=== PATIENT | male | born 1935 | race Caucasian/White ===

== ENCOUNTER 2016-08-16 11:35 | Day surgery (SDC) | payer MEDICARE, OTHER ==
[~2016-08-16 11:35] MED LIST: Cefuroxime 10 MG/ML SYRINGE EYERT SCH; Lidocaine 1% PF 2 ML SDV INJECT SCH; Pilocarpine 4% Ophth Soln 15 ML Bot EYERT SCH; Tetracaine 0.5% 2 ML Bottle EYERT SCH
[2016-08-16] MEDS: Polymyxin B/Trimethoprim 10 ML Bottle EYERT SCH ×3 (12:56→14:36)
[2016-08-16] MEDS: Apraclonidine 0.5% Ophth Soln 5 ML Bot EYERT SCH ×3 (13:01→14:36)
[2016-08-16] MEDS: Phenylephrine 2.5% Ophth Soln 2 ML Bot EYERT SCH ×5 (13:06→14:20)
--- NOTE | 2016-08-16 13:29 | PCM.PREANE ---
Preanesthetic Assessment - Anesthesia/Transfusion/Family Hx Anesthesia History: Prior Anesthesia Without Reaction Family History of Anesthesia Reaction: No Transfusion History: No Prior Transfusion(s) Intubation History: Unknown - Review of Systems General: No Symptoms Pulmonary: Shortness of Breath (pulmonary fibrosis ) Cardiovascular: No Symptoms Gastrointestinal: No symptoms Neurological: No Symptoms Other: Reports: Easy Bleeding, Easy Bruising (on an anticogulant ) - Physical Assessment NPO Status Date: 08/16/16 NPO Status Time: 06:00 O2 Sat by Pulse Oximetry: 99 Respiratory Rate: 16 Vital Signs: Last Vital Signs Temp 36.3 C 08/16/16 12:40 Pulse 68 08/16/16 12:40 Resp 16 08/16/16 12:40 BP 124/70 08/16/16 12:40 Pulse Ox 99 08/16/16 12:40 Height: 1.73 m Weight: 83.915 kg ASA Class: 3 Mental Status: Alert & Oriented x3 Airway Class: Mallampati = 1 Dentition: Reports: Normal Dentition Thyro-Mental Finger Breadths: 3 Mouth Opening Finger Breadths: 5 ROM/Head Extension: Limited/Partial (arthritis) Lungs: Clear to auscultation (and diminished ), Normal respiratory effort Cardiovascular: Regular Rate, Regular Rhythm - Allergies Allergies/Adverse Reactions: Allergies Allergy/AdvReac Type Severity Reaction Status Date / Time niacin Allergy Cannot Verified 08/15/16 13:52 Remember - Blood Blood Available: No - Anesthesia Plan Pre-Op Medication Ordered: None Beta Grecia: Metoprolol Med Last Dose Date: 08/15/16 Med Last Dose Time: 22:00 - Acknowledgements Anesthesia Type Planned: MAC Pt an Appropriate Candidate for the Planned Anesthesia: Yes Alternatives and Risks of Anesthesia Discussed w Pt/Guardian: Yes Pt/Guardian Understands and Agrees with Anesthesia Plan: Yes PreAnesthesia Questionnaire HEENT History: Reports: Impaired vision Cardiovascular History: Reports: High cholesterol, [place] (20 years ago, 2 stents placed) Respiratory History: Reports: Pulmonary fibrosis Gastrointestinal History: Reports: None Genitourinary History: Reports: None Musculoskeletal History: Reports: Arthritis Endocrine/Metabolic History: Reports: Diabetes, type II - Infectious Disease History Infectious Disease History: Reports: None - HOME MEDS Home Medications: Home Meds Albuterol Sulfate 1 dose NEB Q4H PRN 08/15/16 [History] Aspirin 81 mg PO DAILY 08/15/16 [History] Cholecalciferol (Vitamin D3) [Vitamin D3] 2,000 unit PO DAILY 08/15/16 [History] Ezetimibe [Zetia] 10 mg PO DAILY 08/15/16 [History] Fesoterodine Fumarate [Toviaz] 8 mg PO DAILY 08/15/16 [History] Insulin Glarg,Human.Rec.Analog [LantUS Solostar] 10 units SQ BEDTIME 08/15/16 [ History] Levothyroxine 25 mcg PO DAILY 08/15/16 [History] Meloxicam 15 mg PO DAILY 08/15/16 [History] Methylcellulose [Citrucel] 1 dose PO DAILY PRN 08/15/16 [History] Metoprolol Succinate 50 mg PO DAILY 08/15/16 [History] Multivitamin [Multivitamins] 1 tab PO DAILY 08/15/16 [History] Nystatin 500,000 unit PO ASDIRECTED PRN 08/15/16 [History] Simvastatin [Zocor] 20 mg PO DAILY 08/15/16 [History] Triamcinolone Acetonide [IJP: Triamcinolone Acetonide 0.1% Crm] 1 applic TOP ASDIRECTED PRN 08/15/16 [History] glipiZIDE [Glipizide] 10 mg PO DAILY 08/15/16 [History] guaiFENesin [Guaifenesin] 200 mg PO Q6H PRN 08/15/16 [History] metFORMIN HCl [Metformin HCl] 1,000 mg PO BID 08/15/16 [History] - CURRENT (IN HOUSE) MEDS Current Meds: Current Medications Apraclonidine HCl (Iopidine 0.5% Ophth Soln) 0 ml EYERT ASDIRECTED CHITRA Stop: 08/16/16 18:00 Last Admin: 08/16/16 13:01 Dose: 1 drop Cefuroxime Sodium (Zinacef) 0 mg EYERT ASDIRECTED CHITRA Stop: 08/16/16 18:00 Lidocaine HCl (Xylocaine-Mpf 1%) 2 ml INJECT ASDIRECTED CHITRA Stop: 08/16/16 18:00 Phenylephrine HCl (Thai-Synephrine 2.5% Ophth Soln) 0 ml EYERT ASDIRECTED CHITRA Stop: 08/16/16 18:00 Last Admin: 08/16/16 13:16 Dose: 1 drop Pilocarpine HCl (Pilocar 4% Ophth Soln) 0 ml EYERT ASDIRECTED CHITRA Stop: 08/16/16 18:00 Polymyxin/Trimethoprim Sulfate (Polytrim Ophth Soln) 0 ml EYERT ASDIRECTED CHITRA Stop: 08/16/16 18:00 Last Admin: 08/16/16 12:56 Dose: 1 drop Proparacaine HCl (Proparacaine 0.5% Ophth Soln) 0 ml EYEBOTH ASDIRECTED CHITRA Stop: 08/16/16 18:00 Tetracaine (Pontocaine 0.5% Ophth Drops) 0 ml EYERT ASDIRECTED CHITRA Stop: 08/16/16 18:00 Tropicamide (Mydriacyl 1% Ophth Soln) 0 ml EYERT ASDIRECTED CHITRA Stop: 08/16/16 18:00 Last Admin: 08/16/16 13:10 Dose: 1 drop Preanesthetic Assessment - PHYSICAL ASSESSMENT O2 Sat by Pulse Oximetry: 99 RR: 16 Vital Signs: Last Vital Signs Temp 36.3 C 08/16/16 12:40 Pulse 68 08/16/16 12:40 Resp 16 08/16/16 12:40 BP 124/70 08/16/16 12:40 Pulse Ox 99 08/16/16 12:40 Height: 1.73 m Weight: 83.915 kg NPO Status Date: 08/16/16 NPO Status Time: 06:00 - ALLERGIES Allergies/Adverse Reactions: Allergies Allergy/AdvReac Type Severity Reaction Status Date / Time niacin Allergy Cannot Verified 08/15/16 13:52 Remember
[2016-08-16] MEDS: Proparacaine 0.5% Ophth Soln 15 ML Bottle EYEBOTH SCH ×2 (14:10→14:36)
--- NOTE | 2016-08-16 14:38 | PCM48HPAN ---
Post Anesthesia Note - EVALUATION WITHIN 48HRS OF ANESTHETIC Vital Signs in Normal Range: Yes Patient Participated in Evaluation: Yes Respiratory Function Stable: Yes Airway Patent: Yes Cardiovascular Function Stable: Yes Hydration Status Stable: Yes Pain Control Satisfactory: Yes Nausea and Vomiting Control Satisfactory: Yes Mental Status Recovered: Yes
[2016-08-16 14:57] VITALS: BP 109/83
== END 2016-08-16 14:52 | disposition home or self-care (01) ==
LOC: JD.SDS 11:35
PROVIDERS: ATTEND Ophthalmology
DX: H26.9 Unspecified cataract (principal); E78.00 Pure hypercholesterolemia, unspecified; E11.9 Type 2 diabetes mellitus without complications; Z79.4 Long term (current) use of insulin; Z98.890 Other specified postprocedural states; Z96.649 Presence of unspecified artificial hip joint; Z79.82 Long term (current) use of aspirin; Z79.899 Other long term (current) drug therapy
CPT/HCPCS: 66984; A9270; J0697; C1780

== ENCOUNTER 2016-09-13 10:25 | Day surgery (SDC) | payer MEDICARE, OTHER ==
[2016-09-13] MEDS: Polymyxin B/Trimethoprim 10 ML Bottle EYELF SCH ×4 (11:14→12:46)
[2016-09-13] MEDS: Brimonidine 0.2% Ophth Soln 5 ML Bottle EYELF SCH ×4 (11:19→12:46)
[2016-09-13] MEDS: Phenylephrine 2.5% Ophth Soln 2 ML Bot EYELF SCH ×6 (11:24→12:33)
--- NOTE | 2016-09-13 11:37 | PCM.PREANE ---
Preanesthetic Assessment - Anesthesia/Transfusion/Family Hx Anesthesia History: Prior Anesthesia Without Reaction Family History of Anesthesia Reaction: No Transfusion History: No Prior Transfusion(s) Intubation History: Unknown - Review of Systems General: No Symptoms Pulmonary: Shortness of Breath (due to bronchial fibrosis) Cardiovascular: No Symptoms Gastrointestinal: No symptoms Neurological: No Symptoms Other: Reports: Diabetes, Thyroid Problems - Physical Assessment NPO Status Date: 09/12/16 NPO Status Time: 22:00 O2 Sat by Pulse Oximetry: 99 Respiratory Rate: 16 Vital Signs: Last Vital Signs Temp 36.3 C 09/13/16 11:05 Pulse 78 09/13/16 11:05 Resp 16 09/13/16 11:05 BP 123/65 09/13/16 11:05 Pulse Ox 99 09/13/16 11:05 Height: 1.73 m Weight: 83.915 kg ASA Class: 2 Mental Status: Alert & Oriented x3 Airway Class: Mallampati = 1 Dentition: Reports: Normal Dentition Thyro-Mental Finger Breadths: 3 Mouth Opening Finger Breadths: 3 ROM/Head Extension: Full Lungs: Normal respiratory effort, Crackles (RLL inspiratory) Cardiovascular: Regular Rate, Regular Rhythm - Allergies Allergies/Adverse Reactions: Allergies Allergy/AdvReac Type Severity Reaction Status Date / Time niacin Allergy Cannot Verified 09/12/16 14:05 Remember - Acknowledgements Anesthesia Type Planned: MAC Pt an Appropriate Candidate for the Planned Anesthesia: Yes Alternatives and Risks of Anesthesia Discussed w Pt/Guardian: Yes Pt/Guardian Understands and Agrees with Anesthesia Plan: Yes PreAnesthesia Questionnaire HEENT History: Reports: Impaired vision Cardiovascular History: Reports: High cholesterol, [place] (20 years ago, 2 stents placed) Respiratory History: Reports: Pulmonary fibrosis (pt states had stem cell procedure about a month ago-less SOB with exertion now) Gastrointestinal History: Reports: None Genitourinary History: Reports: None Musculoskeletal History: Reports: Arthritis Neurological History: Reports: None Psychiatric History: Reports: None Endocrine/Metabolic History: Reports: Diabetes, type II, Hypothyroidism Hematologic History: Reports: None Immunologic History: Reports: None Oncologic (Cancer) History: Reports: None Dermatologic History: Reports: None - Infectious Disease History Infectious Disease History: Reports: None - Past Surgical History Head Surgeries/Procedures: Reports: None HEENT Surgical History: Reports: Tonsillectomy Cardiovascular Surgical History: Reports: None, Coronary artery stent Respiratory Surgical History: Reports: None GI Surgical History: Reports: Colonoscopy, Hernia, inguinal, Heather fundoplication Female Surgical History: Reports: None Male Surgical History: Reports: None Endocrine Surgical History: Reports: None Neurological Surgical History: Reports: Lumbar spine, Other (see below) Musculoskeletal Surgical History: Reports: Hip replacement, Shoulder surgery Oncologic Surgical History: Reports: None Dermatological Surgical History: Reports: None (no anesthetic compications with any procedures) - SUBSTANCE USE Smoking Status *Q: Never Smoker - HOME MEDS Home Medications: Home Meds Albuterol Sulfate 1 dose NEB Q4H PRN 08/15/16 [History] Aspirin 81 mg PO DAILY 08/15/16 [History] Cholecalciferol (Vitamin D3) [Vitamin D3] 2,000 unit PO DAILY 08/15/16 [History] Ezetimibe [Zetia] 10 mg PO DAILY 08/15/16 [History] Fesoterodine Fumarate [Toviaz] 8 mg PO DAILY 08/15/16 [History] Insulin Glarg,Human.Rec.Analog [LantUS Solostar] 10 units SQ BEDTIME 08/15/16 [ History] Levothyroxine 25 mcg PO DAILY 08/15/16 [History] Meloxicam 15 mg PO DAILY 08/15/16 [History] Methylcellulose [Citrucel] 1 dose PO DAILY PRN 08/15/16 [History] Metoprolol Succinate 50 mg PO DAILY 08/15/16 [History] Multivitamin [Multivitamins] 1 tab PO DAILY 08/15/16 [History] Nystatin 500,000 unit PO ASDIRECTED PRN 08/15/16 [History] Simvastatin [Zocor] 20 mg PO DAILY 08/15/16 [History] Triamcinolone Acetonide [IJP: Triamcinolone Acetonide 0.1% Crm] 1 applic TOP ASDIRECTED PRN 08/15/16 [History] glipiZIDE [Glipizide] 10 mg PO DAILY 08/15/16 [History] guaiFENesin [Guaifenesin] 200 mg PO Q6H PRN 08/15/16 [History] metFORMIN HCl [Metformin HCl] 1,000 mg PO BID 08/15/16 [History] - CURRENT (IN HOUSE) MEDS Current Meds: Current Medications Brimonidine Tartrate (Alphagan 0.2% Ophth Soln) 0 ml EYELF ASDIRECTED CHITRA Stop: 09/13/16 18:00 Last Admin: 09/13/16 11:19 Dose: 1 drop Cefuroxime Sodium (Zinacef) 0 mg EYELF ASDIRECTED CHITRA Stop: 09/13/16 18:00 Lidocaine HCl (Xylocaine-Mpf 1%) 1 ml INJECT ASDIRECTED CHITRA Stop: 09/13/16 18:00 Phenylephrine HCl (Thai-Synephrine 2.5% Ophth Soln) 0 ml EYELF ASDIRECTED CHITRA Stop: 09/13/16 18:00 Last Admin: 09/13/16 11:24 Dose: 1 drop Pilocarpine HCl (Pilocar 4% Ophth Soln) 0 ml EYELF ASDIRECTED CHITRA Stop: 09/13/16 18:00 Polymyxin/Trimethoprim Sulfate (Polytrim Ophth Soln) 0 ml EYELF ASDIRECTED CHITRA Stop: 09/13/16 18:00 Last Admin: 09/13/16 11:14 Dose: 1 drop Proparacaine HCl (Proparacaine 0.5% Ophth Soln) 0 ml EYEBOTH ASDIRECTED CHITRA Stop: 09/13/16 18:00 Tetracaine (Pontocaine 0.5% Ophth Drops) 0 ml EYELF ASDIRECTED CHITRA Stop: 09/13/16 18:00 Tropicamide (Mydriacyl 1% Ophth Soln) 0 ml EYELF ASDIRECTED CHITRA Stop: 09/13/16 18:00 Last Admin: 09/13/16 11:29 Dose: 1 drop
[2016-09-13] MEDS: Lidocaine 1% PF 2 ML SDV INJECT SCH ×2 (12:19→12:38)
[2016-09-13] MEDS: Cefuroxime 10 MG/ML SYRINGE EYELF SCH ×2 (12:19→12:44)
[2016-09-13] MEDS: Tetracaine 0.5% 2 ML Bottle EYELF SCH ×2 (12:19→12:38)
[2016-09-13] MEDS: Pilocarpine 4% Ophth Soln 15 ML Bot EYELF SCH ×2 (12:20→12:46)
[2016-09-13] MEDS: Proparacaine 0.5% Ophth Soln 15 ML Bottle EYEBOTH SCH ×3 (12:20→12:30)
[2016-09-13 13:05] VITALS: BP 115/62
== END 2016-09-13 13:02 | disposition home or self-care (01) ==
LOC: JD.SDS 10:25
PROVIDERS: ATTEND Ophthalmology
DX: H26.9 Unspecified cataract (principal); E78.00 Pure hypercholesterolemia, unspecified; E11.9 Type 2 diabetes mellitus without complications; Z96.649 Presence of unspecified artificial hip joint; Z98.890 Other specified postprocedural states; Z79.82 Long term (current) use of aspirin; Z79.899 Other long term (current) drug therapy; Z79.84 Long term (current) use of oral hypoglycemic drugs
CPT/HCPCS: 66984; A9270; C1780; J0697

== ENCOUNTER 2018-01-27 23:49 | Emergency (ER) | payer OTHER, MEDICARE ==
[2018-01-27] MEDS ORDERED: Sodium Chloride 0.9% 10 ML Syringe FLUSH PRN (23:54)
--- NOTE | 2018-01-28 00:13 | EDM.PDOC ---
ED HPI GENERAL MEDICAL PROBLEM - General Chief Complaint: Abdominal Pain Stated Complaint: tal ambulance Time Seen by Provider: 01/27/18 23:52 Source of Information: Reports: Patient, EMS, EMS Notes Reviewed, Old Records History Limitations: Reports: No Limitations - History of Present Illness INITIAL COMMENTS - FREE TEXT/NARRATIVE: Patient presents with increasing abdominal distention and nausea associated with dark black stools. He had onset of symptoms apparently 4 days ago Monday where he noted some loose stool sometimes black associated with gas and bloated feeling. Denies any fevers chills or sweats. No vomiting noted. Does have cough however he has a history of interstitial lung disease. No chest pain or shortness of breath noted. Started have more intermittent pain and tonight excessive belching but also passing gas through his rectum. Family got the point where he really wasn't passing gas and having increasing abdominal bloating and distention and called 911 tonight. He seemed to make the pain better or worse he had a hernia repair he denies any other abdominal surgeries. He does have a history of coronary disease and has had 2 stents placed in the past. He is an insulin-dependent diabetic and his prehospital blood sugar was 260 he takes aspirin regularly but is not on any blood thinners/anticoagulants. Abdomen Pain Score (Numeric/FACES): 8 - Related Data Allergies Allergy/AdvReac Type Severity Reaction Status Date / Time niacin Allergy Cannot Verified 09/12/16 14:05 MDT Remember [id number] Reductase Allergy Other Verified 01/27/18 23:59 MDT Inhibitor Home Meds: Home Meds Aspirin 81 mg PO DAILY 08/15/16 [History] Cholecalciferol (Vitamin D3) [Vitamin D3] 2,000 unit PO DAILY 08/15/16 [History] Ezetimibe [Zetia] 10 mg PO DAILY 08/15/16 [History] Fesoterodine Fumarate [Toviaz] 8 mg PO DAILY 08/15/16 [History] Insulin Glarg,Human.Rec.Analog [LantUS Solostar] 12 units SQ BEDTIME 08/15/16 [ History] Levothyroxine 50 mcg PO DAILY 08/15/16 [History] Metoprolol Succinate 25 mg PO DAILY 08/15/16 [History] Multivitamin [Multivitamins] 1 tab PO DAILY 08/15/16 [History] Nystatin 2 tsp PO ASDIRECTED PRN 08/15/16 [History] Triamcinolone Acetonide [IJP: Triamcinolone Acetonide 0.1% Crm] 1 applic TOP ASDIRECTED PRN 08/15/16 [History] glipiZIDE [Glipizide] 5 mg PO BID 08/15/16 [History] guaiFENesin [Guaifenesin] 200 mg PO Q6H PRN 08/15/16 [History] Albuterol Sulfate [Proair Hfa] 2 puff IH QID PRN 01/28/18 [History] Rosuvastatin [Crestor] 10 mg PO DAILY 01/28/18 [History] Past Medical History HEENT History: Reports: Impaired Vision Cardiovascular History: Reports: High Cholesterol, Hypertension, OR Respiratory History: Reports: Pulmonary Fibrosis Gastrointestinal History: Reports: Diverticulosis, GI Bleed Genitourinary History: Reports: Urinary Incontinence Musculoskeletal History: Reports: Arthritis Neurological History: Reports: None Psychiatric History: Reports: None Endocrine/Metabolic History: Reports: Diabetes, Type II, Hypothyroidism Hematologic History: Reports: None Immunologic History: Reports: None Oncologic (Cancer) History: Reports: None Dermatologic History: Reports: None - Infectious Disease History Infectious Disease History: Reports: None - Past Surgical History Head Surgeries/Procedures: Reports: None Cardiovascular Surgical History: Reports: None, Coronary Artery Stent GI Surgical History: Reports: Colonoscopy, Hernia, Inguinal, Heather Fundoplication Male Surgical History: Reports: None Neurological Surgical History: Reports: Lumbar Spine, Other (See Below) Musculoskeletal Surgical History: Reports: Hip Replacement, Shoulder Surgery Oncologic Surgical History: Reports: None Dermatological Surgical History: Reports: None Social & Family History - Family History Family Medical History: Noncontributory - Tobacco Use Smoking Status *Q: Never Smoker - Living Situation & Occupation Occupation: Retired ED ROS GENERAL - Review of Systems Review Of Systems: See Below Constitutional: Denies: Fever, Chills, Diaphoresis Respiratory: Reports: Cough, Sputum. Denies: Shortness of Breath, Hemoptysis Cardiovascular: Denies: Chest Pain, Dyspnea on Exertion, Palpitations GI/Abdominal: Reports: Abdominal Pain, Black Stool, Diarrhea, Decreased Appetite , Flatus, Nausea. Denies: Bloody Stool, Hematemesis, Vomiting : Denies: Dysuria, Flank Pain, Urgency Skin: Denies: Rash Neurological: Denies: Dizziness, Headache Psychiatric: Denies: Anxiety ED EXAM, GI/ABD - Physical Exam Exam: See Below Exam Limited By: No Limitations General Appearance: Alert, WD/WN, No Apparent Distress Throat/Mouth: Normal Inspection, Normal Oropharynx Head: Atraumatic Respiratory/Chest: Lungs Clear, Normal Breath Sounds, No Accessory Muscle Use Cardiovascular: Regular Rate, Rhythm, No Edema, No Murmur GI/Abdominal Exam: Abnormal Bowel Sounds, Other (Patient has markedly abdominal distention. His bowel sounds are hypoactive. His abdomen is firm but not tense, tenderness is mostly loud and left lower quadrant, no scars noted, no flank pain noted.). No: Rebound Extremities: Normal Inspection Neurological: Alert, Oriented Psychiatric: Normal Affect, Normal Mood Skin Exam: Warm, Dry EKG INTERPRETATION EKG Date: 01/28/18 Time: 00:23 EKG Interpretation Comments: EKG shows sinus tachycardia rate of 106 when necessary 460 ms QRS is 84 ms no acute ischemic changes noted. No acute findings noted Course - Vital Signs Text/Narrative:: Patient with increasing abdominal distention and firm abdomen not tense, no rebound tenderness. Patient has a history of a Oj fundoplication and a history of acid reflux disease, never had a history of any bleeding ulcers. He has lost his appetite, has had black stool will rule out for Hemoccult testing for GI bleeding. May be diverticulitis, rule out bowel obstruction, less likely AAA, seemed less likely acute coronary syndrome. Rule out for urinary tract infection, doubt mesenteric ischemia. We'll send patient for CT abdomen and pelvis with IV contrast, hydrated gently, patient declines any pain medicine at present. Last Recorded V/S: Last Vital Signs Temp 96.6 F 01/27/18 23:55 MDT Pulse 106 H 01/27/18 23:55 MDT Resp 18 01/27/18 23:55 MDT BP 143/80 H 01/27/18 23:55 MDT Pulse Ox 99 01/27/18 23:55 MDT - Orders/Labs/Meds Orders: Active Orders 24 hr Category Date Time Status EKG Documentation Completion [RC] STAT Care 01/27/18 23:54 Active Notify Provider Consults [RC] ASDIRECTED Care 01/28/18 01:29 Active Peripheral IV Care [RC] . DIRECTED Care 01/27/18 23:55 Active Consult to Physician [CONS] Stat Cons 01/28/18 01:27 Active Abdomen Pelvis wo Cont [CT] Stat Exams 01/27/18 23:53 Taken UA W/MICROSCOPIC [URIN] Stat Lab 01/28/18 03:50 Ordered Sodium Chloride 0.9% [Saline Flush] Med 01/27/18 23:54 Active 10 ml FLUSH ASDIRECTED PRN NG [Nasogastric Orogastric Tube Insertion] [OM.PC] Oth 01/28/18 01:29 Ordered Routine Peripheral IV Insertion Adult [OM.PC] Stat Oth 01/27/18 23:53 Ordered Medication Orders Sodium Chloride (Saline Flush) 10 ml FLUSH ASDIRECTED PRN PRN Reason: Keep Vein Open Last Admin: 01/28/18 00:07 MDT Dose: 10 ml Labs: Laboratory Tests 01/27/18 01/27/18 01/27/18 Range/Units 23:55 MDT 23:55 MDT 23:55 MDT WBC 13.67 H (4.23-9.07) K/mm3 RBC 4.35 L (4.63-6.08) M/mm3 Hgb 13.1 L (13.7-17.5) gm/L Hct 39.3 L (40.1-51.0) % MCV 90.3 (79.0-92.2) fl MCH 30.1 (25.7-32.2) pg MCHC 33.3 (32.2-35.5) g/dl RDW Std Deviation 45.3 H (35.1-43.9) fL Plt Count 254 (163-337) K/mm3 MPV 9.0 L (9.4-12.3) fl Neut % (Auto) 74.2 H (34.0-67.9) % Lymph % (Auto) 15.8 L (21.8-53.1) % Hubbard % (Auto) 8.6 (5.3-12.2) % Eos % (Auto) 1.0 (0.8-7.0) Baso % (Auto) 0.1 (0.1-1.2) % Neut # (Auto) 10.14 H (1.78-5.38) K/mm3 Lymph # (Auto) 2.16 (1.32-3.57) K/mm3 Hubbard # (Auto) 1.17 H (0.30-0.82) K/mm3 Eos # (Auto) 0.14 (0.04-0.54) K/mm3 Baso # (Auto) 0.02 (0.01-0.08) K/mm3 Sodium 134 L (136-145) mEq/L Potassium 4.4 (3.5-5.1) mEq/L Chloride 97 L (98-107) mEq/L Carbon Dioxide 23 (21-32) mEq/L Anion Gap 18.4 H (5-15) BUN 32 H (7-18) mg/dL Creatinine 1.8 H (0.7-1.3) mg/dL Est Cr Clr Drug Dosing 29.56 mL/min Estimated GFR (MDRD) 36 (>60) mL/min BUN/Creatinine Ratio 17.8 (14-18) Glucose 239 H (83-115) mg/dL Lactic Acid (0.4-2.0) mmol/L Calcium 9.5 (8.5-10.1) mg/dL Total Bilirubin 0.6 (0.2-1.0) mg/dL AST 24 (15-37) U/L ALT 35 (16-63) U/L Alkaline Phosphatase 86 (46-116) U/L Total Protein 8.3 H (6.4-8.2) g/dl Albumin 3.9 (3.4-5.0) g/dl Globulin 4.4 gm/dL Albumin/Globulin Ratio 0.9 L (1-2) Lipase 94 (73-393) U/L Urine Color (Yellow) Urine Appearance (Clear) Urine pH (5.0-8.0) Ur Specific [place] (1.005-1.030) Urine Protein (Negative) Urine Glucose (UA) (Negative) Urine Ketones (Negative) Urine Occult Blood (Negative) Urine Nitrite (Negative) Urine Bilirubin (Negative) Urine Urobilinogen (0.2-1.0) Ur Leukocyte Esterase (Negative) Blood Type B POSITIVE Gel Antibody Screen Negative 01/28/18 01/28/18 Range/Units 00:10 MDT 03:50 MDT WBC (4.23-9.07) K/mm3 RBC (4.63-6.08) M/mm3 Hgb (13.7-17.5) gm/L Hct (40.1-51.0) % MCV (79.0-92.2) fl MCH (25.7-32.2) pg MCHC (32.2-35.5) g/dl RDW Std Deviation (35.1-43.9) fL Plt Count (163-337) K/mm3 MPV (9.4-12.3) fl Neut % (Auto) (34.0-67.9) % Lymph % (Auto) (21.8-53.1) % Hubbard % (Auto) (5.3-12.2) % Eos % (Auto) (0.8-7.0) Baso % (Auto) (0.1-1.2) % Neut # (Auto) (1.78-5.38) K/mm3 Lymph # (Auto) (1.32-3.57) K/mm3 Hubbard # (Auto) (0.30-0.82) K/mm3 Eos # (Auto) (0.04-0.54) K/mm3 Baso # (Auto) (0.01-0.08) K/mm3 Sodium (136-145) mEq/L Potassium (3.5-5.1) mEq/L Chloride (98-107) mEq/L Carbon Dioxide (21-32) mEq/L Anion Gap (5-15) BUN (7-18) mg/dL Creatinine (0.7-1.3) mg/dL Est Cr Clr Drug Dosing mL/min Estimated GFR (MDRD) (>60) mL/min BUN/Creatinine Ratio (14-18) Glucose (83-115) mg/dL Lactic Acid 1.0 (0.4-2.0) mmol/L Calcium (8.5-10.1) mg/dL Total Bilirubin (0.2-1.0) mg/dL AST (15-37) U/L ALT (16-63) U/L Alkaline Phosphatase (46-116) U/L Total Protein (6.4-8.2) g/dl Albumin (3.4-5.0) g/dl Globulin gm/dL Albumin/Globulin Ratio (1-2) Lipase (73-393) U/L Urine Color Yellow (Yellow) Urine Appearance Clear (Clear) Urine pH 5.5 (5.0-8.0) Ur Specific [place] 1.025 (1.005-1.030) Urine Protein Negative (Negative) Urine Glucose (UA) Negative (Negative) Urine Ketones Negative (Negative) Urine Occult Blood Negative (Negative) Urine Nitrite Negative (Negative) Urine Bilirubin Negative (Negative) Urine Urobilinogen 0.2 (0.2-1.0) Ur Leukocyte Esterase Negative (Negative) Blood Type Gel Antibody Screen Meds: Medications Generic Name Dose Route Start Last Admin Trade Name Freq PRN Reason Stop Dose Admin Sodium Chloride 10 ml 01/27/18 23:54 MDT 01/28/18 00:07 MDT Saline Flush FLUSH 10 ml ASDIRECTED PRN Administration Keep Vein Open Discontinued Medications Generic Name Dose Route Start Last Admin Trade Name Freq PRN Reason Stop Dose Admin Sodium Chloride 500 mls @ 250 mls/hr 01/28/18 00:14 MDT 01/28/18 00:28 MDT Normal Saline IV 01/28/18 02:13 MDT 250 mls/hr .BOLUS ONE Administration Lidocaine HCl Confirm 01/28/18 01:17 MDT 01/28/18 02:04 MDT Xylocaine 2% Jelly Administered 01/28/18 01:18 MDT Not Given Dose 10 ml .ROUTE .STK-MED ONE Lidocaine HCl 10 ml 01/28/18 01:48 MDT 01/28/18 02:04 MDT Xylocaine 2% Jelly MUCMEM 01/28/18 01:49 MDT 10 ml ONETIME ONE Administration Morphine Sulfate 4 mg 01/28/18 00:21 MDT 01/28/18 00:30 MDT Morphine IVPUSH 01/28/18 00:22 MDT 4 mg ONETIME ONE Administration Ondansetron HCl 4 mg 01/28/18 00:21 MDT 01/28/18 00:29 MDT Zofran IVPUSH 01/28/18 00:22 MDT 4 mg ONETIME ONE Administration - Radiology Interpretation CT Results Date: 01/28/18 (V read report that demonstrates a high-grade small bowel obstruction likely from adhesions. Many markedly dilated small loops of bowel with air-fluid levels distal ileum is decompressed no mucosal thickening) - Re-Assessments/Exams Free Text/Narrative Re-Assessment/Exam: 01/28/18 01:34 NG placed and began some upper decompression on lower intermittent suction. Discussed case with Dr. Kirkland senior manager asset protection for general surgery OB and evaluated with patient.. Patient does have comorbidities and may best be sent to a higher level of care in [place]. His white count is 13,700, hemoglobin of is stable, creatinine is 1.8, history of interstitial lung disease and history of coronary disease with stents in the past. Free Text/Narrative Re-Assessment/Exam: 01/28/18 03:29 Patient seen and evaluated by Dr. Busby and he recommends patient transferred to higher level care as patient if he would have more claudications requiring surgery would be high risk especially in the small facility without cardiology and pulmonology as well as a intensive care unit capable of postop care for such a procedure. I discussed case with Dr. Maldonado senior manager asset protection for general surgery at [facility] in [place] as well as the hospitalist Dr. Lynn who will be accepting the patient in transfer by ground ambulance. Patient and family are in agreement. Departure - Departure Time of Disposition: 03:31 Disposition: Still A Patient 30 Condition: Fair, Serious Clinical Impression: Small bowel obstruction due to adhesions - Discharge Information Referrals: Natasha Brooks MD [Primary Care Provider] - Forms: ED Department Discharge - My Orders Last 24 Hours: My Active Orders 01/27/18 23:53 Abdomen Pelvis wo Cont [CT] Stat Peripheral IV Insertion Adult [OM.PC] Stat 01/27/18 23:54 EKG Documentation Completion [RC] STAT Sodium Chloride 0.9% [Saline Flush] 10 ml FLUSH ASDIRECTED PRN 01/27/18 23:55 Peripheral IV Care [RC] . DIRECTED 01/28/18 01:27 Consult to Physician [CONS] Stat 01/28/18 01:29 Notify Provider Consults [RC] ASDIRECTED NG [Nasogastric Orogastric Tube Insertion] [OM.PC] Routine 01/28/18 03:50 UA W/MICROSCOPIC [URIN] Stat - Assessment/Plan Last 24 Hours: My Active Orders 01/27/18 23:53 Abdomen Pelvis wo Cont [CT] Stat Peripheral IV Insertion Adult [OM.PC] Stat 01/27/18 23:54 EKG Documentation Completion [RC] STAT Sodium Chloride 0.9% [Saline Flush] 10 ml FLUSH ASDIRECTED PRN 01/27/18 23:55 Peripheral IV Care [RC] . DIRECTED 01/28/18 01:27 Consult to Physician [CONS] Stat 01/28/18 01:29 Notify Provider Consults [RC] ASDIRECTED NG [Nasogastric Orogastric Tube Insertion] [OM.PC] Routine 01/28/18 03:50 UA W/MICROSCOPIC [URIN] Stat
[2018-01-28] MEDS ORDERED: Sodium Chloride 0.9% 500 ML IV ONE (00:14)
[2018-01-28] MEDS ORDERED: Morphine 4 MG/ML Syringe IVPUSH ONE (00:21)
[2018-01-28] MEDS ORDERED: Ondansetron 4 MG/2 ML SDV IVPUSH ONE (00:21)
[2018-01-28] MEDS ORDERED: Lidocaine 2% Jelly 10 ML Urojet ONE (01:17)
[2018-01-28] MEDS ORDERED: Lidocaine 2% Jelly 10 ML Urojet MUCMEM ONE (01:48)
--- NOTE | 2018-01-28 02:58 | PCM.CONS ---
H&P History of Present Illness - General Date of Service: 01/28/18 Admit Problem/Dx: small bowel obstruction Source of Information: Patient, Old Records History Limitations: Reports: No Limitations - History of Present Illness Initial Comments - Free Text/Narative: 82 yo male, history of multiple chronic medical problems and prior abdominal surgery, presents with increasing abdominal distention for the past 5 days. The distention was associated with abdominal pain, which would relieve with passage of flatus. He denies nausea/emesis. Prior to this episode, patient reports intermittent having similar sensation, but it would relieve quickly with passage of flatus. He also reports black stool for the past 5 days. Reports an unintentional weight loss of about 6 lbs in the past 6 months, attributed to poor appetite. His last meal was 10 hours ago, but it was only a few bites. He had a Hetaher fundoplication about 20 years ago at another hospital. He also had a prior inguinal hernia repair. Patient has a history of interstitial pulmonary fibrosis, which was attributed to chemical exposure during his time in the [employer] many years ago. He is unable to perform much physical activity due to dyspnea. Unable to walk up one flight of stairs without dyspnea. Patient was present with his , son, and his son's (who is an RN). Abdomen Pain Score (Numeric/FACES): 8 - Related Data Allergies/Adverse Reactions: Allergies Allergy/AdvReac Type Severity Reaction Status Date / Time niacin Allergy Cannot Verified 09/12/16 14:05 Remember [id number] Reductase Allergy Other Verified 01/27/18 23:59 Inhibitor Home Medications: Home Meds Aspirin 81 mg PO DAILY 08/15/16 [History] Cholecalciferol (Vitamin D3) [Vitamin D3] 2,000 unit PO DAILY 08/15/16 [History] Ezetimibe [Zetia] 10 mg PO DAILY 08/15/16 [History] Fesoterodine Fumarate [Toviaz] 8 mg PO DAILY 08/15/16 [History] Insulin Glarg,Human.Rec.Analog [LantUS Solostar] 12 units SQ BEDTIME 08/15/16 [ History] Levothyroxine 50 mcg PO DAILY 08/15/16 [History] Metoprolol Succinate 25 mg PO DAILY 08/15/16 [History] Multivitamin [Multivitamins] 1 tab PO DAILY 08/15/16 [History] Nystatin 2 tsp PO ASDIRECTED PRN 08/15/16 [History] Triamcinolone Acetonide [IJP: Triamcinolone Acetonide 0.1% Crm] 1 applic TOP ASDIRECTED PRN 08/15/16 [History] glipiZIDE [Glipizide] 5 mg PO BID 08/15/16 [History] guaiFENesin [Guaifenesin] 200 mg PO Q6H PRN 08/15/16 [History] Albuterol Sulfate [Proair Hfa] 2 puff IH QID PRN 01/28/18 [History] Rosuvastatin [Crestor] 10 mg PO DAILY 01/28/18 [History] Past Medical History HEENT History: Reports: Impaired Vision Cardiovascular History: Reports: High Cholesterol, Hypertension, ME (s/p coronary stents (25 years ago)), Stents Respiratory History: Reports: Pulmonary Fibrosis (recent PFT showed moderate severe obstructive disease) Gastrointestinal History: Reports: Diverticulosis, GI Bleed Genitourinary History: Reports: Urinary Incontinence Musculoskeletal History: Reports: Arthritis Neurological History: Reports: None Psychiatric History: Reports: None Endocrine/Metabolic History: Reports: Diabetes, Type II (insulin-dependent), Hypothyroidism Hematologic History: Reports: None Immunologic History: Reports: None Oncologic (Cancer) History: Reports: None Dermatologic History: Reports: None - Infectious Disease History Infectious Disease History: Reports: None - Past Surgical History Head Surgeries/Procedures: Reports: None Cardiovascular Surgical History: Reports: Coronary Artery Stent GI Surgical History: Reports: Colonoscopy, Hernia, Inguinal, Heather Fundoplication (laparoscopic) Male Surgical History: Reports: None Neurological Surgical History: Reports: Lumbar Spine, Other (See Below) Musculoskeletal Surgical History: Reports: Hip Replacement, Shoulder Surgery Oncologic Surgical History: Reports: None Dermatological Surgical History: Reports: None Social & Family History - Family History Family Medical History: Noncontributory - Tobacco Use Smoking Status *Q: Never Smoker - Alcohol Use Alcohol Use History: No - Recreational Drug Use Recreational Drug Use: No - Living Situation & Occupation Living situation: Reports: , with Family (Lives with ) Occupation: Retired H&P Review of Systems - Review of Systems: Review Of Systems: ROS reveals no pertinent complaints other than HPI. Exam - Exam Exam: See Below - Vital Signs Vital Signs: Last Vital Signs Temp 35.9 C 01/27/18 23:55 Pulse 106 H 01/27/18 23:55 Resp 18 01/27/18 23:55 BP 143/80 H 01/27/18 23:55 Pulse Ox 99 01/27/18 23:55 Weight: 83.915 kg - Exam General: Alert, Oriented, Cooperative. No: Mild Distress HEENT: Conjunctiva Clear, Mucosa Moist & [place], Other (NG tube in place, with 400 cc thick bilious fluid in the canister.) Neck: Supple, Trachea Midline Lungs: Clear to Auscultation Cardiovascular: Regular Rhythm, Normal S1, Normal S2, Tachycardia GI/Abdominal Exam: Normal Bowel Sounds, Distended, Tender (Tender all over the abdomen, especially to the central portion. NO skin changes. NO peritoneal signs.), Hernia (No umbilical or inguinal hernias. No ventral hernias.) Extremities: Normal Inspection Skin: Warm, Dry, Intact Neuro Extensive - Mental Status: Alert, Normal Mood/Affect Psychiatric: Alert, Normal Affect, Normal Mood - Patient Data Lab Results Last 24 hrs: Laboratory Results - last 24 hr 01/27/18 01/27/18 01/27/18 Range/Units 23:55 23:55 23:55 WBC 13.67 H (4.23-9.07) K/mm3 RBC 4.35 L (4.63-6.08) M/mm3 Hgb 13.1 L (13.7-17.5) gm/L Hct 39.3 L (40.1-51.0) % MCV 90.3 (79.0-92.2) fl MCH 30.1 (25.7-32.2) pg MCHC 33.3 (32.2-35.5) g/dl RDW Std Deviation 45.3 H (35.1-43.9) fL Plt Count 254 (163-337) K/mm3 MPV 9.0 L (9.4-12.3) fl Neut % (Auto) 74.2 H (34.0-67.9) % Lymph % (Auto) 15.8 L (21.8-53.1) % [place] % (Auto) 8.6 (5.3-12.2) % Eos % (Auto) 1.0 (0.8-7.0) Baso % (Auto) 0.1 (0.1-1.2) % Neut # (Auto) 10.14 H (1.78-5.38) K/mm3 Lymph # (Auto) 2.16 (1.32-3.57) K/mm3 [place] # (Auto) 1.17 H (0.30-0.82) K/mm3 Eos # (Auto) 0.14 (0.04-0.54) K/mm3 Baso # (Auto) 0.02 (0.01-0.08) K/mm3 Sodium 134 L (136-145) mEq/L Potassium 4.4 (3.5-5.1) mEq/L Chloride 97 L (98-107) mEq/L Carbon Dioxide 23 (21-32) mEq/L Anion Gap 18.4 H (5-15) BUN 32 H (7-18) mg/dL Creatinine 1.8 H (0.7-1.3) mg/dL Est Cr Clr Drug Dosing 29.56 mL/min Estimated GFR (MDRD) 36 (>60) mL/min BUN/Creatinine Ratio 17.8 (14-18) Glucose 239 H (83-115) mg/dL Lactic Acid (0.4-2.0) mmol/L Calcium 9.5 (8.5-10.1) mg/dL Total Bilirubin 0.6 (0.2-1.0) mg/dL AST 24 (15-37) U/L ALT 35 (16-63) U/L Alkaline Phosphatase 86 (46-116) U/L Total Protein 8.3 H (6.4-8.2) g/dl Albumin 3.9 (3.4-5.0) g/dl Globulin 4.4 gm/dL Albumin/Globulin Ratio 0.9 L (1-2) Lipase 94 (73-393) U/L Blood Type B POSITIVE Gel Antibody Screen Negative 01/28/18 Range/Units 00:10 WBC (4.23-9.07) K/mm3 RBC (4.63-6.08) M/mm3 Hgb (13.7-17.5) gm/L Hct (40.1-51.0) % MCV (79.0-92.2) fl MCH (25.7-32.2) pg MCHC (32.2-35.5) g/dl RDW Std Deviation (35.1-43.9) fL Plt Count (163-337) K/mm3 MPV (9.4-12.3) fl Neut % (Auto) (34.0-67.9) % Lymph % (Auto) (21.8-53.1) % [place] % (Auto) (5.3-12.2) % Eos % (Auto) (0.8-7.0) Baso % (Auto) (0.1-1.2) % Neut # (Auto) (1.78-5.38) K/mm3 Lymph # (Auto) (1.32-3.57) K/mm3 [place] # (Auto) (0.30-0.82) K/mm3 Eos # (Auto) (0.04-0.54) K/mm3 Baso # (Auto) (0.01-0.08) K/mm3 Sodium (136-145) mEq/L Potassium (3.5-5.1) mEq/L Chloride (98-107) mEq/L Carbon Dioxide (21-32) mEq/L Anion Gap (5-15) BUN (7-18) mg/dL Creatinine (0.7-1.3) mg/dL Est Cr Clr Drug Dosing mL/min Estimated GFR (MDRD) (>60) mL/min BUN/Creatinine Ratio (14-18) Glucose (83-115) mg/dL Lactic Acid 1.0 (0.4-2.0) mmol/L Calcium (8.5-10.1) mg/dL Total Bilirubin (0.2-1.0) mg/dL AST (15-37) U/L ALT (16-63) U/L Alkaline Phosphatase (46-116) U/L Total Protein (6.4-8.2) g/dl Albumin (3.4-5.0) g/dl Globulin gm/dL Albumin/Globulin Ratio (1-2) Lipase (73-393) U/L Blood Type Gel Antibody Screen Result Diagrams: 01/27/18 23:55 01/27/18 23:55 Consult PN Assessment/Plan Procedures: Procedures CARDIOVASCULAR STRESS TEST (10/07/16) CATARACT SURG W/IOL 1 STAGE (09/13/16) EVALUATION OF WHEEZING (10/03/17) HT MUSCLE IMAGE SPECT MULT (10/07/16) (1) Small bowel obstruction due to adhesions SNOMED Code(s): 492005001 Code(s): K56.50 - INTESTNL ADHESIONS, UNSP TO PARTIAL VERSUS COMPLETE OBST Current Visit: Yes Problem List Initiated/Reviewed/Updated: Yes Plan: 82 yo male, s/p prior lap Heather fundoplication, history of extensive medical problems, including ME s/p coronary stents, interstitial fibrosis, insulin- dependent diabetes with hyperglycemia upon presentation, renal insufficiency ( today Cr 1.8), presenting with small bowel obstruction, likely from adhesive disease. The radiologist report of the CT scan Abd/Pelvis without contrast was reviewed, as well as the images themselves. There are multiple dilated loops of small bowel. Difficult to determine exact transition point, but it appears to be distal (ileum?) No definite abnormal intra-abdominal masses are seen. Given patient's tachycardia, abdominal tenderness, and leukocytosis, concern that patient may require surgical intervention. In addition to the patient's advanced age and co-morbidities, he has poor functional status, had a borderline stress test last year, and a recent PFT showing moderate severe obstructive disease (has known history of interstitial fibrosis). He is at high risk for worsening of his medical condition due to this acute problem, and is at high risk for perioperative complications with high risk of requiring prolonged ICU or prolonged intubation. - I recommended transfer to higher level of care. - Discussed with the patient and his family the diagnosis and the anticipated treatment plan, which would include transfer to higher level of care in [place]. Patient prefers to go to [facility]. Transport can occur by ambulance. - NG tube has already been placed by ER. - Instructed patient to save all urine output for close/strict I&O's. Case was d/w Dr. Mckeon, ER physician. Orlando Louise M.D., F.A.C.S. General Surgery Pager: [phone]
[2018-01-28 04:09] VITALS: BP 121/72
--- NOTE | 2018-01-30 10:10 | CT ---
CT abdomen and pelvis Technique: Multiple axial sections were obtained from above the dome of the diaphragm inferiorly through the pubic symphysis. Intravenous and oral contrast not utilized. Comparison: No prior CT exam. Findings: Dilated air and fluid-filled small bowel are seen. Distal ileal loops show no dilatation. Findings are compatible with small bowel obstruction which occurs within the mid small bowel. Etiology not seen and findings most likely due to adhesions. Interstitial fibrosis and scarring seen within both lung bases. Coronary artery calcification noted. Noncontrast appearance of the liver appears within normal limits. Noncontrast appearance of the spleen appears within normal limits. Increased density within the gallbladder compatible with layering gallstones. Pancreas is within normal limits. Kidneys show no abnormal calcifications. Two cysts are noted within the right kidney with largest cyst measuring 3.6 cm. Small cyst is felt to be present within the upper right kidney measuring about 1 cm. Atherosclerotic calcification noted within the aorta with areas of ectasia. Maximum AP dimension of the aorta is 2.5 cm. Atherosclerotic change continues into the iliac vessels. Appendix is seen which is normal in size. Diverticuli seen within the sigmoid colon without diverticulitis. No free fluid or inflammatory change is seen. Right hip prosthesis causes artifact. Degenerative change noted throughout the spine. Previous lower lumbar spine surgery is noted at L4 and L5. Impression: 1. Dilated small bowel which is felt compatible with mid small bowel obstruction most likely from adhesions. 2. Other findings which are felt to be incidental as described above. Diagnostic code #3 I agree with preliminary report from [facility], finalized at 01/28/18, 2:13 AM Central Time
== END 2018-01-28 03:51 ==
LOC: JD.ED 23:49
DX: K66.0 Peritoneal adhesions (postprocedural) (postinfection) (principal); I10 Essential (primary) hypertension; E11.9 Type 2 diabetes mellitus without complications; E03.9 Hypothyroidism, unspecified; E78.00 Pure hypercholesterolemia, unspecified; I25.2 Old myocardial infarction; Z79.4 Long term (current) use of insulin; Z79.82 Long term (current) use of aspirin; Z88.8 Allergy status to other drugs, medicaments and biological substances
CPT/HCPCS: 36415; 74176; 80053; 81001; 83605; 83690; 85025; 86850; 86900; 86901; 93005; 96361; 96374; 96375; 99285; J2270; J2405; J7040; J7050

== ENCOUNTER 2020-08-30 16:20 | Inpatient (IN) | payer MEDICARE, OTHER ==
[2020-08-30] MEDS ORDERED: Sodium Chloride 0.9% 10 ML Syringe FLUSH PRN (16:58)
--- NOTE | 2020-08-30 18:20 | EDM.PDOC ---
ED HPI GENERAL MEDICAL PROBLEM - General Chief Complaint: Respiratory Problem Stated Complaint: [facility] Time Seen by Provider: 08/30/20 16:30 Source of Information: Reports: Patient History Limitations: Reports: No Limitations - History of Present Illness INITIAL COMMENTS - FREE TEXT/NARRATIVE: 85-year-old male presents to the emergency department via [facility] with complaints of low O2 saturations. Per the patient's report he states he has on oxygen intermittently at home however that over the course of the past week he has become dependent on 2 L per nasal cannula 19/12. He states that he has become progressively more short of breath and his O2 saturations were in the 80s at home. States he did have a near syncopal episode as he has been dizzy over the course of the past week. [facility] was called and they did administer an albuterol nebulizer treatment in route to the hospital. Once the patient arrived at the hospital his O2 saturations were 95% on 2 L per nasal cannula. The patient states that over the course of the past week he has had chills but has not noted any fever. He states he has had decreased appetite and has had nausea. He has not vomited and he has not had any diarrhea. He states he does have some issues with constipation but he usually goes every couple of days. Patient does have a history of pulmonary fibrosis. He states his blood sugars over the course of the past week have been running 120s to 130s and he is insulin-dependent taking his dose of long-acting insulin first thing in the morning. He denies any increased swelling or orthopnea. Denies any abdominal pain. Is any issues with voiding. - Related Data Allergies Allergy/AdvReac Type Severity Reaction Status Date / Time metformin Allergy Cannot Verified 08/30/20 16:32 Remember niacin Allergy Swelling Verified 08/30/20 16:32 Keoxdji-Ovs-Njk Reductase AdvReac Other Verified 08/30/20 16:32 Inhibitor Home Meds: Home Meds Aspirin 81 mg PO DAILY 08/15/16 [History] Cholecalciferol (Vitamin D3) [Vitamin D3] 2,000 intnl unit PO DAILY 08/15/16 [History] Ezetimibe [Zetia] 10 mg PO DAILY 08/15/16 [History] Fesoterodine Fumarate [Toviaz] 8 mg PO DAILY 08/15/16 [History] Insulin Glarg,Human.Rec.Analog [LantUS Solostar] 26 units SQ BEDTIME 08/15/16 [History] Levothyroxine 50 mcg PO DAILY 08/15/16 [History] Metoprolol Succinate 25 mg PO DAILY 08/15/16 [History] Multivitamin [Multivitamins] 1 tab PO DAILY 08/15/16 [History] Triamcinolone Acetonide [IJP: Triamcinolone Acetonide 0.1% Crm] 1 applic TOP ASDIRECTED PRN 08/15/16 [History] Albuterol Sulfate [Proair Hfa] 2 puff IH Q6H PRN 01/28/18 [History] Rosuvastatin [Crestor] 10 mg PO DAILY 01/28/18 [History] Methylcellulose [Citrucel SF] 479 gm PO DAILY 12/12/18 [History] guaiFENesin [Mucus Relief ER] 1,200 mg PO BID 12/12/18 [History] Chlorhexidine Gluconate [Chlorhexidine Gluconate 0.12% Rinse] 15 ml PO DAILY PRN 08/30/20 [History] Mineral Oil/Petrolatum [Aquaphor Healing Oint] 1 applic TOP BID PRN 08/30/20 [History] Promethazine HCl/Codeine [Prometh-Codein 6.25-10 mg/5 ml] 5 ml PO BEDTIME PRN 08/30/20 [History] Past Medical History HEENT History: Reports: Cataract, Impaired Vision Cardiovascular History: Reports: High Cholesterol, Hypertension, [place] Respiratory History: Reports: Pulmonary Fibrosis Gastrointestinal History: Reports: Diverticulosis, GI Bleed Genitourinary History: Reports: Urinary Incontinence Musculoskeletal History: Reports: Arthritis Neurological History: Reports: None Psychiatric History: Reports: None Endocrine/Metabolic History: Reports: Diabetes, Type II, Hypothyroidism Hematologic History: Reports: None, Other (See Below) Other Hematologic History: Uses ASA, reports increased bruising related to the use of ASA. Immunologic History: Reports: None Oncologic (Cancer) History: Reports: None Dermatologic History: Reports: Benign Melanoma - Infectious Disease History Infectious Disease History: Reports: Measles, Scarlet Fever - Past Surgical History Head Surgeries/Procedures: Reports: None HEENT Surgical History: Reports: Cataract Surgery, Other (See Below) Cardiovascular Surgical History: Reports: None, Coronary Artery Stent Other Cardiovascular Surgeries/Procedures: stent x2 GI Surgical History: Reports: Colonoscopy, Hernia, Inguinal, Heather Fundoplication Other GI Surgeries/Procedures: Hernia repair Neurological Surgical History: Reports: Lumbar Spine, Spinal Fusion, Other (See Below) Musculoskeletal Surgical History: Reports: Hip Replacement, Shoulder Surgery, Other (See Below) Other Musculoskeletal Surgeries/Procedures:: Bilateral shoulders, right hip, and back surgery with 4 and 5 fusion. Oncologic Surgical History: Reports: None Dermatological Surgical History: Reports: Skin Biopsy Social & Family History - Family History Family Medical History: No Pertinent Family History - Tobacco Use Tobacco Use Status *Q: Never Tobacco User Second Hand Smoke Exposure: No - Caffeine Use Caffeine Use: Reports: Coffee - Recreational Drug Use Recreational Drug Use: No - Living Situation & Occupation Living situation: Reports: , with Family (Lives with ) Occupation: Retired ED ROS GENERAL - Review of Systems Review Of Systems: See Below Constitutional: Reports: Chills, Weakness, Decreased Appetite. Denies: Fever HEENT: Reports: No Symptoms Respiratory: Reports: Shortness of Breath. Denies: Wheezing, Pleuritic Chest Pain, Cough, Sputum Cardiovascular: Reports: Dyspnea on Exertion, Lightheadedness. Denies: Chest Pain, Edema, Orthopnea, Palpitations, Syncope Endocrine: Reports: No Symptoms GI/Abdominal: Reports: Constipation (Chronic), Decreased Appetite, Nausea. Denies: Abdominal Pain, Diarrhea, Vomiting : Reports: No Symptoms Musculoskeletal: Reports: No Symptoms Skin: Reports: No Symptoms Neurological: Reports: Dizziness. Denies: Headache, Numbness Psychiatric: Reports: No Symptoms Hematologic/Lymphatic: Reports: No Symptoms Immunologic: Reports: No Symptoms ED EXAM, GENERAL - Physical Exam Exam: See Below Exam Limited By: No Limitations General Appearance: Alert, WD/WN, No Apparent Distress Ears: Normal External Exam, Hearing Grossly Normal Nose: Normal Inspection Throat/Mouth: Normal Inspection, Normal Lips, Normal Voice, No Airway Compromise Head: Atraumatic, Normocephalic Neck: Normal Inspection, Supple, Non-Tender, Full Range of Motion Respiratory/Chest: No Accessory Muscle Use, Chest Non-Tender, Crackles (Right middle and lower lobe and left lower lobe). No: No Respiratory Distress (Dyspneic at rest. Patient speaks in 2-3 word sentences), Lungs Clear (Pittore crackles noted to the right middle and lower lobe in the left lower lobe), Normal Breath Sounds Cardiovascular: Normal Peripheral Pulses, Regular Rate, Rhythm, No Edema, No Murmur Peripheral Pulses: 2+: Radial (L), Radial (R) GI/Abdominal: Normal Bowel Sounds, Soft, Non-Tender, No Distention (Male) Exam: Deferred Rectal (Males) Exam: Deferred Back Exam: Normal Inspection, Full Range of Motion Extremities: Normal Inspection, Normal Range of Motion, Non-Tender, No Pedal Edema, Normal Capillary Refill Neurological: Alert, Oriented, Normal Cognition Psychiatric: Normal Affect, Normal Mood Skin Exam: Warm, Dry, Intact, No Rash, Pallor Lymphatic: No Adenopathy #1 Interpretation EKG Date: 08/30/20 Time: 17:09 Rhythm: NSR Rate (Beats/Min): 96 [place]: Normal P-Wave: Present QRS: Normal ST-T: Normal QT: Prolonged Comparison: No Change EKG Interpretation Comments: Per Dr. Cary interpretation: Sinus @ 96; borderline prolonged QTC; ST depression unchanged from 11/2018 Course - Vital Signs Text/Narrative:: 85-year-old male with a history of pulmonary fibrosis on home O2 intermittently. Over the course the past week has needed O2 at 2 L per nasal cannula 19/12. He is visibly dyspneic at rest. Speaking in 2-3 word sentences. Denies any recent fever however he states over the past week he has had chills, decreased appetite and nausea. Denies any chest pain or palpitations. Have ordered labs, chest x-ray, EKG and a urinalysis on this patient I have also ordered a Covid test. Last Recorded V/S: Last Vital Signs Temp 97.4 F 08/30/20 16:28 Pulse 100 08/30/20 16:28 Resp 25 H 08/30/20 16:28 BP 134/81 08/30/20 16:28 Pulse Ox 95 08/30/20 16:28 - Orders/Labs/Meds Orders: Active Orders 24 hr Category Date Time Status Admission Status [Patient Status] [ADT] Routine ADT 08/30/20 20:44 Active EKG Documentation Completion [RC] STAT Care 08/30/20 16:58 Active CTA Chest W WO Contrast [Ang Chest] [CT] Stat Exams 08/30/20 19:07 Taken Chest 1V Frontal [CR] Stat Exams 08/30/20 16:58 Taken Azithromycin [Zithromax] 500 mg Med 08/30/20 20:45 Active Sodium Chloride 0.9% [Normal Saline (AdvBag)] 250 ml IV Q24H Sodium Chloride 0.9% [Saline Flush] Med 08/30/20 16:58 Active 10 ml FLUSH ASDIRECTED PRN cefTRIAXone [Rocephin] 2 gm Med 08/30/20 20:45 Active Sodium Chloride 0.9% [Normal Saline] 100 ml IV Q24H Saline Lock Insert [OM.PC] Stat Oth 08/30/20 16:58 Ordered Medication Orders Azithromycin 500 mg/ Sodium (Chloride) 250 mls @ 250 mls/hr IV Q24H CHITRA Ceftriaxone Sodium 2 gm/ (Sodium Chloride) 100 mls @ 200 mls/hr IV Q24H CHITRA Sodium Chloride (Sodium Chloride 0.9% 10 Ml Syringe) 10 ml FLUSH ASDIRECTED PRN PRN Reason: Keep Vein Open Last Admin: 08/30/20 19:20 Dose: 10 ml Documented by: ED Labs: Laboratory Tests 08/30/20 08/30/20 08/30/20 Range/Units 17:12 17:30 17:30 WBC 9.19 H (4.23-9.07) K/mm3 RBC 3.58 L (4.63-6.08) M/mm3 Hgb 10.9 L (13.7-17.5) gm/dl Hct 33.6 L (40.1-51.0) % MCV 93.9 H D (79.0-92.2) fl MCH 30.4 (25.7-32.2) pg MCHC 32.4 (32.2-35.5) g/dl RDW Std Deviation 47.1 H (35.1-43.9) fL Plt Count 297 (163-337) K/mm3 MPV 8.5 L (9.4-12.3) fl Neut % (Auto) 64.7 (34.0-67.9) % Lymph % (Auto) 23.2 (21.8-53.1) % [place] % (Auto) 9.8 (5.3-12.2) % Eos % (Auto) 2.0 (0.8-7.0) Baso % (Auto) 0.2 (0.1-1.2) % Neut # (Auto) 5.95 H (1.78-5.38) K/mm3 Lymph # (Auto) 2.13 (1.32-3.57) K/mm3 [place] # (Auto) 0.90 H (0.30-0.82) K/mm3 Eos # (Auto) 0.18 (0.04-0.54) K/mm3 Baso # (Auto) 0.02 (0.01-0.08) K/mm3 D-Dimer, Quantitative (0.19-0.50) mg/L Puncture Site ABG pH (7.35-7.45) ABG pCO2 (35.0-45.0) mmHg ABG pO2 (80.0-100.0) mmHg ABG HCO3 (22.0-26.0) meq/L ABG O2 Saturation (96.0-97.0) % ABG Base Excess (-2-2.0) A-a Gradient mmHg O2 Delivery Device Oxygen Flow Rate FiO2 (21.00-100.00) % Sodium 139 (136-145) mEq/L Potassium 4.4 (3.5-5.1) mEq/L Chloride 102 (98-107) mEq/L Carbon Dioxide 26 (21-32) mEq/L Anion Gap 15.4 H (5-15) BUN 17 (7-18) mg/dL Creatinine 1.3 (0.7-1.3) mg/dL Est Cr Clr Drug Dosing 38.73 mL/min Estimated GFR (MDRD) 52 (>60) mL/min BUN/Creatinine Ratio 13.1 L (14-18) Glucose 152 H (83-115) mg/dL Calcium 9.2 (8.5-10.1) mg/dL Magnesium 2.1 (1.8-2.4) mg/dl Total Bilirubin 0.6 (0.2-1.0) mg/dL AST 23 (15-37) U/L ALT 23 (16-63) U/L Alkaline Phosphatase 67 (46-116) U/L Troponin I 0.044 (0.00-0.056) ng/mL C-Reactive Protein 12.2 H* (<1.0) mg/dL NT-Pro-B Natriuret Pep (0-450) pg/mL Total Protein 7.5 (6.4-8.2) g/dl Albumin 2.7 L (3.4-5.0) g/dl Globulin 4.8 gm/dL Albumin/Globulin Ratio 0.6 L (1-2) Urine Color (Yellow) Urine Appearance (Clear) Urine pH (5.0-8.0) Ur Specific [place] (1.005-1.030) Urine Protein (Negative) Urine Glucose (UA) (Negative) Urine Ketones (Negative) Urine Occult Blood (Negative) Urine Nitrite (Negative) Urine Bilirubin (Negative) Urine Urobilinogen (0.2-1.0) Ur Leukocyte Esterase (Negative) SARS-CoV-2 RNA (REINA) Negative (NEGATIVE) 08/30/20 08/30/20 08/30/20 Range/Units 17:30 17:30 19:16 WBC (4.23-9.07) K/mm3 RBC (4.63-6.08) M/mm3 Hgb (13.7-17.5) gm/dl Hct (40.1-51.0) % MCV (79.0-92.2) fl MCH (25.7-32.2) pg MCHC (32.2-35.5) g/dl RDW Std Deviation (35.1-43.9) fL Plt Count (163-337) K/mm3 MPV (9.4-12.3) fl Neut % (Auto) (34.0-67.9) % Lymph % (Auto) (21.8-53.1) % [place] % (Auto) (5.3-12.2) % Eos % (Auto) (0.8-7.0) Baso % (Auto) (0.1-1.2) % Neut # (Auto) (1.78-5.38) K/mm3 Lymph # (Auto) (1.32-3.57) K/mm3 [place] # (Auto) (0.30-0.82) K/mm3 Eos # (Auto) (0.04-0.54) K/mm3 Baso # (Auto) (0.01-0.08) K/mm3 D-Dimer, Quantitative 0.89 H (0.19-0.50) mg/L Puncture Site ABG pH (7.35-7.45) ABG pCO2 (35.0-45.0) mmHg ABG pO2 (80.0-100.0) mmHg ABG HCO3 (22.0-26.0) meq/L ABG O2 Saturation (96.0-97.0) % ABG Base Excess (-2-2.0) A-a Gradient mmHg O2 Delivery Device Oxygen Flow Rate FiO2 (21.00-100.00) % Sodium (136-145) mEq/L Potassium (3.5-5.1) mEq/L Chloride (98-107) mEq/L Carbon Dioxide (21-32) mEq/L Anion Gap (5-15) BUN (7-18) mg/dL Creatinine (0.7-1.3) mg/dL Est Cr Clr Drug Dosing mL/min Estimated GFR (MDRD) (>60) mL/min BUN/Creatinine Ratio (14-18) Glucose (83-115) mg/dL Calcium (8.5-10.1) mg/dL Magnesium (1.8-2.4) mg/dl Total Bilirubin (0.2-1.0) mg/dL AST (15-37) U/L ALT (16-63) U/L Alkaline Phosphatase (46-116) U/L Troponin I (0.00-0.056) ng/mL C-Reactive Protein (<1.0) mg/dL NT-Pro-B Natriuret Pep 1326 H (0-450) pg/mL Total Protein (6.4-8.2) g/dl Albumin (3.4-5.0) g/dl Globulin gm/dL Albumin/Globulin Ratio (1-2) Urine Color Yellow (Yellow) Urine Appearance Clear (Clear) Urine pH 6.0 (5.0-8.0) Ur Specific [place] 1.020 (1.005-1.030) Urine Protein Negative (Negative) Urine Glucose (UA) Negative (Negative) Urine Ketones Negative (Negative) Urine Occult Blood Negative (Negative) Urine Nitrite Negative (Negative) Urine Bilirubin Negative (Negative) Urine Urobilinogen 0.2 (0.2-1.0) Ur Leukocyte Esterase Negative (Negative) SARS-CoV-2 RNA (REINA) (NEGATIVE) 08/30/20 Range/Units 19:50 WBC (4.23-9.07) K/mm3 RBC (4.63-6.08) M/mm3 Hgb (13.7-17.5) gm/dl Hct (40.1-51.0) % MCV (79.0-92.2) fl MCH (25.7-32.2) pg MCHC (32.2-35.5) g/dl RDW Std Deviation (35.1-43.9) fL Plt Count (163-337) K/mm3 MPV (9.4-12.3) fl Neut % (Auto) (34.0-67.9) % Lymph % (Auto) (21.8-53.1) % [place] % (Auto) (5.3-12.2) % Eos % (Auto) (0.8-7.0) Baso % (Auto) (0.1-1.2) % Neut # (Auto) (1.78-5.38) K/mm3 Lymph # (Auto) (1.32-3.57) K/mm3 [place] # (Auto) (0.30-0.82) K/mm3 Eos # (Auto) (0.04-0.54) K/mm3 Baso # (Auto) (0.01-0.08) K/mm3 D-Dimer, Quantitative (0.19-0.50) mg/L Puncture Site Lt radial ABG pH 7.45 (7.35-7.45) ABG pCO2 34.6 L (35.0-45.0) mmHg ABG pO2 86.0 (80.0-100.0) mmHg ABG HCO3 23.5 (22.0-26.0) meq/L ABG O2 Saturation 96.4 (96.0-97.0) % ABG Base Excess 0.3 (-2-2.0) A-a Gradient 70 mmHg O2 Delivery Device Nasal cannula Oxygen Flow Rate 2.0 FiO2 28.00 (21.00-100.00) % Sodium (136-145) mEq/L Potassium (3.5-5.1) mEq/L Chloride (98-107) mEq/L Carbon Dioxide (21-32) mEq/L Anion Gap (5-15) BUN (7-18) mg/dL Creatinine (0.7-1.3) mg/dL Est Cr Clr Drug Dosing mL/min Estimated GFR (MDRD) (>60) mL/min BUN/Creatinine Ratio (14-18) Glucose (83-115) mg/dL Calcium (8.5-10.1) mg/dL Magnesium (1.8-2.4) mg/dl Total Bilirubin (0.2-1.0) mg/dL AST (15-37) U/L ALT (16-63) U/L Alkaline Phosphatase (46-116) U/L Troponin I (0.00-0.056) ng/mL C-Reactive Protein (<1.0) mg/dL NT-Pro-B Natriuret Pep (0-450) pg/mL Total Protein (6.4-8.2) g/dl Albumin (3.4-5.0) g/dl Globulin gm/dL Albumin/Globulin Ratio (1-2) Urine Color (Yellow) Urine Appearance (Clear) Urine pH (5.0-8.0) Ur Specific [place] (1.005-1.030) Urine Protein (Negative) Urine Glucose (UA) (Negative) Urine Ketones (Negative) Urine Occult Blood (Negative) Urine Nitrite (Negative) Urine Bilirubin (Negative) Urine Urobilinogen (0.2-1.0) Ur Leukocyte Esterase (Negative) SARS-CoV-2 RNA (REINA) (NEGATIVE) Meds: Medications Generic Name Dose Route Start Last Admin Trade Name Freq PRN Reason Stop Dose Admin Azithromycin 500 mg/ Sodium 250 mls @ 250 mls/hr 08/30/20 20:45 Chloride IV Q24H CHITRA Ceftriaxone Sodium 2 gm/ 100 mls @ 200 mls/hr 08/30/20 20:45 Sodium Chloride IV Q24H [facility] Sodium Chloride 10 ml 08/30/20 16:58 08/30/20 19:20 Sodium Chloride 0.9% 10 Ml Syringe FLUSH 10 ml ASDIRECTED PRN Administration Keep Vein Open - Re-Assessments/Exams Free Text/Narrative Re-Assessment/Exam: 08/30/20 19:20 Hematology reveals a WBC of 9.19, hemoglobin 10.9, hematocrit 33.6, platelet count 297, D-dimer 0.89, chemistry reveals a sodium of 139, potassium 4.4, anion gap 15.4, BUN 17, creatinine 1.3, glucose is 152, magnesium 2.1, troponin 0 0.044, C-reactive protein 12.2, proBNP 1326 patient is Covid negative The read interpretation x-ray of the chest: Pulmonary fibrosis. No acute CHF or pneumonia is identified, but sensitivity is reduced due to the underlying lung disease. Continued radiographic follow-up may be helpful. Patient's D-dimer was elevated so I have ordered a CTA. Awaiting results of arterial blood gases. 08/30/20 19:47 Hematology reveals a WBC of 9.19, hemoglobin 10.9, hematocrit 33.6, platelet count 297, D-dimer 0.89, chemistry reveals a sodium of 139, potassium 4.4, anion gap 15.4, BUN 17, creatinine 1.3, glucose is 152, magnesium 2.1, troponin 0 0.044, C-reactive protein 12.2, proBNP 1326 patient is Covid negative 08/30/20 19:48 Urinalysis is completely unremarkable 08/30/20 20:07 Urinalysis is completely unremarkable 08/30/20 20:[address] of the chest with contrast: 1. No evidence of pulmonary embolism. 2. Pulmonary fibrosis. There are superimposed groundglass opacities which are new compared to the prior exam, most pronounced in the right upper lobe. Findings are suspicious for superimposed viral pneumonitis. Findings could be due to COVID-19 pneumonia. 3. Cholelithiasis. 08/30/20 20:29 Patient's curb 65 score is only a 1 however with increased shortness of breath and low O2 saturations and elevated C-reactive protein I believe this patient will need to be treated for pneumonia. I have discussed the case with Dr. Fisher and he is aware. 08/30/20 20:37 Dr Fisher has agreed to admit this patient. 08/30/20 20:52 Dr. Newman has requested the patient receive Rocephin and Zithromax for the treatment. I will write for bridge orders on this patient. Departure - Departure Time of Disposition: 20:53 Disposition: Admitted As Inpatient 64 Condition: Fair Clinical Impression: Failure to thrive in adult Pneumonia Qualifiers: Pneumonia type: due to unspecified organism Laterality: right Lung location: upper lobe of lung Qualified Code(s): J18.9 - Pneumonia, unspecified organism - Discharge Information Referrals: Natasha Brooks MD [Primary Care Provider] - Forms: ED Department Discharge Sepsis Event Note (ED) - Evaluation Sepsis Screening Result: No Definite Risk - Focused Exam Vital Signs: Vital Signs Temp Pulse Resp BP Pulse Ox 08/30/20 16:28 97.4 F 100 25 H 134/81 95 - My Orders Last 24 Hours: My Active Orders 08/30/20 16:58 EKG Documentation Completion [RC] STAT Chest 1V Frontal [CR] Stat Sodium Chloride 0.9% [Saline Flush] 10 ml FLUSH ASDIRECTED PRN Saline Lock Insert [OM.PC] Stat 08/30/20 19:07 CTA Chest W WO Contrast [Ang Chest] [CT] Stat 08/30/20 20:44 Admission Status [Patient Status] [ADT] Routine 08/30/20 20:45 Azithromycin [Zithromax] 500 mg Sodium Chloride 0.9% [Normal Saline (AdvBag)] 250 ml IV Q24H cefTRIAXone [Rocephin] 2 gm Sodium Chloride 0.9% [Normal Saline] 100 ml IV Q24H - Assessment/Plan Last 24 Hours: My Active Orders 08/30/20 16:58 EKG Documentation Completion [RC] STAT Chest 1V Frontal [CR] Stat Sodium Chloride 0.9% [Saline Flush] 10 ml FLUSH ASDIRECTED PRN Saline Lock Insert [OM.PC] Stat 08/30/20 19:07 CTA Chest W WO Contrast [Ang Chest] [CT] Stat 08/30/20 20:44 Admission Status [Patient Status] [ADT] Routine 08/30/20 20:45 Azithromycin [Zithromax] 500 mg Sodium Chloride 0.9% [Normal Saline (AdvBag)] 250 ml IV Q24H cefTRIAXone [Rocephin] 2 gm Sodium Chloride 0.9% [Normal Saline] 100 ml IV Q24H
[2020-08-30] MEDS ORDERED: Azithromycin 500 MG in Sodium Chloride 0.9% 250 ML IV SCH (20:45)
[2020-08-30] MEDS ORDERED: cefTRIAXone 2 GM in Sodium Chloride 0.9% 100 ML IV SCH (20:45)
[2020-08-31] MEDS ORDERED: Sodium Chloride 0.9% 10 ML Syringe FLUSH SCH (00:45)
[2020-08-31] MEDS ORDERED: Iopamidol 755 Mg/ML 100 ML Bottle IVPUSH ONE (00:45)
[2020-08-31] MEDS ORDERED: Sodium Chloride 0.9% 100 ML IV SCH (00:45)
--- NOTE | 2020-08-31 07:53 | CR ---
Chest: Portable view of the chest was obtained. Comparison: Prior chest CT study of 12/12/18 and chest x-ray 12/11/18. Areas of interstitial change are noted. Findings are felt to be slightly increased from prior exam possibly due to mild scattered pneumonia. Lungs and mediastinum are normal. Bony structures are osteopenic. Impression: 1. Interstitial change is slightly increased from prior study raising the possibility of mild areas of pneumonia. Please correlate if patient has infectious symptoms. 2. Other findings believed to be incidental. Diagnostic code #3 I questionably disagree with preliminary report from [facility], finalized on 08/30/20, 7:44 PM Central Daylight Time
--- NOTE | 2020-08-31 08:06 | CT ---
CT chest Technique: Multiple axial sections were obtained from above the lung apices inferiorly through the lung bases. Intravenous contrast was utilized. Study has been performed as a pulmonary angiogram protocol. Comparison: Prior chest CT exam of 12/12/18. Findings: Prominent coronary artery calcification is seen. Thoracic aorta shows atherosclerotic calcification without aneurysm. No axillary adenopathy is seen. Small lymph nodes are seen within the mediastinum which are believed to be within normal limits. No pericardial thickening is seen. Small layering calcified gallstones are seen within the gallbladder. Cyst is noted within the left kidney. Diffuse interstitial change is seen within both lungs. Interstitial change has increased in prominence from previous exams which most likely represent areas of multifocal pneumonia superimposed upon interstitial fibrosis. No pleural effusions are seen. No pneumothorax is noted. Bone window settings were reviewed which show scattered degenerative change throughout the spine. No acute osseous abnormality is appreciated. Impression: 1. Patchy areas of increased density within both sides of the chest raising the possibility of pneumonia superimposed upon chronic fibrosis. Please rule out COVID disease. 2. Multiple layering gallstones within the gallbladder. 3. No findings of pulmonary embolism. 4. Other findings believed to be incidental as noted above. Diagnostic code #3 I agree with preliminary report from [facility], finalized on 08/30/20, 9:22 PM CDT
[2020-08-31] MEDS ORDERED: Ondansetron 4 MG/2 ML SDV IV PRN (08:58)
[2020-08-31] MEDS ORDERED: Albuterol/Ipratropium 3.0-0.5 MG/3 ML Neb Soln NEB PRN (08:58)
[2020-08-31] MEDS ORDERED: Albuterol 0.083% 2.5 MG/3 ML Neb Soln NEB PRN (08:58)
[2020-08-31] MEDS ORDERED: Acetaminophen 325 MG Tab PO PRN (08:58)
--- NOTE | 2020-08-31 09:02 | PCM.HP.2 ---
H&P History of Present Illness - General Date of Service: 08/31/20 Admit Problem/Dx: Admission Diagnosis/Problem Admission Diagnosis/Problem Pneumonia Source of Information: Patient, Old Records, Provider, RN, RN Notes Reviewed History Limitations: Reports: No Limitations - History of Present Illness Initial Comments - Free Text/Narative: This is an 85-year-old male presents to ED via [facility] on the evening of 08/30/2020 with concerns over low oxygen saturations. At his baseline patient is intermittently on oxygen however he reports over the last week he has been requiring 2 L via nasal cannula continuously and more short of breath. He notes oxygen saturations were in the 80s at home and he was dizzy with a near syncopal episode. Not to the hospital is given an albuterol nebulizer and was noted to have saturation of 95% on 2 L via NC. Patient reports chills but no fever along with decreased appetite and nausea. Denies any vomiting or diarrhea but does state he has baseline constipation and usually goes every couple of days. Has a history of pulmonary fibrosis and is an insulin-dependent diabetic with blood sugars running in the 120s to 130s normally. Denies any increased swelling, orthopnea, abdominal pain, or urinary symptoms. In the ED twelve-lead EKG is obtained showing a sinus rhythm at 96 bpm with a borderline prolonged QTC. There is baseline ST depression which is unchanged from 11/2018. Temp is 97.4 Fahrenheit. Pulse 100. Respirations 25. Blood pressure 134/81. Pulse ox 95%. Labs were obtained showing a mild leukocytosis at 9.19. Hemoglobin 10.9. Platelets 297,000. Neutrophils are within normal limits at 64.7%. Sodium is 139. Potassium 4.4. Chloride 102. Carbon oxide 26. Anion gap 15.4. BUN 17. Creatinine 1.3. GFR is 52. Glucose is 152. Calcium 9.2. Magnesium 2.1. Total bilirubin 0.6. AST 23, ALT 23, alkaline phosphatase 67. Troponin 0 0.044. CRP is 12.2. Protein 7.5. Albumin is low at 2.7. D-dimer is slightly elevated at 0.89. proBNP is elevated at 1326. UA is grossly negative. SARS Covid 2 RNA is negative. ABGs obtained in the left radial showing a pH of 7.45. PCO2 of 34.6. PO2 of 86.0. HCO3 of 23.5. O2 saturation 96.4. Aa gradient of 70. This is obtained on 2 L of nasal cannula. He is given 500 mg of azithromycin and started on 2 g of Rocephin. Chest x-ray is obtained showing interstitial change which is increased from prior study raising the possibility mild areas of pneumonia and incidental findings. CTA is obtained and shows "1. Patchy areas of increased density within both sides of the chest raising the possibility pneumonia superimposed upon chronic fibrosis. Please rule out Covid disease. 2. Multiple layering gallstones within the gallbladder. 3. No findings of pulmonary embolism. 4. Other findings believed to be incidental as noted above." He carries a history of hypertension, HLD, ND, pulmonary fibrosis, diverticulosis, GI bleed, urinary incontinence, arthritis, type II DM, hypothyroidism, benign melanoma. He is never smoker. His PCP is Dr. Brooks. He subsequently mid to the medical floor on telemetry for management of his suspected pneumonia. - Related Data Allergies/Adverse Reactions: Allergies Allergy/AdvReac Type Severity Reaction Status Date / Time metformin Allergy Cannot Verified 08/30/20 23:20 Remember niacin Allergy Swelling Verified 08/30/20 23:20 Nfpdesx-Hcz-Esv Reductase AdvReac Other Verified 08/30/20 23:20 Inhibitor Home Medications: Home Meds Aspirin 81 mg PO DAILY 08/15/16 [History] Cholecalciferol (Vitamin D3) [Vitamin D3] 2,000 intnl unit PO DAILY 08/15/16 [History] Ezetimibe [Zetia] 10 mg PO BEDTIME 08/15/16 [History] Fesoterodine Fumarate [Toviaz] 8 mg PO DAILY 08/15/16 [History] Insulin Glarg,Human.Rec.Analog [LantUS Solostar] 26 units SQ DAILY 08/15/16 [History] Levothyroxine 50 mcg PO DAILY 08/15/16 [History] Metoprolol Succinate 25 mg PO DAILY 08/15/16 [History] Multivitamin [Multivitamins] 1 tab PO DAILY 08/15/16 [History] Triamcinolone Acetonide [IJP: Triamcinolone Acetonide 0.1% Crm] 1 applic TOP ASDIRECTED PRN 08/15/16 [History] Albuterol Sulfate [Proair Hfa] 2 puff IH Q6H 01/28/18 [History] Rosuvastatin [Crestor] 10 mg PO PCDINNER 01/28/18 [History] Methylcellulose [Citrucel SF] 479 gm PO DAILY 12/12/18 [History] guaiFENesin [Mucus Relief ER] 1,200 mg PO BID 12/12/18 [History] Chlorhexidine Gluconate [Chlorhexidine Gluconate 0.12% Rinse] 15 ml PO DAILY PRN 08/30/20 [History] Mineral Oil/Petrolatum [Aquaphor Healing Oint] 1 applic TOP BID PRN 08/30/20 [History] Promethazine HCl/Codeine [Prometh-Codein 6.25-10 mg/5 ml] 5 ml PO BEDTIME PRN 08/30/20 [History] Urea [Urea 20% Crm] 1 applic TOP DAILY PRN 08/30/20 [History] Past Medical History HEENT History: Reports: Cataract, Impaired Vision Other HEENT History: Glasses Cardiovascular History: Reports: High Cholesterol, Hypertension, ND Respiratory History: Reports: Pulmonary Fibrosis Gastrointestinal History: Reports: Diverticulosis, GI Bleed Genitourinary History: Reports: Urinary Incontinence Musculoskeletal History: Reports: Arthritis Neurological History: Reports: None Psychiatric History: Reports: None Endocrine/Metabolic History: Reports: Diabetes, Type II, Hypothyroidism Hematologic History: Reports: None, Other (See Below) Other Hematologic History: Uses ASA, reports increased bruising related to the use of ASA. Immunologic History: Reports: None Oncologic (Cancer) History: Reports: None Dermatologic History: Reports: Benign Melanoma - Infectious Disease History Infectious Disease History: Reports: Measles, Scarlet Fever - Past Surgical History Head Surgeries/Procedures: Reports: None HEENT Surgical History: Reports: Cataract Surgery, Other (See Below) Cardiovascular Surgical History: Reports: None, Coronary Artery Stent Other Cardiovascular Surgeries/Procedures: stent x2 Respiratory Surgical History: Reports: None GI Surgical History: Reports: Colonoscopy, Hernia, Inguinal, Heather Fundoplication Other GI Surgeries/Procedures: Hernia repair Male Surgical History: Reports: None Endocrine Surgical History: Reports: None Neurological Surgical History: Reports: Lumbar Spine, Spinal Fusion, Other (See Below) Musculoskeletal Surgical History: Reports: Hip Replacement, Shoulder Surgery, Other (See Below) Other Musculoskeletal Surgeries/Procedures:: Bilateral shoulders, right hip, and back surgery with 4 and 5 fusion. Oncologic Surgical History: Reports: None Dermatological Surgical History: Reports: Skin Biopsy Social & Family History - Family History Family Medical History: No Pertinent Family History - Tobacco Use Tobacco Use Status *Q: Former Tobacco User Years of Tobacco use: 3 Packs/Tins Daily: 0.5 Used Tobacco, but Quit: Yes Month/Year Tobacco Last Used: 65 years ago Second Hand Smoke Exposure: No - Caffeine Use Caffeine Use: Reports: Coffee - Recreational Drug Use Recreational Drug Use: No - Living Situation & Occupation Living situation: Reports: , with Family (Lives with ) Occupation: Retired H&P Review of Systems - Review of Systems: Review Of Systems: See Below General: Reports: Chills, Malaise, Weakness, Fatigue, Decreased Appetite, Weight Loss. Denies: Fever HEENT: Reports: No Symptoms. Denies: Headaches, Sore Throat Pulmonary: Reports: Shortness of Breath, Cough, Sputum. Denies: Wheezing Cardiovascular: Reports: Dyspnea on Exertion, Lightheadedness. Denies: Chest Pain, Palpitations, Edema Gastrointestinal: Reports: Constipation (Chronic ). Denies: Abdominal Pain, Diarrhea, Nausea, Vomiting Genitourinary: Reports: No Symptoms. Denies: Pain Musculoskeletal: Reports: No Symptoms Skin: Reports: No Symptoms. Denies: Cyanosis Psychiatric: Reports: No Symptoms. Denies: Confusion Neurological: Reports: No Symptoms, Pre-Existing Deficit (Walks with a cane ), Difficulty Walking, Weakness, Gait Disturbance. Denies: Numbness, Tingling Hematologic/Lymphatic: Reports: Easy Bruising. Denies: Anemia Immunologic: Reports: No Symptoms Exam - Exam Exam: See Below - Vital Signs Vital Signs: Last Vital Signs Temp 99.0 F 08/31/20 03:45 Pulse 88 08/31/20 03:45 Resp 15 08/31/20 03:45 BP 112/58 L 08/31/20 03:45 Pulse Ox 95 08/31/20 03:45 Weight: 152 lb 3.2 oz - Exam Quality Assessment: Supplemental Oxygen (2L), DVT Prophylaxis General: Alert, Oriented, Cooperative, Mild Distress (looks short of breath ) HEENT: Conjunctiva Clear, EACs Clear, Mucosa Moist & [place], Posterior Pharynx Clear Neck: Supple, Trachea Midline, Lymphadenopathy Lungs: Normal Respiratory Effort, Decreased Breath Sounds, Crackles Cardiovascular: Regular Rate, Regular Rhythm GI/Abdominal Exam: Normal Bowel Sounds, Soft, Non-Tender, No Distention (Male) Exam: Deferred Rectal (Males) Exam: Deferred Back Exam: Normal Inspection, Full Range of Motion Extremities: Normal Inspection, Normal Range of Motion, Non-Tender, No Pedal Edema, Normal Capillary Refill Peripheral Pulses: 2+: Radial (L), Radial (R), Dorsalis Pedis (L), Dorsalis Pedis (R) Skin: Warm, Dry, Intact Neurological: Cranial Nerves Intact (Grossly ) Neuro Extensive - Mental Status: Alert, Oriented x3, Normal Mood/Affect - Patient Data Lab Results Last 24 hrs: Laboratory Results - last 24 hr 08/30/20 08/30/20 08/30/20 Range/Units 17:12 17:30 17:30 WBC 9.19 H (4.23-9.07) K/mm3 RBC 3.58 L (4.63-6.08) M/mm3 Hgb 10.9 L (13.7-17.5) gm/dl Hct 33.6 L (40.1-51.0) % MCV 93.9 H D (79.0-92.2) fl MCH 30.4 (25.7-32.2) pg MCHC 32.4 (32.2-35.5) g/dl RDW Std Deviation 47.1 H (35.1-43.9) fL Plt Count 297 (163-337) K/mm3 MPV 8.5 L (9.4-12.3) fl Neut % (Auto) 64.7 (34.0-67.9) % Lymph % (Auto) 23.2 (21.8-53.1) % [place] % (Auto) 9.8 (5.3-12.2) % Eos % (Auto) 2.0 (0.8-7.0) Baso % (Auto) 0.2 (0.1-1.2) % Neut # (Auto) 5.95 H (1.78-5.38) K/mm3 Lymph # (Auto) 2.13 (1.32-3.57) K/mm3 [place] # (Auto) 0.90 H (0.30-0.82) K/mm3 Eos # (Auto) 0.18 (0.04-0.54) K/mm3 Baso # (Auto) 0.02 (0.01-0.08) K/mm3 D-Dimer, Quantitative (0.19-0.50) mg/L Puncture Site ABG pH (7.35-7.45) ABG pCO2 (35.0-45.0) mmHg ABG pO2 (80.0-100.0) mmHg ABG HCO3 (22.0-26.0) meq/L ABG O2 Saturation (96.0-97.0) % ABG Base Excess (-2-2.0) A-a Gradient mmHg O2 Delivery Device Oxygen Flow Rate FiO2 (21.00-100.00) % Sodium 139 (136-145) mEq/L Potassium 4.4 (3.5-5.1) mEq/L Chloride 102 (98-107) mEq/L Carbon Dioxide 26 (21-32) mEq/L Anion Gap 15.4 H (5-15) BUN 17 (7-18) mg/dL Creatinine 1.3 (0.7-1.3) mg/dL Est Cr Clr Drug Dosing 38.73 mL/min Estimated GFR (MDRD) 52 (>60) mL/min BUN/Creatinine Ratio 13.1 L (14-18) Glucose 152 H (83-115) mg/dL Calcium 9.2 (8.5-10.1) mg/dL Magnesium 2.1 (1.8-2.4) mg/dl Total Bilirubin 0.6 (0.2-1.0) mg/dL AST 23 (15-37) U/L ALT 23 (16-63) U/L Alkaline Phosphatase 67 (46-116) U/L Troponin I 0.044 (0.00-0.056) ng/mL C-Reactive Protein 12.2 H* (<1.0) mg/dL NT-Pro-B Natriuret Pep (0-450) pg/mL Total Protein 7.5 (6.4-8.2) g/dl Albumin 2.7 L (3.4-5.0) g/dl Globulin 4.8 gm/dL Albumin/Globulin Ratio 0.6 L (1-2) Urine Color (Yellow) Urine Appearance (Clear) Urine pH (5.0-8.0) Ur Specific [place] (1.005-1.030) Urine Protein (Negative) Urine Glucose (UA) (Negative) Urine Ketones (Negative) Urine Occult Blood (Negative) Urine Nitrite (Negative) Urine Bilirubin (Negative) Urine Urobilinogen (0.2-1.0) Ur Leukocyte Esterase (Negative) SARS-CoV-2 RNA (REINA) Negative (NEGATIVE) 08/30/20 08/30/20 08/30/20 Range/Units 17:30 17:30 19:16 WBC (4.23-9.07) K/mm3 RBC (4.63-6.08) M/mm3 Hgb (13.7-17.5) gm/dl Hct (40.1-51.0) % MCV (79.0-92.2) fl MCH (25.7-32.2) pg MCHC (32.2-35.5) g/dl RDW Std Deviation (35.1-43.9) fL Plt Count (163-337) K/mm3 MPV (9.4-12.3) fl Neut % (Auto) (34.0-67.9) % Lymph % (Auto) (21.8-53.1) % [place] % (Auto) (5.3-12.2) % Eos % (Auto) (0.8-7.0) Baso % (Auto) (0.1-1.2) % Neut # (Auto) (1.78-5.38) K/mm3 Lymph # (Auto) (1.32-3.57) K/mm3 [place] # (Auto) (0.30-0.82) K/mm3 Eos # (Auto) (0.04-0.54) K/mm3 Baso # (Auto) (0.01-0.08) K/mm3 D-Dimer, Quantitative 0.89 H (0.19-0.50) mg/L Puncture Site ABG pH (7.35-7.45) ABG pCO2 (35.0-45.0) mmHg ABG pO2 (80.0-100.0) mmHg ABG HCO3 (22.0-26.0) meq/L ABG O2 Saturation (96.0-97.0) % ABG Base Excess (-2-2.0) A-a Gradient mmHg O2 Delivery Device Oxygen Flow Rate FiO2 (21.00-100.00) % Sodium (136-145) mEq/L Potassium (3.5-5.1) mEq/L Chloride (98-107) mEq/L Carbon Dioxide (21-32) mEq/L Anion Gap (5-15) BUN (7-18) mg/dL Creatinine (0.7-1.3) mg/dL Est Cr Clr Drug Dosing mL/min Estimated GFR (MDRD) (>60) mL/min BUN/Creatinine Ratio (14-18) Glucose (83-115) mg/dL Calcium (8.5-10.1) mg/dL Magnesium (1.8-2.4) mg/dl Total Bilirubin (0.2-1.0) mg/dL AST (15-37) U/L ALT (16-63) U/L Alkaline Phosphatase (46-116) U/L Troponin I (0.00-0.056) ng/mL C-Reactive Protein (<1.0) mg/dL NT-Pro-B Natriuret Pep 1326 H (0-450) pg/mL Total Protein (6.4-8.2) g/dl Albumin (3.4-5.0) g/dl Globulin gm/dL Albumin/Globulin Ratio (1-2) Urine Color Yellow (Yellow) Urine Appearance Clear (Clear) Urine pH 6.0 (5.0-8.0) Ur Specific [place] 1.020 (1.005-1.030) Urine Protein Negative (Negative) Urine Glucose (UA) Negative (Negative) Urine Ketones Negative (Negative) Urine Occult Blood Negative (Negative) Urine Nitrite Negative (Negative) Urine Bilirubin Negative (Negative) Urine Urobilinogen 0.2 (0.2-1.0) Ur Leukocyte Esterase Negative (Negative) SARS-CoV-2 RNA (REINA) (NEGATIVE) 08/30/20 Range/Units 19:50 WBC (4.23-9.07) K/mm3 RBC (4.63-6.08) M/mm3 Hgb (13.7-17.5) gm/dl Hct (40.1-51.0) % MCV (79.0-92.2) fl MCH (25.7-32.2) pg MCHC (32.2-35.5) g/dl RDW Std Deviation (35.1-43.9) fL Plt Count (163-337) K/mm3 MPV (9.4-12.3) fl Neut % (Auto) (34.0-67.9) % Lymph % (Auto) (21.8-53.1) % [place] % (Auto) (5.3-12.2) % Eos % (Auto) (0.8-7.0) Baso % (Auto) (0.1-1.2) % Neut # (Auto) (1.78-5.38) K/mm3 Lymph # (Auto) (1.32-3.57) K/mm3 [place] # (Auto) (0.30-0.82) K/mm3 Eos # (Auto) (0.04-0.54) K/mm3 Baso # (Auto) (0.01-0.08) K/mm3 D-Dimer, Quantitative (0.19-0.50) mg/L Puncture Site Lt radial ABG pH 7.45 (7.35-7.45) ABG pCO2 34.6 L (35.0-45.0) mmHg ABG pO2 86.0 (80.0-100.0) mmHg ABG HCO3 23.5 (22.0-26.0) meq/L ABG O2 Saturation 96.4 (96.0-97.0) % ABG Base Excess 0.3 (-2-2.0) A-a Gradient 70 mmHg O2 Delivery Device Nasal cannula Oxygen Flow Rate 2.0 FiO2 28.00 (21.00-100.00) % Sodium (136-145) mEq/L Potassium (3.5-5.1) mEq/L Chloride (98-107) mEq/L Carbon Dioxide (21-32) mEq/L Anion Gap (5-15) BUN (7-18) mg/dL Creatinine (0.7-1.3) mg/dL Est Cr Clr Drug Dosing mL/min Estimated GFR (MDRD) (>60) mL/min BUN/Creatinine Ratio (14-18) Glucose (83-115) mg/dL Calcium (8.5-10.1) mg/dL Magnesium (1.8-2.4) mg/dl Total Bilirubin (0.2-1.0) mg/dL AST (15-37) U/L ALT (16-63) U/L Alkaline Phosphatase (46-116) U/L Troponin I (0.00-0.056) ng/mL C-Reactive Protein (<1.0) mg/dL NT-Pro-B Natriuret Pep (0-450) pg/mL Total Protein (6.4-8.2) g/dl Albumin (3.4-5.0) g/dl Globulin gm/dL Albumin/Globulin Ratio (1-2) Urine Color (Yellow) Urine Appearance (Clear) Urine pH (5.0-8.0) Ur Specific [place] (1.005-1.030) Urine Protein (Negative) Urine Glucose (UA) (Negative) Urine Ketones (Negative) Urine Occult Blood (Negative) Urine Nitrite (Negative) Urine Bilirubin (Negative) Urine Urobilinogen (0.2-1.0) Ur Leukocyte Esterase (Negative) SARS-CoV-2 RNA (REINA) (NEGATIVE) Result Diagrams: 08/30/20 17:30 08/30/20 17:30 Sepsis Event Note - Evaluation Sepsis Screening Result: No Definite Risk - Focused Exam Vital Signs: Vital Signs Temp Pulse Resp BP BP Pulse Ox 08/31/20 03:45 99.0 F 88 15 112/58 L 95 08/31/20 00:15 95 08/31/20 00:00 98 08/30/20 23:54 95 92 L 08/30/20 23:51 98 83 L 08/30/20 22:41 98.1 F 92 22 H 102/53 L 92 L - Problem List (1) HLD (hyperlipidemia) SNOMED Code(s): 95647013 ICD Code: E78.5 - HYPERLIPIDEMIA, UNSPECIFIED Status: Chronic Priority: Low Current Visit: No Qualifiers: Hyperlipidemia type: unspecified Qualified Code(s): E78.5 - Hyperlipidemia, unspecified (2) HTN (hypertension) SNOMED Code(s): 91553704 ICD Code: I10 - ESSENTIAL (PRIMARY) HYPERTENSION Status: Chronic Priority: Medium Current Visit: No Qualifiers: Hypertension type: unspecified Qualified Code(s): I10 - Essential (primary) hypertension (3) History of myocardial infarction SNOMED Code(s): 173335417 ICD Code: I25.2 - OLD MYOCARDIAL INFARCTION Status: Chronic Priority: Low Current Visit: No (4) Diverticulosis SNOMED Code(s): 668431016 ICD Code: K57.90 - DVRTCLOS OF INTEST, PART UNSP, W/O PERF OR ABSCESS W/O BLEED Status: Chronic Priority: Low Current Visit: No (5) History of GI bleed SNOMED Code(s): 555977537 ICD Code: Z87.19 - PERSONAL HISTORY OF OTHER DISEASES OF THE DIGESTIVE SYSTEM Status: Chronic Priority: Low Current Visit: No (6) Urinary incontinence SNOMED Code(s): 735608091 ICD Code: R32 - UNSPECIFIED URINARY INCONTINENCE Status: Chronic Priority: Low Current Visit: No Qualifiers: Urinary Incontinence type: unspecified incontinence Qualified Code(s): R32 - Unspecified urinary incontinence (7) Arthritis SNOMED Code(s): 6379760 ICD Code: M19.90 - UNSPECIFIED OSTEOARTHRITIS, UNSPECIFIED SITE Status: Acute Current Visit: Yes (8) Type II diabetes mellitus SNOMED Code(s): 97584721 ICD Code: E11.9 - TYPE 2 DIABETES MELLITUS WITHOUT COMPLICATIONS Status: [facility] Priority: Medium Current Visit: No Qualifiers: Diabetes mellitus terminal press operator insulin use: with terminal press operator use Diabetes mellitus complication status: with other specified complication Qualified Code(s): E11.69 - Type 2 diabetes mellitus with other specified complication; Z79.4 - jail (current) use of insulin (9) Hypothyroidism SNOMED Code(s): 31344362 ICD Code: E03.9 - HYPOTHYROIDISM, UNSPECIFIED Status: Chronic Priority: Medium Current Visit: No Qualifiers: Hypothyroidism type: unspecified Qualified Code(s): E03.9 - Hypothyroidism, unspecified (10) Failure to thrive in adult SNOMED Code(s): 020534878 ICD Code: R62.7 - ADULT FAILURE TO THRIVE Status: Acute Priority: High Current Visit: Yes (11) Pneumonia SNOMED Code(s): 318708192 ICD Code: J18.9 - PNEUMONIA, UNSPECIFIED ORGANISM Status: Acute Priority: High Current Visit: Yes Qualifiers: Pneumonia type: due to unspecified organism Laterality: right Lung location: upper lobe of lung Qualified Code(s): J18.9 - Pneumonia, unspecified organism (12) Hypoxia SNOMED Code(s): 582971977 ICD Code: R09.02 - HYPOXEMIA Status: Acute Priority: High Current Visit: Yes (13) Pulmonary fibrosis, unspecified SNOMED Code(s): 20991735 ICD Code: J84.10 - PULMONARY FIBROSIS, UNSPECIFIED Status: Chronic Priority: High Current Visit: Yes (14) Generalized weakness SNOMED Code(s): 19760514 ICD Code: R53.1 - WEAKNESS Status: Acute Priority: High Current Visit: Yes (15) Dizziness SNOMED Code(s): 334853882, 071538025 ICD Code: R42 - DIZZINESS AND GIDDINESS Status: Acute Priority: High Current Visit: Yes (16) Hypoalbuminemia SNOMED Code(s): 925623536 ICD Code: E88.09 - [facility] DISORDERS OF PLASMA-PROTEIN METABOLISM, NEC Status: Acute Priority: High Current Visit: Yes (17) Elevated d-dimer SNOMED Code(s): 202062751 ICD Code: R79.89 - OTHER SPECIFIED ABNORMAL FINDINGS OF BLOOD CHEMISTRY Status: Ruled-out Priority: High Current Visit: Yes Problem List Initiated/Reviewed/Updated: Yes Orders Last 24hrs: Active Orders 24 hr Category Date Time Status Admission Status [Patient Status] [ADT] Routine ADT 08/30/20 20:44 Active Cardiac Monitoring [RC] CONTINUOUS Care 08/31/20 08:58 Active Height and Weight [RC] DAILY Care 08/31/20 08:58 Active Intake and Output [RC] QSHIFT Care 08/31/20 08:58 Active Oxygen Therapy Adult [Oxygen Therapy] [RC] ASDIRECTED Care 08/30/20 23:00 Active Pulse Oximetry [RC] PRN Care 08/31/20 08:58 Active RT Aerosol Therapy [RC] ASDIRECTED Care 08/31/20 08:59 Active Up With Assistance [RC] ASDIRECTED Care 08/30/20 23:18 Active VTE/DVT Education [RC] PER UNIT ROUTINE Care 08/31/20 08:58 Active Vital Signs [RC] Q4H Care 08/31/20 08:58 Active Consult to Case Management/[employer] W[employer] Etch Operator [CONS] Cons 08/31/20 08:58 Active Routine Consult to Spiritual Care [CONS] Routine Cons 08/31/20 09:01 Active OT Evaluation and Treatment [CONS] Routine Cons 08/31/20 08:58 Active PT Evaluation and Treatment [CONS] Routine Cons 08/31/20 08:58 Active Respiratory Care Assess and Treatment [CONS] Routine Cons 08/31/20 08:58 Active Consistent Carbohydrate Diet [DIET] Diet 08/31/20 Breakfast Active Acetaminophen [TylenoL] Med 08/31/20 08:58 Ordered 650 mg PO Q4H PRN Albuterol [Proventil Neb Soln] Med 08/31/20 08:58 Ordered 2.5 mg NEB Q2H PRN Albuterol/Ipratropium [DuoNeb 3.0-0.5 MG/3 ML] Med 08/31/20 08:58 Ordered 3 ml NEB Q4H PRN Azithromycin [Zithromax] Med 08/31/20 21:00 Ordered 500 mg PO DAILY Ondansetron [Zofran] Med 08/31/20 08:58 Ordered 4 mg IV Q6H PRN Sodium Chloride 0.9% [Saline Flush] Med 08/30/20 16:58 Active 10 ml FLUSH ASDIRECTED PRN Sodium Chloride 0.9% [Saline Flush] Med 08/31/20 00:45 Active 10 ml FLUSH BOLUS Temazepam [Restoril] Med 08/30/20 23:42 Active 15 mg PO BEDTIME PRN cefTRIAXone [Rocephin] 2 gm Med 08/31/20 21:00 Ordered Sodium Chloride 0.9% [Normal Saline] 100 ml IV Q24H Saline Lock Insert [OM.PC] Stat Oth 08/30/20 16:58 Ordered Code Status [Resuscitation Status] Routine Resus Stat 08/30/20 23:14 Ordered Medication Orders Acetaminophen (Acetaminophen 325 Mg Tab) 650 mg PO Q4H PRN PRN Reason: Pain (Mild 1-3)/fever Albuterol (Albuterol 0.083% 2.5 Mg/3 Ml Neb Soln) 2.5 mg NEB Q2H PRN PRN Reason: Shortness Of Breath/wheezing Albuterol/Ipratropium (Albuterol/Ipratropium 3.0-0.5 Mg/3 Ml Neb Soln) 3 ml NEB Q4H PRN PRN Reason: Shortness Of Breath/wheezing Azithromycin (Azithromycin 250 Mg Tab) 500 mg PO DAILY CHITRA Stop: 09/01/20 09:01 Ceftriaxone Sodium 2 gm/ (Sodium Chloride) 100 mls @ 200 mls/hr IV Q24H CHITRA Ondansetron HCl (Ondansetron 4 Mg/2 Ml Sdv) 4 mg IV Q6H PRN PRN Reason: Nausea/Vomiting Sodium Chloride (Sodium Chloride 0.9% 10 Ml Syringe) 10 ml FLUSH ASDIRECTED PRN PRN Reason: Keep Vein Open Last Admin: 08/30/20 19:20 Dose: 10 ml Documented by: ED Sodium Chloride (Sodium Chloride 0.9% 10 Ml Syringe) 10 ml FLUSH BOLUS CHITRA Temazepam (Temazepam 15 Mg Cap) 15 mg PO BEDTIME PRN PRN Reason: sleep Last Admin: 08/31/20 00:00 Dose: 15 mg Documented by: KHLOE Assessment/Plan Comment:: Assessment - 08/31/20 (admitted overnight 08/30/20) * 85-year-old male presents to ED via [facility] on 08/30/2020 with respiratory problem * History of HLD, HTN, ND, pulmonary fibrosis, diverticulosis, GI bleed, urinary incontinence, arthritis, type II DM, hypothyroidism, benign melanoma. * Usually utilizes oxygen intermittently at home has been requiring 2 L with home saturations in 80s. * Insulin-dependent diabetic with blood sugars in the 120s to 130s. * Twelve-lead EKG shows sinus rhythm at 96 bpm with borderline prolonged QTC and ST depression unchanged from 11/2018. * Reports nausea, dizziness, worsening shortness of breath, productive cough, chills but no fever. * Labs in ED: * WBC 9.19 * Hemoglobin 10.9 * Platelet 297,000 * Neutrophils 64.7% * Sodium 139 * Potassium 4.4 * Chloride 102 * Carbon dioxide 26 * Anion gap 15.4 * BUN 17, creatinine 1.3, GFR 52 * Glucose 152 * Magnesium 2.1 * Total bilirubin 0.6 * AST 23, ALT 23, alkaline phosphatase 67 * Troponin 0 0.044 * CRP 12.2 * Protein 7.5 * Albumin 2.7 * D-dimer 0.89 * proBNP 1326 * UA negative * SARS-CoV-2 RNA negative * ABG in left radial: pH 7.45, PCO2 34.6, PO2 of 86.0, HCO3 of 23.5, O2 saturation 96.4, AA gradient 70, obtain on 2 L via NC. * Given 500 mg azithromycin and 2 g Rocephin in ED. * Chest x-ray in ED shows interstitial change slightly worse from prior study raising possibility of mild areas of pneumonia and other incidental findings * CTA obtained in ED: * 1. Patchy areas of increased density within both sides of the chest raising the possibility of pneumonia superimposed upon chronic fibrosis. Please rule out Covid disease. * 2. Multiple layering gallstones within the gallbladder. * 3. No findings of pulmonary embolism. * 4. Other findings believed to be incidental as noted above. * Admitted to medical floor on telemetry for management of pneumonia and failure to thrive. PLAN: Pneumonia Hypoxia Pulmonary fibrosis, unspecified * Rocephin 2gm * Azithromycin 500mg - Day 2/3 * O2 as needed to keep saturations >90% * Albuterol/duoneb as needed * IS/Acapella * RT Consultation * Mucinex scheduled * Sputum culture * MRSA screen * Droplet isolation Failure to thrive in adult Generalized weakness Hypoalbuminemia Dizziness Hypothyroidism * PT/OT * CM/SW * Laboratory Monitor consult * Check TSH * Carotid US doppler * Check vitamin D Type II diabetes mellitus * Home LA insulin * SS low dose insulin TIDAC * QID AC and Bedtime glucose checks * Per patient A1C was just checked las month with Dr. Brooks and was 6.7% HLD (hyperlipidemia) HTN (hypertension) Arthritis * Home medications as ordered * Monitor vital signs History of myocardial infarction Diverticulosis History of GI bleed Urinary incontinence * No acute concerns Elevated D-Dimer * Ruled out PE due to negative CTA Code Status: DNR/DNI - after long discussion patient changed from full code on 08/31/20 PCP: Dr. Brooks DVT Prophylaxis: Lovenox Social: Patient and currently live at home but they are moving to [place] in [place] soon and have started packing. They have 2 sons who live in [place] Disposition: Patient admitted to [facility] on telemetry for management of PNA and failure to thrive. LOS anticipated at 3-4 days. - Mortality Measure Prognosis:: Poor (Overall prognosis poor given patient's significant baseline medical conditions and advanced age.)
[2020-08-31] MEDS ORDERED: Docusate Sodium 100 MG Cap PO PRN (09:20)
[2020-08-31] MEDS ORDERED: Lactated Ringers 1,000 ML IV SCH (09:30)
[2020-08-31] MEDS: Levothyroxine 50 MCG Tab PO SCH (12:07)
[2020-08-31] MEDS: Metoprolol Succinate 25 MG Tab.ER PO SCH (12:09)
[2020-08-31] MEDS: guaiFENesin 600 MG Tab.ER PO SCH ×2 (12:10→21:43)
[2020-08-31] MEDS: Aspirin 81 MG Tab.EC PO SCH (12:10)
[2020-08-31] MEDS: Trospium 20 MG Tab PO SCH ×2 (12:10→15:14)
[2020-08-31] MEDS: Insulin Lispro 100 UNIT/ML 10 ML Vial SUBCUT SCH ×2 (12:10→18:14)
[2020-08-31] MEDS: Enoxaparin 40 MG/0.4 ML Syringe SUBCUT SCH (12:10)
[2020-08-31] MEDS: Insulin Glarg,Human.Rec.Analog 100 Unit/ML SUBCUT SCH (12:11)
[2020-08-31] MEDS ORDERED: Docusate Sodium 100 MG Cap PO ONE (14:51)
[2020-08-31] MEDS: Rosuvastatin 10 MG Tab PO SCH (18:30)
[2020-08-31] MEDS: Azithromycin 250 MG Tab PO SCH (21:43)
[2020-08-31] MEDS: Temazepam 15 MG Cap PO PRN ×2 (21:43)
[2020-08-31] MEDS: Ezetimibe 10 MG Tab PO SCH (21:43)
[2020-08-31] MEDS: cefTRIAXone 2 GM in Sodium Chloride 0.9% 100 ML IV SCH (21:44)
[2020-09-01] MEDS: Levothyroxine 50 MCG Tab PO SCH (06:07)
[2020-09-01] MEDS: Trospium 20 MG Tab PO SCH ×2 (06:07→15:33)
[2020-09-01] MEDS: Insulin Lispro 100 UNIT/ML 10 ML Vial SUBCUT SCH ×3 (07:54→18:52)
--- NOTE | 2020-09-01 09:02 | US ---
Carotid ultrasound: Multiple real-time images were obtained. Comparison: Prior carotid ultrasound study of 03/27/12. Findings: Plaque: Moderate amount of scattered plaque is seen. The plaque is mostly calcified and is seen within the mid left carotid artery as well as extending into the carotid bulbs and origin of the internal and external carotid arteries. Plaque shows irregular surface margins. Velocity measurements: Right side: CCA has a peak systolic velocity of 1.09 m/s. ICA has a peak systolic velocity of 1.16 m/s and peak end-diastolic velocity of 0.28 m/s. ECA has a peak systolic velocity of 0.98 m/s. Vertebral artery has a peak systolic velocity of 0.60 m/s. ICA/CCA ratio is 1.1. Left side: CCA has a peak systolic velocity of 0.91 m/s. ICA has a peak systolic velocity of 1.23 m/s and peak end-diastolic velocity of 0.27 m/s. ECA has a peak systolic velocity of 1.47 m/s. Vertebral artery has a peak systolic velocity of 0.40 m/s. ICA/CCA ratio is 1.4. Impression: 1. Diffuse calcific plaque with irregular surface margins. Plaque has increased from previous exam. 2. Velocity measurements within both internal carotid arteries correspond to stenosis in the range of 1-49 percent. Diagnostic code #3 I agree with preliminary report from [facility], finalized on 08/31/20, 6:30 PM CDT
[2020-09-01] MEDS: Cholecalciferol (Vitamin D3) 25 MCG Tab PO SCH (09:29)
[2020-09-01] MEDS: Aspirin 81 MG Tab.EC PO SCH (09:30)
[2020-09-01] MEDS: Multivitamin Tab PO SCH (09:30)
[2020-09-01] MEDS: Insulin Glarg,Human.Rec.Analog 100 Unit/ML SUBCUT SCH (09:30)
[2020-09-01] MEDS: guaiFENesin 600 MG Tab.ER PO SCH ×2 (09:30→20:36)
[2020-09-01] MEDS: Enoxaparin 40 MG/0.4 ML Syringe SUBCUT SCH (09:30)
[2020-09-01] MEDS: Metoprolol Succinate 25 MG Tab.ER PO SCH (09:36)
--- NOTE | 2020-09-01 10:41 | PCM.PN ---
- General Info Date of Service: 09/01/20 Admission Dx/Problem (Free Text): Admission Diagnosis/Problem Admission Diagnosis/Problem Pneumonia Functional Status: Reports: Pain Controlled, Tolerating Diet, Ambulating, Urinating, Incentive Spirometry, Other (Acapella ). Denies: New Symptoms - Review of Systems General: Reports: Weakness, Fatigue, Malaise. Denies: Fever, Chills HEENT: Reports: No Symptoms. Denies: Headaches, Sore Throat Pulmonary: Reports: Shortness of Breath, Cough, Sputum. Denies: Pleuritic Chest Pain, Wheezing Cardiovascular: Reports: Dyspnea on Exertion. Denies: Chest Pain, Palpitations, Edema Gastrointestinal: Reports: No Symptoms. Denies: Abdominal Pain, Constipation, Diarrhea, Nausea, Vomiting Genitourinary: Reports: No Symptoms. Denies: Pain Musculoskeletal: Reports: No Symptoms Skin: Reports: No Symptoms Neurological: Reports: Pre-Existing Deficit (utilized a cane ), Difficulty Walking, Weakness. Denies: Confusion, Gait Disturbance Psychiatric: Reports: No Symptoms - Patient Data Vitals - Most Recent: Last Vital Signs Temp 97.7 F 09/01/20 07:40 Pulse 89 09/01/20 09:36 Resp 20 09/01/20 07:40 BP 120/90 09/01/20 09:36 Pulse Ox 94 L 09/01/20 08:22 Weight - Most Recent: 151 lb 9.6 oz I&O - Last 24 Hours: Intake & Output 08/31/20 09/01/20 09/01/20 22:59 06:59 14:59 Intake Total 1158 1200 Output Total 925 400 Balance 233 800 Lab Results Last 24 Hours: Laboratory Results - last 24 hr 08/31/20 08/31/20 08/31/20 Range/Units 11:21 15:58 15:58 WBC (4.23-9.07) K/mm3 RBC (4.63-6.08) M/mm3 Hgb (13.7-17.5) gm/dl Hct (40.1-51.0) % MCV (79.0-92.2) fl MCH (25.7-32.2) pg MCHC (32.2-35.5) g/dl RDW Std Deviation (35.1-43.9) fL Plt Count (163-337) K/mm3 MPV (9.4-12.3) fl Neut % (Auto) (34.0-67.9) % Lymph % (Auto) (21.8-53.1) % [place] % (Auto) (5.3-12.2) % Eos % (Auto) (0.8-7.0) Baso % (Auto) (0.1-1.2) % Neut # (Auto) (1.78-5.38) K/mm3 Lymph # (Auto) (1.32-3.57) K/mm3 [place] # (Auto) (0.30-0.82) K/mm3 Eos # (Auto) (0.04-0.54) K/mm3 Baso # (Auto) (0.01-0.08) K/mm3 Sodium (136-145) mEq/L Potassium (3.5-5.1) mEq/L Chloride (98-107) mEq/L Carbon Dioxide (21-32) mEq/L Anion Gap (5-15) BUN (7-18) mg/dL Creatinine (0.7-1.3) mg/dL Est Cr Clr Drug Dosing mL/min Estimated GFR (MDRD) (>60) mL/min BUN/Creatinine Ratio (14-18) Glucose (83-115) mg/dL POC Glucose 171 H (83-110) mg/dL Calcium (8.5-10.1) mg/dL Magnesium (1.8-2.4) mg/dl C-Reactive Protein (<1.0) mg/dL Vitamin D 25-Hydroxy 53.5 (30.0-100.0) ng/ml TSH 3rd Generation 1.157 (0.358-3.74) uIU/mL MRSA (PCR) 08/31/20 08/31/20 08/31/20 Range/Units 17:25 17:52 20:39 WBC (4.23-9.07) K/mm3 RBC (4.63-6.08) M/mm3 Hgb (13.7-17.5) gm/dl Hct (40.1-51.0) % MCV (79.0-92.2) fl MCH (25.7-32.2) pg MCHC (32.2-35.5) g/dl RDW Std Deviation (35.1-43.9) fL Plt Count (163-337) K/mm3 MPV (9.4-12.3) fl Neut % (Auto) (34.0-67.9) % Lymph % (Auto) (21.8-53.1) % [place] % (Auto) (5.3-12.2) % Eos % (Auto) (0.8-7.0) Baso % (Auto) (0.1-1.2) % Neut # (Auto) (1.78-5.38) K/mm3 Lymph # (Auto) (1.32-3.57) K/mm3 [place] # (Auto) (0.30-0.82) K/mm3 Eos # (Auto) (0.04-0.54) K/mm3 Baso # (Auto) (0.01-0.08) K/mm3 Sodium (136-145) mEq/L Potassium (3.5-5.1) mEq/L Chloride (98-107) mEq/L Carbon Dioxide (21-32) mEq/L Anion Gap (5-15) BUN (7-18) mg/dL Creatinine (0.7-1.3) mg/dL Est Cr Clr Drug Dosing mL/min Estimated GFR (MDRD) (>60) mL/min BUN/Creatinine Ratio (14-18) Glucose (83-115) mg/dL POC Glucose 98 254 H (83-110) mg/dL Calcium (8.5-10.1) mg/dL Magnesium (1.8-2.4) mg/dl C-Reactive Protein (<1.0) mg/dL Vitamin D 25-Hydroxy (30.0-100.0) ng/ml TSH 3rd Generation (0.358-3.74) uIU/mL MRSA (PCR) Negative 09/01/20 09/01/20 09/01/20 Range/Units 05:48 05:48 06:24 WBC 11.95 H (4.23-9.07) K/mm3 RBC 3.61 L (4.63-6.08) M/mm3 Hgb 10.9 L (13.7-17.5) gm/dl Hct 34.1 L (40.1-51.0) % MCV 94.5 H (79.0-92.2) fl MCH 30.2 (25.7-32.2) pg MCHC 32.0 L (32.2-35.5) g/dl RDW Std Deviation 46.3 H (35.1-43.9) fL Plt Count 323 (163-337) K/mm3 MPV 8.8 L (9.4-12.3) fl Neut % (Auto) 64.4 (34.0-67.9) % Lymph % (Auto) 20.9 L (21.8-53.1) % [place] % (Auto) 9.8 (5.3-12.2) % Eos % (Auto) 4.4 (0.8-7.0) Baso % (Auto) 0.3 (0.1-1.2) % Neut # (Auto) 7.70 H (1.78-5.38) K/mm3 Lymph # (Auto) 2.50 (1.32-3.57) K/mm3 [place] # (Auto) 1.17 H (0.30-0.82) K/mm3 Eos # (Auto) 0.52 (0.04-0.54) K/mm3 Baso # (Auto) 0.04 (0.01-0.08) K/mm3 Sodium 140 (136-145) mEq/L Potassium 4.0 (3.5-5.1) mEq/L Chloride 103 (98-107) mEq/L Carbon Dioxide 27 (21-32) mEq/L Anion Gap 14.0 (5-15) BUN 15 (7-18) mg/dL Creatinine 1.2 (0.7-1.3) mg/dL Est Cr Clr Drug Dosing 41.96 mL/min Estimated GFR (MDRD) 57 (>60) mL/min BUN/Creatinine Ratio 12.5 L (14-18) Glucose 87 (83-115) mg/dL POC Glucose 95 (83-110) mg/dL Calcium 8.6 (8.5-10.1) mg/dL Magnesium 2.1 (1.8-2.4) mg/dl C-Reactive Protein 12.0 H* (<1.0) mg/dL Vitamin D 25-Hydroxy (30.0-100.0) ng/ml TSH 3rd Generation (0.358-3.74) uIU/mL MRSA (PCR) [facility] Results Last 24 Hours: Microbiology 08/31/20 22:00 Gram Stain - Final Sputum - Expectorated Sputum Culture - Final Med Orders - Current: Current Medications Acetaminophen (Acetaminophen 325 Mg Tab) 650 mg PO Q4H PRN PRN Reason: Pain (Mild 1-3)/fever Albuterol (Albuterol 0.083% 2.5 Mg/3 Ml Neb Soln) 2.5 mg NEB Q2H PRN PRN Reason: Shortness Of Breath/wheezing Albuterol/Ipratropium (Albuterol/Ipratropium 3.0-0.5 Mg/3 Ml Neb Soln) 3 ml NEB Q4H PRN PRN Reason: Shortness Of Breath/wheezing Aspirin (Aspirin 81 Mg Tab.Ec) 81 mg PO DAILY [facility] Last Admin: 09/01/20 09:30 Dose: 81 mg Documented by: Azithromycin (Azithromycin 250 Mg Tab) 500 mg PO Q24H [facility] Stop: 09/01/20 21:01 Last Admin: 08/31/20 21:43 Dose: 500 mg Documented by: Cholecalciferol (Cholecalciferol (Vitamin D3) 25 Mcg Tab) 50 mcg PO DAILY [facility] Last Admin: 09/01/20 09:29 Dose: 50 mcg Documented by: Docusate Sodium (Docusate Sodium 100 Mg Cap) 100 mg PO BID PRN PRN Reason: Constipation Ezetimibe (Ezetimibe 10 Mg Tab) 10 mg PO BEDTIME [facility] Last Admin: 08/31/20 21:43 Dose: 10 mg Documented by: Enoxaparin Sodium (Enoxaparin 40 Mg/0.4 Ml Syringe) 40 mg SUBCUT DAILY [facility] Last Admin: 09/01/20 09:30 Dose: 40 mg Documented by: Guaifenesin (Guaifenesin 600 Mg Tab.Er) 1,200 mg PO BID [facility] Last Admin: 09/01/20 09:30 Dose: 1,200 mg Documented by: Ceftriaxone Sodium 2 gm/ (Sodium Chloride) 100 mls @ 200 mls/hr IV Q24H [facility] Last Admin: 08/31/20 21:44 Dose: 200 mls/hr Documented by: Insulin Glargine (Insulin Glarg,Human.Rec.Analog 100 Unit/Ml) 26 unit SUBCUT DAILY [facility] Last Admin: 09/01/20 09:30 Dose: 26 units Documented by: Insulin Human Lispro (Insulin Lispro 100 Unit/Ml) 0 unit SUBCUT TIDAC [facility]; Protocol Last Admin: 09/01/20 07:54 Dose: Not Given Documented by: Levothyroxine Sodium (Levothyroxine 50 Mcg Tab) 50 mcg PO ACBREAKFAST [facility] Last Admin: 09/01/20 06:07 Dose: 50 mcg Documented by: Magnesium Hydroxide (Magnesium Hydroxide 400 Mg/5 Ml Susp 30 Ml Cup) 30 ml PO Q6H PRN PRN Reason: Constipation Metoprolol Succinate (Metoprolol Succinate 25 Mg Tab.Er) 25 mg PO DAILY [facility] Last Admin: 09/01/20 09:36 Dose: 25 mg Documented by: Multivitamins/Minerals/Vitamin C (Multivitamin Tab) 1 tab PO DAILY [facility] Last Admin: 09/01/20 09:30 Dose: 1 tab Documented by: Ondansetron HCl (Ondansetron 4 Mg/2 Ml Sdv) 4 mg IV Q6H PRN PRN Reason: Nausea/Vomiting Prednisone (Prednisone 20 Mg Tab) 60 mg PO WITHBREAKFAST [facility] Rosuvastatin Calcium (Rosuvastatin 10 Mg Tab) 10 mg PO PCDINNER [facility] Last Admin: 08/31/20 18:30 Dose: 10 mg Documented by: Sodium Chloride (Sodium Chloride 0.9% 10 Ml Syringe) 10 ml FLUSH ASDIRECTED PRN PRN Reason: Keep Vein Open Last Admin: 08/30/20 19:20 Dose: 10 ml Documented by: Temazepam (Temazepam 15 Mg Cap) 15 mg PO BEDTIME PRN PRN Reason: sleep Last Admin: 08/31/20 21:43 Dose: 15 mg Documented by: Trospium (Trospium 20 Mg Tab) 20 mg PO BIDAC [facility] Last Admin: 09/01/20 06:07 Dose: 20 mg Documented by: Discontinued Medications Docusate Sodium (Docusate Sodium 100 Mg Cap) 200 mg PO ONETIME ONE Stop: 08/31/20 14:52 Last Admin: 08/31/20 15:15 Dose: 200 mg Documented by: Azithromycin 500 mg/ Sodium (Chloride) 250 mls @ 250 mls/hr IV Q24H [facility] Last Admin: 08/30/20 21:26 Dose: 250 mls/hr Documented by: Ceftriaxone Sodium 2 gm/ (Sodium Chloride) 100 mls @ 200 mls/hr IV Q24H [facility] Last Admin: 08/30/20 21:01 Dose: 200 mls/hr Documented by: Sodium Chloride (Normal Saline) 100 mls @ 60 drops/sec IV ASDIRECTED [facility] Lactated Ringer's (Ringers, Lactated) 1,000 mls @ 75 mls/hr IV ASDIRECTED [facility] Stop: 08/31/20 22:49 Last Admin: 08/31/20 12:12 Dose: 75 mls/hr Documented by: Iopamidol (Iopamidol 755 Mg/Ml 100 Ml Bottle) 100 ml IVPUSH ONETIME ONE Stop: 08/31/20 00:46 Last Admin: 08/31/20 02:32 Dose: Not Given Documented by: Sodium Chloride (Sodium Chloride 0.9% 10 Ml Syringe) 10 ml FLUSH BOLUS [facility] - Exam Quality Assessment: Supplemental Oxygen (4L), DVT Prophylaxis. No: Urine Catheter General: Alert, Oriented, Cooperative, No Acute Distress HEENT: Pupils Equal, Pupils Reactive, Mucous Membr. Moist/[place] Neck: Supple, Trachea Midline Lungs: Normal Respiratory Effort, Decreased Breath Sounds, Crackles Cardiovascular: Regular Rate, Regular Rhythm GI/Abdominal Exam: Normal Bowel Sounds, Soft, Non-Tender, No Distention (Male) Exam: Deferred Back Exam: Normal Inspection, Full Range of Motion Extremities: Normal Inspection, Normal Range of Motion, Non-Tender, No Pedal Edema, Normal Capillary Refill Peripheral Pulses: 2+: Radial (L), Radial (R), Dorsalis Pedis (L), Dorsalis Pedis (R) Skin: Warm, Dry, Intact Neurological: No New Focal Deficit Psy/Mental Status: Alert, Normal Affect, Normal Mood - Patient Data Lab Results Last 24 hrs: Laboratory Results - last 24 hr 08/31/20 08/31/20 08/31/20 Range/Units 11:21 15:58 15:58 WBC (4.23-9.07) K/mm3 RBC (4.63-6.08) M/mm3 Hgb (13.7-17.5) gm/dl Hct (40.1-51.0) % MCV (79.0-92.2) fl MCH (25.7-32.2) pg MCHC (32.2-35.5) g/dl RDW Std Deviation (35.1-43.9) fL Plt Count (163-337) K/mm3 MPV (9.4-12.3) fl Neut % (Auto) (34.0-67.9) % Lymph % (Auto) (21.8-53.1) % [place] % (Auto) (5.3-12.2) % Eos % (Auto) (0.8-7.0) Baso % (Auto) (0.1-1.2) % Neut # (Auto) (1.78-5.38) K/mm3 Lymph # (Auto) (1.32-3.57) K/mm3 [place] # (Auto) (0.30-0.82) K/mm3 Eos # (Auto) (0.04-0.54) K/mm3 Baso # (Auto) (0.01-0.08) K/mm3 Sodium (136-145) mEq/L Potassium (3.5-5.1) mEq/L Chloride (98-107) mEq/L Carbon Dioxide (21-32) mEq/L Anion Gap (5-15) BUN (7-18) mg/dL Creatinine (0.7-1.3) mg/dL Est Cr Clr Drug Dosing mL/min Estimated GFR (MDRD) (>60) mL/min BUN/Creatinine Ratio (14-18) Glucose (83-115) mg/dL POC Glucose 171 H (83-110) mg/dL Calcium (8.5-10.1) mg/dL Magnesium (1.8-2.4) mg/dl C-Reactive Protein (<1.0) mg/dL Vitamin D 25-Hydroxy 53.5 (30.0-100.0) ng/ml TSH 3rd Generation 1.157 (0.358-3.74) uIU/mL MRSA (PCR) 08/31/20 08/31/20 08/31/20 Range/Units 17:25 17:52 20:39 WBC (4.23-9.07) K/mm3 RBC (4.63-6.08) M/mm3 Hgb (13.7-17.5) gm/dl Hct (40.1-51.0) % MCV (79.0-92.2) fl MCH (25.7-32.2) pg MCHC (32.2-35.5) g/dl RDW Std Deviation (35.1-43.9) fL Plt Count (163-337) K/mm3 MPV (9.4-12.3) fl Neut % (Auto) (34.0-67.9) % Lymph % (Auto) (21.8-53.1) % [place] % (Auto) (5.3-12.2) % Eos % (Auto) (0.8-7.0) Baso % (Auto) (0.1-1.2) % Neut # (Auto) (1.78-5.38) K/mm3 Lymph # (Auto) (1.32-3.57) K/mm3 [place] # (Auto) (0.30-0.82) K/mm3 Eos # (Auto) (0.04-0.54) K/mm3 Baso # (Auto) (0.01-0.08) K/mm3 Sodium (136-145) mEq/L Potassium (3.5-5.1) mEq/L Chloride (98-107) mEq/L Carbon Dioxide (21-32) mEq/L Anion Gap (5-15) BUN (7-18) mg/dL Creatinine (0.7-1.3) mg/dL Est Cr Clr Drug Dosing mL/min Estimated GFR (MDRD) (>60) mL/min BUN/Creatinine Ratio (14-18) Glucose (83-115) mg/dL POC Glucose 98 254 H (83-110) mg/dL Calcium (8.5-10.1) mg/dL Magnesium (1.8-2.4) mg/dl C-Reactive Protein (<1.0) mg/dL Vitamin D 25-Hydroxy (30.0-100.0) ng/ml TSH 3rd Generation (0.358-3.74) uIU/mL MRSA (PCR) Negative 09/01/20 09/01/20 09/01/20 Range/Units 05:48 05:48 06:24 WBC 11.95 H (4.23-9.07) K/mm3 RBC 3.61 L (4.63-6.08) M/mm3 Hgb 10.9 L (13.7-17.5) gm/dl Hct 34.1 L (40.1-51.0) % MCV 94.5 H (79.0-92.2) fl MCH 30.2 (25.7-32.2) pg MCHC 32.0 L (32.2-35.5) g/dl RDW Std Deviation 46.3 H (35.1-43.9) fL Plt Count 323 (163-337) K/mm3 MPV 8.8 L (9.4-12.3) fl Neut % (Auto) 64.4 (34.0-67.9) % Lymph % (Auto) 20.9 L (21.8-53.1) % [place] % (Auto) 9.8 (5.3-12.2) % Eos % (Auto) 4.4 (0.8-7.0) Baso % (Auto) 0.3 (0.1-1.2) % Neut # (Auto) 7.70 H (1.78-5.38) K/mm3 Lymph # (Auto) 2.50 (1.32-3.57) K/mm3 [place] # (Auto) 1.17 H (0.30-0.82) K/mm3 Eos # (Auto) 0.52 (0.04-0.54) K/mm3 Baso # (Auto) 0.04 (0.01-0.08) K/mm3 Sodium 140 (136-145) mEq/L Potassium 4.0 (3.5-5.1) mEq/L Chloride 103 (98-107) mEq/L Carbon Dioxide 27 (21-32) mEq/L Anion Gap 14.0 (5-15) BUN 15 (7-18) mg/dL Creatinine 1.2 (0.7-1.3) mg/dL Est Cr Clr Drug Dosing 41.96 mL/min Estimated GFR (MDRD) 57 (>60) mL/min BUN/Creatinine Ratio 12.5 L (14-18) Glucose 87 (83-115) mg/dL POC Glucose 95 (83-110) mg/dL Calcium 8.6 (8.5-10.1) mg/dL Magnesium 2.1 (1.8-2.4) mg/dl C-Reactive Protein 12.0 H* (<1.0) mg/dL Vitamin D 25-Hydroxy (30.0-100.0) ng/ml TSH 3rd Generation (0.358-3.74) uIU/mL MRSA (PCR) Result Diagrams: 09/01/20 05:48 09/01/20 05:48 [facility] Results Last 24 hrs: Microbiology 08/31/20 22:00 Gram Stain - Final Sputum - Expectorated Sputum Culture - Final Sepsis Event Note - Evaluation Sepsis Screening Result: No Definite Risk - Focused Exam Vital Signs: Vital Signs Temp Pulse Resp BP Pulse Ox Pulse Ox 09/01/20 09:36 89 120/90 09/01/20 08:22 94 L 09/01/20 08:18 95 09/01/20 07:40 97.7 F 51 L 20 97/57 L 91 L 09/01/20 07:28 96 95 09/01/20 06:28 95 09/01/20 04:21 98.4 F 93 20 105/58 L 95 08/31/20 23:23 97.5 F 96 32 H 107/69 94 L - Problem List & Annotations (1) HLD (hyperlipidemia) SNOMED Code(s): 66308780 Code(s): E78.5 - HYPERLIPIDEMIA, UNSPECIFIED Status: Chronic Priority: Low Current Visit: No Qualifiers: Hyperlipidemia type: unspecified Qualified Code(s): E78.5 - Hyperlipidemia, unspecified (2) HTN (hypertension) SNOMED Code(s): 68164964 Code(s): I10 - ESSENTIAL (PRIMARY) HYPERTENSION Status: Chronic Priority: Medium Current Visit: No Qualifiers: Hypertension type: unspecified Qualified Code(s): I10 - Essential (primary) hypertension (3) History of myocardial infarction SNOMED Code(s): 609900281 Code(s): I25.2 - OLD MYOCARDIAL INFARCTION Status: Chronic Priority: Low Current Visit: No (4) Diverticulosis SNOMED Code(s): 499099714 Code(s): K57.90 - DVRTCLOS OF INTEST, PART UNSP, W/O PERF OR ABSCESS W/O BLEED Status: Chronic Priority: Low Current Visit: No (5) History of GI bleed SNOMED Code(s): 603265214 Code(s): Z87.19 - PERSONAL HISTORY OF OTHER DISEASES OF THE DIGESTIVE SYSTEM Status: Chronic Priority: Low Current Visit: No (6) Urinary incontinence SNOMED Code(s): 522850191 Code(s): R32 - UNSPECIFIED URINARY INCONTINENCE Status: Chronic Priority: Low Current Visit: No Qualifiers: Urinary Incontinence type: unspecified incontinence Qualified Code(s): R32 - Unspecified urinary incontinence (7) Arthritis SNOMED Code(s): 5382529 Code(s): M19.90 - UNSPECIFIED OSTEOARTHRITIS, UNSPECIFIED SITE Status: Acute Current Visit: Yes (8) Type II diabetes mellitus SNOMED Code(s): 83749295 Code(s): E11.9 - TYPE 2 DIABETES MELLITUS WITHOUT COMPLICATIONS Status: Chronic Priority: Medium Current Visit: No Qualifiers: Diabetes mellitus custodial insulin use: with custodial use Diabetes mellitus complication status: with other specified complication Qualified Code(s): E11.69 - Type 2 diabetes mellitus with other specified complication; 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 (9) Hypothyroidism SNOMED Code(s): 40968078 Code(s): E03.9 - HYPOTHYROIDISM, UNSPECIFIED Status: Chronic Priority: Medium Current Visit: No Qualifiers: Hypothyroidism type: unspecified Qualified Code(s): E03.9 - Hypothyroidism, unspecified (10) Failure to thrive in adult SNOMED Code(s): 553864832 Code(s): R62.7 - ADULT FAILURE TO THRIVE Status: Acute Priority: High Current Visit: Yes (11) Pneumonia SNOMED Code(s): 502579578 Code(s): J18.9 - PNEUMONIA, UNSPECIFIED ORGANISM Status: Acute Priority: High Current Visit: Yes Qualifiers: Pneumonia type: due to unspecified organism Laterality: right Lung location: upper lobe of lung Qualified Code(s): J18.9 - Pneumonia, unspecified organism (12) Hypoxia SNOMED Code(s): 955393261 Code(s): R09.02 - HYPOXEMIA Status: Acute Priority: High Current Visit: Yes (13) Pulmonary fibrosis, unspecified SNOMED Code(s): 27053592 Code(s): J84.10 - PULMONARY FIBROSIS, UNSPECIFIED Status: Chronic P riority: High Current Visit: Yes (14) Generalized weakness SNOMED Code(s): 92930989 Code(s): R53.1 - WEAKNESS Status: Acute Priority: High Current Visit: Yes (15) Dizziness SNOMED Code(s): 398329293, 619915785 Code(s): R42 - DIZZINESS AND GIDDINESS Status: Acute Priority: High Current Visit: Yes (16) Hypoalbuminemia SNOMED Code(s): 509684343 Code(s): E88.09 - OTH DISORDERS OF PLASMA-PROTEIN METABOLISM, NEC Status: Acute Priority: High Current Visit: Yes (17) Elevated d-dimer SNOMED Code(s): 169445781 Code(s): R79.89 - OTHER SPECIFIED ABNORMAL FINDINGS OF BLOOD CHEMISTRY Status: Ruled-out Priority: High Current Visit: Yes - Problem List Review Problem List Initiated/Reviewed/Updated: Yes - My Orders Last 24 Hours: My Active Orders 08/31/20 09:58 Isolation [COMM] Routine 08/31/20 10:00 Aspirin [Halfprin] 81 mg PO DAILY Enoxaparin [Lovenox] 40 mg SUBCUT DAILY Insulin Glarg,Human.Rec.Analog [LantUS] 26 unit SUBCUT DAILY Levothyroxine [Synthroid] 50 mcg PO ACBREAKFAST Metoprolol Succinate [Toprol XL] 25 mg PO DAILY Trospium [Sanctura] 20 mg PO BIDAC guaiFENesin [Mucinex] 1,200 mg PO BID 08/31/20 10:34 Code Status [Resuscitation Status] Routine 08/31/20 10:41 Consult to Dietary [Consult to Genomics Scientist] [CONS] Routine 08/31/20 11:00 Insulin Lispro [HumaLOG] See Protocol SUBCUT TIDAC 08/31/20 19:00 Rosuvastatin [Crestor] 10 mg PO PCDINNER 08/31/20 21:00 Azithromycin [Zithromax] 500 mg PO Q24H Ezetimibe [Zetia] 10 mg PO BEDTIME cefTRIAXone [Rocephin] 2 gm Sodium Chloride 0.9% [Normal Saline] 100 ml IV Q24H 09/01/20 09:00 Cholecalciferol (Vitamin D3) [Vitamin D3] 50 mcg PO DAILY Multivitamins [Tab-A-Annie] 1 tab PO DAILY 09/02/20 05:11 BASIC METABOLIC PANEL,BMP [CHEM] AM CBC WITH AUTO DIFF [HEME] AM CRP [C-REACTIVE PROTEIN] [CHEM] AM MAGNESIUM [CHEM] AM 09/02/20 07:00 predniSONE 60 mg PO WITHBREAKFAST 09/03/20 05:11 BASIC METABOLIC PANEL,BMP [CHEM] AM CBC WITH AUTO DIFF [HEME] AM CRP [C-REACTIVE PROTEIN] [CHEM] AM MAGNESIUM [CHEM] AM 09/04/20 05:11 BASIC METABOLIC PANEL,BMP [CHEM] AM CBC WITH AUTO DIFF [HEME] AM CRP [C-REACTIVE PROTEIN] [CHEM] AM MAGNESIUM [CHEM] AM - Assessment Assessment:: Assessment - 08/31/20 (admitted overnight 08/30/20) * 85-year-old male presents to ED via [place] [facility] on 08/30/2020 with respiratory problem * History of HLD, HTN, [place], pulmonary fibrosis, diverticulosis, GI bleed, urinary incontinence, arthritis, type II DM, hypothyroidism, benign melanoma. * Usually utilizes oxygen intermittently at home has been requiring 2 L with home saturations in 80s. * Insulin-dependent diabetic with blood sugars in the 120s to 130s. * Twelve-lead EKG shows sinus rhythm at 96 bpm with borderline prolonged QTC and ST depression unchanged from 11/2018. * Reports nausea, dizziness, worsening shortness of breath, productive cough, chills but no fever. * Labs in ED: * WBC 9.19 * Hemoglobin 10.9 * Platelet 297,000 * Neutrophils 64.7% * Sodium 139 * Potassium 4.4 * Chloride 102 * Carbon dioxide 26 * Anion gap 15.4 * BUN 17, creatinine 1.3, GFR 52 * Glucose 152 * Magnesium 2.1 * Total bilirubin 0.6 * AST 23, ALT 23, alkaline phosphatase 67 * Troponin 0 0.044 * CRP 12.2 * Protein 7.5 * Albumin 2.7 * D-dimer 0.89 * proBNP 1326 * UA negative * SARS-CoV-2 RNA negative * ABG in left radial: pH 7.45, PCO2 34.6, PO2 of 86.0, HCO3 of 23.5, O2 saturation 96.4, AA gradient 70, obtain on 2 L via NC. * Given 500 mg azithromycin and 2 g Rocephin in ED. * Chest x-ray in ED shows interstitial change slightly worse from prior study raising possibility of mild areas of pneumonia and other incidental findings * CTA obtained in ED: * 1. Patchy areas of increased density within both sides of the chest raising the possibility of pneumonia superimposed upon chronic fibrosis. Please rule out Covid disease. * 2. Multiple layering gallstones within the gallbladder. * 3. No findings of pulmonary embolism. * 4. Other findings believed to be incidental as noted above. * Admitted to medical floor on telemetry for management of pneumonia and failure to thrive. 09/01/2020 * Carotid artery US negative * Started prednisone 60mg daily -> increased to solumedrol 60mg BID IVP * Requiring 4-6L overnight and today * Refusing SNF placement. Reports they are working on [facility] placement in [place] currently. * Genomics Scientist following and supplementing * Labs today: * WBC 11.95. * Hemoglobin 10.9. * Platelet 323,000. * Sodium 140. * Potassium 4.0. * Carbon dioxide 27. * Anion gap 14.0. * BUN 15, creatinine 1.2, GFR 57. * Glucose 87. * Magnesium 2.1. * CRP 12.0. * Vitamin D 53.5. * TSH 1.157. * MRSA screen negative * Continue current treatment plan * Repeat CXR tomorrow AM - Plan Plan:: Pneumonia Hypoxia Pulmonary fibrosis, unspecified * Rocephin 2gm * Azithromycin 500mg - Day 07/29 * O2 as needed to keep saturations >90% * Albuterol/duoneb as needed * IS/Acapella * RT Consultation * Mucinex scheduled * Sputum culture * Droplet isolation * Start solu-medrol 60mg BID Failure to thrive in adult Generalized weakness Hypoalbuminemia Dizziness Hypothyroidism * PT/OT * CM/SW * Genomics Scientist consult Type II diabetes mellitus * Home LA insulin * SS low dose insulin TIDAC * QID AC and Bedtime glucose checks * Per patient A1C was just checked las month with Dr. Brooks and was 6.7% HLD (hyperlipidemia) HTN (hypertension) Arthritis * Home medications as ordered * Monitor vital signs History of myocardial infarction Diverticulosis History of GI bleed Urinary incontinence * No acute concerns Elevated D-Dimer * Ruled out PE due to negative CTA Code Status: DNR/DNI - after long discussion patient changed from full code on 08/31/20 PCP: Dr. Brooks DVT Prophylaxis: Lovenox Social: Patient and currently live at home but they are moving to [place] in [place] soon and have started packing. They have 2 sons who live in [place] Disposition: Patient admitted to [facility] on telemetry for management of PNA and failure to thrive. LOS anticipated at 3-4 days.
[2020-09-01] MEDS: predniSONE 20 MG Tab PO ONE ×2 (12:53→12:57)
[2020-09-01] MEDS: Rosuvastatin 10 MG Tab PO SCH (18:52)
[2020-09-01] MEDS: cefTRIAXone 2 GM in Sodium Chloride 0.9% 100 ML IV SCH (20:35)
[2020-09-01] MEDS: Ezetimibe 10 MG Tab PO SCH (20:36)
[2020-09-01] MEDS: Azithromycin 250 MG Tab PO SCH (20:36)
[2020-09-01] MEDS: methylPREDNISolone Sodium Succinate 40 MG/1 ML SDV IVPUSH SCH (20:36)
[2020-09-01] MEDS: Temazepam 15 MG Cap PO PRN (20:50)
[2020-09-02] MEDS: Trospium 20 MG Tab PO SCH ×2 (06:11→16:16)
[2020-09-02] MEDS: Levothyroxine 50 MCG Tab PO SCH (06:11)
[2020-09-02] MEDS ORDERED: predniSONE 20 MG Tab PO SCH (07:00)
--- NOTE | 2020-09-02 08:31 | PCM.PN ---
- General Info Date of Service: 09/02/20 Admission Dx/Problem (Free Text): Admission Diagnosis/Problem Admission Diagnosis/Problem Pneumonia Functional Status: Reports: Pain Controlled, Tolerating Diet, Ambulating, Urinating, Incentive Spirometry, Other (Acapella ). Denies: New Symptoms - Review of Systems General: Reports: No Symptoms, Weakness. Denies: Fever, Fatigue, Malaise, Chills HEENT: Reports: No Symptoms. Denies: Headaches, Sore Throat Pulmonary: Reports: Shortness of Breath, Cough, Sputum. Denies: Wheezing Cardiovascular: Reports: No Symptoms, Dyspnea on Exertion. Denies: Chest Pain, Palpitations, Edema, Lightheadedness Gastrointestinal: Reports: No Symptoms. Denies: Abdominal Pain, Constipation, Diarrhea, Nausea, Vomiting Genitourinary: Reports: No Symptoms. Denies: Pain Musculoskeletal: Reports: No Symptoms Skin: Reports: No Symptoms. Denies: Cyanosis Neurological: Reports: Pre-Existing Deficit (Utilized cane ), Difficulty Walking, Weakness. Denies: Confusion, Dizziness, Headache, Numbness, Tingling, Trouble Speaking, Gait Disturbance Psychiatric: Reports: No Symptoms - Patient Data Vitals - Most Recent: Last Vital Signs Temp 97.5 F 09/02/20 07:21 Pulse 102 H 09/02/20 07:21 Resp 16 09/02/20 07:21 BP 106/71 09/02/20 07:21 Pulse Ox 95 09/02/20 07:58 Weight - Most Recent: 154 lb 11.2 oz I&O - Last 24 Hours: Intake & Output 09/01/20 09/02/20 09/02/20 22:59 06:59 14:59 Intake Total 900 600 Output Total 1050 1275 Balance -150 -675 Lab Results Last 24 Hours: Laboratory Results - last 24 hr 09/01/20 09/01/20 09/01/20 Range/Units 11:21 17:35 20:52 WBC (4.23-9.07) K/mm3 RBC (4.63-6.08) M/mm3 Hgb (13.7-17.5) gm/dl Hct (40.1-51.0) % MCV (79.0-92.2) fl MCH (25.7-32.2) pg MCHC (32.2-35.5) g/dl RDW Std Deviation (35.1-43.9) fL Plt Count (163-337) K/mm3 MPV (9.4-12.3) fl Neut % (Auto) (34.0-67.9) % Lymph % (Auto) (21.8-53.1) % [place] % (Auto) (5.3-12.2) % Eos % (Auto) (0.8-7.0) Baso % (Auto) (0.1-1.2) % Neut # (Auto) (1.78-5.38) K/mm3 Lymph # (Auto) (1.32-3.57) K/mm3 [place] # (Auto) (0.30-0.82) K/mm3 Eos # (Auto) (0.04-0.54) K/mm3 Baso # (Auto) (0.01-0.08) K/mm3 Sodium (136-145) mEq/L Potassium (3.5-5.1) mEq/L Chloride (98-107) mEq/L Carbon Dioxide (21-32) mEq/L Anion Gap (5-15) BUN (7-18) mg/dL Creatinine (0.7-1.3) mg/dL Est Cr Clr Drug Dosing mL/min Estimated GFR (MDRD) (>60) mL/min BUN/Creatinine Ratio (14-18) Glucose (83-115) mg/dL POC Glucose 239 H 163 H 195 H (83-110) mg/dL Calcium (8.5-10.1) mg/dL Magnesium (1.8-2.4) mg/dl C-Reactive Protein (<1.0) mg/dL 09/02/20 09/02/20 09/02/20 Range/Units 05:01 05:01 06:09 WBC 7.42 (4.23-9.07) K/mm3 RBC 3.43 L (4.63-6.08) M/mm3 Hgb 10.3 L (13.7-17.5) gm/dl Hct 32.3 L (40.1-51.0) % MCV 94.2 H (79.0-92.2) fl MCH 30.0 (25.7-32.2) pg MCHC 31.9 L (32.2-35.5) g/dl RDW Std Deviation 45.5 H (35.1-43.9) fL Plt Count 328 (163-337) K/mm3 MPV 8.9 L (9.4-12.3) fl Neut % (Auto) 84.8 H (34.0-67.9) % Lymph % (Auto) 13.7 L (21.8-53.1) % [place] % (Auto) 1.3 L (5.3-12.2) % Eos % (Auto) 0.1 L (0.8-7.0) Baso % (Auto) 0.0 L (0.1-1.2) % Neut # (Auto) 6.28 H (1.78-5.38) K/mm3 Lymph # (Auto) 1.02 L (1.32-3.57) K/mm3 [place] # (Auto) 0.10 L (0.30-0.82) K/mm3 Eos # (Auto) 0.01 L (0.04-0.54) K/mm3 Baso # (Auto) 0.00 L (0.01-0.08) K/mm3 Sodium 140 (136-145) mEq/L Potassium 4.4 (3.5-5.1) mEq/L Chloride 104 (98-107) mEq/L Carbon Dioxide 25 (21-32) mEq/L Anion Gap 15.4 H (5-15) BUN 21 H (7-18) mg/dL Creatinine 1.2 (0.7-1.3) mg/dL Est Cr Clr Drug Dosing 41.96 mL/min Estimated GFR (MDRD) 57 (>60) mL/min BUN/Creatinine Ratio 17.5 (14-18) Glucose 252 H (83-115) mg/dL POC Glucose 235 H (83-110) mg/dL Calcium 9.1 (8.5-10.1) mg/dL Magnesium 2.0 (1.8-2.4) mg/dl C-Reactive Protein 12.8 H* (<1.0) mg/dL [place] Results Last 24 Hours: Microbiology 08/31/20 22:00 Gram Stain - Final Sputum - Expectorated Sputum Culture - Final Med Orders - Current: Current Medications Acetaminophen (Acetaminophen 325 Mg Tab) 650 mg PO Q4H PRN PRN Reason: Pain (Mild 1-3)/fever Albuterol (Albuterol 0.083% 2.5 Mg/3 Ml Neb Soln) 2.5 mg NEB Q2H PRN PRN Reason: Shortness Of Breath/wheezing Albuterol/Ipratropium (Albuterol/Ipratropium 3.0-0.5 Mg/3 Ml Neb Soln) 3 ml NEB Q4H PRN PRN Reason: Shortness Of Breath/wheezing Aspirin (Aspirin 81 Mg Tab.Ec) 81 mg PO DAILY [facility] Last Admin: 09/01/20 09:30 Dose: 81 mg Documented by: Cholecalciferol (Cholecalciferol (Vitamin D3) 25 Mcg Tab) 50 mcg PO DAILY [facility] Last Admin: 09/01/20 09:29 Dose: 50 mcg Documented by: Docusate Sodium (Docusate Sodium 100 Mg Cap) 100 mg PO BID PRN PRN Reason: Constipation Ezetimibe (Ezetimibe 10 Mg Tab) 10 mg PO BEDTIME [facility] Last Admin: 09/01/20 20:36 Dose: 10 mg Documented by: Enoxaparin Sodium (Enoxaparin 40 Mg/0.4 Ml Syringe) 40 mg SUBCUT DAILY [facility] Last Admin: 09/01/20 09:30 Dose: 40 mg Documented by: Guaifenesin (Guaifenesin 600 Mg Tab.Er) 1,200 mg PO BID [facility] Last Admin: 09/01/20 20:36 Dose: 1,200 mg Documented by: Ceftriaxone Sodium 2 gm/ (Sodium Chloride) 100 mls @ 200 mls/hr IV Q24H [facility] Last Admin: 09/01/20 20:35 Dose: 200 mls/hr Documented by: Insulin Glargine (Insulin Glarg,Human.Rec.Analog 100 Unit/Ml) 26 unit SUBCUT DAILY [facility] Last Admin: 09/01/20 09:30 Dose: 26 units Documented by: Insulin Human Lispro (Insulin Lispro 100 Unit/Ml) 0 unit SUBCUT TIDAC [facility]; Protocol Last Admin: 09/01/20 18:52 Dose: 1 units Documented by: Levothyroxine Sodium (Levothyroxine 50 Mcg Tab) 50 mcg PO ACBREAKFAST [facility] Last Admin: 09/02/20 06:11 Dose: 50 mcg Documented by: Magnesium Hydroxide (Magnesium Hydroxide 400 Mg/5 Ml Susp 30 Ml Cup) 30 ml PO Q6H PRN PRN Reason: Constipation Methylprednisolone Sodium Succinate (Methylprednisolone Sodium Succinate 40 Mg/1 Ml Sdv) 60 mg IVPUSH BID [facility] Last Admin: 09/01/20 20:36 Dose: 60 mg Documented by: Metoprolol Succinate (Metoprolol Succinate 25 Mg Tab.Er) 25 mg PO DAILY [facility] Last Admin: 09/01/20 09:36 Dose: 25 mg Documented by: Multivitamins/Minerals/Vitamin C (Multivitamin Tab) 1 tab PO DAILY [facility] Last Admin: 09/01/20 09:30 Dose: 1 tab Documented by: Ondansetron HCl (Ondansetron 4 Mg/2 Ml Sdv) 4 mg IV Q6H PRN PRN Reason: Nausea/Vomiting Rosuvastatin Calcium (Rosuvastatin 10 Mg Tab) 10 mg PO PCDINNER [facility] Last Admin: 09/01/20 18:52 Dose: 10 mg Documented by: Sodium Chloride (Sodium Chloride 0.9% 10 Ml Syringe) 10 ml FLUSH ASDIRECTED PRN PRN Reason: Keep Vein Open Last Admin: 08/30/20 19:20 Dose: 10 ml Documented by: Temazepam (Temazepam 15 Mg Cap) 15 mg PO BEDTIME PRN PRN Reason: sleep Last Admin: 09/01/20 20:50 Dose: 15 mg Documented by: Trospium (Trospium 20 Mg Tab) 20 mg PO BIDAC [facility] Last Admin: 09/02/20 06:11 Dose: 20 mg Documented by: Discontinued Medications Azithromycin (Azithromycin 250 Mg Tab) 500 mg PO Q24H [facility] Stop: 09/01/20 21:01 Last Admin: 09/01/20 20:36 Dose: 500 mg Documented by: Docusate Sodium (Docusate Sodium 100 Mg Cap) 200 mg PO ONETIME ONE Stop: 08/31/20 14:52 Last Admin: 08/31/20 15:15 Dose: 200 mg Documented by: Azithromycin 500 mg/ Sodium (Chloride) 250 mls @ 250 mls/hr IV Q24H [facility] Last Admin: 08/30/20 21:26 Dose: 250 mls/hr Documented by: Ceftriaxone Sodium 2 gm/ (Sodium Chloride) 100 mls @ 200 mls/hr IV Q24H [facility] Last Admin: 08/30/20 21:01 Dose: 200 mls/hr Documented by: Sodium Chloride (Normal Saline) 100 mls @ 60 drops/sec IV ASDIRECTED [facility] Lactated Ringer's (Ringers, Lactated) 1,000 mls @ 75 mls/hr IV ASDIRECTED [facility] Stop: 08/31/20 22:49 Last Admin: 08/31/20 12:12 Dose: 75 mls/hr Documented by: Iopamidol (Iopamidol 755 Mg/Ml 100 Ml Bottle) 100 ml IVPUSH ONETIME ONE Stop: 08/31/20 00:46 Last Admin: 08/31/20 02:32 Dose: Not Given Documented by: Prednisone (Prednisone 20 Mg Tab) 60 mg PO WITHBREAKFAST [facility] Prednisone (Prednisone 20 Mg Tab) 60 mg PO ONETIME ONE Stop: 09/01/20 11:01 Last Admin: 09/01/20 12:57 Dose: Not Given Documented by: Sodium Chloride (Sodium Chloride 0.9% 10 Ml Syringe) 10 ml FLUSH BOLUS [facility] - Exam Quality Assessment: Supplemental Oxygen (4L), DVT Prophylaxis. No: Urine Catheter General: Alert, Oriented, Cooperative, No Acute Distress HEENT: Pupils Equal, Pupils Reactive, Mucous Membr. Moist/[place] Neck: Supple, Trachea Midline Lungs: Normal Respiratory Effort, Decreased Breath Sounds, Crackles Cardiovascular: Regular Rate, Regular Rhythm GI/Abdominal Exam: Normal Bowel Sounds, Soft, Non-Tender, No Distention (Male) Exam: Deferred Back Exam: Normal Inspection, Full Range of Motion Extremities: Normal Inspection, Normal Range of Motion, Non-Tender, No Pedal Edema, Normal Capillary Refill Peripheral Pulses: 2+: Radial (L), Radial (R), Dorsalis Pedis (L), Dorsalis Pedis (R) Skin: Warm, Dry, Intact Neurological: No New Focal Deficit Psy/Mental Status: Alert, Normal Affect, Normal Mood - Patient Data Lab Results Last 24 hrs: Laboratory Results - last 24 hr 09/01/20 09/01/20 09/01/20 Range/Units 11:21 17:35 20:52 WBC (4.23-9.07) K/mm3 RBC (4.63-6.08) M/mm3 Hgb (13.7-17.5) gm/dl Hct (40.1-51.0) % MCV (79.0-92.2) fl MCH (25.7-32.2) pg MCHC (32.2-35.5) g/dl RDW Std Deviation (35.1-43.9) fL Plt Count (163-337) K/mm3 MPV (9.4-12.3) fl Neut % (Auto) (34.0-67.9) % Lymph % (Auto) (21.8-53.1) % [place] % (Auto) (5.3-12.2) % Eos % (Auto) (0.8-7.0) Baso % (Auto) (0.1-1.2) % Neut # (Auto) (1.78-5.38) K/mm3 Lymph # (Auto) (1.32-3.57) K/mm3 [place] # (Auto) (0.30-0.82) K/mm3 Eos # (Auto) (0.04-0.54) K/mm3 Baso # (Auto) (0.01-0.08) K/mm3 Sodium (136-145) mEq/L Potassium (3.5-5.1) mEq/L Chloride (98-107) mEq/L Carbon Dioxide (21-32) mEq/L Anion Gap (5-15) BUN (7-18) mg/dL Creatinine (0.7-1.3) mg/dL Est Cr Clr Drug Dosing mL/min Estimated GFR (MDRD) (>60) mL/min BUN/Creatinine Ratio (14-18) Glucose (83-115) mg/dL POC Glucose 239 H 163 H 195 H (83-110) mg/dL Calcium (8.5-10.1) mg/dL Magnesium (1.8-2.4) mg/dl C-Reactive Protein (<1.0) mg/dL 09/02/20 09/02/20 09/02/20 Range/Units 05:01 05:01 06:09 WBC 7.42 (4.23-9.07) K/mm3 RBC 3.43 L (4.63-6.08) M/mm3 Hgb 10.3 L (13.7-17.5) gm/dl Hct 32.3 L (40.1-51.0) % MCV 94.2 H (79.0-92.2) fl MCH 30.0 (25.7-32.2) pg MCHC 31.9 L (32.2-35.5) g/dl RDW Std Deviation 45.5 H (35.1-43.9) fL Plt Count 328 (163-337) K/mm3 MPV 8.9 L (9.4-12.3) fl Neut % (Auto) 84.8 H (34.0-67.9) % Lymph % (Auto) 13.7 L (21.8-53.1) % [place] % (Auto) 1.3 L (5.3-12.2) % Eos % (Auto) 0.1 L (0.8-7.0) Baso % (Auto) 0.0 L (0.1-1.2) % Neut # (Auto) 6.28 H (1.78-5.38) K/mm3 Lymph # (Auto) 1.02 L (1.32-3.57) K/mm3 [place] # (Auto) 0.10 L (0.30-0.82) K/mm3 Eos # (Auto) 0.01 L (0.04-0.54) K/mm3 Baso # (Auto) 0.00 L (0.01-0.08) K/mm3 Sodium 140 (136-145) mEq/L Potassium 4.4 (3.5-5.1) mEq/L Chloride 104 (98-107) mEq/L Carbon Dioxide 25 (21-32) mEq/L Anion Gap 15.4 H (5-15) BUN 21 H (7-18) mg/dL Creatinine 1.2 (0.7-1.3) mg/dL Est Cr Clr Drug Dosing 41.96 mL/min Estimated GFR (MDRD) 57 (>60) mL/min BUN/Creatinine Ratio 17.5 (14-18) Glucose 252 H (83-115) mg/dL POC Glucose 235 H (83-110) mg/dL Calcium 9.1 (8.5-10.1) mg/dL Magnesium 2.0 (1.8-2.4) mg/dl C-Reactive Protein 12.8 H* (<1.0) mg/dL Result Diagrams: 09/02/20 05:01 09/02/20 05:01 [place] Results Last 24 hrs: Microbiology 08/31/20 22:00 Gram Stain - Final Sputum - Expectorated Sputum Culture - Final Sepsis Event Note - Evaluation Sepsis Screening Result: No Definite Risk - Focused Exam Vital Signs: Vital Signs Temp Pulse Resp BP Pulse Ox Pulse Ox 09/02/20 07:58 95 09/02/20 07:31 97 09/02/20 07:21 97.5 F 102 H 16 106/71 97 09/02/20 06:29 93 L 09/02/20 03:44 97.9 F 95 20 108/65 95 09/02/20 00:04 98.1 F 95 22 H 106/74 91 L 09/01/20 20:34 97.9 F 95 20 116/65 92 L - Problem List & Annotations (1) HLD (hyperlipidemia) SNOMED Code(s): 96543420 Code(s): E78.5 - HYPERLIPIDEMIA, UNSPECIFIED Status: Chronic Priority: Low Current Visit: No Qualifiers: Hyperlipidemia type: unspecified Qualified Code(s): E78.5 - Hyperlipidemia, unspecified (2) HTN (hypertension) SNOMED Code(s): 19390919 Code(s): I10 - ESSENTIAL (PRIMARY) HYPERTENSION Status: Chronic Priority: Medium Current Visit: No Qualifiers: Hypertension type: unspecified Qualified Code(s): I10 - Essential (primary) hypertension (3) History of myocardial infarction SNOMED Code(s): 660573182 Code(s): I25.2 - OLD MYOCARDIAL INFARCTION Status: Chronic Priority: Low Current Visit: No (4) Diverticulosis SNOMED Code(s): 269955915 Code(s): K57.90 - DVRTCLOS OF INTEST, PART UNSP, W/O PERF OR ABSCESS W/O BLEED Status: Chronic Priority: Low Current Visit: No (5) History of GI bleed SNOMED Code(s): 637675752 Code(s): Z87.19 - PERSONAL HISTORY OF OTHER DISEASES OF THE DIGESTIVE SYSTEM Status: Chronic Priority: Low Current Visit: No (6) Urinary incontinence SNOMED Code(s): 919419709 Code(s): R32 - UNSPECIFIED URINARY INCONTINENCE Status: Chronic Priority: Low Current Visit: No Qualifiers: Urinary Incontinence type: unspecified incontinence Qualified Code(s): R32 - Unspecified urinary incontinence (7) Arthritis SNOMED Code(s): 8761165 Code(s): M19.90 - UNSPECIFIED OSTEOARTHRITIS, UNSPECIFIED SITE Status: Acute Current Visit: Yes (8) Type II diabetes mellitus SNOMED Code(s): 69958816 Code(s): E11.9 - TYPE 2 DIABETES MELLITUS WITHOUT COMPLICATIONS Status: Chronic Priority: Medium Current Visit: No Qualifiers: Diabetes mellitus meterman insulin use: with meterman use Diabetes mellitus complication status: with other specified complication Qualified Code(s): E11.69 - Type 2 diabetes mellitus with other specified complication; Z79.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 (9) Hypothyroidism SNOMED Code(s): 68995815 Code(s): E03.9 - HYPOTHYROIDISM, UNSPECIFIED Status: Chronic Priority: Medium Current Visit: No Qualifiers: Hypothyroidism type: unspecified Qualified Code(s): E03.9 - Hypothyroidism, unspecified (10) Failure to thrive in adult SNOMED Code(s): 182681573 Code(s): R62.7 - ADULT FAILURE TO THRIVE Status: Acute Priority: High Current Visit: Yes (11) Pneumonia SNOMED Code(s): 691348140 Code(s): J18.9 - PNEUMONIA, UNSPECIFIED ORGANISM Status: Acute Priority: High Current Visit: Yes Qualifiers: Pneumonia type: due to unspecified organism Laterality: right Lung location: upper lobe of lung Qualified Code(s): J18.9 - Pneumonia, unspecified organism (12) Hypoxia SNOMED Code(s): 094866874 Code(s): R09.02 - HYPOXEMIA Status: Acute Priority: High Current Visit: Yes (13) Pulmonary fibrosis, unspecified SNOMED Code(s): 24834591 Code(s): J84.10 - PULMONARY FIBROSIS, UNSPECIFIED Status: Chronic Priority: High Current Visit: Yes (14) Generalized weakness SNOMED Code(s): 50335080 Code(s): R53.1 - WEAKNESS Status: Acute Priority: High Current Visit: Yes (15) Dizziness SNOMED Code(s): 160635482, 753405085 Code(s): R42 - DIZZINESS AND GIDDINESS Status: Acute Priority: High Current Visit: Yes (16) Hypoalbuminemia SNOMED Code(s): 824172356 Code(s): E88.09 - OTH DISORDERS OF PLASMA-PROTEIN METABOLISM, NEC Status: Acute Priority: High Current Visit: Yes (17) Elevated d-dimer SNOMED Code(s): 441103533 Code(s): R79.89 - OTHER SPECIFIED ABNORMAL FINDINGS OF BLOOD CHEMISTRY Status: Ruled-out Priority: High Current Visit: Yes - Problem List Review Problem List Initiated/Reviewed/Updated: Yes - My Orders Last 24 Hours: My Active Orders 09/01/20 09:00 Cholecalciferol (Vitamin D3) [Vitamin D3] 50 mcg PO DAILY Multivitamins [Tab-A-Annie] 1 tab PO DAILY 09/01/20 21:00 methylPREDNISolone Sod Succ [Solu-MEDROL] 60 mg IVPUSH BID 09/02/20 08:00 CXR [Chest 2V] [CR] Routine 09/03/20 05:11 BASIC METABOLIC PANEL,BMP [CHEM] AM CBC WITH AUTO DIFF [HEME] AM CRP [C-REACTIVE PROTEIN] [CHEM] AM MAGNESIUM [CHEM] AM 09/04/20 05:11 BASIC METABOLIC PANEL,BMP [CHEM] AM CBC WITH AUTO DIFF [HEME] AM CRP [C-REACTIVE PROTEIN] [CHEM] AM MAGNESIUM [CHEM] AM - Assessment Assessment:: Assessment - 08/31/20 (admitted overnight 08/30/20) * 85-year-old male presents to ED via [facility] on 08/30/2020 with respiratory problem * History of HLD, HTN, HI, pulmonary fibrosis, diverticulosis, GI bleed, urinary incontinence, arthritis, type II DM, hypothyroidism, benign melanoma. * Usually utilizes oxygen intermittently at home has been requiring 2 L with home saturations in 80s. * Insulin-dependent diabetic with blood sugars in the 120s to 130s. * Twelve-lead EKG shows sinus rhythm at 96 bpm with borderline prolonged QTC and ST depression unchanged from 11/2018. * Reports nausea, dizziness, worsening shortness of breath, productive cough, chills but no fever. * Labs in ED: * WBC 9.19 * Hemoglobin 10.9 * Platelet 297,000 * Neutrophils 64.7% * Sodium 139 * Potassium 4.4 * Chloride 102 * Carbon dioxide 26 * Anion gap 15.4 * BUN 17, creatinine 1.3, GFR 52 * Glucose 152 * Magnesium 2.1 * Total bilirubin 0.6 * AST 23, ALT 23, alkaline phosphatase 67 * Troponin 0 0.044 * CRP 12.2 * Protein 7.5 * Albumin 2.7 * D-dimer 0.89 * proBNP 1326 * UA negative * SARS-CoV-2 RNA negative * ABG in left radial: pH 7.45, PCO2 34.6, PO2 of 86.0, HCO3 of 23.5, O2 saturation 96.4, AA gradient 70, obtain on 2 L via NC. * Given 500 mg azithromycin and 2 g Rocephin in ED. * Chest x-ray in ED shows interstitial change slightly worse from prior study [place] possibility of mild areas of pneumonia and other incidental findings * CTA obtained in ED: * 1. Patchy areas of increased density within both sides of the chest raising the possibility of pneumonia superimposed upon chronic fibrosis. Please rule out Covid disease. * 2. Multiple layering gallstones within the gallbladder. * 3. No findings of pulmonary embolism. * 4. Other findings believed to be incidental as noted above. * Admitted to medical floor on telemetry for management of pneumonia and failure to thrive. 09/01/2020 * Carotid artery US negative * Started prednisone 60mg daily -> increased to solumedrol 60mg BID IVP * Requiring 4-6L overnight and today * Refusing SNF placement. Reports they are working on [facility] placement in [place] currently. * [employer] following and supplementing * Labs today: * WBC 11.95. * Hemoglobin 10.9. * Platelet 323,000. * Sodium 140. * Potassium 4.0. * Carbon dioxide 27. * Anion gap 14.0. * BUN 15, creatinine 1.2, GFR 57. * Glucose 87. * Magnesium 2.1. * CRP 12.0. * Vitamin D 53.5. * TSH 1.157. * MRSA screen negative * Continue current treatment plan * Repeat CXR tomorrow AM 09/02/2020 * Less dizzy today * Continue Solumedrol 60mg BID IVP today. Likely continue once daily tomorrow * Requiring 3-6L in past 24 hours * Reports poor sleep with minimal Restoril effect. Increase dosing to 30mg PRN and start scheduled melatonin * Labs today: * WBC 7.42. * Hemoglobin 10.3. * Platelets 328,000. * Neutrophils elevated at 84.8%. * Sodium 140. * Potassium 4.4. * Carbon oxide 25. * Anion gap 15.4. * BUN 21. Creatinine 1.2. GFR 57. * Glucose 1 63-2 39. * CRP 12.8. * Magnesium 2.0 * Repeat procalcitonin today * CXR today stable * Add Dulera BID * Continue current treatment plan - Plan Plan:: Pneumonia Hypoxia Pulmonary fibrosis, unspecified * Rocephin 2gm * Completed 3 days Azithromycin 500mg * O2 as needed to keep saturations >90% * Albuterol/duoneb as needed * IS/Acapella * RT Consultation * Mucinex scheduled * Sputum culture * Droplet isolation * Solu-medrol 60mg BID * Start dulera BID * Check procalcitonin today Failure to thrive in adult Generalized weakness Hypoalbuminemia Dizziness Hypothyroidism * PT/OT * CM/SW * [employer] consult Type II diabetes mellitus * Home LA insulin * SS low dose insulin TIDAC--> increase to high dose due to steroid * QID AC and Bedtime glucose checks * Per patient A1C was just checked las month with Dr. Brooks and was 6.7% HLD (hyperlipidemia) HTN (hypertension) Arthritis * Home medications as ordered * Monitor vital signs History of myocardial infarction Diverticulosis History of GI bleed Urinary incontinence * No acute concerns Elevated D-Dimer * Ruled out PE due to negative CTA Code Status: DNR/DNI - after long discussion patient changed from full code on 08/31/20 PCP: Dr. Brooks DVT Prophylaxis: Lovenox Social: Patient and currently live at home but they are moving to [place] in [place] soon and have started packing. They have 2 sons who live in [place] Disposition: Patient admitted to [facility] on telemetry for management of PNA and failure to thrive. LOS 2-3 more days anticipated.
[2020-09-02] MEDS: Insulin Lispro 100 UNIT/ML 10 ML Vial SUBCUT SCH ×3 (08:51→17:00)
[2020-09-02] MEDS: Insulin Glarg,Human.Rec.Analog 100 Unit/ML SUBCUT SCH (08:52)
[2020-09-02] MEDS: methylPREDNISolone Sodium Succinate 40 MG/1 ML SDV IVPUSH SCH ×2 (08:59→20:17)
[2020-09-02] MEDS: Multivitamin Tab PO SCH (09:07)
[2020-09-02] MEDS: guaiFENesin 600 MG Tab.ER PO SCH ×2 (09:07→20:17)
[2020-09-02] MEDS: Enoxaparin 40 MG/0.4 ML Syringe SUBCUT SCH (09:07)
[2020-09-02] MEDS: Aspirin 81 MG Tab.EC PO SCH (09:07)
[2020-09-02] MEDS: Cholecalciferol (Vitamin D3) 25 MCG Tab PO SCH (09:08)
[2020-09-02] MEDS: Metoprolol Succinate 25 MG Tab.ER PO SCH (09:08)
--- NOTE | 2020-09-02 09:35 | CR ---
Chest: 2 views of the chest were obtained. Comparison: Prior chest x-ray of 08/30/20. Heart size and mediastinum are stable. Increasing density within the right upper lung is seen from prior exam. Diffuse interstitial change is noted which is stable. Previous right shoulder surgery is seen. Osteopenia is noted. Impression: 1. Slight increasing density within the right upper lung. 2. Scattered interstitial change which is stable. Diagnostic code #3
[2020-09-02] MEDS ORDERED: Albuterol 6.7 GM Inhaler INH ONE (14:35)
[2020-09-02] MEDS: Albuterol 6.7 GM Inhaler INH PRN ×2 (14:36→20:29)
[2020-09-02] MEDS: Magnesium Hydroxide 400 MG/5 ML Susp 30 ML Cup PO PRN (16:16)
[2020-09-02] MEDS: Rosuvastatin 10 MG Tab PO SCH (18:12)
[2020-09-02] MEDS: Melatonin 3 MG Tab PO SCH (20:18)
[2020-09-02] MEDS: cefTRIAXone 2 GM in Sodium Chloride 0.9% 100 ML IV SCH (20:18)
[2020-09-02] MEDS: Ezetimibe 10 MG Tab PO SCH (20:18)
[2020-09-02] MEDS: Formoterol/Mometasone 100-5 MCG 8.8 GM Inhaler IH SCH (20:28)
[2020-09-03] MEDS: Temazepam 30 MG Cap PO PRN (01:46)
[2020-09-03] MEDS: Formoterol/Mometasone 100-5 MCG 8.8 GM Inhaler IH SCH (05:37)
[2020-09-03] MEDS: Levothyroxine 50 MCG Tab PO SCH (06:25)
[2020-09-03] MEDS: Trospium 20 MG Tab PO SCH ×2 (06:25→15:59)
[2020-09-03] MEDS: Albuterol 6.7 GM Inhaler INH PRN ×3 (07:53→18:51)
[2020-09-03] MEDS: Insulin Lispro 100 UNIT/ML 10 ML Vial SUBCUT SCH ×3 (08:07→17:18)
[2020-09-03] MEDS: Enoxaparin 40 MG/0.4 ML Syringe SUBCUT SCH (09:05)
[2020-09-03] MEDS: methylPREDNISolone Sodium Succinate 40 MG/1 ML SDV IVPUSH SCH (09:07)
[2020-09-03] MEDS: Insulin Glarg,Human.Rec.Analog 100 Unit/ML SUBCUT SCH (09:08)
[2020-09-03] MEDS: Cholecalciferol (Vitamin D3) 25 MCG Tab PO SCH (09:09)
[2020-09-03] MEDS: Aspirin 81 MG Tab.EC PO SCH (09:10)
[2020-09-03] MEDS: guaiFENesin 600 MG Tab.ER PO SCH ×2 (09:10→20:27)
[2020-09-03] MEDS: Multivitamin Tab PO SCH (09:10)
[2020-09-03] MEDS: Metoprolol Succinate 25 MG Tab.ER PO SCH ×2 (09:32→11:29)
--- NOTE | 2020-09-03 10:40 | PCM.PN ---
- General Info Date of Service: 09/03/20 Admission Dx/Problem (Free Text): Admission Diagnosis/Problem Admission Diagnosis/Problem Pneumonia Functional Status: Reports: Pain Controlled, Tolerating Diet, Ambulating, Urinating, Incentive Spirometry, Other (Acapella ). Denies: New Symptoms - Review of Systems General: Reports: Weakness. Denies: Fever, Fatigue, Malaise, Chills HEENT: Reports: No Symptoms. Denies: Headaches, Sore Throat Pulmonary: Reports: Shortness of Breath, Cough, Sputum, Wheezing. Denies: Pleuritic Chest Pain Cardiovascular: Reports: No Symptoms, Dyspnea on Exertion. Denies: Chest Pain, Palpitations, Edema, Lightheadedness Gastrointestinal: Reports: Decreased Appetite (improving ). Denies: Abdominal Pain, Constipation, Diarrhea, Vomiting Genitourinary: Reports: No Symptoms. Denies: Pain Musculoskeletal: Reports: No Symptoms Skin: Reports: No Symptoms. Denies: Cyanosis Neurological: Reports: Pre-Existing Deficit (walked with a cane ), Difficulty Walking, Weakness. Denies: Confusion, Change in Speech, Gait Disturbance Psychiatric: Reports: No Symptoms - Patient Data Vitals - Most Recent: Last Vital Signs Temp 97.5 F 09/03/20 09:31 Pulse 109 H 09/03/20 09:57 Resp 20 09/03/20 09:30 BP 119/53 L 09/03/20 09:57 Pulse Ox 90 L 09/03/20 09:57 Weight - Most Recent: 153 lb 14.4 oz I&O - Last 24 Hours: Intake & Output 09/02/20 09/03/20 09/03/20 22:59 06:59 14:59 Intake Total 980 550 Output Total 550 275 Balance 430 275 Lab Results Last 24 Hours: Laboratory Results - last 24 hr 09/02/20 09/02/20 09/02/20 Range/Units 05:07 11:38 16:15 WBC (4.23-9.07) K/mm3 RBC (4.63-6.08) M/mm3 Hgb (13.7-17.5) gm/dl Hct (40.1-51.0) % MCV (79.0-92.2) fl MCH (25.7-32.2) pg MCHC (32.2-35.5) g/dl RDW Std Deviation (35.1-43.9) fL Plt Count (163-337) K/mm3 MPV (9.4-12.3) fl Neut % (Auto) (34.0-67.9) % Lymph % (Auto) (21.8-53.1) % [place] % (Auto) (5.3-12.2) % Eos % (Auto) (0.8-7.0) Baso % (Auto) (0.1-1.2) % Neut # (Auto) (1.78-5.38) K/mm3 Lymph # (Auto) (1.32-3.57) K/mm3 [place] # (Auto) (0.30-0.82) K/mm3 Eos # (Auto) (0.04-0.54) K/mm3 Baso # (Auto) (0.01-0.08) K/mm3 Manual Slide Review Sodium (136-145) mEq/L Potassium (3.5-5.1) mEq/L Chloride (98-107) mEq/L Carbon Dioxide (21-32) mEq/L Anion Gap (5-15) BUN (7-18) mg/dL Creatinine (0.7-1.3) mg/dL Est Cr Clr Drug Dosing mL/min Estimated GFR (MDRD) (>60) mL/min BUN/Creatinine Ratio (14-18) Glucose (83-115) mg/dL POC Glucose 319 H 301 H (83-110) mg/dL Calcium (8.5-10.1) mg/dL Magnesium (1.8-2.4) mg/dl C-Reactive Protein (<1.0) mg/dL Procalcitonin 0.08 ng/mL 09/02/20 09/03/20 09/03/20 Range/Units 20:40 06:20 06:20 WBC 13.53 H (4.23-9.07) K/mm3 RBC 3.45 L (4.63-6.08) M/mm3 Hgb 10.3 L (13.7-17.5) gm/dl Hct 32.6 L (40.1-51.0) % MCV 94.5 H (79.0-92.2) fl MCH 29.9 (25.7-32.2) pg MCHC 31.6 L (32.2-35.5) g/dl RDW Std Deviation 46.1 H (35.1-43.9) fL Plt Count 351 H (163-337) K/mm3 MPV 8.6 L (9.4-12.3) fl Neut % (Auto) 88.3 H (34.0-67.9) % Lymph % (Auto) 8.5 L (21.8-53.1) % [place] % (Auto) 3.0 L (5.3-12.2) % Eos % (Auto) 0 L (0.8-7.0) Baso % (Auto) 0.0 L (0.1-1.2) % Neut # (Auto) 11.94 H (1.78-5.38) K/mm3 Lymph # (Auto) 1.15 L (1.32-3.57) K/mm3 [place] # (Auto) 0.41 (0.30-0.82) K/mm3 Eos # (Auto) 0.00 L (0.04-0.54) K/mm3 Baso # (Auto) 0.00 L (0.01-0.08) K/mm3 Manual Slide Review Abnormal smear Sodium 137 (136-145) mEq/L Potassium 4.6 (3.5-5.1) mEq/L Chloride 106 (98-107) mEq/L Carbon Dioxide 26 (21-32) mEq/L Anion Gap 9.6 (5-15) BUN 26 H (7-18) mg/dL Creatinine 1.1 (0.7-1.3) mg/dL Est Cr Clr Drug Dosing 45.77 mL/min Estimated GFR (MDRD) > 60 (>60) mL/min BUN/Creatinine Ratio 23.6 H (14-18) Glucose 234 H (83-115) mg/dL POC Glucose 328 H (83-110) mg/dL Calcium 8.7 (8.5-10.1) mg/dL Magnesium 2.5 H (1.8-2.4) mg/dl C-Reactive Protein 5.7 H* (<1.0) mg/dL Procalcitonin ng/mL 09/03/20 Range/Units 06:29 WBC (4.23-9.07) K/mm3 RBC (4.63-6.08) M/mm3 Hgb (13.7-17.5) gm/dl Hct (40.1-51.0) % MCV (79.0-92.2) fl MCH (25.7-32.2) pg MCHC (32.2-35.5) g/dl RDW Std Deviation (35.1-43.9) fL Plt Count (163-337) K/mm3 MPV (9.4-12.3) fl Neut % (Auto) (34.0-67.9) % Lymph % (Auto) (21.8-53.1) % [place] % (Auto) (5.3-12.2) % Eos % (Auto) (0.8-7.0) Baso % (Auto) (0.1-1.2) % Neut # (Auto) (1.78-5.38) K/mm3 Lymph # (Auto) (1.32-3.57) K/mm3 [place] # (Auto) (0.30-0.82) K/mm3 Eos # (Auto) (0.04-0.54) K/mm3 Baso # (Auto) (0.01-0.08) K/mm3 Manual Slide Review Sodium (136-145) mEq/L Potassium (3.5-5.1) mEq/L Chloride (98-107) mEq/L Carbon Dioxide (21-32) mEq/L Anion Gap (5-15) BUN (7-18) mg/dL Creatinine (0.7-1.3) mg/dL Est Cr Clr Drug Dosing mL/min Estimated GFR (MDRD) (>60) mL/min BUN/Creatinine Ratio (14-18) Glucose (83-115) mg/dL POC Glucose 243 H (83-110) mg/dL Calcium (8.5-10.1) mg/dL Magnesium (1.8-2.4) mg/dl C-Reactive Protein (<1.0) mg/dL Procalcitonin ng/mL [facility] Results Last 24 Hours: Microbiology 09/02/20 18:00 Gram Stain - Preliminary Sputum - Expectorated Med Orders - Current: Current Medications Acetaminophen (Acetaminophen 325 Mg Tab) 650 mg PO Q4H PRN PRN Reason: Pain (Mild 1-3)/fever Albuterol (Albuterol 6.7 Gm Inhaler) 0 gm INH Q2H PRN PRN Reason: SOB/WHEEZE Last Admin: 09/03/20 07:53 Dose: 2 puff Documented by: Albuterol/Ipratropium (Albuterol/Ipratropium 3.0-0.5 Mg/3 Ml Neb Soln) 3 ml NEB Q4H PRN PRN Reason: Shortness Of Breath/wheezing Aspirin (Aspirin 81 Mg Tab.Ec) 81 mg PO DAILY [facility] Last Admin: 09/03/20 09:10 Dose: 81 mg Documented by: Cholecalciferol (Cholecalciferol (Vitamin D3) 25 Mcg Tab) 50 mcg PO DAILY [facility] Last Admin: 09/03/20 09:09 Dose: 50 mcg Documented by: Docusate Sodium (Docusate Sodium 100 Mg Cap) 100 mg PO BID PRN PRN Reason: Constipation Ezetimibe (Ezetimibe 10 Mg Tab) 10 mg PO BEDTIME [facility] Last Admin: 09/02/20 20:18 Dose: 10 mg Documented by: Enoxaparin Sodium (Enoxaparin 40 Mg/0.4 Ml Syringe) 40 mg SUBCUT DAILY [facility] Last Admin: 09/03/20 09:05 Dose: 40 mg Documented by: Guaifenesin (Guaifenesin 600 Mg Tab.Er) 1,200 mg PO BID [facility] Last Admin: 09/03/20 09:10 Dose: 1,200 mg Documented by: Ceftriaxone Sodium 2 gm/ (Sodium Chloride) 100 mls @ 200 mls/hr IV Q24H [facility] Last Admin: 09/02/20 20:18 Dose: 200 mls/hr Documented by: Insulin Glargine (Insulin Glarg,Human.Rec.Analog 100 Unit/Ml) 26 unit SUBCUT DAILY [facility] Last Admin: 09/03/20 09:08 Dose: 26 units Documented by: Insulin Human Lispro (Insulin Lispro 100 Unit/Ml) 0 unit SUBCUT TIDAC [facility]; Protocol Last Admin: 09/03/20 08:07 Dose: 6 units Documented by: Levothyroxine Sodium (Levothyroxine 50 Mcg Tab) 50 mcg PO ACBREAKFAST [facility] Last Admin: 09/03/20 06:25 Dose: 50 mcg Documented by: Magnesium Hydroxide (Magnesium Hydroxide 400 Mg/5 Ml Susp 30 Ml Cup) 30 ml PO Q6H PRN PRN Reason: Constipation Last Admin: 09/02/20 16:16 Dose: 30 ml Documented by: Melatonin (Melatonin 3 Mg Tab) 9 mg PO BEDTIME [facility] Last Admin: 09/02/20 20:18 Dose: 9 mg Documented by: Methylprednisolone Sodium Succinate (Methylprednisolone Sodium Succinate 40 Mg/1 Ml Sdv) 60 mg IVPUSH DAILY [facility] Last Admin: 09/03/20 09:07 Dose: 60 mg Documented by: Metoprolol Succinate (Metoprolol Succinate 25 Mg Tab.Er) 25 mg PO DAILY [facility] Last Admin: 09/03/20 09:32 Dose: Not Given Documented by: Mometasone Furoate/Formoterol Fumar (Formoterol/Mometasone 100-5 Mcg 8.8 Gm Inhaler) 2 puff IH BIDRT [facility] Last Admin: 09/03/20 05:37 Dose: Not Given Documented by: Multivitamins/Minerals/Vitamin C (Multivitamin Tab) 1 tab PO DAILY [facility] Last Admin: 09/03/20 09:10 Dose: 1 tab Documented by: Ondansetron HCl (Ondansetron 4 Mg/2 Ml Sdv) 4 mg IV Q6H PRN PRN Reason: Nausea/Vomiting Rosuvastatin Calcium (Rosuvastatin 10 Mg Tab) 10 mg PO PCDINNER [facility] Last Admin: 09/02/20 18:12 Dose: 10 mg Documented by: Sodium Chloride (Sodium Chloride 0.9% 10 Ml Syringe) 10 ml FLUSH ASDIRECTED PRN PRN Reason: Keep Vein Open Last Admin: 08/30/20 19:20 Dose: 10 ml Documented by: Temazepam (Temazepam 30 Mg Cap) 30 mg PO BEDTIME PRN PRN Reason: Sleep Last Admin: 09/03/20 01:46 Dose: 30 mg Documented by: Trospium (Trospium 20 Mg Tab) 20 mg PO BIDAC [facility] Last Admin: 09/03/20 06:25 Dose: 20 mg Documented by: Discontinued Medications Albuterol (Albuterol 0.083% 2.5 Mg/3 Ml Neb Soln) 2.5 mg NEB Q2H PRN PRN Reason: Shortness Of Breath/wheezing Albuterol (Albuterol 6.7 Gm Inhaler) Confirm Administered Dose 6.7 gm INH .STK-M ED ONE Stop: 09/02/20 14:36 Last Admin: 09/02/20 14:37 Dose: Not Given Documented by: Azithromycin (Azithromycin 250 Mg Tab) 500 mg PO Q24H [facility] Stop: 09/01/20 21:01 Last Admin: 09/01/20 20:36 Dose: 500 mg Documented by: Docusate Sodium (Docusate Sodium 100 Mg Cap) 200 mg PO ONETIME ONE Stop: 08/31/20 14:52 Last Admin: 08/31/20 15:15 Dose: 200 mg Documented by: Azithromycin 500 mg/ Sodium (Chloride) 250 mls @ 250 mls/hr IV Q24H [facility] Last Admin: 08/30/20 21:26 Dose: 250 mls/hr Documented by: Ceftriaxone Sodium 2 gm/ (Sodium Chloride) 100 mls @ 200 mls/hr IV Q24H [facility] Last Admin: 08/30/20 21:01 Dose: 200 mls/hr Documented by: Sodium Chloride (Normal Saline) 100 mls @ 60 drops/sec IV ASDIRECTED [facility] Lactated Ringer's (Ringers, Lactated) 1,000 mls @ 75 mls/hr IV ASDIRECTED [facility] Stop: 08/31/20 22:49 Last Admin: 08/31/20 12:12 Dose: 75 mls/hr Documented by: Iopamidol (Iopamidol 755 Mg/Ml 100 Ml Bottle) 100 ml IVPUSH ONETIME ONE Stop: 08/31/20 00:46 Last Admin: 08/31/20 02:32 Dose: Not Given Documented by: Methylprednisolone Sodium Succinate (Methylprednisolone Sodium Succinate 40 Mg/1 Ml Sdv) 60 mg IVPUSH BID [facility] Last Admin: 09/02/20 20:17 Dose: 60 mg Documented by: Prednisone (Prednisone 20 Mg Tab) 60 mg PO WITHBREAKFAST [facility] Prednisone (Prednisone 20 Mg Tab) 60 mg PO ONETIME ONE Stop: 09/01/20 11:01 Last Admin: 09/01/20 12:57 Dose: Not Given Documented by: Sodium Chloride (Sodium Chloride 0.9% 10 Ml Syringe) 10 ml FLUSH BOLUS [facility] Temazepam (Temazepam 15 Mg Cap) 15 mg PO BEDTIME PRN PRN Reason: sleep Last Admin: 09/01/20 20:50 Dose: 15 mg Documented by: - Exam Quality Assessment: Supplemental Oxygen (3.5), DVT Prophylaxis General: Alert, Oriented, Cooperative, No Acute Distress HEENT: Pupils Equal, Pupils Reactive, Mucous Membr. Moist/[place] Neck: Supple, Trachea Midline Lungs: Normal Respiratory Effort, Decreased Breath Sounds, Crackles Cardiovascular: Regular Rate, Regular Rhythm GI/Abdominal Exam: Normal Bowel Sounds, Soft, Non-Tender, No Distention (Male) Exam: Deferred Back Exam: Normal Inspection, Full Range of Motion Extremities: Normal Inspection, Normal Range of Motion, Non-Tender, No Pedal Edema Peripheral Pulses: 2+: Radial (L), Radial (R), Dorsalis Pedis (L), Dorsalis Pedis (R) Skin: Warm, Dry, Intact Neurological: No New Focal Deficit Psy/Mental Status: Alert, Normal Affect, Normal Mood - Patient Data Lab Results Last 24 hrs: Laboratory Results - last 24 hr 09/02/20 09/02/20 09/02/20 Range/Units 05:07 11:38 16:15 WBC (4.23-9.07) K/mm3 RBC (4.63-6.08) M/mm3 Hgb (13.7-17.5) gm/dl Hct (40.1-51.0) % MCV (79.0-92.2) fl MCH (25.7-32.2) pg MCHC (32.2-35.5) g/dl RDW Std Deviation (35.1-43.9) fL Plt Count (163-337) K/mm3 MPV (9.4-12.3) fl Neut % (Auto) (34.0-67.9) % Lymph % (Auto) (21.8-53.1) % [place] % (Auto) (5.3-12.2) % Eos % (Auto) (0.8-7.0) Baso % (Auto) (0.1-1.2) % Neut # (Auto) (1.78-5.38) K/mm3 Lymph # (Auto) (1.32-3.57) K/mm3 [place] # (Auto) (0.30-0.82) K/mm3 Eos # (Auto) (0.04-0.54) K/mm3 Baso # (Auto) (0.01-0.08) K/mm3 Manual Slide Review Sodium (136-145) mEq/L Potassium (3.5-5.1) mEq/L Chloride (98-107) mEq/L Carbon Dioxide (21-32) mEq/L Anion Gap (5-15) BUN (7-18) mg/dL Creatinine (0.7-1.3) mg/dL Est Cr Clr Drug Dosing mL/min Estimated GFR (MDRD) (>60) mL/min BUN/Creatinine Ratio (14-18) Glucose (83-115) mg/dL POC Glucose 319 H 301 H (83-110) mg/dL Calcium (8.5-10.1) mg/dL Magnesium (1.8-2.4) mg/dl C-Reactive Protein (<1.0) mg/dL Procalcitonin 0.08 ng/mL 09/02/20 09/03/20 09/03/20 Range/Units 20:40 06:20 06:20 WBC 13.53 H (4.23-9.07) K/mm3 RBC 3.45 L (4.63-6.08) M/mm3 Hgb 10.3 L (13.7-17.5) gm/dl Hct 32.6 L (40.1-51.0) % MCV 94.5 H (79.0-92.2) fl MCH 29.9 (25.7-32.2) pg MCHC 31.6 L (32.2-35.5) g/dl RDW Std Deviation 46.1 H (35.1-43.9) fL Plt Count 351 H (163-337) K/mm3 MPV 8.6 L (9.4-12.3) fl Neut % (Auto) 88.3 H (34.0-67.9) % Lymph % (Auto) 8.5 L (21.8-53.1) % [place] % (Auto) 3.0 L (5.3-12.2) % Eos % (Auto) 0 L (0.8-7.0) Baso % (Auto) 0.0 L (0.1-1.2) % Neut # (Auto) 11.94 H (1.78-5.38) K/mm3 Lymph # (Auto) 1.15 L (1.32-3.57) K/mm3 [place] # (Auto) 0.41 (0.30-0.82) K/mm3 Eos # (Auto) 0.00 L (0.04-0.54) K/mm3 Baso # (Auto) 0.00 L (0.01-0.08) K/mm3 Manual Slide Review Abnormal smear Sodium 137 (136-145) mEq/L Potassium 4.6 (3.5-5.1) mEq/L Chloride 106 (98-107) mEq/L Carbon Dioxide 26 (21-32) mEq/L Anion Gap 9.6 (5-15) BUN 26 H (7-18) mg/dL Creatinine 1.1 (0.7-1.3) mg/dL Est Cr Clr Drug Dosing 45.77 mL/min Estimated GFR (MDRD) > 60 (>60) mL/min BUN/Creatinine Ratio 23.6 H (14-18) Glucose 234 H (83-115) mg/dL POC Glucose 328 H (83-110) mg/dL Calcium 8.7 (8.5-10.1) mg/dL Magnesium 2.5 H (1.8-2.4) mg/dl C-Reactive Protein 5.7 H* (<1.0) mg/dL Procalcitonin ng/mL 09/03/20 Range/Units 06:29 WBC (4.23-9.07) K/mm3 RBC (4.63-6.08) M/mm3 Hgb (13.7-17.5) gm/dl Hct (40.1-51.0) % MCV (79.0-92.2) fl MCH (25.7-32.2) pg MCHC (32.2-35.5) g/dl RDW Std Deviation (35.1-43.9) fL Plt Count (163-337) K/mm3 MPV (9.4-12.3) fl Neut % (Auto) (34.0-67.9) % Lymph % (Auto) (21.8-53.1) % [place] % (Auto) (5.3-12.2) % Eos % (Auto) (0.8-7.0) Baso % (Auto) (0.1-1.2) % Neut # (Auto) (1.78-5.38) K/mm3 Lymph # (Auto) (1.32-3.57) K/mm3 [place] # (Auto) (0.30-0.82) K/mm3 Eos # (Auto) (0.04-0.54) K/mm3 Baso # (Auto) (0.01-0.08) K/mm3 Manual Slide Review Sodium (136-145) mEq/L Potassium (3.5-5.1) mEq/L Chloride (98-107) mEq/L Carbon Dioxide (21-32) mEq/L Anion Gap (5-15) BUN (7-18) mg/dL Creatinine (0.7-1.3) mg/dL Est Cr Clr Drug Dosing mL/min Estimated GFR (MDRD) (>60) mL/min BUN/Creatinine Ratio (14-18) Glucose (83-115) mg/dL POC Glucose 243 H (83-110) mg/dL Calcium (8.5-10.1) mg/dL Magnesium (1.8-2.4) mg/dl C-Reactive Protein (<1.0) mg/dL Procalcitonin ng/mL Result Diagrams: 09/03/20 06:20 09/03/20 06:20 [facility] Results Last 24 hrs: Microbiology 09/02/20 18:00 Gram Stain - Preliminary Sputum - Expectorated Sepsis Event Note - Evaluation Sepsis Screening Result: No Definite Risk - Focused Exam Vital Signs: Vital Signs Temp Pulse Resp BP BP Pulse Ox Pulse Ox 09/03/20 09:57 109 H 119/53 L 90 L 09/03/20 09:32 86 90/50 L 09/03/20 09:31 97.5 F 104 H 95 09/03/20 09:30 104 H 20 94/37 L 94 L 09/03/20 09:28 90/50 L 09/03/20 08:23 97.3 F 86 20 106/60 93 L 09/03/20 08:00 93 L 09/03/20 07:54 94 L 09/03/20 06:27 81 94 L 09/03/20 01:40 97.5 F 88 22 H 123/67 93 L - Problem List & Annotations (1) HLD (hyperlipidemia) SNOMED Code(s): 16262409 Code(s): E78.5 - HYPERLIPIDEMIA, UNSPECIFIED Status: Chronic Priority: Low Current Visit: No Qualifiers: Hyperlipidemia type: unspecified Qualified Code(s): E78.5 - Hyperlipidemia, unspecified (2) HTN (hypertension) SNOMED Code(s): 24427568 Code(s): I10 - ESSENTIAL (PRIMARY) HYPERTENSION Status: Chronic Priority: Medium Current Visit: No Qualifiers: Hypertension type: unspecified Qualified Code(s): I10 - Essential (primary) hypertension (3) History of myocardial infarction SNOMED Code(s): 443433936 Code(s): I25.2 - OLD MYOCARDIAL INFARCTION Status: Chronic Priority: Low Current Visit: No (4) Diverticulosis SNOMED Code(s): 036409224 Code(s): K57.90 - DVRTCLOS OF INTEST, PART UNSP, W/O PERF OR ABSCESS W/O BLEED Status: Chronic Priority: Low Current Visit: No (5) History of GI bleed SNOMED Code(s): 892827962 Code(s): Z87.19 - PERSONAL HISTORY OF OTHER DISEASES OF THE DIGESTIVE SYSTEM Status: Chronic Priority: Low Current Visit: No (6) Urinary incontinence SNOMED Code(s): 610531289 Code(s): R32 - UNSPECIFIED URINARY INCONTINENCE Status: Chronic Priority: Low Current Visit: No Qualifiers: Urinary Incontinence type: unspecified incontinence Qualified Code(s): R32 - Unspecified urinary incontinence (7) Arthritis SNOMED Code(s): 6142876 Code(s): M19.90 - UNSPECIFIED OSTEOARTHRITIS, UNSPECIFIED SITE Status: Acute Current Visit: Yes (8) Type II diabetes mellitus SNOMED Code(s): 64672925 Code(s): E11.9 - TYPE 2 DIABETES MELLITUS WITHOUT COMPLICATIONS Status: Chronic Priority: Medium Current Visit: No Qualifiers: Diabetes mellitus long term care social worker insulin use: with long term care social worker use Diabetes mellitus complication status: with other specified complication Qualified Code(s): E11.69 - Type 2 diabetes mellitus with other specified complication; Z79.4 - alf (current) use of insulin (9) Hypothyroidism SNOMED Code(s): 57687731 Code(s): E03.9 - HYPOTHYROIDISM, UNSPECIFIED Status: Chronic Priority: Medium Current Visit: No Qualifiers: Hypothyroidism type: unspecified Qualified Code(s): E03.9 - Hypothyroidism, unspecified (10) Failure to thrive in adult SNOMED Code(s): 388024440 Code(s): R62.7 - ADULT FAILURE TO THRIVE Status: Acute Priority: High Current Visit: Yes (11) Pneumonia SNOMED Code(s): 384511981 Code(s): J18.9 - PNEUMONIA, UNSPECIFIED ORGANISM Status: Acute Priority: High Current Visit: Yes Qualifiers: Pneumonia type: due to unspecified organism Laterality: right Lung location: upper lobe of lung Qualified Code(s): J18.9 - Pneumonia, unspecified organism (12) Hypoxia SNOMED Code(s): 605228821 Code(s): R09.02 - HYPOXEMIA Status: Acute Priority: High Current Visit: Yes (13) Pulmonary fibrosis, unspecified SNOMED Code(s): 16437310 Code(s): J84.10 - PULMONARY FIBROSIS, UNSPECIFIED Status: Chronic Priority: High Current Visit: Yes (14) Generalized weakness SNOMED Code(s): 43765608 Code(s): R53.1 - WEAKNESS Status: Acute Priority: High Current Visit: Yes (15) Dizziness SNOMED Code(s): 719889168, 056187770 Code(s): R42 - DIZZINESS AND GIDDINESS Status: Acute Priority: High Current Visit: Yes (16) Hypoalbuminemia SNOMED Code(s): 567535882 Code(s): E88.09 - OTH DISORDERS OF PLASMA-PROTEIN METABOLISM, NEC Status: Acute Priority: High Current Visit: Yes (17) Elevated d-dimer SNOMED Code(s): 391461887 Code(s): R79.89 - OTHER SPECIFIED ABNORMAL FINDINGS OF BLOOD CHEMISTRY Status: Ruled-out Priority: High Current Visit: Yes - Problem List Review Problem List Initiated/Reviewed/Updated: Yes - My Orders Last 24 Hours: My Active Orders 09/02/20 14:30 Albuterol [Proventil HFA] See Dose Instructions INH Q2H PRN 09/02/20 18:00 CULTURE SPUTUM + SMEAR [RM] Routine 09/02/20 21:00 Melatonin 9 mg PO BEDTIME Mometasone/Formoterol [[place] 100-5 MCG] 2 puff IH BIDRT Temazepam [Restoril] 30 mg PO BEDTIME PRN 09/03/20 09:00 methylPREDNISolone Sod Succ [Solu-MEDROL] 60 mg IVPUSH DAILY 09/04/20 05:11 BASIC METABOLIC PANEL,BMP [CHEM] AM CBC WITH AUTO DIFF [HEME] AM CRP [C-REACTIVE PROTEIN] [CHEM] AM MAGNESIUM [CHEM] AM - Assessment Assessment:: Assessment - 08/31/20 (admitted overnight 08/30/20) * 85-year-old male presents to ED via [facility] on 08/30/2020 with respiratory problem * History of HLD, HTN, NM, pulmonary fibrosis, diverticulosis, GI bleed, urinary incontinence, arthritis, type II DM, hypothyroidism, benign melanoma. * Usually utilizes oxygen intermittently at home has been requiring 2 L with home saturations in 80s. * Insulin-dependent diabetic with blood sugars in the 120s to 130s. * Twelve-lead EKG shows sinus rhythm at 96 bpm with borderline prolonged QTC and ST depression unchanged from 11/2018. * Reports nausea, dizziness, worsening shortness of breath, productive cough, chills but no fever. * Labs in ED: * WBC 9.19 * Hemoglobin 10.9 * Platelet 297,000 * Neutrophils 64.7% * Sodium 139 * Potassium 4.4 * Chloride 102 * Carbon dioxide 26 * Anion gap 15.4 * BUN 17, creatinine 1.3, GFR 52 * Glucose 152 * Magnesium 2.1 * Total bilirubin 0.6 * AST 23, ALT 23, alkaline phosphatase 67 * Troponin 0 0.044 * CRP 12.2 * Protein 7.5 * Albumin 2.7 * D-dimer 0.89 * proBNP 1326 * UA negative * SARS-CoV-2 RNA negative * ABG in left radial: pH 7.45, PCO2 34.6, PO2 of 86.0, HCO3 of 23.5, O2 saturation 96.4, AA gradient 70, obtain on 2 L via NC. * Given 500 mg azithromycin and 2 g Rocephin in ED. * Chest x-ray in ED shows interstitial change slightly worse from prior study raising possibility of mild areas of pneumonia and other incidental findings * CTA obtained in ED: * 1. Patchy areas of increased density within both sides of the chest raising the possibility of pneumonia superimposed upon chronic fibrosis. Please rule out Covid disease. * 2. Multiple layering gallstones within the gallbladder. * 3. No findings of pulmonary embolism. * 4. Other findings believed to be incidental as noted above. * Admitted to medical floor on telemetry for management of pneumonia and failure to thrive. 09/01/2020 * Carotid artery US negative * Started prednisone 60mg daily -> increased to solumedrol 60mg BID IVP * Requiring 4-6L overnight and today * Refusing SNF placement. Reports they are working on [facility] placement in [place] currently. * [facility] following and supplementing * Labs today: * WBC 11.95. * Hemoglobin 10.9. * Platelet 323,000. * Sodium 140. * Potassium 4.0. * Carbon dioxide 27. * Anion gap 14.0. * BUN 15, creatinine 1.2, GFR 57. * Glucose 87. * Magnesium 2.1. * CRP 12.0. * Vitamin D 53.5. * TSH 1.157. * MRSA screen negative * Continue current treatment plan * Repeat CXR tomorrow AM 09/02/2020 * Less dizzy today * Continue Solumedrol 60mg BID IVP today. Likely continue once daily tomorrow * Requiring 3-6L in past 24 hours * Reports poor sleep with minimal Restoril effect. Increase dosing to 30mg PRN and start scheduled melatonin * Labs today: * WBC 7.42. * Hemoglobin 10.3. * Platelets 328,000. * Neutrophils elevated at 84.8%. * Sodium 140. * Potassium 4.4. * Carbon oxide 25. * Anion gap 15.4. * BUN 21. Creatinine 1.2. GFR 57. * Glucose 1 63-2 39. * CRP 12.8. * Magnesium 2.0 * Repeat procalcitonin today * CXR today stable * Add Dulera BID * Continue current treatment plan 09/03/2020 * Continues to improve. Feels like he is doing slightly better today. * Will need pulmonology follow-up after discharge * Requiring 3.5 to 5 L in the past 24 hours * Decrease Solu-Medrol to 60 mg daily IV push * Labs today: * WBC 0.53likely due to steroid. * Hemoglobin 10.3. * Platelet 351,000. * Neutrophils 88.3%. * Sodium 137. * Potassium 4.6. * Anion gap 9.6. * BUN 26. Creatinine 1.1. GFR greater than 60. * Glucose 2 34-3 28. * Magnesium 2.5. * CRP 5.7. * Procalcitonin yesterday was 0.08. * Refusing Dulera due to prior mouth sores from steroid - discontinue * Continue current treatment plan. * Hopeful for discharge in next 24-48 hours. - Plan Plan:: Pneumonia Hypoxia Pulmonary fibrosis, unspecified * Rocephin 2gm * Completed 3 days Azithromycin 500mg * O2 as needed to keep saturations >90% * Albuterol/duoneb as needed * IS/Acapella * RT Consultation * Mucinex scheduled * Droplet isolation * Decrease Solu-medrol to 60mg daily * Discontinue dulera as patient is refusing Failure to thrive in adult Generalized weakness Hypoalbuminemia Dizziness Hypothyroidism * PT/OT * CM/SW * [facility] consult Type II diabetes mellitus * Home LA insulin * SS low dose insulin TIDAC--> increase to high dose due to steroid * QID AC and Bedtime glucose checks * Per patient A1C was just checked las month with Dr. Brooks and was 6.7% HLD (hyperlipidemia) HTN (hypertension) Arthritis * Home medications as ordered * Monitor vital signs History of myocardial infarction Diverticulosis History of GI bleed Urinary incontinence * No acute concerns Elevated D-Dimer * Ruled out PE due to negative CTA Code Status: DNR/DNI - after long discussion patient changed from full code on 08/31/20 PCP: Dr. Brooks DVT Prophylaxis: Lovenox Social: Patient and currently live at home but they are moving to [place] in [place] soon and have started packing. They have 2 sons who live in [place] Disposition: Patient admitted to [facility] on telemetry for management of PNA and failure to thrive. LOS 2-3 more days anticipated. LOS >96 hours due to slow response to treatment.
[2020-09-03] MEDS: Magnesium Hydroxide 400 MG/5 ML Susp 30 ML Cup PO PRN (14:28)
[2020-09-03] MEDS ORDERED: Bisacodyl 10 MG Supp RECTAL ONE (18:52)
[2020-09-03] MEDS: Rosuvastatin 10 MG Tab PO SCH (19:11)
[2020-09-03] MEDS ORDERED: Alum Hydrox/Mag Hydrox/Simeth 30 ML, Lidocaine 2% 15 ML PO ONE ×2 (19:29)
[2020-09-03] MEDS: Melatonin 3 MG Tab PO SCH (20:26)
[2020-09-03] MEDS: Ezetimibe 10 MG Tab PO SCH (20:26)
[2020-09-03] MEDS: cefTRIAXone 2 GM in Sodium Chloride 0.9% 100 ML IV SCH (20:27)
[2020-09-04] MEDS: Temazepam 30 MG Cap PO PRN ×2 (00:48→20:56)
[2020-09-04] MEDS: Levothyroxine 50 MCG Tab PO SCH (06:11)
[2020-09-04] MEDS: Trospium 20 MG Tab PO SCH ×2 (06:11→16:35)
--- NOTE | 2020-09-04 07:25 | PCM.PN ---
- General Info Date of Service: 09/04/20 Admission Dx/Problem (Free Text): Admission Diagnosis/Problem Admission Diagnosis/Problem Pneumonia Functional Status: Reports: Pain Controlled, Tolerating Diet, Ambulating, Urinating, Incentive Spirometry, Other (Acapella ). Denies: New Symptoms - Review of Systems General: Reports: No Symptoms, Weakness, Fatigue. Denies: Fever, Malaise, Chills HEENT: Reports: No Symptoms. Denies: Headaches, Sore Throat Pulmonary: Reports: Shortness of Breath, Cough, Sputum, Wheezing. Denies: Pleuritic Chest Pain Cardiovascular: Reports: No Symptoms, Dyspnea on Exertion. Denies: Chest Pain, Palpitations, Edema Gastrointestinal: Reports: No Symptoms. Denies: Abdominal Pain, Constipation, Diarrhea, Nausea, Vomiting Genitourinary: Reports: No Symptoms. Denies: Pain Musculoskeletal: Reports: No Symptoms Skin: Reports: No Symptoms. Denies: Cyanosis Neurological: Reports: Pre-Existing Deficit (Ambulated with a cane ), Difficulty Walking, Weakness, Gait Disturbance. Denies: Confusion, Dizziness, Headache, Numbness, Seizure, Syncope, Tingling, Tremors, Trouble Speaking, Change in Speech Psychiatric: Reports: No Symptoms - Patient Data Vitals - Most Recent: Last Vital Signs Temp 97.2 F 09/04/20 03:05 Pulse 90 09/04/20 03:05 Resp 24 H 09/04/20 03:05 BP 103/69 09/04/20 03:05 Pulse Ox 91 L 09/04/20 03:05 Weight - Most Recent: 154 lb I&O - Last 24 Hours: Intake & Output 09/03/20 09/04/20 09/04/20 22:59 06:59 14:59 Intake Total 1430 900 Output Total 340 625 Balance 1090 275 Lab Results Last 24 Hours: Laboratory Results - last 24 hr 09/03/20 09/03/20 09/03/20 Range/Units 10:52 16:59 21:44 WBC (4.23-9.07) K/mm3 RBC (4.63-6.08) M/mm3 Hgb (13.7-17.5) gm/dl Hct (40.1-51.0) % MCV (79.0-92.2) fl MCH (25.7-32.2) pg MCHC (32.2-35.5) g/dl RDW Std Deviation (35.1-43.9) fL Plt Count (163-337) K/mm3 MPV (9.4-12.3) fl Neut % (Auto) (34.0-67.9) % Lymph % (Auto) (21.8-53.1) % [place] % (Auto) (5.3-12.2) % Eos % (Auto) (0.8-7.0) Baso % (Auto) (0.1-1.2) % Neut # (Auto) (1.78-5.38) K/mm3 Lymph # (Auto) (1.32-3.57) K/mm3 [place] # (Auto) (0.30-0.82) K/mm3 Eos # (Auto) (0.04-0.54) K/mm3 Baso # (Auto) (0.01-0.08) K/mm3 Sodium (136-145) mEq/L Potassium (3.5-5.1) mEq/L Chloride (98-107) mEq/L Carbon Dioxide (21-32) mEq/L Anion Gap (5-15) BUN (7-18) mg/dL Creatinine (0.7-1.3) mg/dL Est Cr Clr Drug Dosing mL/min Estimated GFR (MDRD) (>60) mL/min BUN/Creatinine Ratio (14-18) Glucose (83-115) mg/dL POC Glucose 346 H 369 H 376 H (83-110) mg/dL Calcium (8.5-10.1) mg/dL Magnesium (1.8-2.4) mg/dl C-Reactive Protein (<1.0) mg/dL 09/04/20 09/04/20 Range/Units 05:14 05:14 WBC 17.36 H (4.23-9.07) K/mm3 RBC 3.46 L (4.63-6.08) M/mm3 Hgb 10.4 L (13.7-17.5) gm/dl Hct 32.9 L (40.1-51.0) % MCV 95.1 H (79.0-92.2) fl MCH 30.1 (25.7-32.2) pg MCHC 31.6 L (32.2-35.5) g/dl RDW Std Deviation 46.3 H (35.1-43.9) fL Plt Count 353 H (163-337) K/mm3 MPV 9.1 L (9.4-12.3) fl Neut % (Auto) 81.6 H (34.0-67.9) % Lymph % (Auto) 10.0 L (21.8-53.1) % [place] % (Auto) 8.0 (5.3-12.2) % Eos % (Auto) 0 L (0.8-7.0) Baso % (Auto) 0.1 (0.1-1.2) % Neut # (Auto) 14.17 H (1.78-5.38) K/mm3 Lymph # (Auto) 1.74 (1.32-3.57) K/mm3 [place] # (Auto) 1.39 H (0.30-0.82) K/mm3 Eos # (Auto) 0.00 L (0.04-0.54) K/mm3 Baso # (Auto) 0.01 (0.01-0.08) K/mm3 Sodium 141 (136-145) mEq/L Potassium 4.5 (3.5-5.1) mEq/L Chloride 105 (98-107) mEq/L Carbon Dioxide 29 (21-32) mEq/L Anion Gap 11.5 (5-15) BUN 30 H (7-18) mg/dL Creatinine 1.1 (0.7-1.3) mg/dL Est Cr Clr Drug Dosing 45.77 mL/min Estimated GFR (MDRD) > 60 (>60) mL/min BUN/Creatinine Ratio 27.3 H (14-18) Glucose 209 H (83-115) mg/dL POC Glucose (83-110) mg/dL Calcium 8.6 (8.5-10.1) mg/dL Magnesium 2.5 H (1.8-2.4) mg/dl C-Reactive Protein 2.6 H* (<1.0) mg/dL Jaison Results Last 24 Hours: Microbiology 09/02/20 18:00 Gram Stain - Final Sputum - Expectorated Sputum Culture - Preliminary Med Orders - Current: Current Medications Acetaminophen (Acetaminophen 325 Mg Tab) 650 mg PO Q4H PRN PRN Reason: Pain (Mild 1-3)/fever Albuterol (Albuterol 6.7 Gm Inhaler) 0 gm INH Q2H PRN PRN Reason: SOB/WHEEZE Last Admin: 09/03/20 18:51 Dose: 2 puff Documented by: Albuterol/Ipratropium (Albuterol/Ipratropium 3.0-0.5 Mg/3 Ml Neb Soln) 3 ml NEB Q4H PRN PRN Reason: Shortness Of Breath/wheezing Aspirin (Aspirin 81 Mg Tab.Ec) 81 mg PO DAILY [facility] Last Admin: 09/03/20 09:10 Dose: 81 mg Documented by: Cholecalciferol (Cholecalciferol (Vitamin D3) 25 Mcg Tab) 50 mcg PO DAILY [facility] Last Admin: 09/03/20 09:09 Dose: 50 mcg Documented by: Docusate Sodium (Docusate Sodium 100 Mg Cap) 100 mg PO BID PRN PRN Reason: Constipation Ezetimibe (Ezetimibe 10 Mg Tab) 10 mg PO BEDTIME [facility] Last Admin: 09/03/20 20:26 Dose: 10 mg Documented by: Enoxaparin Sodium (Enoxaparin 40 Mg/0.4 Ml Syringe) 40 mg SUBCUT DAILY [facility] Last Admin: 09/03/20 09:05 Dose: 40 mg Documented by: Guaifenesin (Guaifenesin 600 Mg Tab.Er) 1,200 mg PO BID [facility] Last Admin: 09/03/20 20:27 Dose: 1,200 mg Documented by: Ceftriaxone Sodium 2 gm/ (Sodium Chloride) 100 mls @ 200 mls/hr IV Q24H [facility] Last Admin: 09/03/20 20:27 Dose: 200 mls/hr Documented by: Insulin Glargine (Insulin Glarg,Human.Rec.Analog 100 Unit/Ml) 26 unit SUBCUT DAILY [facility] Last Admin: 09/03/20 09:08 Dose: 26 units Documented by: Insulin Human Lispro (Insulin Lispro 100 Unit/Ml) 0 unit SUBCUT TIDAC [facility]; Protocol Last Admin: 09/03/20 17:18 Dose: 15 units Documented by: Levothyroxine Sodium (Levothyroxine 50 Mcg Tab) 50 mcg PO ACBREAKFAST [facility] Last Admin: 09/04/20 06:11 Dose: 50 mcg Documented by: Magnesium Hydroxide (Magnesium Hydroxide 400 Mg/5 Ml Susp 30 Ml Cup) 30 ml PO Q6H PRN PRN Reason: Constipation Last Admin: 09/03/20 14:28 Dose: 30 ml Documented by: Melatonin (Melatonin 3 Mg Tab) 9 mg PO BEDTIME [facility] Last Admin: 09/03/20 20:26 Dose: 9 mg Documented by: Methylprednisolone Sodium Succinate (Methylprednisolone Sodium Succinate 40 Mg/1 Ml Sdv) 60 mg IVPUSH DAILY [facility] Last Admin: 09/03/20 09:07 Dose: 60 mg Documented by: Metoprolol Succinate (Metoprolol Succinate 25 Mg Tab.Er) 25 mg PO DAILY [facility] Last Admin: 09/03/20 11:29 Dose: 25 mg Documented by: Multivitamins/Minerals/Vitamin C (Multivitamin Tab) 1 tab PO DAILY [facility] Last Admin: 09/03/20 09:10 Dose: 1 tab Documented by: Ondansetron HCl (Ondansetron 4 Mg/2 Ml Sdv) 4 mg IV Q6H PRN PRN Reason: Nausea/Vomiting Rosuvastatin Calcium (Rosuvastatin 10 Mg Tab) 10 mg PO PCDINNER [facility] Last Admin: 09/03/20 19:11 Dose: 10 mg Documented by: Sodium Chloride (Sodium Chloride 0.9% 10 Ml Syringe) 10 ml FLUSH ASDIRECTED PRN PRN Reason: Keep Vein Open Last Admin: 08/30/20 19:20 Dose: 10 ml Documented by: Temazepam (Temazepam 30 Mg Cap) 30 mg PO BEDTIME PRN PRN Reason: Sleep Last Admin: 09/04/20 00:48 Dose: 30 mg Documented by: Trospium (Trospium 20 Mg Tab) 20 mg PO BIDAC [facility] Last Admin: 09/04/20 06:11 Dose: 20 mg Documented by: Discontinued Medications Albuterol (Albuterol 0.083% 2.5 Mg/3 Ml Neb Soln) 2.5 mg NEB Q2H PRN PRN Reason: Shortness Of Breath/wheezing Albuterol (Albuterol 6.7 Gm Inhaler) Confirm Administered Dose 6.7 gm INH .STK- MED ONE Stop: 09/02/20 14:36 Last Admin: 09/02/20 14:37 Dose: Not Given Documented by: Azithromycin (Azithromycin 250 Mg Tab) 500 mg PO Q24H [facility] Stop: 09/01/20 21:01 Last Admin: 09/01/20 20:36 Dose: 500 mg Documented by: Bisacodyl (Bisacodyl 10 Mg Supp) 10 mg RECTAL ONETIME ONE Stop: 09/03/20 18:53 Last Admin: 09/04/20 06:06 Dose: Not Given Documented by: Al Hydroxide/Mg Hydroxide 30 (ml/ Lidocaine HCl 15 ml) 0 ml PO ONETIME ONE Stop: 09/03/20 19:30 Last Admin: 09/03/20 19:41 Dose: 45 ml Documented by: Docusate Sodium (Docusate Sodium 100 Mg Cap) 200 mg PO ONETIME ONE Stop: 08/31/20 14:52 Last Admin: 08/31/20 15:15 Dose: 200 mg Documented by: Azithromycin 500 mg/ Sodium (Chloride) 250 mls @ 250 mls/hr IV Q24H [facility] Last Admin: 08/30/20 21:26 Dose: 250 mls/hr Documented by: Ceftriaxone Sodium 2 gm/ (Sodium Chloride) 100 mls @ 200 mls/hr IV Q24H [facility] Last Admin: 08/30/20 21:01 Dose: 200 mls/hr Documented by: Sodium Chloride (Normal Saline) 100 mls @ 60 drops/sec IV ASDIRECTED [facility] Lactated Ringer's (Ringers, Lactated) 1,000 mls @ 75 mls/hr IV ASDIRECTED [facility] Stop: 08/31/20 22:49 Last Admin: 08/31/20 12:12 Dose: 75 mls/hr Documented by: Iopamidol (Iopamidol 755 Mg/Ml 100 Ml Bottle) 100 ml IVPUSH ONETIME ONE Stop: 08/31/20 00:46 Last Admin: 08/31/20 02:32 Dose: Not Given Documented by: Methylprednisolone Sodium Succinate (Methylprednisolone Sodium Succinate 40 Mg/1 Ml Sdv) 60 mg IVPUSH BID [facility] Last Admin: 09/02/20 20:17 Dose: 60 mg Documented by: Mometasone Furoate/Formoterol Fumar (Formoterol/Mometasone 100-5 Mcg 8.8 Gm Inhaler) 2 puff IH BIDRT [facility] Last Admin: 09/03/20 05:37 Dose: Not Given Documented by: Prednisone (Prednisone 20 Mg Tab) 60 mg PO WITHBREAKFAST [facility] Prednisone (Prednisone 20 Mg Tab) 60 mg PO ONETIME ONE Stop: 09/01/20 11:01 Last Admin: 09/01/20 12:57 Dose: Not Given Documented by: Sodium Chloride (Sodium Chloride 0.9% 10 Ml Syringe) 10 ml FLUSH BOLUS CHITRA Temazepam (Temazepam 15 Mg Cap) 15 mg PO BEDTIME PRN PRN Reason: sleep Last Admin: 09/01/20 20:50 Dose: 15 mg Documented by: - Exam Quality Assessment: Supplemental Oxygen (4L), DVT Prophylaxis. No: Urine Catheter General: Alert, Oriented, Cooperative, No Acute Distress HEENT: Pupils Equal, Pupils Reactive, Mucous Membr. Moist/[place] Neck: Supple, Trachea Midline Lungs: Normal Respiratory Effort, Decreased Breath Sounds, Crackles, Wheezing Cardiovascular: Regular Rate, Regular Rhythm GI/Abdominal Exam: Normal Bowel Sounds, Soft, Non-Tender, No Distention (Male) Exam: Deferred Back Exam: Normal Inspection, Full Range of Motion Extremities: Normal Inspection, Normal Range of Motion, Non-Tender, No Pedal Edema, Normal Capillary Refill Peripheral Pulses: 2+: Radial (L), Radial (R), Dorsalis Pedis (L), Dorsalis Pedis (R) Skin: Warm, Dry, Intact Neurological: No New Focal Deficit Psy/Mental Status: Alert, Normal Affect, Normal Mood - Patient Data Lab Results Last 24 hrs: Laboratory Results - last 24 hr 09/03/20 09/03/20 09/03/20 Range/Units 10:52 16:59 21:44 WBC (4.23-9.07) K/mm3 RBC (4.63-6.08) M/mm3 Hgb (13.7-17.5) gm/dl Hct (40.1-51.0) % MCV (79.0-92.2) fl MCH (25.7-32.2) pg MCHC (32.2-35.5) g/dl RDW Std Deviation (35.1-43.9) fL Plt Count (163-337) K/mm3 MPV (9.4-12.3) fl Neut % (Auto) (34.0-67.9) % Lymph % (Auto) (21.8-53.1) % [place] % (Auto) (5.3-12.2) % Eos % (Auto) (0.8-7.0) Baso % (Auto) (0.1-1.2) % Neut # (Auto) (1.78-5.38) K/mm3 Lymph # (Auto) (1.32-3.57) K/mm3 [place] # (Auto) (0.30-0.82) K/mm3 Eos # (Auto) (0.04-0.54) K/mm3 Baso # (Auto) (0.01-0.08) K/mm3 Sodium (136-145) mEq/L Potassium (3.5-5.1) mEq/L Chloride (98-107) mEq/L Carbon Dioxide (21-32) mEq/L Anion Gap (5-15) BUN (7-18) mg/dL Creatinine (0.7-1.3) mg/dL Est Cr Clr Drug Dosing mL/min Estimated GFR (MDRD) (>60) mL/min BUN/Creatinine Ratio (14-18) Glucose (83-115) mg/dL POC Glucose 346 H 369 H 376 H (83-110) mg/dL Calcium (8.5-10.1) mg/dL Magnesium (1.8-2.4) mg/dl C-Reactive Protein (<1.0) mg/dL 09/04/20 09/04/20 Range/Units 05:14 05:14 WBC 17.36 H (4.23-9.07) K/mm3 RBC 3.46 L (4.63-6.08) M/mm3 Hgb 10.4 L (13.7-17.5) gm/dl Hct 32.9 L (40.1-51.0) % MCV 95.1 H (79.0-92.2) fl MCH 30.1 (25.7-32.2) pg MCHC 31.6 L (32.2-35.5) g/dl RDW Std Deviation 46.3 H (35.1-43.9) fL Plt Count 353 H (163-337) K/mm3 MPV 9.1 L (9.4-12.3) fl Neut % (Auto) 81.6 H (34.0-67.9) % Lymph % (Auto) 10.0 L (21.8-53.1) % [place] % (Auto) 8.0 (5.3-12.2) % Eos % (Auto) 0 L (0.8-7.0) Baso % (Auto) 0.1 (0.1-1.2) % Neut # (Auto) 14.17 H (1.78-5.38) K/mm3 Lymph # (Auto) 1.74 (1.32-3.57) K/mm3 [place] # (Auto) 1.39 H (0.30-0.82) K/mm3 Eos # (Auto) 0.00 L (0.04-0.54) K/mm3 Baso # (Auto) 0.01 (0.01-0.08) K/mm3 Sodium 141 (136-145) mEq/L Potassium 4.5 (3.5-5.1) mEq/L Chloride 105 (98-107) mEq/L Carbon Dioxide 29 (21-32) mEq/L Anion Gap 11.5 (5-15) BUN 30 H (7-18) mg/dL Creatinine 1.1 (0.7-1.3) mg/dL Est Cr Clr Drug Dosing 45.77 mL/min Estimated GFR (MDRD) > 60 (>60) mL/min BUN/Creatinine Ratio 27.3 H (14-18) Glucose 209 H (83-115) mg/dL POC Glucose (83-110) mg/dL Calcium 8.6 (8.5-10.1) mg/dL Magnesium 2.5 H (1.8-2.4) mg/dl C-Reactive Protein 2.6 H* (<1.0) mg/dL Result Diagrams: 09/04/20 05:14 09/04/20 05:14 Jaison Results Last 24 hrs: Microbiology 09/02/20 18:00 Gram Stain - Final Sputum - Expectorated Sputum Culture - Preliminary Sepsis Event Note - Evaluation Sepsis Screening Result: No Definite Risk - Focused Exam Vital Signs: Vital Signs Temp Pulse Resp BP Pulse Ox 09/04/20 03:05 97.2 F 90 24 H 103/69 91 L 09/04/20 03:03 97.2 F 91 24 H 102/55 L 90 L 09/03/20 23:55 97.9 F 93 22 H 115/67 92 L 09/03/20 22:25 99 96 - Problem List & Annotations (1) HLD (hyperlipidemia) SNOMED Code(s): 26083994 Code(s): E78.5 - HYPERLIPIDEMIA, UNSPECIFIED Status: Chronic Priority: Low Current Visit: No Qualifiers: Hyperlipidemia type: unspecified Qualified Code(s): E78.5 - Hyperlipidemia, unspecified (2) HTN (hypertension) SNOMED Code(s): 04391149 Code(s): I10 - ESSENTIAL (PRIMARY) HYPERTENSION Status: Chronic Priority: Medium Current Visit: No Qualifiers: Hypertension type: unspecified Qualified Code(s): I10 - Essential (primary) hypertension (3) History of myocardial infarction SNOMED Code(s): 532120721 Code(s): I25.2 - OLD MYOCARDIAL INFARCTION Status: Chronic Priority: Low Current Visit: No (4) Diverticulosis SNOMED Code(s): 556669848 Code(s): K57.90 - DVRTCLOS OF INTEST, PART UNSP, W/O PERF OR ABSCESS W/O BLEED Status: Chronic Priority: Low Current Visit: No (5) History of GI bleed SNOMED Code(s): 985700684 Code(s): Z87.19 - PERSONAL HISTORY OF OTHER DISEASES OF THE DIGESTIVE SYSTEM Status: Chronic Priority: Low Current Visit: No (6) Urinary incontinence SNOMED Code(s): 412071990 Code(s): R32 - UNSPECIFIED URINARY INCONTINENCE Status: Chronic Priority: Low Current Visit: No Qualifiers: Urinary Incontinence type: unspecified incontinence Qualified Code(s): R32 - Unspecified urinary incontinence (7) Arthritis SNOMED Code(s): 6851283 Code(s): M19.90 - UNSPECIFIED OSTEOARTHRITIS, UNSPECIFIED SITE Status: Acute Current Visit: Yes (8) Type II diabetes mellitus SNOMED Code(s): 68111600 Code(s): E11.9 - TYPE 2 DIABETES MELLITUS WITHOUT COMPLICATIONS Status: Chronic Priority: Medium Current Visit: No Qualifiers: Diabetes mellitus usp insulin use: with manager intermediate use Diabetes mellitus complication status: with other specified complication Qualified Code(s): E11.69 - Type 2 diabetes mellitus with other specified complication; Z79.4 - [employer] customer service (current) use of insulin (9) Hypothyroidism SNOMED Code(s): 06804214 Code(s): E03.9 - HYPOTHYROIDISM, UNSPECIFIED Status: Chronic Priority: Medium Current Visit: No Qualifiers: Hypothyroidism type: unspecified Qualified Code(s): E03.9 - Hypothyroidism, unspecified (10) Failure to thrive in adult SNOMED Code(s): 959849550 Code(s): R62.7 - ADULT FAILURE TO THRIVE Status: Acute Priority: High Current Visit: Yes (11) Pneumonia SNOMED Code(s): 578798713 Code(s): J18.9 - PNEUMONIA, UNSPECIFIED ORGANISM Status: Acute Priority: High Current Visit: Yes Qualifiers: Pneumonia type: due to unspecified organism Laterality: right Lung location: upper lobe of lung Qualified Code(s): J18.9 - Pneumonia, unspecified organism (12) Hypoxia SNOMED Code(s): 737993586 Code(s): R09.02 - HYPOXEMIA Status: Acute Priority: High Current Visit: Yes (13) Pulmonary fibrosis, unspecified SNOMED Code(s): 53706191 Code(s): J84.10 - PULMONARY FIBROSIS, UNSPECIFIED Status: Chronic Priority: High Current Visit: Yes (14) Generalized weakness SNOMED Code(s): 80805763 Code(s): R53.1 - WEAKNESS Status: Acute Priority: High Current Visit: Yes (15) Dizziness SNOMED Code(s): 352819195, 812789476 Code(s): R42 - DIZZINESS AND GIDDINESS Status: Acute Priority: High Current Visit: Yes (16) Hypoalbuminemia SNOMED Code(s): 681082275 Code(s): E88.09 - OTH DISORDERS OF PLASMA-PROTEIN METABOLISM, NEC Status: Acute Priority: High Current Visit: Yes (17) Elevated d-dimer SNOMED Code(s): 017624852 Code(s): R79.89 - OTHER SPECIFIED ABNORMAL FINDINGS OF BLOOD CHEMISTRY Status: Ruled-out Priority: High Current Visit: Yes - Problem List Review Problem List Initiated/Reviewed/Updated: Yes - My Orders Last 24 Hours: My Active Orders 09/03/20 09:00 methylPREDNISolone Sod Succ [Solu-MEDROL] 60 mg IVPUSH DAILY - Assessment Assessment:: Assessment - 08/31/20 (admitted overnight 08/30/20) * 85-year-old male presents to ED via [facility] on 08/30/2020 with respiratory problem * History of HLD, HTN, [place], pulmonary fibrosis, diverticulosis, GI bleed, urinary incontinence, arthritis, type II DM, hypothyroidism, benign melanoma. * Usually utilizes oxygen intermittently at home has been requiring 2 L with home saturations in 80s. * Insulin-dependent diabetic with blood sugars in the 120s to 130s. * Twelve-lead EKG shows sinus rhythm at 96 bpm with borderline prolonged QTC and ST depression unchanged from 11/2018. * Reports nausea, dizziness, worsening shortness of breath, productive cough, chills but no fever. * Labs in ED: * WBC 9.19 * Hemoglobin 10.9 * Platelet 297,000 * Neutrophils 64.7% * Sodium 139 * Potassium 4.4 * Chloride 102 * Carbon dioxide 26 * Anion gap 15.4 * BUN 17, creatinine 1.3, GFR 52 * Glucose 152 * Magnesium 2.1 * Total bilirubin 0.6 * AST 23, ALT 23, alkaline phosphatase 67 * Troponin 0 0.044 * CRP 12.2 * Protein 7.5 * Albumin 2.7 * D-dimer 0.89 * proBNP 1326 * UA negative * SARS-CoV-2 RNA negative * ABG in left radial: pH 7.45, PCO2 34.6, PO2 of 86.0, HCO3 of 23.5, O2 saturation 96.4, AA gradient 70, obtain on 2 L via NC. * Given 500 mg azithromycin and 2 g Rocephin in ED. * Chest x-ray in ED shows interstitial change slightly worse from prior study raising possibility of mild areas of pneumonia and other incidental findings * CTA obtained in ED: * 1. Patchy areas of increased density within both sides of the chest raising the possibility of pneumonia superimposed upon chronic fibrosis. Please rule out Covid disease. * 2. Multiple layering gallstones within the gallbladder. * 3. No findings of pulmonary embolism. * 4. Other findings believed to be incidental as noted above. * Admitted to medical floor on telemetry for management of pneumonia and failure to thrive. 09/01/2020 * Carotid artery US negative * Started prednisone 60mg daily -> increased to solumedrol 60mg BID IVP * Requiring 4-6L overnight and today * Refusing SNF placement. Reports they are working on NURSING HOME placement in [place] currently. * Broaching Machine Set Up Operator following and supplementing * Labs today: * WBC 11.95. * Hemoglobin 10.9. * Platelet 323,000. * Sodium 140. * Potassium 4.0. * Carbon dioxide 27. * Anion gap 14.0. * BUN 15, creatinine 1.2, GFR 57. * Glucose 87. * Magnesium 2.1. * CRP 12.0. * Vitamin D 53.5. * TSH 1.157. * MRSA screen negative * Continue current treatment plan * Repeat CXR tomorrow AM 09/02/2020 * Less dizzy today * Continue Solumedrol 60mg BID IVP today. Likely continue once daily tomorrow * Requiring 3-6L in past 24 hours * Reports poor sleep with minimal Restoril effect. Increase dosing to 30mg PRN and start scheduled melatonin * Labs today: * WBC 7.42. * Hemoglobin 10.3. * Platelets 328,000. * Neutrophils elevated at 84.8%. * Sodium 140. * Potassium 4.4. * Carbon oxide 25. * Anion gap 15.4. * BUN 21. Creatinine 1.2. GFR 57. * Glucose 1 63-2 39. * CRP 12.8. * Magnesium 2.0 * Repeat procalcitonin today * CXR today stable * Add Dulera BID * Continue current treatment plan 09/03/2020 * Continues to improve. Feels like he is doing slightly better today. * Will need pulmonology follow-up after discharge * Requiring 3.5 to 5 L in the past 24 hours * Decrease Solu-Medrol to 60 mg daily IV push * Labs today: * WBC 0.53likely due to steroid. * Hemoglobin 10.3. * Platelet 351,000. * Neutrophils 88.3%. * Sodium 137. * Potassium 4.6. * Anion gap 9.6. * BUN 26. Creatinine 1.1. GFR greater than 60. * Glucose 2 34-3 28. * Magnesium 2.5. * CRP 5.7. * Procalcitonin yesterday was 0.08. * Refusing Dulera due to prior mouth sores from steroid - discontinue * Continue current treatment plan. * Hopeful for discharge in next 24-48 hours. 09/04/2020 * Unfortunately continues to require varying amounts of oxygen. Currently on 4 L. * Requiring 3.5-5L in the past 24 hours * Continues to utilize IS and Acapella * Continued to work with PT/OT - recommending home with vs. SNF - patient continues to refuse SNF * Continue solu-medrol to 60mg daily IVP * Increase LA insulin to 30 units daily * Labs today: * WBC 17.36. * Hemoglobin 10.4. * Platelet 353,000. * Neutrophils 81.6%. * Sodium 141. * Potassium 4.5. * Carbon dioxide 29. * Anion gap 11.5. * BUN 30, creatinine 1.1, GFR greater than 60. * Glucose 209 to 376. * Magnesium 2.5. * CRP 2.6. * Hopeful for discharge this weekend pending stability/improvement - Plan Plan:: Pneumonia Hypoxia Pulmonary fibrosis, unspecified * Rocephin 2gm * Completed 3 days Azithromycin 500mg * O2 as needed to keep saturations >90% * Albuterol/duoneb as needed * IS/Acapella * RT Consultation * Mucinex scheduled * Droplet isolation * Solu-medrol to 60mg daily Failure to thrive in adult Generalized weakness Hypoalbuminemia Dizziness Hypothyroidism * PT/OT * CM/SW * Broaching Machine Set Up Operator consult Type II diabetes mellitus * Increase LA insulin to 30 units daily * SS high dose insulin due to steroid TIDAC * QID AC and Bedtime glucose checks * Per patient A1C was just checked las month with Dr. Brooks and was 6.7% HLD (hyperlipidemia) HTN (hypertension) Arthritis * Home medications as ordered * Monitor vital signs History of myocardial infarction Diverticulosis History of GI bleed Urinary incontinence * No acute concerns Elevated D-Dimer * Ruled out PE due to negative CTA Code Status: DNR/DNI - after long discussion patient changed from full code on 08/31/20 PCP: Dr. Brooks DVT Prophylaxis: Lovenox Social: Patient and currently live at home but they are moving to [place] in [place] soon and have started packing. They have 2 sons who live in [place] Disposition: Patient admitted to [facility] on telemetry for management of PNA and failure to thrive. LOS 1-2 more days anticipated. LOS >96 hours due to slow response to treatment.
[2020-09-04] MEDS: guaiFENesin 600 MG Tab.ER PO SCH ×2 (08:46→20:56)
[2020-09-04] MEDS: Aspirin 81 MG Tab.EC PO SCH (08:46)
[2020-09-04] MEDS: Metoprolol Succinate 25 MG Tab.ER PO SCH (08:46)
[2020-09-04] MEDS: Multivitamin Tab PO SCH (08:47)
[2020-09-04] MEDS: Cholecalciferol (Vitamin D3) 25 MCG Tab PO SCH (08:47)
[2020-09-04] MEDS: Insulin Lispro 100 UNIT/ML 10 ML Vial SUBCUT SCH ×3 (08:48→17:30)
[2020-09-04] MEDS: Enoxaparin 40 MG/0.4 ML Syringe SUBCUT SCH (08:48)
[2020-09-04] MEDS: methylPREDNISolone Sodium Succinate 40 MG/1 ML SDV IVPUSH SCH (08:49)
[2020-09-04] MEDS: Insulin Glarg,Human.Rec.Analog 100 Unit/ML SUBCUT SCH (08:49)
[2020-09-04] MEDS ORDERED: Insulin Glarg,Human.Rec.Analog 100 Unit/ML SUBCUT ONE (12:00)
[2020-09-04] MEDS: Rosuvastatin 10 MG Tab PO SCH (17:30)
[2020-09-04] MEDS: cefTRIAXone 2 GM in Sodium Chloride 0.9% 100 ML IV SCH (20:55)
[2020-09-04] MEDS: Melatonin 3 MG Tab PO SCH (20:56)
[2020-09-04] MEDS: Ezetimibe 10 MG Tab PO SCH (20:56)
[2020-09-05] MEDS: Levothyroxine 50 MCG Tab PO SCH (05:56)
[2020-09-05] MEDS: Trospium 20 MG Tab PO SCH ×2 (05:57→16:59)
[2020-09-05] MEDS: Insulin Lispro 100 UNIT/ML 10 ML Vial SUBCUT SCH ×3 (06:07→17:36)
[2020-09-05] MEDS: guaiFENesin 600 MG Tab.ER PO SCH ×2 (09:00→20:02)
[2020-09-05] MEDS: Metoprolol Succinate 25 MG Tab.ER PO SCH (09:01)
[2020-09-05] MEDS: Aspirin 81 MG Tab.EC PO SCH (09:01)
[2020-09-05] MEDS: Multivitamin Tab PO SCH (09:03)
[2020-09-05] MEDS: Cholecalciferol (Vitamin D3) 25 MCG Tab PO SCH (09:03)
[2020-09-05] MEDS: Insulin Glarg,Human.Rec.Analog 100 Unit/ML SUBCUT SCH (09:08)
[2020-09-05] MEDS: methylPREDNISolone Sodium Succinate 40 MG/1 ML SDV IVPUSH SCH (09:10)
[2020-09-05] MEDS: Enoxaparin 40 MG/0.4 ML Syringe SUBCUT SCH (09:10)
--- NOTE | 2020-09-05 09:38 | PCM.PN ---
- General Info Date of Service: 09/05/20 Admission Dx/Problem (Free Text): Admission Diagnosis/Problem Admission Diagnosis/Problem Pneumonia Subjective Update: The patient is an 85-year-old gentleman who was admitted to acute hospitalization secondary to pneumonia as well as worsening shortness of breath. Patient has been using oxygen for his fibrosis. Today the patient says that he is feeling better. He has been tolerating diet. He feels like he could go hope e. Functional Status: Reports: Pain Controlled, Tolerating Diet - Review of Systems General: Reports: No Symptoms HEENT: Reports: No Symptoms Pulmonary: Reports: Shortness of Breath Cardiovascular: Reports: No Symptoms Gastrointestinal: Reports: No Symptoms Genitourinary: Reports: No Symptoms Musculoskeletal: Reports: No Symptoms Skin: Reports: No Symptoms Neurological: Reports: No Symptoms Psychiatric: Reports: No Symptoms - Patient Data Vitals - Most Recent: Last Vital Signs Temp 36.7 C 09/05/20 07:53 Pulse 78 09/05/20 09:01 Resp 20 09/05/20 07:53 BP 118/78 09/05/20 09:01 Pulse Ox 92 L 09/05/20 08:51 Weight - Most Recent: 68.674 kg I&O - Last 24 Hours: Intake & Output 09/04/20 09/05/20 09/05/20 22:59 06:59 14:59 Intake Total 1460 450 Output Total 475 655 Balance 985 -205 Lab Results Last 24 Hours: Laboratory Results - last 24 hr 09/04/20 09/04/20 09/04/20 Range/Units 06:13 11:43 17:11 POC Glucose 243 H 157 H 190 H (83-110) mg/dL 09/04/20 Range/Units 21:31 POC Glucose 279 H (83-110) mg/dL Jaison Results Last 24 Hours: Microbiology 09/02/20 18:00 Gram Stain - Final Sputum - Expectorated Sputum Culture - Preliminary Yeast Isolated Med Orders - Current: Current Medications Acetaminophen (Acetaminophen 325 Mg Tab) 650 mg PO Q4H PRN PRN Reason: Pain (Mild 1-3)/fever Albuterol (Albuterol 6.7 Gm Inhaler) 0 gm INH Q2H PRN PRN Reason: SOB/WHEEZE Last Admin: 09/03/20 18:51 Dose: 2 puff Documented by: Albuterol/Ipratropium (Albuterol/Ipratropium 3.0-0.5 Mg/3 Ml Neb Soln) 3 ml NEB Q4H PRN PRN Reason: Shortness Of Breath/wheezing Aspirin (Aspirin 81 Mg Tab.Ec) 81 mg PO DAILY [facility] Last Admin: 09/05/20 09:01 Dose: 81 mg Documented by: Cholecalciferol (Cholecalciferol (Vitamin D3) 25 Mcg Tab) 50 mcg PO DAILY [facility] Last Admin: 09/05/20 09:03 Dose: 50 mcg Documented by: Docusate Sodium (Docusate Sodium 100 Mg Cap) 100 mg PO BID PRN PRN Reason: Constipation Ezetimibe (Ezetimibe 10 Mg Tab) 10 mg PO BEDTIME [facility] Last Admin: 09/04/20 20:56 Dose: 10 mg Documented by: Enoxaparin Sodium (Enoxaparin 40 Mg/0.4 Ml Syringe) 40 mg SUBCUT DAILY [facility] Last Admin: 09/05/20 09:10 Dose: 40 mg Documented by: Guaifenesin (Guaifenesin 600 Mg Tab.Er) 1,200 mg PO BID [facility] Last Admin: 09/05/20 09:00 Dose: 1,200 mg Documented by: Ceftriaxone Sodium 2 gm/ (Sodium Chloride) 100 mls @ 200 mls/hr IV Q24H [facility] Last Admin: 09/04/20 20:55 Dose: 200 mls/hr Documented by: Insulin Glargine (Insulin Glarg,Human.Rec.Analog 100 Unit/Ml) 30 unit SUBCUT DAILY [facility] Last Admin: 09/05/20 09:08 Dose: 30 units Documented by: Insulin Human Lispro (Insulin Lispro 100 Unit/Ml) 0 unit SUBCUT TIDAC [facility]; Protocol Last Admin: 09/05/20 06:07 Dose: Not Given Documented by: Levothyroxine Sodium (Levothyroxine 50 Mcg Tab) 50 mcg PO ACBREAKFAST [facility] Last Admin: 09/05/20 05:56 Dose: 50 mcg Documented by: Magnesium Hydroxide (Magnesium Hydroxide 400 Mg/5 Ml Susp 30 Ml Cup) 30 ml PO Q6H PRN PRN Reason: Constipation Last Admin: 09/03/20 14:28 Dose: 30 ml Documented by: Melatonin (Melatonin 3 Mg Tab) 9 mg PO BEDTIME [facility] Last Admin: 09/04/20 20:56 Dose: 9 mg Documented by: Methylprednisolone Sodium Succinate (Methylprednisolone Sodium Succinate 40 Mg/1 Ml Sdv) 60 mg IVPUSH DAILY [facility] Last Admin: 09/05/20 09:10 Dose: 60 mg Documented by: Metoprolol Succinate (Metoprolol Succinate 25 Mg Tab.Er) 25 mg PO DAILY [facility] Last Admin: 09/05/20 09:01 Dose: 25 mg Documented by: Multivitamins/Minerals/Vitamin C (Multivitamin Tab) 1 tab PO DAILY [facility] Last Admin: 09/05/20 09:03 Dose: 1 tab Documented by: Ondansetron HCl (Ondansetron 4 Mg/2 Ml Sdv) 4 mg IV Q6H PRN PRN Reason: Nausea/Vomiting Rosuvastatin Calcium (Rosuvastatin 10 Mg Tab) 10 mg PO DAILY@1700 [facility] Last Admin: 09/04/20 17:30 Dose: 10 mg Documented by: Sodium Chloride (Sodium Chloride 0.9% 10 Ml Syringe) 10 ml FLUSH ASDIRECTED PRN PRN Reason: Keep Vein Open Last Admin: 08/30/20 19:20 Dose: 10 ml Documented by: Temazepam (Temazepam 30 Mg Cap) 30 mg PO BEDTIME PRN PRN Reason: Sleep Last Admin: 09/04/20 20:56 Dose: 30 mg Documented by: Trospium (Trospium 20 Mg Tab) 20 mg PO BIDAC [facility] Last Admin: 09/05/20 05:57 Dose: 20 mg Documented by: Discontinued Medications Albuterol (Albuterol 0.083% 2.5 Mg/3 Ml Neb Soln) 2.5 mg NEB Q2H PRN PRN Reason: Shortness Of Breath/wheezing Albuterol (Albuterol 6.7 Gm Inhaler) Confirm Administered Dose 6.7 gm INH .STK- MED ONE Stop: 09/02/20 14:36 Last Admin: 09/02/20 14:37 Dose: Not Given Documented by: Azithromycin (Azithromycin 250 Mg Tab) 500 mg PO Q24H [facility] Stop: 09/01/20 21:01 Last Admin: 09/01/20 20:36 Dose: 500 mg Documented by: Bisacodyl (Bisacodyl 10 Mg Supp) 10 mg RECTAL ONETIME ONE Stop: 09/03/20 18:53 Last Admin: 09/04/20 06:06 Dose: Not Given Documented by: Al Hydroxide/Mg Hydroxide 30 (ml/ Lidocaine HCl 15 ml) 0 ml PO ONETIME ONE Stop: 09/03/20 19:30 Last Admin: 09/03/20 19:41 Dose: 45 ml Documented by: Docusate Sodium (Docusate Sodium 100 Mg Cap) 200 mg PO ONETIME ONE Stop: 08/31/20 14:52 Last Admin: 08/31/20 15:15 Dose: 200 mg Documented by: Azithromycin 500 mg/ Sodium (Chloride) 250 mls @ 250 mls/hr IV Q24H [facility] Last Admin: 08/30/20 21:26 Dose: 250 mls/hr Documented by: Ceftriaxone Sodium 2 gm/ (Sodium Chloride) 100 mls @ 200 mls/hr IV Q24H [facility] Last Admin: 08/30/20 21:01 Dose: 200 mls/hr Documented by: Sodium Chloride (Normal Saline) 100 mls @ 60 drops/sec IV ASDIRECTED [facility] Lactated Ringer's (Ringers, Lactated) 1,000 mls @ 75 mls/hr IV ASDIRECTED [facility] Stop: 08/31/20 22:49 Last Admin: 08/31/20 12:12 Dose: 75 mls/hr Documented by: Insulin Glargine (Insulin Glarg,Human.Rec.Analog 100 Unit/Ml) 26 unit SUBCUT DAILY [facility] Last Admin: 09/04/20 08:49 Dose: 26 units Documented by: Insulin Glargine (Insulin Glarg,Human.Rec.Analog 100 Unit/Ml) 4 unit SUBCUT ONETIME ONE Stop: 09/04/20 12:01 Last Admin: 09/04/20 12:57 Dose: 4 units Documented by: Iopamidol (Iopamidol 755 Mg/Ml 100 Ml Bottle) 100 ml IVPUSH ONETIME ONE Stop: 08/31/20 00:46 Last Admin: 08/31/20 02:32 Dose: Not Given Documented by: Methylprednisolone Sodium Succinate (Methylprednisolone Sodium Succinate 40 Mg/1 Ml Sdv) 60 mg IVPUSH BID [facility] Last Admin: 09/02/20 20:17 Dose: 60 mg Documented by: Mometasone Furoate/Formoterol Fumar (Formoterol/Mometasone 100-5 Mcg 8.8 Gm Inhaler) 2 puff IH BIDRT [facility] Last Admin: 09/03/20 05:37 Dose: Not Given Documented by: Prednisone (Prednisone 20 Mg Tab) 60 mg PO WITHBREAKFAST [facility] Prednisone (Prednisone 20 Mg Tab) 60 mg PO ONETIME ONE Stop: 09/01/20 11:01 Last Admin: 09/01/20 12:57 Dose: Not Given Documented by: Rosuvastatin Calcium (Rosuvastatin 10 Mg Tab) 10 mg PO PCDINNER [facility] Last Admin: 09/03/20 19:11 Dose: 10 mg Documented by: Sodium Chloride (Sodium Chloride 0.9% 10 Ml Syringe) 10 ml FLUSH BOLUS [facility] Temazepam (Temazepam 15 Mg Cap) 15 mg PO BEDTIME PRN PRN Reason: sleep Last Admin: 09/01/20 20:50 Dose: 15 mg Documented by: - Exam Quality Assessment: Supplemental Oxygen General: Alert, Oriented, Cooperative HEENT: Pupils Equal, Pupils Reactive Neck: Supple, Trachea Midline Lungs: Crackles, Rales Cardiovascular: Regular Rate, Regular Rhythm GI/Abdominal Exam: Normal Bowel Sounds, No Distention (Male) Exam: Deferred Back Exam: Normal Inspection Extremities: Normal Inspection, No Pedal Edema Skin: Warm, Dry Neurological: No New Focal Deficit Psy/Mental Status: Alert, Normal Affect - Patient Data Lab Results Last 24 hrs: Laboratory Results - last 24 hr 09/04/20 09/04/20 09/04/20 Range/Units 06:13 11:43 17:11 POC Glucose 243 H 157 H 190 H (83-110) mg/dL 09/04/20 Range/Units 21:31 POC Glucose 279 H (83-110) mg/dL Result Diagrams: 09/04/20 05:14 09/04/20 05:14 Jaison Results Last 24 hrs: Microbiology 09/02/20 18:00 Gram Stain - Final Sputum - Expectorated Sputum Culture - Preliminary Yeast Isolated Sepsis Event Note - Evaluation Sepsis Screening Result: No Definite Risk - Focused Exam Vital Signs: Vital Signs Temp Pulse Resp BP Pulse Ox Pulse Ox 09/05/20 09:01 78 118/78 09/05/20 08:51 92 L 09/05/20 07:53 36.7 C 86 20 116/67 95 09/05/20 02:27 87 16 122/69 94 L 09/04/20 22:40 36.4 C 81 16 149/82 H 99 - Problem List & Annotations (1) Pneumonia SNOMED Code(s): 927837851 Code(s): J18.9 - PNEUMONIA, UNSPECIFIED ORGANISM Status: Acute Priority: High Current Visit: Yes Qualifiers: Pneumonia type: due to unspecified organism Laterality: right Lung location: upper lobe of lung Qualified Code(s): J18.9 - Pneumonia, unspecified organism (2) Generalized weakness SNOMED Code(s): 85491678 Code(s): R53.1 - WEAKNESS Status: Acute Priority: High Current Visit: Yes (3) Pulmonary fibrosis, unspecified SNOMED Code(s): 84800757 Code(s): J84.10 - PULMONARY FIBROSIS, UNSPECIFIED Status: Chronic Priority: High Current Visit: Yes (4) Type II diabetes mellitus SNOMED Code(s): 97727605 Code(s): E11.9 - TYPE 2 DIABETES MELLITUS WITHOUT COMPLICATIONS Status: Chronic Priority: Medium Current Visit: No Qualifiers: Diabetes mellitus group home insulin use: with group home use Diabetes mellitus complication status: with other specified complication Qualified Code(s): E11.69 - Type 2 diabetes mellitus with other specified complication; 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 * Usually utilizes oxygen intermittently at home has been requiring 2 L with home saturations in 80s. * Insulin-dependent diabetic with blood sugars in the 120s to 130s. * Twelve-lead EKG shows sinus rhythm at 96 bpm with borderline prolonged QTC and ST depression unchanged from 11/2018. * Reports nausea, dizziness, worsening shortness of breath, productive cough, chills but no fever. * Labs in ED: * WBC 9.19 * Hemoglobin 10.9 * Platelet 297,000 * Neutrophils 64.7% * Sodium 139 * Potassium 4.4 * Chloride 102 * Carbon dioxide 26 * Anion gap 15.4 * BUN 17, creatinine 1.3, GFR 52 * Glucose 152 * Magnesium 2.1 * Total bilirubin 0.6 * AST 23, ALT 23, alkaline phosphatase 67 * Troponin 0 0.044 * CRP 12.2 * Protein 7.5 * Albumin 2.7 * D-dimer 0.89 * proBNP 1326 * UA negative * SARS-CoV-2 RNA negative * ABG in left radial: pH 7.45, PCO2 34.6, PO2 of 86.0, HCO3 of 23.5, O2 saturation 96.4, AA gradient 70, obtain on 2 L via NC. * Given 500 mg azithromycin and 2 g Rocephin in ED. * Chest x-ray in ED shows interstitial change slightly worse from prior study raising possibility of mild areas of pneumonia and other incidental findings * CTA obtained in ED: * 1. Patchy areas of increased density within both sides of the chest raising the possibility of pneumonia superimposed upon chronic fibrosis. Please rule out Covid disease. * 2. Multiple layering gallstones within the gallbladder. * 3. No findings of pulmonary embolism. * 4. Other findings believed to be incidental as noted above. * Admitted to medical floor on telemetry for management of pneumonia and failure to thrive. 09/01/2020 * Carotid artery US negative * Started prednisone 60mg daily -> increased to solumedrol 60mg BID IVP * Requiring 4-6L overnight and today * Refusing SNF placement. Reports they are working on [facility] placement in [place] currently. * Proposal Coordinator following and supplementing * Labs today: * WBC 11.95. * Hemoglobin 10.9. * Platelet 323,000. * Sodium 140. * Potassium 4.0. * Carbon dioxide 27. * Anion gap 14.0. * BUN 15, creatinine 1.2, GFR 57. * Glucose 87. * Magnesium 2.1. * CRP 12.0. * Vitamin D 53.5. * TSH 1.157. * MRSA screen negative * Continue current treatment plan * Repeat CXR tomorrow AM 09/02/2020 * Less dizzy today * Continue Solumedrol 60mg BID IVP today. Likely continue once daily tomorrow * Requiring 3-6L in past 24 hours * Reports poor sleep with minimal Restoril effect. Increase dosing to 30mg PRN and start scheduled melatonin * Labs today: * WBC 7.42. * Hemoglobin 10.3. * Platelets 328,000. * Neutrophils elevated at 84.8%. * Sodium 140. * Potassium 4.4. * Carbon oxide 25. * Anion gap 15.4. * BUN 21. Creatinine 1.2. GFR 57. * Glucose 1 63-2 39. * CRP 12.8. * Magnesium 2.0 * Repeat procalcitonin today * CXR today stable * Add Dulera BID * Continue current treatment plan 09/03/2020 * Continues to improve. Feels like he is doing slightly better today. * Will need pulmonology follow-up after discharge * Requiring 3.5 to 5 L in the past 24 hours * Decrease Solu-Medrol to 60 mg daily IV push * Labs today: * WBC 0.53likely due to steroid. * Hemoglobin 10.3. * Platelet 351,000. * Neutrophils 88.3%. * Sodium 137. * Potassium 4.6. * Anion gap 9.6. * BUN 26. Creatinine 1.1. GFR greater than 60. * Glucose 2 34-3 28. * Magnesium 2.5. * CRP 5.7. * Procalcitonin yesterday was 0.08. * Refusing Dulera due to prior mouth sores from steroid - discontinue * Continue current treatment plan. * Hopeful for discharge in next 24-48 hours. 09/04/2020 * Unfortunately continues to require varying amounts of oxygen. Currently on 4 L. * Requiring 3.5-5L in the past 24 hours * Continues to utilize IS and Acapella * Continued to work with PT/OT - recommending home with vs. SNF - patient continues to refuse SNF * Continue solu-medrol to 60mg daily IVP * Increase LA insulin to 30 units daily * Labs today: * WBC 17.36. * Hemoglobin 10.4. * Platelet 353,000. * Neutrophils 81.6%. * Sodium 141. * Potassium 4.5. * Carbon dioxide 29. * Anion gap 11.5. * BUN 30, creatinine 1.1, GFR greater than 60. * Glucose 209 to 376. * Magnesium 2.5. * CRP 2.6. * Hopeful for discharge this weekend pending stability/improvement - Plan Plan:: Pneumonia Hypoxia Pulmonary fibrosis, unspecified * Rocephin 2gm * Completed 3 days Azithromycin 500mg * O2 as needed to keep saturations >90% * Albuterol/duoneb as needed * IS/Acapella * RT Consultation * Mucinex scheduled * Droplet isolation * Solu-medrol to 60mg daily Failure to thrive in adult Generalized weakness Hypoalbuminemia Dizziness Hypothyroidism * PT/OT * CM/SW * Proposal Coordinator consult Type II diabetes mellitus * Increase LA insulin to 30 units daily * SS high dose insulin due to steroid TIDAC * QID AC and Bedtime glucose checks * Per patient A1C was just checked las month with Dr. Brooks and was 6.7% HLD (hyperlipidemia) HTN (hypertension) Arthritis * Home medications as ordered * Monitor vital signs History of myocardial infarction Diverticulosis History of GI bleed Urinary incontinence * No acute concerns Elevated D-Dimer * Ruled out PE due to negative CTA Code Status: DNR/DNI - after long discussion patient changed from full code on 08/31/20 PCP: Dr. Brooks DVT Prophylaxis: Lovenox Social: Patient and currently live at home but they are moving to [facility] in [place] soon and have started packing. They have 2 sons who live in [place] Disposition: Patient admitted to [facility] on telemetry for management of PNA and failure to thrive. LOS 1-2 more days anticipated. LOS >96 hours due to slow response to treatment. 09/05/2020 The patient is an 85-year-old gentleman who was admitted secondary to pneumonia. Patient also has been having worsening of his pulmonary fibrosis. He is on oxygen. We will keep his oxygen to keep his saturations around 92%. The patient will be continued on his diabetic diet as tolerated. The patient has been encouraged to ambulate. He is currently on DVT prophylaxis. Patient should be appropriate for discharge after discussion with family either later today or tomorrow. He does have oxygen support and home health starting on Monday.
[2020-09-05] MEDS: Rosuvastatin 10 MG Tab PO SCH (16:59)
[2020-09-05] MEDS: cefTRIAXone 2 GM in Sodium Chloride 0.9% 100 ML IV SCH (20:01)
[2020-09-05] MEDS: Melatonin 3 MG Tab PO SCH (20:02)
[2020-09-05] MEDS: Ezetimibe 10 MG Tab PO SCH (20:02)
[2020-09-06] MEDS: Temazepam 30 MG Cap PO PRN (00:39)
[2020-09-06] MEDS: Trospium 20 MG Tab PO SCH (05:58)
[2020-09-06] MEDS: Levothyroxine 50 MCG Tab PO SCH (05:58)
[2020-09-06] MEDS: Insulin Lispro 100 UNIT/ML 10 ML Vial SUBCUT SCH ×2 (08:29→11:48)
[2020-09-06] MEDS: Insulin Glarg,Human.Rec.Analog 100 Unit/ML SUBCUT SCH (08:30)
[2020-09-06] MEDS: Enoxaparin 40 MG/0.4 ML Syringe SUBCUT SCH (08:31)
[2020-09-06] MEDS: Cholecalciferol (Vitamin D3) 25 MCG Tab PO SCH (08:32)
[2020-09-06] MEDS: Multivitamin Tab PO SCH (08:32)
[2020-09-06] MEDS: methylPREDNISolone Sodium Succinate 40 MG/1 ML SDV IVPUSH SCH (08:32)
[2020-09-06] MEDS: Aspirin 81 MG Tab.EC PO SCH (08:32)
[2020-09-06] MEDS: Metoprolol Succinate 25 MG Tab.ER PO SCH (08:32)
[2020-09-06] MEDS: guaiFENesin 600 MG Tab.ER PO SCH (08:33)
--- NOTE | 2020-09-06 10:21 | PCM.DCSUM1 ---
Discharge Summary - Hospital Course Free Text/Narrative:: Admitted with pneumonia with underlying pulmonary fibrosis Diagnosis: Stroke: No - Discharge Data Discharge Date: 09/06/20 Discharge Disposition: Home, Self-Care 01 Condition: Fair - Referral to Home Health Primary Care Physician: Natasha Brooks MD - Discharge Diagnosis/Problem(s) (1) Pneumonia SNOMED Code(s): 035555967 ICD Code: J18.9 - PNEUMONIA, UNSPECIFIED ORGANISM Status: Resolved Priority: High Qualifiers: Pneumonia type: due to unspecified organism Laterality: right Lung location: upper lobe of lung Qualified Code(s): J18.9 - Pneumonia, unspecified organism (2) Generalized weakness SNOMED Code(s): 98609917 ICD Code: R53.1 - WEAKNESS Status: Chronic Priority: Medium (3) Pulmonary fibrosis, unspecified SNOMED Code(s): 56339068 ICD Code: J84.10 - PULMONARY FIBROSIS, UNSPECIFIED Status: Chronic Priori ty: High (4) Type II diabetes mellitus SNOMED Code(s): 68617890 ICD Code: E11.9 - TYPE 2 DIABETES MELLITUS WITHOUT COMPLICATIONS Status: Chronic Priority: Medium Qualifiers: 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 insulin use: with assisted use Diabetes mellitus complication status: with other specified complication Qualified Code(s): E11.69 - Type 2 diabetes mellitus with other specified complication; Z79.4 - terminal make up operator (current) use of insulin - Patient Summary/Data Consults: Consultations 08/31/20 08:58 Consult to Case Management/Regional Office Coordinator [CONS] Routine OT Evaluation and Treatment [CONS] Routine PT Evaluation and Treatment [CONS] Routine Respiratory Care Assess and Treatment [CONS] Routine 08/31/20 09:01 Consult to Spiritual Care [CONS] Routine 08/31/20 10:41 Consult to Dietary [Consult to Detail Assembler] [CONS] Routine Hospital Course: The patient is an 85-year-old gentleman who had been admitted to acute hospitalization on August 31, 2020. The patient's initial diagnosis was that of pneumonia and he has underlying pulmonary fibrosis as a comorbidity. The patient had been at home and had oxygen saturations that were in the 80s and had been dizzy with a near syncopal episode. A chest x-ray obtained upon admission showed interstitial change slightly increased from prior study raising the possibility of mild areas of pneumonia. Under findings were thought to be incidental. The patient was started initially on a azithromycin 500 mg p.o. daily. The patient was also started on Rocephin 2 g IV every 24 hours. He was also consulted to physical therapy. On initial admission the patient's resuscitation CODE STATUS was changed to DO NOT INTUBATE DO NOT RESUSCITATE. The patient and the patient's and family are moving to [place] soon. Initially the patient had been on oxygen at 4 L/min and this had remained essentially stable throughout his course of hospitalization. The patient also was noted to have mild leukocytosis and he also had been started on Solu-Medrol. The patient had tolerated the Solu-Medrol well. The patient had continued to improve albeit slowly with the use of fluids, antibiotics and steroids. The patient had been tolerating his diabetic diet and his blood sugars remained fairly well controlled throughout his course of hospitalization. The patient also had revealed that he had a good understanding of the prognosis of his lung disease. During his patient's hospitalization I had a discussion with him regarding the concept of hospice care. No decision was reached. The patient had continued to the point that his oxygen demands have been stable at 4 L/min. The patient also felt like he could go home. He had care from his sons avail able. The patient also has been tolerating his diet. The patient is recommended to continue with his diabetic diet as tolerated. He is also to have his activity as tolerated. The patient had asked for medications to help with his anxiety and he had been given a prescription for Xanax 0.5 mg p.o. every 6 hours as needed for anxiety. Patient also had been given a prescription for prednisone 5 mg p.o. daily with regards to his pulmonary fibrosis. This can be stopped if needed for the patient no longer requires and has improved somewhat. The patient has been discharged from acute hospitalization with the recommendations listed above. - Patient Instructions Diet: Diabetic Diet Activity: As Tolerated - Discharge Plan *PRESCRIPTION DRUG MONITORING PROGRAM REVIEWED*: No *COPY OF PRESCRIPTION DRUG MONITORING REPORT IN PATIENT JUDE: No Prescriptions/Med Rec: predniSONE [Prednisone] 5 mg PO DAILY #30 tablet ALPRAZolam [Xanax] 0.5 mg PO QID PRN #15 tablet PRN Reason: Anxiety Home Medications: Home Meds Aspirin 81 mg PO DAILY 08/15/16 [History] Cholecalciferol (Vitamin D3) [Vitamin D3] 2,000 intnl unit PO DAILY 08/15/16 [History] Ezetimibe [Zetia] 10 mg PO BEDTIME 08/15/16 [History] Fesoterodine Fumarate [Toviaz] 8 mg PO DAILY 08/15/16 [History] Insulin Glarg,Human.Rec.Analog [LantUS Solostar] 26 units SQ DAILY 08/15/16 [History] Levothyroxine 50 mcg PO DAILY 08/15/16 [History] Metoprolol Succinate 25 mg PO DAILY 08/15/16 [History] Multivitamin [Multivitamins] 1 tab PO DAILY 08/15/16 [History] Triamcinolone Acetonide [IJP: Triamcinolone Acetonide 0.1% Crm] 1 applic TOP ASDIRECTED PRN 08/15/16 [History] Albuterol Sulfate [Proair Hfa] 2 puff IH Q6H 01/28/18 [History] Rosuvastatin [Crestor] 10 mg PO PCDINNER 01/28/18 [History] Methylcellulose [Citrucel SF] 479 gm PO DAILY 12/12/18 [History] guaiFENesin [Mucus Relief ER] 1,200 mg PO BID 12/12/18 [History] Chlorhexidine Gluconate [Chlorhexidine Gluconate 0.12% Rinse] 15 ml PO DAILY PRN 08/30/20 [History] Mineral Oil/Petrolatum [Aquaphor Healing Oint] 1 applic TOP BID PRN 08/30/20 [History] Promethazine HCl/Codeine [Prometh-Codein 6.25-10 mg/5 ml] 5 ml PO BEDTIME PRN 08/30/20 [History] Urea [Urea 20% Crm] 1 applic TOP DAILY PRN 08/30/20 [History] ALPRAZolam [Xanax] 0.5 mg PO QID PRN #15 tablet 09/06/20 [Rx] Acetaminophen [Tylenol] 650 mg PO Q4H PRN tablet 09/06/20 [Rx] predniSONE [Prednisone] 5 mg PO DAILY #30 tablet 09/06/20 [Rx] Oxygen Therapy Mode: Nasal Cannula Oxygen Flow Rate (L/min): 4 Patient Handouts: Home Oxygen Use, Adult, Community-Acquired Pneumonia, Adult, [id number], Sepsis, Self Care, Adult Referrals: Natasha Brooks MD [Primary Care Provider] - 09/14/20 9:00 am (Hospital follow-up appointment.) - Discharge Summary/Plan Comment DC Time >30 min.: Yes - General Info Date of Service: 09/06/20 Admission Dx/Problem (Free Text: Admission Diagnosis/Problem Admission Diagnosis/Problem Pneumonia Subjective Update: Overall, the patient is doing better today. He is likely at his baseline. He says that he has some shortness of breath but he feels like he can go home. Functional Status: Reports: Pain Controlled, Tolerating Diet - Review of Systems General: Reports: No Symptoms HEENT: Reports: No Symptoms Pulmonary: Reports: Shortness of Breath, Wheezing Cardiovascular: Reports: No Symptoms Gastrointestinal: Reports: No Symptoms Genitourinary: Reports: No Symptoms Musculoskeletal: Reports: No Symptoms Skin: Reports: No Symptoms Neurological: Reports: No Symptoms Psychiatric: Reports: No Symptoms - Patient Data Vitals - Most Recent: Last Vital Signs Temp 36.6 C 09/06/20 08:13 Pulse 88 09/06/20 08:32 Resp 16 09/06/20 08:13 BP 104/61 09/06/20 08:32 Pulse Ox 91 L 09/06/20 09:18 Weight - Most Recent: 67.721 kg I&O - Last 24 hours: Intake & Output 09/05/20 09/06/20 09/06/20 22:59 06:59 14:59 Intake Total 900 700 Output Total 950 1075 Balance -50 -375 Lab Results - Last 24 hrs: Laboratory Results - last 24 hr 09/05/20 09/05/20 09/05/20 Range/Units 06:00 11:23 17:02 WBC (4.23-9.07) K/mm3 RBC (4.63-6.08) M/mm3 Hgb (13.7-17.5) gm/dl Hct (40.1-51.0) % MCV (79.0-92.2) fl MCH (25.7-32.2) pg MCHC (32.2-35.5) g/dl RDW Std Deviation (35.1-43.9) fL Plt Count (163-337) K/mm3 MPV (9.4-12.3) fl Neut % (Auto) (34.0-67.9) % Lymph % (Auto) (21.8-53.1) % [place] % (Auto) (5.3-12.2) % Eos % (Auto) (0.8-7.0) Baso % (Auto) (0.1-1.2) % Neut # (Auto) (1.78-5.38) K/mm3 Lymph # (Auto) (1.32-3.57) K/mm3 [place] # (Auto) (0.30-0.82) K/mm3 Eos # (Auto) (0.04-0.54) K/mm3 Baso # (Auto) (0.01-0.08) K/mm3 Sodium (136-145) mEq/L Potassium (3.5-5.1) mEq/L Chloride (98-107) mEq/L Carbon Dioxide (21-32) mEq/L Anion Gap (5-15) BUN (7-18) mg/dL Creatinine (0.7-1.3) mg/dL Est Cr Clr Drug Dosing mL/min Estimated GFR (MDRD) (>60) mL/min BUN/Creatinine Ratio (14-18) Glucose (83-115) mg/dL POC Glucose 127 H 221 H 191 H (83-110) mg/dL Calcium (8.5-10.1) mg/dL C-Reactive Protein (<1.0) mg/dL 09/05/20 09/06/20 09/06/20 Range/Units 20:46 05:40 05:40 WBC 12.56 H (4.23-9.07) K/mm3 RBC 3.91 L (4.63-6.08) M/mm3 Hgb 11.7 L (13.7-17.5) gm/dl Hct 37.2 L (40.1-51.0) % MCV 95.1 H (79.0-92.2) fl MCH 29.9 (25.7-32.2) pg MCHC 31.5 L (32.2-35.5) g/dl RDW Std Deviation 46.9 H (35.1-43.9) fL Plt Count 374 H (163-337) K/mm3 MPV 9.0 L (9.4-12.3) fl Neut % (Auto) 71.3 H (34.0-67.9) % Lymph % (Auto) 18.3 L (21.8-53.1) % [place] % (Auto) 9.6 (5.3-12.2) % Eos % (Auto) 0.5 L (0.8-7.0) Baso % (Auto) 0.1 (0.1-1.2) % Neut # (Auto) 8.96 H (1.78-5.38) K/mm3 Lymph # (Auto) 2.30 (1.32-3.57) K/mm3 [place] # (Auto) 1.21 H (0.30-0.82) K/mm3 Eos # (Auto) 0.06 (0.04-0.54) K/mm3 Baso # (Auto) 0.01 (0.01-0.08) K/mm3 Sodium 142 (136-145) mEq/L Potassium 4.5 (3.5-5.1) mEq/L Chloride 105 (98-107) mEq/L Carbon Dioxide 31 (21-32) mEq/L Anion Gap 10.5 (5-15) BUN 27 H (7-18) mg/dL Creatinine 1.1 (0.7-1.3) mg/dL Est Cr Clr Drug Dosing 45.32 mL/min Estimated GFR (MDRD) > 60 (>60) mL/min BUN/Creatinine Ratio 24.5 H (14-18) Glucose 107 (83-115) mg/dL POC Glucose 259 H (83-110) mg/dL Calcium 8.8 (8.5-10.1) mg/dL C-Reactive Protein 1.1 H* (<1.0) mg/dL 09/06/20 Range/Units 06:00 WBC (4.23-9.07) K/mm3 RBC (4.63-6.08) M/mm3 Hgb (13.7-17.5) gm/dl Hct (40.1-51.0) % MCV (79.0-92.2) fl MCH (25.7-32.2) pg MCHC (32.2-35.5) g/dl RDW Std Deviation (35.1-43.9) fL Plt Count (163-337) K/mm3 MPV (9.4-12.3) fl Neut % (Auto) (34.0-67.9) % Lymph % (Auto) (21.8-53.1) % [place] % (Auto) (5.3-12.2) % Eos % (Auto) (0.8-7.0) Baso % (Auto) (0.1-1.2) % Neut # (Auto) (1.78-5.38) K/mm3 Lymph # (Auto) (1.32-3.57) K/mm3 [place] # (Auto) (0.30-0.82) K/mm3 Eos # (Auto) (0.04-0.54) K/mm3 Baso # (Auto) (0.01-0.08) K/mm3 Sodium (136-145) mEq/L Potassium (3.5-5.1) mEq/L Chloride (98-107) mEq/L Carbon Dioxide (21-32) mEq/L Anion Gap (5-15) BUN (7-18) mg/dL Creatinine (0.7-1.3) mg/dL Est Cr Clr Drug Dosing mL/min Estimated GFR (MDRD) (>60) mL/min BUN/Creatinine Ratio (14-18) Glucose (83-115) mg/dL POC Glucose 173 H (83-110) mg/dL Calcium (8.5-10.1) mg/dL C-Reactive Protein (<1.0) mg/dL MICHAEL Results - Last 24 hrs: Microbiology 09/02/20 18:00 Gram Stain - Final Sputum - Expectorated Sputum Culture - Preliminary Sara [facility] YEAST Med Orders - Current: Current Medications Acetaminophen (Acetaminophen 325 Mg Tab) 650 mg PO Q4H PRN PRN Reason: Pain (Mild 1-3)/fever Albuterol (Albuterol 6.7 Gm Inhaler) 0 gm INH Q2H PRN PRN Reason: SOB/WHEEZE Last Admin: 09/03/20 18:51 Dose: 2 puff Documented by: Albuterol/Ipratropium (Albuterol/Ipratropium 3.0-0.5 Mg/3 Ml Neb Soln) 3 ml NEB Q4H PRN PRN Reason: Shortness Of Breath/wheezing Aspirin (Aspirin 81 Mg Tab.Ec) 81 mg PO DAILY CHITRA Last Admin: 09/06/20 08:32 Dose: 81 mg Documented by: Cholecalciferol (Cholecalciferol (Vitamin D3) 25 Mcg Tab) 50 mcg PO DAILY [facility] Last Admin: 09/06/20 08:32 Dose: 50 mcg Documented by: Docusate Sodium (Docusate Sodium 100 Mg Cap) 100 mg PO BID PRN PRN Reason: Constipation Ezetimibe (Ezetimibe 10 Mg Tab) 10 mg PO BEDTIME [facility] Last Admin: 09/05/20 20:02 Dose: 10 mg Documented by: Enoxaparin Sodium (Enoxaparin 40 Mg/0.4 Ml Syringe) 40 mg SUBCUT DAILY [facility] Last Admin: 09/06/20 08:31 Dose: 40 mg Documented by: Guaifenesin (Guaifenesin 600 Mg Tab.Er) 1,200 mg PO BID [facility] Last Admin: 09/06/20 08:33 Dose: 1,200 mg Documented by: Ceftriaxone Sodium 2 gm/ (Sodium Chloride) 100 mls @ 200 mls/hr IV Q24H [facility] Last Admin: 09/05/20 20:01 Dose: 200 mls/hr Documented by: Insulin Glargine (Insulin Glarg,Human.Rec.Analog 100 Unit/Ml) 30 unit SUBCUT DAILY [facility] Last Admin: 09/06/20 08:30 Dose: 30 units Documented by: Insulin Human Lispro (Insulin Lispro 100 Unit/Ml) 0 unit SUBCUT TIDAC [facility]; Prot ocol Last Admin: 09/06/20 08:29 Dose: 3 units Documented by: Levothyroxine Sodium (Levothyroxine 50 Mcg Tab) 50 mcg PO ACBREAKFAST [facility] Last Admin: 09/06/20 05:58 Dose: 50 mcg Documented by: Magnesium Hydroxide (Magnesium Hydroxide 400 Mg/5 Ml Susp 30 Ml Cup) 30 ml PO Q6H PRN PRN Reason: Constipation Last Admin: 09/03/20 14:28 Dose: 30 ml Documented by: Melatonin (Melatonin 3 Mg Tab) 9 mg PO BEDTIME [facility] Last Admin: 09/05/20 20:02 Dose: 9 mg Documented by: Methylprednisolone Sodium Succinate (Methylprednisolone Sodium Succinate 40 Mg/1 Ml Sdv) 60 mg IVPUSH DAILY [facility] Last Admin: 09/06/20 08:32 Dose: 60 mg Documented by: Metoprolol Succinate (Metoprolol Succinate 25 Mg Tab.Er) 25 mg PO DAILY [facility] Last Admin: 09/06/20 08:32 Dose: 25 mg Documented by: Multivitamins/Minerals/Vitamin C (Multivitamin Tab) 1 tab PO DAILY [facility] Last Admin: 09/06/20 08:32 Dose: 1 tab Documented by: Ondansetron HCl (Ondansetron 4 Mg/2 Ml Sdv) 4 mg IV Q6H PRN PRN Reason: Nausea/Vomiting Rosuvastatin Calcium (Rosuvastatin 10 Mg Tab) 10 mg PO DAILY@1700 [facility] Last Admin: 09/05/20 16:59 Dose: 10 mg Documented by: Sodium Chloride (Sodium Chloride 0.9% 10 Ml Syringe) 10 ml FLUSH ASDIRECTED PRN PRN Reason: Keep Vein Open Last Admin: 08/30/20 19:20 Dose: 10 ml Documented by: Temazepam (Temazepam 30 Mg Cap) 30 mg PO BEDTIME PRN PRN Reason: Sleep Last Admin: 09/06/20 00:39 Dose: 30 mg Documented by: Trospium (Trospium 20 Mg Tab) 20 mg PO BIDAC [facility] Last Admin: 09/06/20 05:58 Dose: 20 mg Documented by: Discontinued Medications Albuterol (Albuterol 0.083% 2.5 Mg/3 Ml Neb Soln) 2.5 mg NEB Q2H PRN PRN Reason: Shortness Of Breath/wheezing Albuterol (Albuterol 6.7 Gm Inhaler) Confirm Administered Dose 6.7 gm INH .STK- MED ONE Stop: 09/02/20 14:36 Last Admin: 09/02/20 14:37 Dose: Not Given Documented by: Azithromycin (Azithromycin 250 Mg Tab) 500 mg PO Q24H [facility] Stop: 09/01/20 21:01 Last Admin: 09/01/20 20:36 Dose: 500 mg Documented by: Bisacodyl (Bisacodyl 10 Mg Supp) 10 mg RECTAL ONETIME ONE Stop: 09/03/20 18:53 Last Admin: 09/04/20 06:06 Dose: Not Given Documented by: Al Hydroxide/Mg Hydroxide 30 (ml/ Lidocaine HCl 15 ml) 0 ml PO ONETIME ONE Stop: 09/03/20 19:30 Last Admin: 09/03/20 19:41 Dose: 45 ml Documented by: Docusate Sodium (Docusate Sodium 100 Mg Cap) 200 mg PO ONETIME ONE Stop: 08/31/20 14:52 Last Admin: 08/31/20 15:15 Dose: 200 mg Documented by: Azithromycin 500 mg/ Sodium (Chloride) 250 mls @ 250 mls/hr IV Q24H [facility] Last Admin: 08/30/20 21:26 Dose: 250 mls/hr Documented by: Ceftriaxone Sodium 2 gm/ (Sodium Chloride) 100 mls @ 200 mls/hr IV Q24H [facility] Last Admin: 08/30/20 21:01 Dose: 200 mls/hr Documented by: Sodium Chloride (Normal Saline) 100 mls @ 60 drops/sec IV ASDIRECTED [facility] Lactated Ringer's (Ringers, Lactated) 1,000 mls @ 75 mls/hr IV ASDIRECTED [facility] Stop: 08/31/20 22:49 Last Admin: 08/31/20 12:12 Dose: 75 mls/hr Documented by: Insulin Glargine (Insulin Glarg,Human.Rec.Analog 100 Unit/Ml) 26 unit SUBCUT DAILY [facility] Last Admin: 09/04/20 08:49 Dose: 26 units Documented by: Insulin Glargine (Insulin Glarg,Human.Rec.Analog 100 Unit/Ml) 4 unit SUBCUT ONETIME ONE Stop: 09/04/20 12:01 Last Admin: 09/04/20 12:57 Dose: 4 units Documented by: Iopamidol (Iopamidol 755 Mg/Ml 100 Ml Bottle) 100 ml IVPUSH ONETIME ONE Stop: 08/31/20 00:46 Last Admin: 08/31/20 02:32 Dose: Not Given Documented by: Methylprednisolone Sodium Succinate (Methylprednisolone Sodium Succinate 40 Mg/1 Ml Sdv) 60 mg IVPUSH BID [facility] Last Admin: 09/02/20 20:17 Dose: 60 mg Documented by: Mometasone Furoate/Formoterol Fumar (Formoterol/Mometasone 100-5 Mcg 8.8 Gm Inhaler) 2 puff IH BIDRT [facility] Last Admin: 09/03/20 05:37 Dose: Not Given Documented by: Prednisone (Prednisone 20 Mg Tab) 60 mg PO WITHBREAKFAST [facility] Prednisone (Prednisone 20 Mg Tab) 60 mg PO ONETIME ONE Stop: 09/01/20 11:01 Last Admin: 09/01/20 12:57 Dose: Not Given Documented by: Rosuvastatin Calcium (Rosuvastatin 10 Mg Tab) 10 mg PO PCDINNER [facility] Last Admin: 09/03/20 19:11 Dose: 10 mg Documented by: Sodium Chloride (Sodium Chloride 0.9% 10 Ml Syringe) 10 ml FLUSH BOLUS CHITRA Temazepam (Temazepam 15 Mg Cap) 15 mg PO BEDTIME PRN PRN Reason: sleep Last Admin: 09/01/20 20:50 Dose: 15 mg Documented by: - Exam Quality Assessment: Reports: Supplemental Oxygen General: Reports: Alert, Oriented, Cooperative, No Acute Distress HEENT: Reports: Pupils Equal, Pupils Reactive, EOMI Neck: Reports: Supple, Trachea Midline Lungs: Reports: Normal Respiratory Effort, Crackles Cardiovascular: Reports: Regular Rate, Regular Rhythm GI/Abdominal Exam: Normal Bowel Sounds, Soft, No Distention (Male) Exam: Deferred Rectal (Males) Exam: Deferred Back Exam: Reports: Normal Inspection, Full Range of Motion Extremities: Normal Inspection, No Pedal Edema Skin: Reports: Warm, Dry, Intact Neurological: Reports: No New Focal Deficit. Denies: Normal Gait (Uses cane for ambulation) Psy/Mental Status: Reports: Alert, Normal Affect
[2020-09-06 12:12] VITALS: BP 101/51; PULSE 89
== END 2020-09-06 14:19 | disposition home or self-care (01) | DRG 196 ==
LOC: JD.ED 16:20 → JD.MS 20:45 → UNDOADMIN 21:35 → JD.MS 09-01 11:13 → UNDODISIN 09-06 14:19
PROVIDERS: ADMIT Family Medicine; ATTEND Family Medicine
DX: J84.10 Pulmonary fibrosis, unspecified (principal); J18.9 Pneumonia, unspecified organism; E11.9 Type 2 diabetes mellitus without complications; Z66 Do not resuscitate; F41.9 Anxiety disorder, unspecified; I10 Essential (primary) hypertension; E78.5 Hyperlipidemia, unspecified; K57.90 Diverticulosis of intestine, part unspecified, without perforation or abscess without bleeding; R62.7 Adult failure to thrive; R32 Unspecified urinary incontinence; M19.90 Unspecified osteoarthritis, unspecified site; E88.09 Other disorders of plasma-protein metabolism, not elsewhere classified; E03.9 Hypothyroidism, unspecified; Z79.890 Hormone replacement therapy; H54.7 Unspecified visual loss; E78.00 Pure hypercholesterolemia, unspecified; Z96.641 Presence of right artificial hip joint; Z96.611 Presence of right artificial shoulder joint; Z96.612 Presence of left artificial shoulder joint; Z20.822 Contact with and (suspected) exposure to COVID-19; Z79.4 Long term (current) use of insulin; Z79.82 Long term (current) use of aspirin; Z79.899 Other long term (current) drug therapy; Z79.52 Long term (current) use of systemic steroids; Z88.8 Allergy status to other drugs, medicaments and biological substances; I25.2 Old myocardial infarction; Z85.820 Personal history of malignant melanoma of skin; Z98.49 Cataract extraction status, unspecified eye; Z98.1 Arthrodesis status; Z87.891 Personal history of nicotine dependence
CPT/HCPCS: 36415; 36600; 71045; 71275; 80053; 81003; 82803; 83735; 83880; 84484; 85025; 85379; 86140; 93005; 99285; J0456; J0696; J7050; U0002; 71046; 71046-26; 80048; 82306; 82962; 84145; 84443; 87070; 87106; 87107; 87205; 87641; 93010; 93880; 93880-26; 94640; 94667; 94668; 94761; 97110-GO; 97110-GP; 97116-GP; 97162-GP; 97166-GO; 97530-GO; 97530-GP; 97535-GO; 99223; 99233; 99239; A9270-GY; J1650; J1815-GY; J2920; J7120; J7512

== ENCOUNTER 2020-09-21 15:24 | Inpatient (IN) | payer MEDICARE, OTHER ==
[2020-09-21] MEDS ORDERED: Sodium Chloride 0.9% 10 ML Syringe FLUSH PRN (15:50)
--- NOTE | 2020-09-21 16:39 | CR ---
Chest: 2 views of the chest were obtained. Comparison: Prior chest x-ray 09/02/20. Diffuse interstitial change is seen. Findings are felt to be fairly stable from prior exam. Heart size and mediastinum are within normal limits. Osteopenia is seen. Slight degenerative change is noted within the spine. Surgical clips are seen within the left upper abdomen. Impression: 1. Stable chest x-ray from prior exam. Nothing acute is seen. Diagnostic code #2
[2020-09-21 16:55] LABS: CORONAVIRUS COVID-19 NAA NEGATIVE (NEGATIVE)
[2020-09-21] MEDS ORDERED: Iopamidol 755 Mg/ML 100 ML Bottle IVPUSH ONE (18:03)
[2020-09-21] MEDS ORDERED: Sodium Chloride 0.9% 10 ML Syringe FLUSH ONE (18:03)
[2020-09-21] MEDS ORDERED: Sodium Chloride 0.9% 100 ML IV SCH (18:15)
--- NOTE | 2020-09-21 19:08 | EDM.PDOC ---
ED HPI GENERAL MEDICAL PROBLEM - General Chief Complaint: Respiratory Problem Stated Complaint: [facility] Time Seen by Provider: 09/21/20 15:33 Source of Information: Reports: Patient, Old Records, RN Notes Reviewed History Limitations: Reports: No Limitations - History of Present Illness INITIAL COMMENTS - FREE TEXT/NARRATIVE: Patient is an 85-year-old male presenting to the emergency department with complaints of increased shortness of breath that began today. Patient has a history of pulmonary fibrosis and wears 4 L of oxygen by nasal cannula at home routinely. Son reports that today they had them turned up to 5 L at one point and he could not catch his breath. He is unable to ambulate more than a couple feet without becoming significantly short of breath. He is currently saturating in the upper 90s on 4 L, however he is quite dyspneic. He denies any significant chest pain and states he has no history of congestive heart failure. He was recently hospitalized in this facility for pneumonia and discharged home on the oxygen. Prior to this admission, he only used oxygen as needed. He has had no fever chills, nausea, vomiting, or diarrhea. Denies any cough. He does have home health at home and they recommended he come to the ER for evaluation with concern that he could have pneumonia again. 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 - Related Data Allergies Allergy/AdvReac Type Severity Reaction Status Date / Time metformin Allergy Cannot Verified 09/21/20 21:38 Remember niacin Allergy Swelling Verified 09/21/20 21:38 Home Meds: Home Meds Aspirin 81 mg PO DAILY 08/15/16 [History] Cholecalciferol (Vitamin D3) [Vitamin D3] 2,000 intnl unit PO DAILY 08/15/16 [History] Ezetimibe [Zetia] 10 mg PO BEDTIME 08/15/16 [History] Fesoterodine Fumarate [Toviaz] 8 mg PO DAILY 08/15/16 [History] Insulin Glarg,Human.Rec.Analog [LantUS Solostar] 30 units SQ DAILY 08/15/16 [History] Levothyroxine 50 mcg PO DAILY 08/15/16 [History] Metoprolol Succinate 25 mg PO DAILY 08/15/16 [History] Multivitamin [Multivitamins] 1 tab PO DAILY 08/15/16 [History] Triamcinolone Acetonide [IJP: Triamcinolone Acetonide 0.1% Crm] 1 applic TOP ASDIRECTED PRN 08/15/16 [History] Albuterol Sulfate [Proair Hfa] 2 puff IH Q6H 01/28/18 [History] Rosuvastatin [Crestor] 10 mg PO PCDINNER 01/28/18 [History] Methylcellulose [Citrucel SF] 479 gm PO DAILY 12/12/18 [History] guaiFENesin [Mucus Relief ER] 1,200 mg PO BID 12/12/18 [History] Chlorhexidine Gluconate [Chlorhexidine Gluconate 0.12% Rinse] 15 ml PO DAILY PRN 08/30/20 [History] Mineral Oil/Petrolatum [Aquaphor Healing Oint] 1 applic TOP DAILY PRN 08/30/20 [History] Promethazine HCl/Codeine [Prometh-Codein 6.25-10 mg/5 ml] 5 ml PO BEDTIME PRN 08/30/20 [History] Urea [Urea 20% Crm] 1 applic TOP DAILY PRN 08/30/20 [History] Acetaminophen [Tylenol] 650 mg PO Q4H PRN tablet 09/06/20 [Rx] Albuterol Sulfate [Proair Hfa] 2 puff IH Q6H 09/21/20 [History] Ipratropium/Albuterol Sulfate [Iprat-Albut 0.5-3(2.5) mg/3 ml] 3 ml IH Q4H PRN 09/21/20 [History] LORazepam [Ativan] 0.5 mg PO Q6H PRN 09/21/20 [History] Sertraline [Zoloft] 25 mg PO BEDTIME 09/21/20 [History] Temazepam [Restoril] 15 mg PO BEDTIME PRN 09/21/20 [History] Trospium [Sanctura] 20 mg PO BID 09/21/20 [History] Albuterol/Ipratropium [DuoNeb 3.0-0.5 MG/3 ML] 2.5 mg NEB Q2HR PRN 09/22/20 [History] guaiFENesin [Mucinex] 1,200 mg PO BID 09/22/20 [History] Past Medical History HEENT History: Reports: Cataract, Impaired Vision Other HEENT History: Glasses Cardiovascular History: Reports: High Cholesterol, Hypertension, [place] Respiratory History: Reports: Pulmonary Fibrosis Gastrointestinal History: Reports: Diverticulosis, GI Bleed Genitourinary History: Reports: Urinary Incontinence Musculoskeletal History: Reports: Arthritis Neurological History: Reports: None Psychiatric History: Reports: None Endocrine/Metabolic History: Reports: Diabetes, Type II, Hypothyroidism Hematologic History: Reports: None, Other (See Below) Other Hematologic History: Uses ASA, reports increased bruising related to the use of ASA. Immunologic History: Reports: None Oncologic (Cancer) History: Reports: None Dermatologic History: Reports: Benign Melanoma - Infectious Disease History Infectious Disease History: Reports: Measles, Scarlet Fever - Past Surgical History Head Surgeries/Procedures: Reports: None HEENT Surgical History: Reports: Cataract Surgery, Other (See Below) Cardiovascular Surgical History: Reports: None, Coronary Artery Stent Other Cardiovascular Surgeries/Procedures: stent x2 Respiratory Surgical History: Reports: None GI Surgical History: Reports: Colonoscopy, Hernia, Inguinal, Heather Fundoplication Other GI Surgeries/Procedures: Hernia repair Male Surgical History: Reports: None Endocrine Surgical History: Reports: None Neurological Surgical History: Reports: Lumbar Spine, Spinal Fusion, Other (See Below) Musculoskeletal Surgical History: Reports: Hip Replacement, Shoulder Surgery, Other (See Below) Other Musculoskeletal Surgeries/Procedures:: Bilateral shoulders, right hip, and back surgery with 4 and 5 fusion. Oncologic Surgical History: Reports: None Dermatological Surgical History: Reports: Skin Biopsy Social & Family History - Family History Family Medical History: No Pertinent Family History - Tobacco Use Tobacco Use Status *Q: Former Tobacco User Used Tobacco, but Quit: Yes Month/Year Tobacco Last Used: 1959 - Caffeine Use Caffeine Use: Reports: Coffee - Recreational Drug Use Recreational Drug Use: No - Living Situation & Occupation Living situation: Reports: , with Family (Lives with ) Occupation: Retired ED [employer] GENERAL - Review of Systems Review Of Systems: See Below Constitutional: Reports: Weakness, Fatigue. Denies: Fever, Chills HEENT: Reports: No Symptoms Respiratory: Reports: Shortness of Breath, Wheezing. Denies: Cough Cardiovascular: Reports: Dyspnea on Exertion, Lightheadedness. Denies: Chest Pain, Syncope Endocrine: Reports: No Symptoms GI/Abdominal: Reports: No Symptoms : Reports: No Symptoms Musculoskeletal: Reports: No Symptoms Skin: Reports: No Symptoms Neurological: Reports: No Symptoms Psychiatric: Reports: No Symptoms Hematologic/Lymphatic: Reports: No Symptoms Immunologic: Reports: No Symptoms ED EXAM, GENERAL - Physical Exam Exam: See Below Exam Limited By: No Limitations General Appearance: Alert, WD/WN, No Apparent Distress Respiratory/Chest: No Accessory Muscle Use, Chest Non-Tender, Crackles (throughout), Other (no respiratory distress at rest.). No: Wheezing Cardiovascular: Normal Peripheral Pulses, Regular Rate, Rhythm, No Edema, No Gallop, No JVD, No Murmur, No Rub GI/Abdominal: Normal Bowel Sounds, Soft, Non-Tender, No Organomegaly, No Distention, No Abnormal Bruit, No Mass Neurological: Alert, Oriented, CN II-XII Intact, Normal Cognition, Normal Gait, Normal Reflexes, No Motor/Sensory Deficits Psychiatric: Normal Affect, Normal Mood Skin Exam: Warm, Dry, Intact, Normal Color, No Rash #1 Interpretation EKG Date: 09/22/20 Time: 15:30 Rhythm: NSR Rate (Beats/Min): 81 [place]: Normal P-Wave: Present QRS: Normal ST-T: Normal QT: Normal EKG Interpretation Comments: Sinus with single PVC Early transition Inverted T waves lead III EKG interpreted by Dr. Luis Daniel MD. Course - Vital Signs Last Recorded V/S: Last Vital Signs Temp 97.9 F 09/22/20 07:17 Pulse 99 09/22/20 09:46 Resp 18 09/22/20 07:17 BP 104/52 L 09/22/20 09:46 Pulse Ox 94 L 09/22/20 08:31 - Orders/Labs/Meds Orders: Active Orders 24 hr Category Date Time Status Patient Status [ADT] Routine ADT 09/21/20 20:02 Active Cardiac Monitoring [RC] CONTINUOUS Care 09/21/20 20:25 Active EKG Documentation Completion [RC] STAT Care 09/21/20 15:52 Active Oxygen Therapy [RC] PRN Care 09/21/20 20:25 Active Pulse Oximetry [RC] CONTINUOUS Care 09/21/20 20:25 Active RT Aerosol Therapy [RC] ASDIRECTED Care 09/21/20 20:27 Active RT Post Treatment Assessment [RC] Click to Edit Care 09/21/20 20:40 Active RT Pre-Treatment Assessment [RC] Click to Edit Care 09/21/20 20:40 Active Up to Chair [RC] ASDIRECTED Care 09/21/20 20:25 Active VTE/DVT Education [RC] PER UNIT ROUTINE Care 09/21/20 20:25 Active Vital Signs [RC] Q4H Care 09/21/20 20:25 Active OT Evaluation and Treatment [CONS] Routine Cons 09/21/20 20:25 Active PT Evaluation and Treatment [CONS] Routine Cons 09/21/20 20:25 Active CBC WITH AUTO DIFF [HEME] DAILY Lab 09/23/20 05:00 Ordered CBC WITH AUTO DIFF [HEME] DAILY Lab 09/24/20 05:00 Ordered CBC WITH AUTO DIFF [HEME] DAILY Lab 09/25/20 05:00 Ordered CBC WITH AUTO DIFF [HEME] DAILY Lab 09/26/20 05:00 Ordered CBC WITH AUTO DIFF [HEME] DAILY Lab 09/27/20 05:00 Ordered COMPREHENSIVE METABOLIC PN,CMP [CHEM] DAILY Lab 09/23/20 05:00 Ordered COMPREHENSIVE METABOLIC PN,CMP [CHEM] DAILY Lab 09/24/20 05:00 Ordered COMPREHENSIVE METABOLIC PN,CMP [CHEM] DAILY Lab 09/25/20 05:00 Ordered COMPREHENSIVE METABOLIC PN,CMP [CHEM] DAILY Lab 09/26/20 05:00 Ordered COMPREHENSIVE METABOLIC PN,CMP [CHEM] DAILY Lab 09/27/20 05:00 Ordered CULTURE BLOOD [BC] Stat Lab 09/21/20 16:15 Received CULTURE BLOOD [BC] Stat Lab 09/21/20 16:25 Received CULTURE SPUTUM + SMEAR [RM] Stat Lab 09/22/20 10:00 Received Acetaminophen [TylenoL] Med 09/21/20 20:25 Active 650 mg PO Q6H PRN Albuterol [Proventil HFA] Med 09/21/20 21:00 Active 0 gm INH Q6H Albuterol/Ipratropium [DuoNeb 3.0-0.5 MG/3 ML] Med 09/21/20 20:25 Active 3 ml NEB Q4H PRN Azithromycin [Zithromax] 500 mg Med 09/21/20 21:00 Active Sodium Chloride 0.9% [Normal Saline (AdvBag)] 250 ml IV Q24H Cefepime [Maxipime in D5W 1 GM/50 ML] 1 gm Med 09/21/20 22:00 Active Premix Bag 1 bag IV Q24H Cholecalciferol (Vitamin D3) [Vitamin D3] Med 09/22/20 09:00 Active 50 mcg PO DAILY Ezetimibe [Zetia] Med 09/21/20 21:00 Active 10 mg PO BEDTIME Fesoterodine Fumarate [Toviaz] Med 09/22/20 09:00 Active 8 mg PO DAILY Insulin Glarg,Human.Rec.Analog [LantUS] Med 09/22/20 09:00 Active 30 unit SUBCUT DAILY LORazepam [Ativan] Med 09/21/20 20:35 Active 0.5 mg PO Q6H PRN Levothyroxine [Synthroid] Med 09/22/20 06:00 Active 50 mcg PO ACBREAKFAST Metoprolol Succinate [Toprol XL] Med 09/22/20 09:00 Active 25 mg PO DAILY Morphine Med 09/21/20 20:25 Active 2 mg IVPUSH Q4H PRN Promethazine [Phenergan] 12.5 mg Med 09/21/20 20:25 Active Sodium Chloride 0.9% [Normal Saline] 50 ml IV Q6H Rosuvastatin [Crestor] Med 09/22/20 19:00 Active 10 mg PO PCDINNER Sertraline [Zoloft] Med 09/21/20 21:00 Active 25 mg PO BEDTIME Sodium Chloride 0.9% [Saline Flush] Med 09/21/20 15:50 Active 10 ml FLUSH ASDIRECTED PRN Temazepam [Restoril] Med 09/21/20 20:35 Active 15 mg PO BEDTIME PRN Triamcinolone Acetonide [Triamcinolone Acetonide 0.1% Med 09/22/20 09:00 Active Crm] 0 gm TOP TID PRN Trospium [Sanctura] Med 09/21/20 21:00 Active 20 mg PO BIDAC Vancomycin 1 gm Med 09/22/20 14:00 Active Vancomycin 250 mg Sodium Chloride 0.9% [Normal Saline] 250 ml IV Q18H guaiFENesin [Mucinex] Med 09/21/20 21:00 Active 1,200 mg PO BID hydrALAZINE [Apresoline] Med 09/21/20 20:34 Active 10 mg IVPUSH Q4H PRN Blood Culture x2 Reflex Set [OM.PC] Stat Oth 09/21/20 15:50 Ordered Saline Lock Insert [OM.PC] Stat Oth 09/21/20 15:50 Ordered Medication Orders Acetaminophen (Acetaminophen 325 Mg Tab) 650 mg PO Q6H PRN PRN Reason: Pain (Mild 1-3)/fever Albuterol (Albuterol 6.7 Gm Inhaler) 0 gm INH Q6H [facility] Last Admin: 09/22/20 08:31 Dose: 2 inhalation Documented by: Admin: 09/22/20 02:17 Dose: Not Given Documented by: Admin: 09/21/20 22:01 Dose: 2 inhalation Documented by: BEN Albuterol/Ipratropium (Albuterol/Ipratropium 3.0-0.5 Mg/3 Ml Neb Soln) 3 ml NEB Q4H PRN PRN Reason: Shortness Of Breath/wheezing Cholecalciferol (Cholecalciferol (Vitamin D3) 25 Mcg Tab) 50 mcg PO DAILY [facility] Last Admin: 09/22/20 09:46 Dose: 50 mcg Documented by: BETTIE Ezetimibe (Ezetimibe 10 Mg Tab) 10 mg PO BEDTIME [facility] Last Admin: 09/21/20 22:17 Dose: 10 mg Documented by: CHRIS Guaifenesin (Guaifenesin 600 Mg Tab.Er) 1,200 mg PO BID [facility] Last Admin: 09/22/20 09:46 Dose: 1,200 mg Documented by: Admin: 09/21/20 22:17 Dose: 1,200 mg Documented by: CHRIS Hydralazine HCl (Hydralazine 20 Mg/Ml Sdv) 10 mg IVPUSH Q4H PRN PRN Reason: Hypertension Promethazine HCl 12.5 mg/ (Sodium Chloride) 50.5 mls @ 100 mls/hr IV Q6H PRN PRN Reason: Nausea/Vomiting Cefepime HCl 1 gm/ Premix 50 mls @ 100 mls/hr IV Q24H [facility] Last Admin: 09/21/20 22:47 Dose: 100 mls/hr Documented by: CHRIS Vancomycin HCl 1 gm/Vancomycin HCl 250 mg/ Sodium Chloride 250 mls @ 166.667 mls/hr IV Q18H [facility] Azithromycin 500 mg/ Sodium (Chloride) 250 mls @ 250 mls/hr IV Q24H [facility] Last Admin: 09/21/20 22:18 Dose: 250 mls/hr Documented by: CHRIS Insulin Glargine (Insulin Glarg,Human.Rec.Analog 100 Unit/Ml) 30 unit SUBCUT DAILY [facility] Last Admin: 09/22/20 09:47 Dose: 30 units Documented by: BETTIE Insulin Human Lispro (Insulin Lispro 100 Unit/Ml) 0 unit SUBCUT QIDACANDBED [facility]; Protocol Last Admin: 09/22/20 08:09 Dose: Not Given Documented by: Admin: 09/21/20 22:48 Dose: Not Given Documented by: CHRIS Levothyroxine Sodium (Levothyroxine 50 Mcg Tab) 50 mcg PO ACBREAKFAST [facility] Last Admin: 09/22/20 06:04 Dose: 50 mcg Documented by: CHELSEA Lorazepam (Lorazepam 0.5 Mg Tab) 0.5 mg PO Q6H PRN PRN Reason: Anxiety Metoprolol Succinate (Metoprolol Succinate 25 Mg Tab.Er) 25 mg PO DAILY [facility] Last Admin: 09/22/20 09:46 Dose: 25 mg Documented by: BETTIE Morphine Sulfate (Morphine 2 Mg/Ml Syringe) 2 mg IVPUSH Q4H PRN PRN Reason: Pain (severe 7-10) Stop: 09/22/20 20:26 Fesoterodine Fumarate [Toviaz] 8 Mg Tab.Sr.24h Ptom 8 mg PO DAILY [facility] Last Admin: 09/22/20 09:54 Dose: Not Given Documented by: BETTIE Rivaroxaban (Rivaroxaban 15 Mg Tab) 15 mg PO BID [facility] Last Admin: 09/22/20 09:46 Dose: 15 mg Documented by: BETTIE Rosuvastatin Calcium (Rosuvastatin 10 Mg Tab) 10 mg PO PCDINNER [facility] Sertraline HCl (Sertraline 25 Mg Tab) 25 mg PO BEDTIME [facility] Last Admin: 09/21/20 22:18 Dose: 25 mg Documented by: CHRIS Sodium Chloride (Sodium Chloride 0.9% 10 Ml Syringe) 10 ml FLUSH ASDIRECTED PRN PRN Reason: Keep Vein Open Last Admin: 09/21/20 15:53 Dose: 10 ml Documented by: SUSAN Temazepam (Temazepam 15 Mg Cap) 15 mg PO BEDTIME PRN PRN Reason: oth Last Admin: 09/21/20 22:18 Dose: 15 mg Documented by: CHRIS Triamcinolone Acetonide (Triamcinolone Acetonide 0.1% Crm 15 Gm Tube) 0 gm TOP TID PRN PRN Reason: skin complications Trospium (Trospium 20 Mg Tab) 20 mg PO BIDAC [facility] Last Admin: 09/22/20 06:04 Dose: 20 mg Documented by: Admin: 09/21/20 22:17 Dose: 20 mg Documented by: CHRIS Vancomycin HCl (Pharmacy To Dose - Vancomycin) 1 dose .XX DAILY PRN PRN Reason: RX TO DOSE VANCO Labs: Laboratory Tests 09/21/20 09/21/20 09/21/20 Range/Units 16:10 16:15 16:15 WBC 7.75 (4.23-9.07) K/mm3 RBC 3.32 L (4.63-6.08) M/mm3 Hgb 9.8 L D (13.7-17.5) gm/dl Hct 31.7 L (40.1-51.0) % MCV 95.5 H (79.0-92.2) fl MCH 29.5 (25.7-32.2) pg MCHC 30.9 L (32.2-35.5) g/dl RDW Std Deviation 46.3 H (35.1-43.9) fL Plt Count 243 D (163-337) K/mm3 MPV 9.0 L (9.4-12.3) fl Neutrophils % (Manual) 64 H (40-60) % Band Neutrophils % 0 (0-10) % Lymphocytes % (Manual) 24 (20-40) % Atypical Lymphs % 2 % Monocytes % (Manual) 9 (2-10) % Eosinophils % (Manual) 1 (0.8-7.0) % Basophils % (Manual) 0 L (0.2-1.2) Platelet Estimate Adequate Hypochromasia 1+ slight Anisocytosis 1+ slight Macrocytosis 1+ slight Ovalocytes 1+ slight RBC Morph Comment Not Reportable PT (9.7-12.0) SECONDS INR D-Dimer, Quantitative (0.19-0.50) mg/L Sodium 138 (136-145) mEq/L Potassium 4.4 (3.5-5.1) mEq/L Chloride 103 (98-107) mEq/L Carbon Dioxide 28 (21-32) mEq/L Anion Gap 11.4 (5-15) BUN 11 (7-18) mg/dL Creatinine 1.1 (0.7-1.3) mg/dL Est Cr Clr Drug Dosing 45.53 mL/min Estimated GFR (MDRD) > 60 (>60) mL/min BUN/Creatinine Ratio 10.0 L (14-18) Glucose 105 (83-115) mg/dL Lactic Acid (0.4-2.0) mmol/L Calcium 8.7 (8.5-10.1) mg/dL Total Bilirubin 0.3 (0.2-1.0) mg/dL AST 23 (15-37) U/L ALT 29 (16-63) U/L Alkaline Phosphatase 61 (46-116) U/L Troponin I (0.00-0.056) ng/mL C-Reactive Protein 4.8 H* (<1.0) mg/dL NT-Pro-B Natriuret Pep (0-450) pg/mL Total Protein 7.2 (6.4-8.2) g/dl Albumin 2.4 L (3.4-5.0) g/dl Globulin 4.8 gm/dL Albumin/Globulin Ratio 0.5 L (1-2) Urine Color (Yellow) Urine Appearance (Clear) Urine pH (5.0-8.0) Ur Specific [place] (1.005-1.030) Urine Protein (Negative) Urine Glucose (UA) (Negative) Urine Ketones (Negative) Urine Occult Blood (Negative) Urine Nitrite (Negative) Urine Bilirubin (Negative) Urine Urobilinogen (0.2-1.0) Ur Leukocyte Esterase (Negative) Influenza Type A RNA Negative (NEGATIVE) Influenza Type B RNA Negative (NEGATIVE) SARS-CoV-2 RNA (REINA) Negative (NEGATIVE) 09/21/20 09/21/20 09/21/20 Range/Units 16:15 16:15 16:15 WBC (4.23-9.07) K/mm3 RBC (4.63-6.08) M/mm3 Hgb (13.7-17.5) gm/dl Hct (40.1-51.0) % MCV (79.0-92.2) fl MCH (25.7-32.2) pg MCHC (32.2-35.5) g/dl RDW Std Deviation (35.1-43.9) fL Plt Count (163-337) K/mm3 MPV (9.4-12.3) fl Neutrophils % (Manual) (40-60) % Band Neutrophils % (0-10) % Lymphocytes % (Manual) (20-40) % Atypical Lymphs % % Monocytes % (Manual) (2-10) % Eosinophils % (Manual) (0.8-7.0) % Basophils % (Manual) (0.2-1.2) Platelet Estimate Hypochromasia Anisocytosis Macrocytosis Ovalocytes RBC Morph Comment PT 11.2 (9.7-12.0) SECONDS INR 1.05 D-Dimer, Quantitative 0.96 H (0.19-0.50) mg/L Sodium (136-145) mEq/L Potassium (3.5-5.1) mEq/L Chloride (98-107) mEq/L Carbon Dioxide (21-32) mEq/L Anion Gap (5-15) BUN (7-18) mg/dL Creatinine (0.7-1.3) mg/dL Est Cr Clr Drug Dosing mL/min Estimated GFR (MDRD) (>60) mL/min BUN/Creatinine Ratio (14-18) Glucose (83-115) mg/dL Lactic Acid 1.1 (0.4-2.0) mmol/L Calcium (8.5-10.1) mg/dL Total Bilirubin (0.2-1.0) mg/dL AST (15-37) U/L ALT (16-63) U/L Alkaline Phosphatase (46-116) U/L Troponin I (0.00-0.056) ng/mL C-Reactive Protein (<1.0) mg/dL NT-Pro-B Natriuret Pep 1376 H (0-450) pg/mL Total Protein (6.4-8.2) g/dl Albumin (3.4-5.0) g/dl Globulin gm/dL Albumin/Globulin Ratio (1-2) Urine Color (Yellow) Urine Appearance (Clear) Urine pH (5.0-8.0) Ur Specific [place] (1.005-1.030) Urine Protein (Negative) Urine Glucose (UA) (Negative) Urine Ketones (Negative) Urine Occult Blood (Negative) Urine Nitrite (Negative) Urine Bilirubin (Negative) Urine Urobilinogen (0.2-1.0) Ur Leukocyte Esterase (Negative) Influenza Type A RNA (NEGATIVE) Influenza Type B RNA (NEGATIVE) SARS-CoV-2 RNA (REINA) (NEGATIVE) 09/21/20 09/21/20 Range/Units 16:15 18:06 WBC (4.23-9.07) K/mm3 RBC (4.63-6.08) M/mm3 Hgb (13.7-17.5) gm/dl Hct (40.1-51.0) % MCV (79.0-92.2) fl MCH (25.7-32.2) pg MCHC (32.2-35.5) g/dl RDW Std Deviation (35.1-43.9) fL Plt Count (163-337) K/mm3 MPV (9.4-12.3) fl Neutrophils % (Manual) (40-60) % Band Neutrophils % (0-10) % Lymphocytes % (Manual) (20-40) % Atypical Lymphs % % Monocytes % (Manual) (2-10) % Eosinophils % (Manual) (0.8-7.0) % Basophils % (Manual) (0.2-1.2) Platelet Estimate Hypochromasia Anisocytosis Macrocytosis Ovalocytes RBC Morph Comment PT (9.7-12.0) SECONDS INR D-Dimer, Quantitative (0.19-0.50) mg/L Sodium (136-145) mEq/L Potassium (3.5-5.1) mEq/L Chloride (98-107) mEq/L Carbon Dioxide (21-32) mEq/L Anion Gap (5-15) BUN (7-18) mg/dL Creatinine (0.7-1.3) mg/dL Est Cr Clr Drug Dosing mL/min Estimated GFR (MDRD) (>60) mL/min BUN/Creatinine Ratio (14-18) Glucose (83-115) mg/dL Lactic Acid (0.4-2.0) mmol/L Calcium (8.5-10.1) mg/dL Total Bilirubin (0.2-1.0) mg/dL AST (15-37) U/L ALT (16-63) U/L Alkaline Phosphatase (46-116) U/L Troponin I < 0.017 (0.00-0.056) ng/mL C-Reactive Protein (<1.0) mg/dL NT-Pro-B Natriuret Pep (0-450) pg/mL Total Protein (6.4-8.2) g/dl Albumin (3.4-5.0) g/dl Globulin gm/dL Albumin/Globulin Ratio (1-2) Urine Color Yellow (Yellow) Urine Appearance Clear (Clear) Urine pH 7.0 (5.0-8.0) Ur Specific [place] 1.020 (1.005-1.030) Urine Protein Negative (Negative) Urine Glucose (UA) Negative (Negative) Urine Ketones Negative (Negative) Urine Occult Blood Negative (Negative) Urine Nitrite Negative (Negative) Urine Bilirubin Negative (Negative) Urine Urobilinogen 1.0 (0.2-1.0) Ur Leukocyte Esterase Negative (Negative) Influenza Type A RNA (NEGATIVE) Influenza Type B RNA (NEGATIVE) SARS-CoV-2 RNA (REINA) (NEGATIVE) Meds: Medications Generic Name Dose Route Start Last Admin Trade Name Freq PRN Reason Stop Dose Admin Acetaminophen 650 mg 09/21/20 20:25 Acetaminophen 325 Mg Tab PO Q6H PRN Pain (Mild 1-3)/fever Albuterol 0 gm 09/21/20 21:00 09/22/20 08:31 Albuterol 6.7 Gm Inhaler INH 2 inhalation Q6H [facility] Administration Albuterol/Ipratropium 3 ml 09/21/20 20:25 Albuterol/Ipratropium 3.0-0.5 Mg/3 Ml Neb Soln NEB Q4H PRN Shortness Of Breath/wheezing Cholecalciferol 50 mcg 09/22/20 09:00 09/22/20 09:46 Cholecalciferol (Vitamin D3) 25 Mcg Tab PO 50 mcg DAILY [facility] Administration Ezetimibe 10 mg 09/21/20 21:00 09/21/20 22:17 Ezetimibe 10 Mg Tab PO 10 mg BEDTIME [facility] Administration Guaifenesin 1,200 mg 09/21/20 21:00 09/22/20 09:46 Guaifenesin 600 Mg Tab.Er PO 1,200 mg BID [facility] Administration Hydralazine HCl 10 mg 09/21/20 20:34 Hydralazine 20 Mg/Ml Sdv IVPUSH Q4H PRN Hypertension Promethazine HCl 12.5 mg/ 50.5 mls @ 100 mls/hr 09/21/20 20:25 Sodium Chloride IV Q6H PRN Nausea/Vomiting Cefepime HCl 1 gm/ Premix 50 mls @ 100 mls/hr 09/21/20 22:00 09/21/20 22:47 IV 100 mls/hr Q24H [facility] Administration Vancomycin HCl 1 gm/ 250 mls @ 166.667 mls/hr 09/22/20 14:00 Vancomycin HCl 250 mg/ Sodium IV Chloride Q18H [facility] Azithromycin 500 mg/ Sodium 250 mls @ 250 mls/hr 09/21/20 21:00 09/21/20 22:18 Chloride IV 250 mls/hr Q24H [facility] Administration Insulin Glargine 30 unit 09/22/20 09:00 09/22/20 09:47 Insulin Glarg,Human.Rec.Analog 100 Unit/Ml SUBCUT 30 units DAILY [facility] Administration Insulin Human Lispro 0 unit 09/21/20 22:00 09/22/20 08:09 Insulin Lispro 100 Unit/Ml SUBCUT Not Given QIDACANDBED [facility] Protocol Levothyroxine Sodium 50 mcg 09/22/20 06:00 09/22/20 06:04 Levothyroxine 50 Mcg Tab PO 50 mcg ACBREAKFAST [facility] Administration Lorazepam 0.5 mg 09/21/20 20:35 Lorazepam 0.5 Mg Tab PO Q6H PRN Anxiety Metoprolol Succinate 25 mg 09/22/20 09:00 09/22/20 09:46 Metoprolol Succinate 25 Mg Tab.Er PO 25 mg DAILY [facility] Administration Morphine Sulfate 2 mg 09/21/20 20:25 Morphine 2 Mg/Ml Syringe IVPUSH 09/22/20 20:26 Q4H PRN Pain (severe 7-10) Fesoterodine 8 mg 09/22/20 09:00 09/22/20 09:54 Fumarate [Toviaz] 8 PO Not Given Mg Tab.Sr.24h Ptom DAILY [facility] Rivaroxaban 15 mg 09/22/20 09:00 09/22/20 09:46 Rivaroxaban 15 Mg Tab PO 15 mg BID [facility] Administration Rosuvastatin Calcium 10 mg 09/22/20 19:00 Rosuvastatin 10 Mg Tab PO PCDINNER [facility] Sertraline HCl 25 mg 09/21/20 21:00 09/21/20 22:18 Sertraline 25 Mg Tab PO 25 mg BEDTIME [facility] Administration Sodium Chloride 10 ml 09/21/20 15:50 09/21/20 15:53 Sodium Chloride 0.9% 10 Ml Syringe FLUSH 10 ml ASDIRECTED PRN Administration Keep Vein Open Temazepam 15 mg 09/21/20 20:35 09/21/20 22:18 Temazepam 15 Mg Cap PO 15 mg BEDTIME PRN Administration oth Triamcinolone Acetonide 0 gm 09/22/20 09:00 Triamcinolone Acetonide 0.1% Crm 15 Gm Tube TOP TID PRN skin complications Trospium 20 mg 09/21/20 21:00 09/22/20 06:04 Trospium 20 Mg Tab PO 20 mg BIDAC [facility] Administration Vancomycin HCl 1 dose 09/22/20 10:57 Pharmacy To Dose - Vancomycin .XX DAILY PRN RX TO DOSE VANCO Discontinued Medications Generic Name Dose Route Start Last Admin Trade Name Freq PRN Reason Stop Dose Admin Sodium Chloride 100 mls @ 60 mls/hr 09/21/20 18:15 09/21/20 18:48 Normal Saline IV 60 mls/hr ASDIRECTED [facility] Administration Vancomycin HCl 1 gm/ Sodium 250 mls @ 250 mls/hr 09/21/20 23:45 09/22/20 01:45 Chloride IV 09/22/20 00:44 Not Given ONETIME ONE Vancomycin HCl 1 gm/ Sodium 250 mls @ 250 mls/hr 09/22/20 01:15 09/22/20 01:44 Chloride IV 09/22/20 02:14 250 mls/hr ONETIME ONE Administration Iopamidol 100 ml 09/21/20 18:03 09/21/20 18:48 Iopamidol 755 Mg/Ml 100 Ml Bottle IVPUSH 09/21/20 18:04 100 ml ONETIME ONE Administration Non-Formulary Medication 479 gm 09/22/20 09:00 Methylcellulose PO DAILY CHITRA Rivaroxaban 15 mg 09/21/20 20:00 09/21/20 22:47 Rivaroxaban 15 Mg Tab PO 09/21/20 20:01 15 mg ONETIME ONE Administration Rivaroxaban 15 mg 09/21/20 21:00 Rivaroxaban 15 Mg Tab PO 10/11/20 23:59 BID CHITRA Rivaroxaban 15 mg 09/21/20 22:30 09/21/20 22:32 Rivaroxaban 15 Mg Tab PO 09/21/20 22:31 15 mg ONETIME ONE Administration Sodium Chloride 10 ml 09/21/20 18:03 09/21/20 18:48 Sodium Chloride 0.9% 10 Ml Syringe FLUSH 09/21/20 18:04 10 ml ONETIME ONE Administration - Re-Assessments/Exams Free Text/Narrative Re-Assessment/Exam: Patient is an 85-year-old male presenting to the emergency department with complaints of worsening shortness of breath. He wears 4 L of oxygen by nasal cannula at home and is currently on 4 L in the emergency department, however he is visibly dyspneic. Oxygen saturations have been in the mid to upper 90s on this 4 L. Son states that he was on 5 L at home and was only saturating from 87 to 91%. I have ordered a number of blood tests, EKG, chest x-ray, Covid and flu test, and urinalysis. 09/21/20 1715 Hematology was significant for a hemoglobin low at 9.8, D-dimer elevated at 0.96, CRP 4.8, proBNP 1376. Urinalysis was negative for infection. Covid and flu swabs are negative. I have ordered a CT angiogram of the chest. 09/21/20 1850 Nursing staff updated me that the patient sat up on the edge of the bed to void. He only stood for a second while still group home seated on the bed and his oxygen saturation dropped to 78 to 82%. He was visibly dyspneic and took some time to rebound. He is currently in CT scan. Son is concerned that he is too short of breath to go home as he cannot walk up stairs or walk even a short distance without becoming dizzy and weak. Will wait to see what the CT scan shows and then discussed the case with the hospitalist. Departure - Departure Time of Disposition: 18:50 Disposition: Admitted As Inpatient 64 Condition: Fair Clinical Impression: Hypoxia, Generalized weakness, Pneumonitis, Pulmonary fibrosis, unspecified Pulmonary embolism Qualifiers: Pulmonary embolism type: single subsegmental (without acute cor pulmonale) Qualified Code(s): I26.93 - Single subsegmental pulmonary embolism without acute cor pulmonale - Discharge Information Sepsis Event Note (ED) - Evaluation Sepsis Screening Result: No Definite Risk - My Orders Last 24 Hours: My Active Orders 09/21/20 15:50 Sodium Chloride 0.9% [Saline Flush] 10 ml FLUSH ASDIRECTED PRN Blood Culture x2 Reflex Set [OM.PC] Stat Saline Lock Insert [OM.PC] Stat 09/21/20 15:52 EKG Documentation Completion [RC] STAT 09/21/20 16:15 CULTURE BLOOD [BC] Stat 09/21/20 16:25 CULTURE BLOOD [BC] Stat 09/21/20 20:02 Patient Status [ADT] Routine - Assessment/Plan Last 24 Hours: My Active Orders 09/21/20 15:50 Sodium Chloride 0.9% [Saline Flush] 10 ml FLUSH ASDIRECTED PRN Blood Culture x2 Reflex Set [OM.PC] Stat Saline Lock Insert [OM.PC] Stat 09/21/20 15:52 EKG Documentation Completion [RC] STAT 09/21/20 16:15 CULTURE BLOOD [BC] Stat 09/21/20 16:25 CULTURE BLOOD [BC] Stat 09/21/20 20:02 Patient Status [ADT] Routine
[2020-09-21] MEDS ORDERED: Rivaroxaban 15 MG Tab PO ONE ×2 (20:00→22:30)
[2020-09-21] MEDS ORDERED: Morphine 2 MG/ML SYRINGE IVPUSH PRN (20:25)
[2020-09-21] MEDS ORDERED: Acetaminophen 325 MG Tab PO PRN (20:25)
[2020-09-21] MEDS ORDERED: Promethazine 12.5 MG in Sodium Chloride 0.9% 50 ML IV PRN (20:25)
[2020-09-21] MEDS ORDERED: hydrALAZINE 20 MG/ML SDV IVPUSH PRN (20:34)
--- NOTE | 2020-09-21 20:46 | PCM.HP.2 ---
H&P History of Present Illness - General Date of Service: 09/21/20 Admit Problem/Dx: Admission Diagnosis/Problem Admission Diagnosis/Problem Pulmonary embolism Source of Information: Patient - History of Present Illness Initial Comments - Free Text/Narative: Patient is an 85-year-old male with a history of pulmonary fibrosis and diabetes who was brought to the ER due to worsening shortness of breath and generalized weakness x 1 day. As per patient, he has been on home oxygen 4 L. He has to increase to 5 L. Otherwise the patient denies chest pain, fever, abdominal pain, or dysuria. Patient was recently hospitalized to our hospital due to pneumonia and discharged on September 06. In the ER, he was found to have elevation of D-dimer. CT angio chest was performed, showing diffuse parenchymal densities within both lungs, slightly increased in prominence on the right side and slightly decreased in prominence on the left side. Initially I was reported that the patient has a PE last night. The formal report available this morning - no definite treatable pulmonary embolism. Spoke to radiologist Dr. Patel who felt no PE. - Related Data Allergies/Adverse Reactions: Allergies Allergy/AdvReac Type Severity Reaction Status Date / Time metformin Allergy Cannot Verified 09/21/20 21:38 Remember niacin Allergy Swelling Verified 09/21/20 21:38 Home Medications: Home Meds Aspirin 81 mg PO DAILY 08/15/16 [History] Cholecalciferol (Vitamin D3) [Vitamin D3] 2,000 intnl unit PO DAILY 08/15/16 [History] Ezetimibe [Zetia] 10 mg PO BEDTIME 08/15/16 [History] Fesoterodine Fumarate [Toviaz] 8 mg PO DAILY 08/15/16 [History] Insulin Glarg,Human.Rec.Analog [LantUS Solostar] 30 units SQ DAILY 08/15/16 [History] Levothyroxine 50 mcg PO DAILY 08/15/16 [History] Metoprolol Succinate 25 mg PO DAILY 08/15/16 [History] Multivitamin [Multivitamins] 1 tab PO DAILY 08/15/16 [History] Triamcinolone Acetonide [IJP: Triamcinolone Acetonide 0.1% Crm] 1 applic TOP ASDIRECTED PRN 08/15/16 [History] Albuterol Sulfate [Proair Hfa] 2 puff IH Q6H 01/28/18 [History] Rosuvastatin [Crestor] 10 mg PO PCDINNER 01/28/18 [History] Methylcellulose [Citrucel SF] 479 gm PO DAILY 12/12/18 [History] guaiFENesin [Mucus Relief ER] 1,200 mg PO BID 12/12/18 [History] Chlorhexidine Gluconate [Chlorhexidine Gluconate 0.12% Rinse] 15 ml PO DAILY PRN 08/30/20 [History] Mineral Oil/Petrolatum [Aquaphor Healing Oint] 1 applic TOP DAILY PRN 08/30/20 [History] Promethazine HCl/Codeine [Prometh-Codein 6.25-10 mg/5 ml] 5 ml PO BEDTIME PRN 0 08/30/20 [History] Urea [Urea 20% Crm] 1 applic TOP DAILY PRN 08/30/20 [History] Acetaminophen [Tylenol] 650 mg PO Q4H PRN tablet 09/06/20 [Rx] Albuterol Sulfate [Proair Hfa] 2 puff IH Q6H 09/21/20 [History] Ipratropium/Albuterol Sulfate [Iprat-Albut 0.5-3(2.5) mg/3 ml] 3 ml IH Q4H PRN 09/21/20 [History] LORazepam [Ativan] 0.5 mg PO Q6H PRN 09/21/20 [History] Sertraline [Zoloft] 25 mg PO BEDTIME 09/21/20 [History] Temazepam [Restoril] 15 mg PO BEDTIME PRN 09/21/20 [History] Trospium [Sanctura] 20 mg PO BID 09/21/20 [History] Albuterol/Ipratropium [DuoNeb 3.0-0.5 MG/3 ML] 2.5 mg NEB Q2HR PRN 09/22/20 [History] guaiFENesin [Mucinex] 1,200 mg PO BID 09/22/20 [History] Past Medical History HEENT History: Reports: Cataract, Impaired Vision Other HEENT History: Glasses Cardiovascular History: Reports: High Cholesterol, Hypertension, [place] Respiratory History: Reports: Pulmonary Fibrosis Gastrointestinal History: Reports: Diverticulosis, GI Bleed Genitourinary History: Reports: Urinary Incontinence Musculoskeletal History: Reports: Arthritis Neurological History: Reports: None Psychiatric History: Reports: None Endocrine/Metabolic History: Reports: Diabetes, Type II, Hypothyroidism Hematologic History: Reports: None, Other (See Below) Other Hematologic History: Uses ASA, reports increased bruising related to the use of ASA. Immunologic History: Reports: None Oncologic (Cancer) History: Reports: None Dermatologic History: Reports: Benign Melanoma - Infectious Disease History Infectious Disease History: Reports: Measles, Scarlet Fever - Past Surgical History Head Surgeries/Procedures: Reports: None HEENT Surgical History: Reports: Cataract Surgery, Other (See Below) Cardiovascular Surgical History: Reports: None, Coronary Artery Stent Other Cardiovascular Surgeries/Procedures: stent x2 Respiratory Surgical History: Reports: None GI Surgical History: Reports: Colonoscopy, Hernia, Inguinal, Heather Fundoplication Other GI Surgeries/Procedures: Hernia repair Male Surgical History: Reports: None Endocrine Surgical History: Reports: None Neurological Surgical History: Reports: Lumbar Spine, Spinal Fusion, Other (See Below) Musculoskeletal Surgical History: Reports: Hip Replacement, Shoulder Surgery, Other (See Below) Other Musculoskeletal Surgeries/Procedures:: Bilateral shoulders, right hip, and back surgery with 4 and 5 fusion. Oncologic Surgical History: Reports: None Dermatological Surgical History: Reports: Skin Biopsy Social & Family History - Family History Family Medical History: No Pertinent Family History (Denies genetic diseases in family) - Tobacco Use Tobacco Use Status *Q: Former Tobacco User Used Tobacco, but Quit: Yes Month/Year Tobacco Last Used: 1959 - Caffeine Use Caffeine Use: Reports: Coffee - Recreational Drug Use Recreational Drug Use: No - Living Situation & Occupation Living situation: Reports: , with Family (Lives with ) Occupation: Retired H&P Review of Systems - Review of Systems: Review Of Systems: See Below General: Reports: Weakness HEENT: Reports: No Symptoms Pulmonary: Reports: Shortness of Breath Cardiovascular: Reports: No Symptoms Gastrointestinal: Reports: No Symptoms Genitourinary: Reports: No Symptoms Musculoskeletal: Reports: No Symptoms Skin: Reports: No Symptoms Psychiatric: Reports: No Symptoms Neurological: Reports: No Symptoms Hematologic/Lymphatic: Reports: No Symptoms Immunologic: Reports: No Symptoms Exam - Exam Exam: See Below - Vital Signs Vital Signs: Last Vital Signs Temp 35.8 C L 09/21/20 15:33 Pulse 81 09/21/20 15:33 Resp 20 09/21/20 15:33 BP 109/65 09/21/20 15:33 Pulse Ox 100 09/21/20 16:00 Weight: 68.039 kg - Exam General: Alert, Oriented, Cooperative, Mild Distress (Due to shortness of breath) HEENT: Conjunctiva Clear, EOMI, Pupils Equal, Pupils Reactive Neck: Supple, Trachea Midline Lungs: Decreased Breath Sounds, Crackles (Bibasilar) Cardiovascular: Regular Rate, Regular Rhythm, Normal S1, Normal S2 GI/Abdominal Exam: Normal Bowel Sounds, Soft, Non-Tender, No Organomegaly Extremities: Normal Inspection, Normal Range of Motion, Non-Tender, No Pedal Edema Skin: Warm, Dry, Intact Neurological: Reflexes Equal Bilateral, Strength Equal Bilateral, Normal Speech, Normal Tone, Sensation Intact Neuro Extensive - Mental Status: Alert, Oriented x3, Normal Mood/Affect Psychiatric: Normal Mood - Patient Data Lab Results Last 24 hrs: Laboratory Results - last 24 hr 09/21/20 09/21/20 09/21/20 Range/Units 16:10 16:15 16:15 WBC 7.75 (4.23-9.07) K/mm3 RBC 3.32 L (4.63-6.08) M/mm3 Hgb 9.8 L D (13.7-17.5) gm/dl Hct 31.7 L (40.1-51.0) % MCV 95.5 H (79.0-92.2) fl MCH 29.5 (25.7-32.2) pg MCHC 30.9 L (32.2-35.5) g/dl RDW Std Deviation 46.3 H (35.1-43.9) fL Plt Count 243 D (163-337) K/mm3 MPV 9.0 L (9.4-12.3) fl Neutrophils % (Manual) 64 H (40-60) % Band Neutrophils % 0 (0-10) % Lymphocytes % (Manual) 24 (20-40) % Atypical Lymphs % 2 % Monocytes % (Manual) 9 (2-10) % Eosinophils % (Manual) 1 (0.8-7.0) % Basophils % (Manual) 0 L (0.2-1.2) Platelet Estimate Adequate Hypochromasia 1+ slight Anisocytosis 1+ slight Macrocytosis 1+ slight Ovalocytes 1+ slight RBC Morph Comment Not Reportable PT (9.7-12.0) SECONDS INR D-Dimer, Quantitative (0.19-0.50) mg/L Sodium 138 (136-145) mEq/L Potassium 4.4 (3.5-5.1) mEq/L Chloride 103 (98-107) mEq/L Carbon Dioxide 28 (21-32) mEq/L Anion Gap 11.4 (5-15) BUN 11 (7-18) mg/dL Creatinine 1.1 (0.7-1.3) mg/dL Est Cr Clr Drug Dosing 45.53 mL/min Estimated GFR (MDRD) > 60 (>60) mL/min BUN/Creatinine Ratio 10.0 L (14-18) Glucose 105 (83-115) mg/dL Lactic Acid (0.4-2.0) mmol/L Calcium 8.7 (8.5-10.1) mg/dL Total Bilirubin 0.3 (0.2-1.0) mg/dL AST 23 (15-37) U/L ALT 29 (16-63) U/L Alkaline Phosphatase 61 (46-116) U/L Troponin I (0.00-0.056) ng/mL C-Reactive Protein 4.8 H* (<1.0) mg/dL NT-Pro-B Natriuret Pep (0-450) pg/mL Total Protein 7.2 (6.4-8.2) g/dl Albumin 2.4 L (3.4-5.0) g/dl Globulin 4.8 gm/dL Albumin/Globulin Ratio 0.5 L (1-2) Urine Color (Yellow) Urine Appearance (Clear) Urine pH (5.0-8.0) Ur Specific Bath (1.005-1.030) Urine Protein (Negative) Urine Glucose (UA) (Negative) Urine Ketones (Negative) Urine Occult Blood (Negative) Urine Nitrite (Negative) Urine Bilirubin (Negative) Urine Urobilinogen (0.2-1.0) Ur Leukocyte Esterase (Negative) Influenza Type A RNA Negative (NEGATIVE) Influenza Type B RNA Negative (NEGATIVE) SARS-CoV-2 RNA (REINA) Negative (NEGATIVE) 09/21/20 09/21/20 09/21/20 Range/Units 16:15 16:15 16:15 WBC (4.23-9.07) K/mm3 RBC (4.63-6.08) M/mm3 Hgb (13.7-17.5) gm/dl Hct (40.1-51.0) % MCV (79.0-92.2) fl MCH (25.7-32.2) pg MCHC (32.2-35.5) g/dl RDW Std Deviation (35.1-43.9) fL Plt Count (163-337) K/mm3 MPV (9.4-12.3) fl Neutrophils % (Manual) (40-60) % Band Neutrophils % (0-10) % Lymphocytes % (Manual) (20-40) % Atypical Lymphs % % Monocytes % (Manual) (2-10) % Eosinophils % (Manual) (0.8-7.0) % Basophils % (Manual) (0.2-1.2) Platelet Estimate Hypochromasia Anisocytosis Macrocytosis Ovalocytes RBC Morph Comment PT 11.2 (9.7-12.0) SECONDS INR 1.05 D-Dimer, Quantitative 0.96 H (0.19-0.50) mg/L Sodium (136-145) mEq/L Potassium (3.5-5.1) mEq/L Chloride (98-107) mEq/L Carbon Dioxide (21-32) mEq/L Anion Gap (5-15) BUN (7-18) mg/dL Creatinine (0.7-1.3) mg/dL Est Cr Clr Drug Dosing mL/min Estimated GFR (MDRD) (>60) mL/min BUN/Creatinine Ratio (14-18) Glucose (83-115) mg/dL Lactic Acid 1.1 (0.4-2.0) mmol/L Calcium (8.5-10.1) mg/dL Total Bilirubin (0.2-1.0) mg/dL AST (15-37) U/L ALT (16-63) U/L Alkaline Phosphatase (46-116) U/L Troponin I (0.00-0.056) ng/mL C-Reactive Protein (<1.0) mg/dL NT-Pro-B Natriuret Pep 1376 H (0-450) pg/mL Total Protein (6.4-8.2) g/dl Albumin (3.4-5.0) g/dl Globulin gm/dL Albumin/Globulin Ratio (1-2) Urine Color (Yellow) Urine Appearance (Clear) Urine pH (5.0-8.0) Ur Specific Bath (1.005-1.030) Urine Protein (Negative) Urine Glucose (UA) (Negative) Urine Ketones (Negative) Urine Occult Blood (Negative) Urine Nitrite (Negative) Urine Bilirubin (Negative) Urine Urobilinogen (0.2-1.0) Ur Leukocyte Esterase (Negative) Influenza Type A RNA (NEGATIVE) Influenza Type B RNA (NEGATIVE) SARS-CoV-2 RNA (REINA) (NEGATIVE) 09/21/20 09/21/20 Range/Units 16:15 18:06 WBC (4.23-9.07) K/mm3 RBC (4.63-6.08) M/mm3 Hgb (13.7-17.5) gm/dl Hct (40.1-51.0) % MCV (79.0-92.2) fl MCH (25.7-32.2) pg MCHC (32.2-35.5) g/dl RDW Std Deviation (35.1-43.9) fL Plt Count (163-337) K/mm3 MPV (9.4-12.3) fl Neutrophils % (Manual) (40-60) % Band Neutrophils % (0-10) % Lymphocytes % (Manual) (20-40) % Atypical Lymphs % % Monocytes % (Manual) (2-10) % Eosinophils % (Manual) (0.8-7.0) % Basophils % (Manual) (0.2-1.2) Platelet Estimate Hypochromasia Anisocytosis Macrocytosis Ovalocytes RBC Morph Comment PT (9.7-12.0) SECONDS INR D-Dimer, Quantitative (0.19-0.50) mg/L Sodium (136-145) mEq/L Potassium (3.5-5.1) mEq/L Chloride (98-107) mEq/L Carbon Dioxide (21-32) mEq/L Anion Gap (5-15) BUN (7-18) mg/dL Creatinine (0.7-1.3) mg/dL Est Cr Clr Drug Dosing mL/min Estimated GFR (MDRD) (>60) mL/min BUN/Creatinine Ratio (14-18) Glucose (83-115) mg/dL Lactic Acid (0.4-2.0) mmol/L Calcium (8.5-10.1) mg/dL Total Bilirubin (0.2-1.0) mg/dL AST (15-37) U/L ALT (16-63) U/L Alkaline Phosphatase (46-116) U/L Troponin I < 0.017 (0.00-0.056) ng/mL C-Reactive Protein (<1.0) mg/dL NT-Pro-B Natriuret Pep (0-450) pg/mL Total Protein (6.4-8.2) g/dl Albumin (3.4-5.0) g/dl Globulin gm/dL Albumin/Globulin Ratio (1-2) Urine Color Yellow (Yellow) Urine Appearance Clear (Clear) Urine pH 7.0 (5.0-8.0) Ur Specific Bath 1.020 (1.005-1.030) Urine Protein Negative (Negative) Urine Glucose (UA) Negative (Negative) Urine Ketones Negative (Negative) Urine Occult Blood Negative (Negative) Urine Nitrite Negative (Negative) Urine Bilirubin Negative (Negative) Urine Urobilinogen 1.0 (0.2-1.0) Ur Leukocyte Esterase Negative (Negative) Influenza Type A RNA (NEGATIVE) Influenza Type B RNA (NEGATIVE) SARS-CoV-2 RNA (REINA) (NEGATIVE) Result Diagrams: 09/22/20 04:41 09/22/20 04:41 Sepsis Event Note - Evaluation Sepsis Screening Result: No Definite Risk - Focused Exam Vital Signs: Vital Signs Temp Pulse Resp BP Pulse Ox Pulse Ox 09/21/20 16:00 100 09/21/20 15:33 35.8 C L 81 20 109/65 100 Problem List Initiated/Reviewed/Updated: Yes Orders Last 24hrs: Active Orders 24 hr Category Date Time Status Patient Status [ADT] Routine ADT 09/21/20 20:02 Active Cardiac Monitoring [RC] CONTINUOUS Care 09/21/20 20:25 Ordered EKG Documentation Completion [RC] STAT Care 09/21/20 15:52 Active Oxygen Therapy [RC] PRN Care 09/21/20 20:25 Ordered Oxygen Therapy, ED [RC] STAT Care 09/21/20 15:51 Active Pulse Oximetry [RC] CONTINUOUS Care 09/21/20 20:25 Ordered RT Aerosol Therapy [RC] ASDIRECTED Care 09/21/20 20:27 Ordered RT Post Treatment Assessment [RC] Click to Edit Care 09/21/20 20:40 Ordered RT Pre-Treatment Assessment [RC] Click to Edit Care 09/21/20 20:40 Ordered Up to Chair [RC] ASDIRECTED Care 09/21/20 20:25 Ordered VTE/DVT Education [RC] PER UNIT ROUTINE Care 09/21/20 20:25 Ordered Vital Signs [RC] Q4H Care 09/21/20 20:25 Ordered OT Evaluation and Treatment [CONS] Routine Cons 09/21/20 20:25 Ordered PT Evaluation and Treatment [CONS] Routine Cons 09/21/20 20:25 Ordered Consistent Carbohydrate Diet [DIET] Diet 09/21/20 Breakfast Ordered PE Chest [Ang Chest] [CT] Stat Exams 09/21/20 17:10 Taken CBC WITH AUTO DIFF [HEME] DAILY Lab 09/22/20 05:00 Ordered CBC WITH AUTO DIFF [HEME] DAILY Lab 09/23/20 05:00 Ordered CBC WITH AUTO DIFF [HEME] DAILY Lab 09/24/20 05:00 Ordered CBC WITH AUTO DIFF [HEME] DAILY Lab 09/25/20 05:00 Ordered CBC WITH AUTO DIFF [HEME] DAILY Lab 09/26/20 05:00 Ordered CBC WITH AUTO DIFF [HEME] DAILY Lab 09/27/20 05:00 Ordered COMPREHENSIVE METABOLIC PN,CMP [CHEM] DAILY Lab 09/22/20 05:00 Ordered COMPREHENSIVE METABOLIC PN,CMP [CHEM] DAILY Lab 09/23/20 05:00 Ordered COMPREHENSIVE METABOLIC PN,CMP [CHEM] DAILY Lab 09/24/20 05:00 Ordered COMPREHENSIVE METABOLIC PN,CMP [CHEM] DAILY Lab 09/25/20 05:00 Ordered COMPREHENSIVE METABOLIC PN,CMP [CHEM] DAILY Lab 09/26/20 05:00 Ordered COMPREHENSIVE METABOLIC PN,CMP [CHEM] DAILY Lab 09/27/20 05:00 Ordered CULTURE BLOOD [BC] Stat Lab 09/21/20 16:15 Received CULTURE BLOOD [BC] Stat Lab 09/21/20 16:25 Received CULTURE SPUTUM + SMEAR [RM] Stat Lab 09/21/20 20:25 Ordered INR,PT,PROTHROMBIN TIME [COAG] Routine Lab 09/21/20 20:25 Ordered MAGNESIUM [CHEM] Routine Lab 09/21/20 20:25 Ordered PHOSPHORUS [CHEM] Routine Lab 09/21/20 20:25 Ordered PTT,PARTIAL THROMBOPLSTIN TIME [COAG] Routine Lab 09/21/20 20:25 Ordered TROPONIN I [CHEM] Routine Lab 09/21/20 20:25 Ordered Acetaminophen [TylenoL] Med 09/21/20 20:25 Ordered 650 mg PO Q6H PRN Albuterol [Proventil HFA] Med 09/21/20 20:45 Ordered 2 puff INH Q6H Albuterol/Ipratropium [DuoNeb 3.0-0.5 MG/3 ML] Med 09/21/20 20:25 Ordered 3 ml NEB Q4H PRN Azithromycin [Zithromax] 500 mg Med 09/21/20 20:45 Ordered Sodium Chloride 0.9% [Normal Saline (AdvBag)] 250 ml IV Q24H Cefepime [Maxipime in D5W 1 GM/50 ML] 1 gm Med 09/21/20 20:45 Ordered Premix Bag 1 bag IV Q8H Cholecalciferol (Vitamin D3) [Vitamin D3] Med 09/22/20 09:00 Ordered 2,000 intnl unit PO DAILY Ezetimibe [Zetia] Med 09/21/20 21:00 Ordered 10 mg PO BEDTIME Fesoterodine Fumarate [Toviaz] Med 09/22/20 09:00 Ordered 8 mg PO DAILY Insulin Glarg,Human.Rec.Analog Med 09/22/20 09:00 Ordered 30 units SQ DAILY Insulin Lispro [HumaLOG] Med 09/21/20 22:00 Ordered See Protocol SUBCUT QIDACANDBED LORazepam Med 09/21/20 20:35 Ordered 0.5 mg PO Q6H PRN Levothyroxine Med 09/22/20 09:00 Ordered 50 mcg PO DAILY Methylcellulose Med 09/22/20 09:00 Ordered 479 gm PO DAILY Metoprolol Succinate [Toprol XL] Med 09/22/20 09:00 Ordered 25 mg PO DAILY Morphine Med 09/21/20 20:25 Ordered 2 mg IVPUSH Q4H PRN Promethazine [Phenergan] 12.5 mg Med 09/21/20 20:25 Ordered Sodium Chloride 0.9% [Normal Saline] 50 ml IV Q6H Rivaroxaban [Xarelto] Med 09/22/20 09:00 Ordered 15 mg PO BID Rosuvastatin [Crestor] Med 09/22/20 19:00 Ordered 10 mg PO PCDINNER Sertraline [Zoloft] Med 09/21/20 21:00 Ordered 25 mg PO BEDTIME Sodium Chloride 0.9% [Saline Flush] Med 09/21/20 15:50 Active 10 ml FLUSH ASDIRECTED PRN Temazepam [Restoril] Med 09/21/20 20:35 Ordered 15 mg PO BEDTIME PRN Triamcinolone Acetonide [Triamcinolone Acetonide 0.1% Med 09/21/20 20:35 Ordered Crm] 1 applic TOP ASDIRECTED PRN Trospium [Sanctura] Med 09/21/20 21:00 Ordered 20 mg PO BID Vancomycin [Vancocin] 1 gm Med 09/21/20 21:00 Ordered Sodium Chloride 0.9% [Normal Saline (AdvBag)] 250 ml IV Q12HR guaiFENesin [Mucinex] Med 09/21/20 21:00 Ordered 1,200 mg PO BID hydrALAZINE [Apresoline] Med 09/21/20 20:34 Ordered 10 mg IVPUSH Q4H PRN Blood Culture x2 Reflex Set [OM.PC] Stat Oth 09/21/20 15:50 Ordered Saline Lock Insert [OM.PC] Stat Oth 09/21/20 15:50 Ordered Medication Orders Acetaminophen (Acetaminophen 325 Mg Tab) 650 mg PO Q6H PRN PRN Reason: Pain (Mild 1-3)/fever Albuterol (Albuterol 6.7 Gm Inhaler) gm INH Q6H CHITRA Albuterol/Ipratropium (Albuterol/Ipratropium 3.0-0.5 Mg/3 Ml Neb Soln) 3 ml NEB Q4H PRN PRN Reason: Shortness Of Breath/wheezing Ezetimibe (Ezetimibe 10 Mg Tab) 10 mg PO BEDTIME CHITRA Guaifenesin (Guaifenesin 600 Mg Tab.Er) 1,200 mg PO BID CHITRA Hydralazine HCl (Hydralazine 20 Mg/Ml Sdv) 10 mg IVPUSH Q4H PRN PRN Reason: Hypertension Promethazine HCl 12.5 mg/ (Sodium Chloride) 50.5 mls @ 100 mls/hr IV Q6H PRN PRN Reason: Nausea/Vomiting Cefepime HCl 1 gm/ Premix 50 mls @ 100 mls/hr IV Q8H [facility] Vancomycin HCl 1 gm/ Sodium (Chloride) 250 mls @ 250 mls/hr IV Q12HR [facility] Azithromycin 500 mg/ Sodium (Chloride) 250 mls @ 250 mls/hr IV Q24H [facility] Insulin Human Lispro (Insulin Lispro 100 Unit/Ml) 0 unit SUBCUT QIDACANDBED CHITRA; Protocol Levothyroxine Sodium (Levothyroxine 25 Mcg Tab) 50 mcg PO DAILY [facility] Metoprolol Succinate (Metoprolol Succinate 50 Mg Tab.Er) 25 mg PO DAILY [facility] Morphine Sulfate (Morphine 2 Mg/Ml Syringe) 2 mg IVPUSH Q4H PRN PRN Reason: Pain (severe 7-10) Stop: 09/22/20 20:26 Non-Formulary Medication (Cholecalciferol (Vitamin D3) [Vitamin D3]) 2,000 intnl unit PO DAILY [facility] Non-Formulary Medication (Fesoterodine Fumarate [Toviaz]) 8 mg PO DAILY [facility] Non-Formulary Medication (Insulin Glarg,Human.Rec.Analog) 30 units SQ DAILY [facility] Non-Formulary Medication (Lorazepam) 0.5 mg PO Q6H PRN PRN Reason: Anxiety Non-Formulary Medication (Methylcellulose) 479 gm PO DAILY [facility] Rivaroxaban (Rivaroxaban 15 Mg Tab) 15 mg PO BID [facility] Rosuvastatin Calcium (Rosuvastatin 10 Mg Tab) 10 mg PO PCDINNER [facility] Sertraline HCl (Sertraline 25 Mg Tab) 25 mg PO BEDTIME [facility] Sodium Chloride (Sodium Chloride 0.9% 10 Ml Syringe) 10 ml FLUSH ASDIRECTED PRN PRN Reason: Keep Vein Open Last Admin: 09/21/20 15:53 Dose: 10 ml Documented by: SUSAN Temazepam (Temazepam 15 Mg Cap) 15 mg PO BEDTIME PRN PRN Reason: oth Triamcinolone Acetonide (Triamcinolone Acetonide 0.1% Crm 15 Gm Tube) gm TOP ASDIRECTED PRN PRN Reason: skin complications Trospium (Trospium 20 Mg Tab) 20 mg PO BID [facility] Assessment/Plan Comment:: Patient is an 85-year-old male with a history of pulmonary fibrosis and diabetes who was brought to the ER due to worsening shortness of breath and generalized weakness x 1 day. Assessment: Acute on chronic hypoxic respiratory failure Pulmonary embolism Pneumonia, HCA or CAP chronic pulmonary fibrosis CAD, hx of [place] HTN Hx of GI bleeding DM type 2 Hypothyroidism Chronic anemia Elevation of BNP, 1376 Plan: 1. The patient will be admitted to the hospital as an inpatient. He will be monitored on the telemetry. 2. Etiologies for hypoxa include pulmonary fibrosis, pneumonia. Continue pulse ox. Oxygen therapy. High flow or BiPAP as needed to keep oxygen saturation greater than 92% Inhalers 3. Initially I was reported last night that the patient has PE. But not final CT angio chest report -no PE. Discussed with the radiologist Dr. Castillo who felt no PE and suggested to do doppler to r/o DVT of legs Continue Xarelto until he is approved no DVT by Doppler. Aspirin is on hold 4. Continue vancomycin, cefepime and azithromycin for his pneumonia Blood culture Sputum culture MRSA screen -negative 5. Diabetic diet. Continue home Lantus 30 units daily. Insulin sliding scales. Adjust insulin based on sugar levels 6. No history of CHF. BNP 1376. Echocardiogram 7. Continue metoprolol succinate 25 mg daily and hydralazine as needed for high blood pressure 8. Continue statin for CAD. But aspirin is on hold 9. Continue other home medications for his other chronic problems 10. DVT prophylaxis: Xarelto 11. CODE STATUS: DNR/DNI - Mortality Measure Prognosis:: Poor
[2020-09-21] MEDS ORDERED: Rivaroxaban 15 MG Tab PO SCH (21:00)
[2020-09-21] MEDS: Albuterol 6.7 GM Inhaler INH SCH (22:01)
[2020-09-21] MEDS: Ezetimibe 10 MG Tab PO SCH (22:17)
[2020-09-21] MEDS: Trospium 20 MG Tab PO SCH (22:17)
[2020-09-21] MEDS: guaiFENesin 600 MG Tab.ER PO SCH (22:17)
[2020-09-21] MEDS: Temazepam 15 MG Cap PO PRN (22:18)
[2020-09-21] MEDS: Azithromycin 500 MG in Sodium Chloride 0.9% 250 ML IV SCH (22:18)
[2020-09-21] MEDS: Sertraline 25 MG Tab PO SCH (22:18)
[2020-09-21] MEDS: Rivaroxaban 15 MG Tab PO SCH (22:32)
[2020-09-21] MEDS: Cefepime 1 GM in Premix Bag 1 BAG IV SCH (22:47)
[2020-09-21] MEDS: Insulin Lispro 100 UNIT/ML 10 ML Vial SUBCUT SCH (22:48)
[2020-09-22] MEDS: Albuterol 6.7 GM Inhaler INH SCH ×4 (02:17→20:20)
[2020-09-22] MEDS: Levothyroxine 50 MCG Tab PO SCH (06:04)
[2020-09-22] MEDS: Trospium 20 MG Tab PO SCH ×2 (06:04→15:51)
[2020-09-22] MEDS: Insulin Lispro 100 UNIT/ML 10 ML Vial SUBCUT SCH ×4 (08:09→22:24)
--- NOTE | 2020-09-22 08:10 | CT ---
CT chest Technique: Multiple axial sections through the chest were obtained. Intravenous contrast was utilized. Study has been performed as a pulmonary angiogram protocol. Comparison: Prior chest CT study of 08/30/20. Findings: Pulmonary arteries are fairly well opacified. I do not appreciate any definite pulmonary emboli that would be treatable. Thoracic aorta shows atherosclerotic change. No thoracic aortic aneurysm is seen. Atherosclerotic change is noted within the coronary arteries. Mediastinum shows small lymph nodes. No pericardial thickening is seen. Gallstones are seen within the gallbladder. Cyst is noted within the left kidney. Lung window settings were reviewed which shows slight increasing density on the right side. Left-sided density appears minimally improved. Bone window settings were reviewed which show diffuse degenerative spurring within the spine. No acute osseous abnormality is appreciated. Impression: 1. Diffuse parenchymal densities within both lungs, slightly increased in prominence on the right side and slightly decreased in prominence on the left side. 2. I do not see a definite treatable pulmonary embolism on this exam. 3. Other findings as noted above which are stable. Diagnostic code #3 I slightly disagree with preliminary report from [facility], finalized on 09/21/20, 8:25 PM CDT, code 2
[2020-09-22] MEDS ORDERED: METHYLCELLULOSE PO SCH (09:00)
[2020-09-22] MEDS ORDERED: Triamcinolone Acetonide 0.1% Crm 15 GM Tube TOP PRN (09:00)
[2020-09-22] MEDS ORDERED: Insulin Glarg,Human.Rec.Analog 100 Unit/ML SUBCUT ONE (09:40)
[2020-09-22] MEDS: guaiFENesin 600 MG Tab.ER PO SCH ×2 (09:46→21:21)
[2020-09-22] MEDS: Cholecalciferol (Vitamin D3) 25 MCG Tab PO SCH (09:46)
[2020-09-22] MEDS: Metoprolol Succinate 25 MG Tab.ER PO SCH (09:46)
[2020-09-22] MEDS: Rivaroxaban 15 MG Tab PO SCH ×2 (09:46→21:22)
[2020-09-22] MEDS: Insulin Glarg,Human.Rec.Analog 100 Unit/ML SUBCUT SCH (09:47)
[2020-09-22] MEDS: FESOTERODINE FUMARATE 8 MG PO SCH (09:54)
--- NOTE | 2020-09-22 12:58 | PCM.PN ---
- General Info Date of Service: 09/22/20 Admission Dx/Problem (Free Text): Admission Diagnosis/Problem Admission Diagnosis/Problem Pulmonary embolism Subjective Update: Patient is an 85-year-old male with a history of pulmonary fibrosis and diabetes who was brought to the ER due to worsening shortness of breath and generalized weakness x 1 day. Patient said he has shortness of breath. But denies chest pain or fever chills. He is now on 5 L Hemoglobin 9.5 BNP 1376 Albumin 2.2 - Review of Systems Systems Review Comment:: General: Reports: Weakness HEENT: Reports: No Symptoms Pulmonary: Reports: Shortness of Breath Cardiovascular: Reports: No Symptoms Gastrointestinal: Reports: No Symptoms Genitourinary: Reports: No Symptoms Musculoskeletal: Reports: No Symptoms Skin: Reports: No Symptoms Psychiatric: Reports: No Symptoms Neurological: Reports: No Symptoms Hematologic/Lymphatic: Reports: No Symptoms Immunologic: Reports: No Symptoms - Patient Data Vitals - Most Recent: Last Vital Signs Temp 36.5 C 09/22/20 11:26 Pulse 95 09/22/20 11:26 Resp 21 H 09/22/20 11:26 BP 114/70 09/22/20 11:26 Pulse Ox 93 L 09/22/20 11:26 Weight - Most Recent: 67.404 kg I&O - Last 24 Hours: Intake & Output 09/21/20 09/22/20 09/22/20 22:59 06:59 14:59 Intake Total 750 Output Total 250 Balance 500 Lab Results Last 24 Hours: Laboratory Results - last 24 hr 09/21/20 09/21/20 09/21/20 Range/Units 16:10 16:15 16:15 WBC 7.75 (4.23-9.07) K/mm3 RBC 3.32 L (4.63-6.08) M/mm3 Hgb 9.8 L D (13.7-17.5) gm/dl Hct 31.7 L (40.1-51.0) % MCV 95.5 H (79.0-92.2) fl MCH 29.5 (25.7-32.2) pg MCHC 30.9 L (32.2-35.5) g/dl RDW Std Deviation 46.3 H (35.1-43.9) fL Plt Count 243 D (163-337) K/mm3 MPV 9.0 L (9.4-12.3) fl Neut % (Auto) (34.0-67.9) % Lymph % (Auto) (21.8-53.1) % [place] % (Auto) (5.3-12.2) % Eos % (Auto) (0.8-7.0) Baso % (Auto) (0.1-1.2) % Neut # (Auto) (1.78-5.38) K/mm3 Lymph # (Auto) (1.32-3.57) K/mm3 [place] # (Auto) (0.30-0.82) K/mm3 Eos # (Auto) (0.04-0.54) K/mm3 Baso # (Auto) (0.01-0.08) K/mm3 Neutrophils % (Manual) 64 H (40-60) % Band Neutrophils % 0 (0-10) % Lymphocytes % (Manual) 24 (20-40) % Atypical Lymphs % 2 % Monocytes % (Manual) 9 (2-10) % Eosinophils % (Manual) 1 (0.8-7.0) % Basophils % (Manual) 0 L (0.2-1.2) Platelet Estimate Adequate Hypochromasia 1+ slight Anisocytosis 1+ slight Macrocytosis 1+ slight Ovalocytes 1+ slight RBC Morph Comment Not Reportable PT (9.7-12.0) SECONDS INR APTT (21.7-31.4) SECONDS D-Dimer, Quantitative (0.19-0.50) mg/L Puncture Site ABG pH (7.35-7.45) ABG pCO2 (35.0-45.0) mmHg ABG pO2 (80.0-100.0) mmHg ABG HCO3 (22.0-26.0) meq/L ABG O2 Saturation (96.0-97.0) % ABG Base Excess (-2-2.0) Anibal Test A-a Gradient mmHg O2 Delivery Device Oxygen Flow Rate FiO2 (21.00-100.00) % Sodium 138 (136-145) mEq/L Potassium 4.4 (3.5-5.1) mEq/L Chloride 103 (98-107) mEq/L Carbon Dioxide 28 (21-32) mEq/L Anion Gap 11.4 (5-15) BUN 11 (7-18) mg/dL Creatinine 1.1 (0.7-1.3) mg/dL Est Cr Clr Drug Dosing 45.53 mL/min Estimated GFR (MDRD) > 60 (>60) mL/min BUN/Creatinine Ratio 10.0 L (14-18) Glucose 105 (83-115) mg/dL POC Glucose (70-99) mg/dL Lactic Acid (0.4-2.0) mmol/L Calcium 8.7 (8.5-10.1) mg/dL Phosphorus (2.6-4.7) mg/dL Magnesium (1.8-2.4) mg/dl Total Bilirubin 0.3 (0.2-1.0) mg/dL AST 23 (15-37) U/L ALT 29 (16-63) U/L Alkaline Phosphatase 61 (46-116) U/L Troponin I (0.00-0.056) ng/mL C-Reactive Protein 4.8 H* (<1.0) mg/dL NT-Pro-B Natriuret Pep (0-450) pg/mL Total Protein 7.2 (6.4-8.2) g/dl Albumin 2.4 L (3.4-5.0) g/dl Globulin 4.8 gm/dL Albumin/Globulin Ratio 0.5 L (1-2) Urine Color (Yellow) Urine Appearance (Clear) Urine pH (5.0-8.0) Ur Specific [place] (1.005-1.030) Urine Protein (Negative) Urine Glucose (UA) (Negative) Urine Ketones (Negative) Urine Occult Blood (Negative) Urine Nitrite (Negative) Urine Bilirubin (Negative) Urine Urobilinogen (0.2-1.0) Ur Leukocyte Esterase (Negative) Influenza Type A RNA Negative (NEGATIVE) Influenza Type B RNA Negative (NEGATIVE) SARS-CoV-2 RNA (REINA) Negative (NEGATIVE) MRSA (PCR) 09/21/20 09/21/20 09/21/20 Range/Units 16:15 16:15 16:15 WBC (4.23-9.07) K/mm3 RBC (4.63-6.08) M/mm3 Hgb (13.7-17.5) gm/dl Hct (40.1-51.0) % MCV (79.0-92.2) fl MCH (25.7-32.2) pg MCHC (32.2-35.5) g/dl RDW Std Deviation (35.1-43.9) fL Plt Count (163-337) K/mm3 MPV (9.4-12.3) fl Neut % (Auto) (34.0-67.9) % Lymph % (Auto) (21.8-53.1) % [place] % (Auto) (5.3-12.2) % Eos % (Auto) (0.8-7.0) Baso % (Auto) (0.1-1.2) % Neut # (Auto) (1.78-5.38) K/mm3 Lymph # (Auto) (1.32-3.57) K/mm3 [place] # (Auto) (0.30-0.82) K/mm3 Eos # (Auto) (0.04-0.54) K/mm3 Baso # (Auto) (0.01-0.08) K/mm3 Neutrophils % (Manual) (40-60) % Band Neutrophils % (0-10) % Lymphocytes % (Manual) (20-40) % Atypical Lymphs % % Monocytes % (Manual) (2-10) % Eosinophils % (Manual) (0.8-7.0) % Basophils % (Manual) (0.2-1.2) Platelet Estimate Hypochromasia Anisocytosis Macrocytosis Ovalocytes RBC Morph Comment PT 11.2 (9.7-12.0) SECONDS INR 1.05 APTT (21.7-31.4) SECONDS D-Dimer, Quantitative 0.96 H (0.19-0.50) mg/L Puncture Site ABG pH (7.35-7.45) ABG pCO2 (35.0-45.0) mmHg ABG pO2 (80.0-100.0) mmHg ABG HCO3 (22.0-26.0) meq/L ABG O2 Saturation (96.0-97.0) % ABG Base Excess (-2-2.0) Anibal Test A-a Gradient mmHg O2 Delivery Device Oxygen Flow Rate FiO2 (21.00-100.00) % Sodium (136-145) mEq/L Potassium (3.5-5.1) mEq/L Chloride (98-107) mEq/L Carbon Dioxide (21-32) mEq/L Anion Gap (5-15) BUN (7-18) mg/dL Creatinine (0.7-1.3) mg/dL Est Cr Clr Drug Dosing mL/min Estimated GFR (MDRD) (>60) mL/min BUN/Creatinine Ratio (14-18) Glucose (83-115) mg/dL POC Glucose (70-99) mg/dL Lactic Acid 1.1 (0.4-2.0) mmol/L Calcium (8.5-10.1) mg/dL Phosphorus (2.6-4.7) mg/dL Magnesium (1.8-2.4) mg/dl Total Bilirubin (0.2-1.0) mg/dL AST (15-37) U/L ALT (16-63) U/L Alkaline Phosphatase (46-116) U/L Troponin I (0.00-0.056) ng/mL C-Reactive Protein (<1.0) mg/dL NT-Pro-B Natriuret Pep 1376 H (0-450) pg/mL Total Protein (6.4-8.2) g/dl Albumin (3.4-5.0) g/dl Globulin gm/dL Albumin/Globulin Ratio (1-2) Urine Color (Yellow) Urine Appearance (Clear) Urine pH (5.0-8.0) Ur Specific [place] (1.005-1.030) Urine Protein (Negative) Urine Glucose (UA) (Negative) Urine Ketones (Negative) Urine Occult Blood (Negative) Urine Nitrite (Negative) Urine Bilirubin (Negative) Urine Urobilinogen (0.2-1.0) Ur Leukocyte Esterase (Negative) Influenza Type A RNA (NEGATIVE) Influenza Type B RNA (NEGATIVE) SARS-CoV-2 RNA (REINA) (NEGATIVE) MRSA (PCR) 09/21/20 09/21/20 09/21/20 Range/Units 16:15 18:06 21:01 WBC (4.23-9.07) K/mm3 RBC (4.63-6.08) M/mm3 Hgb (13.7-17.5) gm/dl Hct (40.1-51.0) % MCV (79.0-92.2) fl MCH (25.7-32.2) pg MCHC (32.2-35.5) g/dl RDW Std Deviation (35.1-43.9) fL Plt Count (163-337) K/mm3 MPV (9.4-12.3) fl Neut % (Auto) (34.0-67.9) % Lymph % (Auto) (21.8-53.1) % [place] % (Auto) (5.3-12.2) % Eos % (Auto) (0.8-7.0) Baso % (Auto) (0.1-1.2) % Neut # (Auto) (1.78-5.38) K/mm3 Lymph # (Auto) (1.32-3.57) K/mm3 [place] # (Auto) (0.30-0.82) K/mm3 Eos # (Auto) (0.04-0.54) K/mm3 Baso # (Auto) (0.01-0.08) K/mm3 Neutrophils % (Manual) (40-60) % Band Neutrophils % (0-10) % Lymphocytes % (Manual) (20-40) % Atypical Lymphs % % Monocytes % (Manual) (2-10) % Eosinophils % (Manual) (0.8-7.0) % Basophils % (Manual) (0.2-1.2) Platelet Estimate Hypochromasia Anisocytosis Macrocytosis Ovalocytes RBC Morph Comment PT 11.3 (9.7-12.0) SECONDS INR 1.06 APTT 26.2 (21.7-31.4) SECONDS D-Dimer, Quantitative (0.19-0.50) mg/L Puncture Site ABG pH (7.35-7.45) ABG pCO2 (35.0-45.0) mmHg ABG pO2 (80.0-100.0) mmHg ABG HCO3 (22.0-26.0) meq/L ABG O2 Saturation (96.0-97.0) % ABG Base Excess (-2-2.0) Anibal Test A-a Gradient mmHg O2 Delivery Device Oxygen Flow Rate FiO2 (21.00-100.00) % Sodium (136-145) mEq/L Potassium (3.5-5.1) mEq/L Chloride (98-107) mEq/L Carbon Dioxide (21-32) mEq/L Anion Gap (5-15) BUN (7-18) mg/dL Creatinine (0.7-1.3) mg/dL Est Cr Clr Drug Dosing mL/min Estimated GFR (MDRD) (>60) mL/min BUN/Creatinine Ratio (14-18) Glucose (83-115) mg/dL POC Glucose (70-99) mg/dL Lactic Acid (0.4-2.0) mmol/L Calcium (8.5-10.1) mg/dL Phosphorus (2.6-4.7) mg/dL Magnesium (1.8-2.4) mg/dl Total Bilirubin (0.2-1.0) mg/dL AST (15-37) U/L ALT (16-63) U/L Alkaline Phosphatase (46-116) U/L Troponin I < 0.017 (0.00-0.056) ng/mL C-Reactive Protein (<1.0) mg/dL NT-Pro-B Natriuret Pep (0-450) pg/mL Total Protein (6.4-8.2) g/dl Albumin (3.4-5.0) g/dl Globulin gm/dL Albumin/Globulin Ratio (1-2) Urine Color Yellow (Yellow) Urine Appearance Clear (Clear) Urine pH 7.0 (5.0-8.0) Ur Specific [place] 1.020 (1.005-1.030) Urine Protein Negative (Negative) Urine Glucose (UA) Negative (Negative) Urine Ketones Negative (Negative) Urine Occult Blood Negative (Negative) Urine Nitrite Negative (Negative) Urine Bilirubin Negative (Negative) Urine Urobilinogen 1.0 (0.2-1.0) Ur Leukocyte Esterase Negative (Negative) Influenza Type A RNA (NEGATIVE) Influenza Type B RNA (NEGATIVE) SARS-CoV-2 RNA (REINA) (NEGATIVE) MRSA (PCR) 09/21/20 09/21/20 09/22/20 Range/Units 21:01 23:50 04:41 WBC 8.36 (4.23-9.07) K/mm3 RBC 3.17 L (4.63-6.08) M/mm3 Hgb 9.5 L (13.7-17.5) gm/dl Hct 30.2 L (40.1-51.0) % MCV 95.3 H (79.0-92.2) fl MCH 30.0 (25.7-32.2) pg MCHC 31.5 L (32.2-35.5) g/dl RDW Std Deviation 46.6 H (35.1-43.9) fL Plt Count 241 (163-337) K/mm3 MPV 9.3 L (9.4-12.3) fl Neut % (Auto) 66.2 (34.0-67.9) % Lymph % (Auto) 21.1 L (21.8-53.1) % [place] % (Auto) 8.5 (5.3-12.2) % Eos % (Auto) 3.9 (0.8-7.0) Baso % (Auto) 0.2 (0.1-1.2) % Neut # (Auto) 5.53 H (1.78-5.38) K/mm3 Lymph # (Auto) 1.76 (1.32-3.57) K/mm3 [place] # (Auto) 0.71 (0.30-0.82) K/mm3 Eos # (Auto) 0.33 (0.04-0.54) K/mm3 Baso # (Auto) 0.02 (0.01-0.08) K/mm3 Neutrophils % (Manual) (40-60) % Band Neutrophils % (0-10) % Lymphocytes % (Manual) (20-40) % Atypical Lymphs % % Monocytes % (Manual) (2-10) % Eosinophils % (Manual) (0.8-7.0) % Basophils % (Manual) (0.2-1.2) Platelet Estimate Hypochromasia Anisocytosis Macrocytosis Ovalocytes RBC Morph Comment PT (9.7-12.0) SECONDS INR APTT (21.7-31.4) SECONDS D-Dimer, Quantitative (0.19-0.50) mg/L Puncture Site ABG pH (7.35-7.45) ABG pCO2 (35.0-45.0) mmHg ABG pO2 (80.0-100.0) mmHg ABG HCO3 (22.0-26.0) meq/L ABG O2 Saturation (96.0-97.0) % ABG Base Excess (-2-2.0) Anibal Test A-a Gradient mmHg O2 Delivery Device Oxygen Flow Rate FiO2 (21.00-100.00) % Sodium (136-145) mEq/L Potassium (3.5-5.1) mEq/L Chloride (98-107) mEq/L Carbon Dioxide (21-32) mEq/L Anion Gap (5-15) BUN (7-18) mg/dL Creatinine (0.7-1.3) mg/dL Est Cr Clr Drug Dosing mL/min Estimated GFR (MDRD) (>60) mL/min BUN/Creatinine Ratio (14-18) Glucose (83-115) mg/dL POC Glucose (70-99) mg/dL Lactic Acid (0.4-2.0) mmol/L Calcium (8.5-10.1) mg/dL Phosphorus 3.0 (2.6-4.7) mg/dL Magnesium 2.1 (1.8-2.4) mg/dl Total Bilirubin (0.2-1.0) mg/dL AST (15-37) U/L ALT (16-63) U/L Alkaline Phosphatase (46-116) U/L Troponin I < 0.017 (0.00-0.056) ng/mL C-Reactive Protein (<1.0) mg/dL NT-Pro-B Natriuret Pep (0-450) pg/mL Total Protein (6.4-8.2) g/dl Albumin (3.4-5.0) g/dl Globulin gm/dL Albumin/Globulin Ratio (1-2) Urine Color (Yellow) Urine Appearance (Clear) Urine pH (5.0-8.0) Ur Specific [place] (1.005-1.030) Urine Protein (Negative) Urine Glucose (UA) (Negative) Urine Ketones (Negative) Urine Occult Blood (Negative) Urine Nitrite (Negative) Urine Bilirubin (Negative) Urine Urobilinogen (0.2-1.0) Ur Leukocyte Esterase (Negative) Influenza Type A RNA (NEGATIVE) Influenza Type B RNA (NEGATIVE) SARS-CoV-2 RNA (REINA) (NEGATIVE) MRSA (PCR) Negative 09/22/20 09/22/20 09/22/20 Range/Units 04:41 07:26 09:44 WBC (4.23-9.07) K/mm3 RBC (4.63-6.08) M/mm3 Hgb (13.7-17.5) gm/dl Hct (40.1-51.0) % MCV (79.0-92.2) fl MCH (25.7-32.2) pg MCHC (32.2-35.5) g/dl RDW Std Deviation (35.1-43.9) fL Plt Count (163-337) K/mm3 MPV (9.4-12.3) fl Neut % (Auto) (34.0-67.9) % Lymph % (Auto) (21.8-53.1) % [place] % (Auto) (5.3-12.2) % Eos % (Auto) (0.8-7.0) Baso % (Auto) (0.1-1.2) % Neut # (Auto) (1.78-5.38) K/mm3 Lymph # (Auto) (1.32-3.57) K/mm3 [place] # (Auto) (0.30-0.82) K/mm3 Eos # (Auto) (0.04-0.54) K/mm3 Baso # (Auto) (0.01-0.08) K/mm3 Neutrophils % (Manual) (40-60) % Band Neutrophils % (0-10) % Lymphocytes % (Manual) (20-40) % Atypical Lymphs % % Monocytes % (Manual) (2-10) % Eosinophils % (Manual) (0.8-7.0) % Basophils % (Manual) (0.2-1.2) Platelet Estimate Hypochromasia Anisocytosis Macrocytosis Ovalocytes RBC Morph Comment PT (9.7-12.0) SECONDS INR APTT (21.7-31.4) SECONDS D-Dimer, Quantitative (0.19-0.50) mg/L Puncture Site ABG pH (7.35-7.45) ABG pCO2 (35.0-45.0) mmHg ABG pO2 (80.0-100.0) mmHg ABG HCO3 (22.0-26.0) meq/L ABG O2 Saturation (96.0-97.0) % ABG Base Excess (-2-2.0) Anibal Test A-a Gradient mmHg O2 Delivery Device Oxygen Flow Rate FiO2 (21.00-100.00) % Sodium 137 (136-145) mEq/L Potassium 3.9 (3.5-5.1) mEq/L Chloride 103 (98-107) mEq/L Carbon Dioxide 27 (21-32) mEq/L Anion Gap 10.9 (5-15) BUN 8 (7-18) mg/dL Creatinine 0.9 (0.7-1.3) mg/dL Est Cr Clr Drug Dosing 55.13 mL/min Estimated GFR (MDRD) > 60 (>60) mL/min BUN/Creatinine Ratio 8.9 L (14-18) Glucose 84 (83-115) mg/dL POC Glucose 74 144 H (70-99) mg/dL Lactic Acid (0.4-2.0) mmol/L Calcium 8.2 L (8.5-10.1) mg/dL Phosphorus (2.6-4.7) mg/dL Magnesium (1.8-2.4) mg/dl Total Bilirubin 0.4 (0.2-1.0) mg/dL AST 22 (15-37) U/L ALT 27 (16-63) U/L Alkaline Phosphatase 59 (46-116) U/L Troponin I (0.00-0.056) ng/mL C-Reactive Protein (<1.0) mg/dL NT-Pro-B Natriuret Pep (0-450) pg/mL Total Protein 6.8 (6.4-8.2) g/dl Albumin 2.2 L (3.4-5.0) g/dl Globulin 4.6 gm/dL Albumin/Globulin Ratio 0.5 L (1-2) Urine Color (Yellow) Urine Appearance (Clear) Urine pH (5.0-8.0) Ur Specific [place] (1.005-1.030) Urine Protein (Negative) Urine Glucose (UA) (Negative) Urine Ketones (Negative) Urine Occult Blood (Negative) Urine Nitrite (Negative) Urine Bilirubin (Negative) Urine Urobilinogen (0.2-1.0) Ur Leukocyte Esterase (Negative) Influenza Type A RNA (NEGATIVE) Influenza Type B RNA (NEGATIVE) SARS-CoV-2 RNA (REINA) (NEGATIVE) MRSA (PCR) 09/22/20 09/22/20 Range/Units 09:54 11:28 WBC (4.23-9.07) K/mm3 RBC (4.63-6.08) M/mm3 Hgb (13.7-17.5) gm/dl Hct (40.1-51.0) % MCV (79.0-92.2) fl MCH (25.7-32.2) pg MCHC (32.2-35.5) g/dl RDW Std Deviation (35.1-43.9) fL Plt Count (163-337) K/mm3 MPV (9.4-12.3) fl Neut % (Auto) (34.0-67.9) % Lymph % (Auto) (21.8-53.1) % [place] % (Auto) (5.3-12.2) % Eos % (Auto) (0.8-7.0) Baso % (Auto) (0.1-1.2) % Neut # (Auto) (1.78-5.38) K/mm3 Lymph # (Auto) (1.32-3.57) K/mm3 [place] # (Auto) (0.30-0.82) K/mm3 Eos # (Auto) (0.04-0.54) K/mm3 Baso # (Auto) (0.01-0.08) K/mm3 Neutrophils % (Manual) (40-60) % Band Neutrophils % (0-10) % Lymphocytes % (Manual) (20-40) % Atypical Lymphs % % Monocytes % (Manual) (2-10) % Eosinophils % (Manual) (0.8-7.0) % Basophils % (Manual) (0.2-1.2) Platelet Estimate Hypochromasia Anisocytosis Macrocytosis Ovalocytes RBC Morph Comment PT (9.7-12.0) SECONDS INR APTT (21.7-31.4) SECONDS D-Dimer, Quantitative (0.19-0.50) mg/L Puncture Site Rt radial ABG pH 7.46 H (7.35-7.45) ABG pCO2 36.2 (35.0-45.0) mmHg ABG pO2 64.0 L (80.0-100.0) mmHg ABG HCO3 25.1 (22.0-26.0) meq/L ABG O2 Saturation 93.7 L (96.0-97.0) % ABG Base Excess 1.8 (-2-2.0) Anibal Test Positive A-a Gradient 176 mmHg O2 Delivery Device Nasal cannula Oxygen Flow Rate 5.0 FiO2 40.00 (21.00-100.00) % Sodium (136-145) mEq/L Potassium (3.5-5.1) mEq/L Chloride (98-107) mEq/L Carbon Dioxide (21-32) mEq/L Anion Gap (5-15) BUN (7-18) mg/dL Creatinine (0.7-1.3) mg/dL Est Cr Clr Drug Dosing mL/min Estimated GFR (MDRD) (>60) mL/min BUN/Creatinine Ratio (14-18) Glucose (83-115) mg/dL POC Glucose 131 H (70-99) mg/dL Lactic Acid (0.4-2.0) mmol/L Calcium (8.5-10.1) mg/dL Phosphorus (2.6-4.7) mg/dL Magnesium (1.8-2.4) mg/dl Total Bilirubin (0.2-1.0) mg/dL AST (15-37) U/L ALT (16-63) U/L Alkaline Phosphatase (46-116) U/L Troponin I (0.00-0.056) ng/mL C-Reactive Protein (<1.0) mg/dL NT-Pro-B Natriuret Pep (0-450) pg/mL Total Protein (6.4-8.2) g/dl Albumin (3.4-5.0) g/dl Globulin gm/dL Albumin/Globulin Ratio (1-2) Urine Color (Yellow) Urine Appearance (Clear) Urine pH (5.0-8.0) Ur Specific [place] (1.005-1.030) Urine Protein (Negative) Urine Glucose (UA) (Negative) Urine Ketones (Negative) Urine Occult Blood (Negative) Urine Nitrite (Negative) Urine Bilirubin (Negative) Urine Urobilinogen (0.2-1.0) Ur Leukocyte Esterase (Negative) Influenza Type A RNA (NEGATIVE) Influenza Type B RNA (NEGATIVE) SARS-CoV-2 RNA (REINA) (NEGATIVE) MRSA (PCR) Med Orders - Current: Current Medications Acetaminophen (Acetaminophen 325 Mg Tab) 650 mg PO Q6H PRN PRN Reason: Pain (Mild 1-3)/fever Albuterol (Albuterol 6.7 Gm Inhaler) 0 gm INH Q6H [facility] Last Admin: 09/22/20 08:31 Dose: 2 inhalation Documented by: Albuterol/Ipratropium (Albuterol/Ipratropium 3.0-0.5 Mg/3 Ml Neb Soln) 3 ml NEB Q4H PRN PRN Reason: Shortness Of Breath/wheezing Cholecalciferol (Cholecalciferol (Vitamin D3) 25 Mcg Tab) 50 mcg PO DAILY [facility] Last Admin: 09/22/20 09:46 Dose: 50 mcg Documented by: Ezetimibe (Ezetimibe 10 Mg Tab) 10 mg PO BEDTIME [facility] Last Admin: 09/21/20 22:17 Dose: 10 mg Documented by: Guaifenesin (Guaifenesin 600 Mg Tab.Er) 1,200 mg PO BID [facility] Last Admin: 09/22/20 09:46 Dose: 1,200 mg Documented by: Hydralazine HCl (Hydralazine 20 Mg/Ml Sdv) 10 mg IVPUSH Q4H PRN PRN Reason: Hypertension Promethazine HCl 12.5 mg/ (Sodium Chloride) 50.5 mls @ 100 mls/hr IV Q6H PRN PRN Reason: Nausea/Vomiting Cefepime HCl 1 gm/ Premix 50 mls @ 100 mls/hr IV Q24H [facility] Last Admin: 09/21/20 22:47 Dose: 100 mls/hr Documented by: Vancomycin HCl 1 gm/Vancomycin HCl 250 mg/ Sodium Chloride 250 mls @ 166.667 mls/hr IV Q18H [facility] Azithromycin 500 mg/ Sodium (Chloride) 250 mls @ 250 mls/hr IV Q24H [facility] Last Admin: 09/21/20 22:18 Dose: 250 mls/hr Documented by: Insulin Glargine (Insulin Glarg,Human.Rec.Analog 100 Unit/Ml) 30 unit SUBCUT DAILY [facility] Last Admin: 09/22/20 09:47 Dose: 30 units Documented by: Insulin Human Lispro (Insulin Lispro 100 Unit/Ml) 0 unit SUBCUT QIDACANDBED [facility]; Protocol Last Admin: 09/22/20 08:09 Dose: Not Given Documented by: Levothyroxine Sodium (Levothyroxine 50 Mcg Tab) 50 mcg PO ACBREAKFAST [facility] Last Admin: 09/22/20 06:04 Dose: 50 mcg Documented by: Lorazepam (Lorazepam 0.5 Mg Tab) 0.5 mg PO Q6H PRN PRN Reason: Anxiety Metoprolol Succinate (Metoprolol Succinate 25 Mg Tab.Er) 25 mg PO DAILY [facility] Last Admin: 09/22/20 09:46 Dose: 25 mg Documented by: Morphine Sulfate (Morphine 2 Mg/Ml Syringe) 2 mg IVPUSH Q4H PRN PRN Reason: Pain (severe 7-10) Stop: 09/22/20 20:26 Fesoterodine Fumarate [Toviaz] 8 Mg Tab.Sr.24h Ptom 8 mg PO DAILY [facility] Last Admin: 09/22/20 09:54 Dose: Not Given Documented by: Rivaroxaban (Rivaroxaban 15 Mg Tab) 15 mg PO BID [facility] Last Admin: 09/22/20 09:46 Dose: 15 mg Documented by: Rosuvastatin Calcium (Rosuvastatin 10 Mg Tab) 10 mg PO PCDINNER [facility] Sertraline HCl (Sertraline 25 Mg Tab) 25 mg PO BEDTIME [facility] Last Admin: 09/21/20 22:18 Dose: 25 mg Documented by: Sodium Chloride (Sodium Chloride 0.9% 10 Ml Syringe) 10 ml FLUSH ASDIRECTED PRN PRN Reason: Keep Vein Open Last Admin: 09/21/20 15:53 Dose: 10 ml Documented by: Temazepam (Temazepam 15 Mg Cap) 15 mg PO BEDTIME PRN PRN Reason: oth Last Admin: 09/21/20 22:18 Dose: 15 mg Documented by: Triamcinolone Acetonide (Triamcinolone Acetonide 0.1% Crm 15 Gm Tube) 0 gm TOP TID PRN PRN Reason: skin complications Trospium (Trospium 20 Mg Tab) 20 mg PO BIDAC [facility] Last Admin: 09/22/20 06:04 Dose: 20 mg Documented by: Vancomycin HCl (Pharmacy To Dose - Vancomycin) 1 dose .XX DAILY PRN PRN Reason: RX TO DOSE VANCO Discontinued Medications Sodium Chloride (Normal Saline) 100 mls @ 60 mls/hr IV ASDIRECTED [facility] Last Admin: 09/21/20 18:48 Dose: 60 mls/hr Documented by: Vancomycin HCl 1 gm/ Sodium (Chloride) 250 mls @ 250 mls/hr IV ONETIME ONE Stop: 09/22/20 00:44 Last Admin: 09/22/20 01:45 Dose: Not Given Documented by: Vancomycin HCl 1 gm/ Sodium (Chloride) 250 mls @ 250 mls/hr IV ONETIME ONE Stop: 09/22/20 02:14 Last Admin: 09/22/20 01:44 Dose: 250 mls/hr Documented by: Iopamidol (Iopamidol 755 Mg/Ml 100 Ml Bottle) 100 ml IVPUSH ONETIME ONE Stop: 09/21/20 18:04 Last Admin: 09/21/20 18:48 Dose: 100 ml Documented by: Non-Formulary Medication (Methylcellulose) 479 gm PO DAILY [facility] Rivaroxaban (Rivaroxaban 15 Mg Tab) 15 mg PO ONETIME ONE Stop: 09/21/20 20:01 Last Admin: 09/21/20 22:47 Dose: 15 mg Documented by: Rivaroxaban (Rivaroxaban 15 Mg Tab) 15 mg PO BID [facility] Stop: 10/11/20 23:59 Rivaroxaban (Rivaroxaban 15 Mg Tab) 15 mg PO ONETIME ONE Stop: 09/21/20 22:31 Last Admin: 09/21/20 22:32 Dose: 15 mg Documented by: Sodium Chloride (Sodium Chloride 0.9% 10 Ml Syringe) 10 ml FLUSH ONETIME ONE Stop: 09/21/20 18:04 Last Admin: 09/21/20 18:48 Dose: 10 ml Documented by: - Exam Physical Findings Comments:: General: Alert, Oriented, Cooperative, Mild Distress (Due to shortness of breath) HEENT: Conjunctiva Clear, EOMI, Pupils Equal, Pupils Reactive Neck: Supple, Trachea Midline Lungs: Decreased Breath Sounds, Crackles (Bibasilar) Cardiovascular: Regular Rate, Regular Rhythm, Normal S1, Normal S2 GI/Abdominal Exam: Normal Bowel Sounds, Soft, Non-Tender, No Organomegaly Extremities: Normal Inspection, Normal Range of Motion, Non-Tender, No Pedal Edema Skin: Warm, Dry, Intact Neurological: Reflexes Equal Bilateral, Strength Equal Bilateral, Normal Speech, Normal Tone, Sensation Intact Neuro Extensive - Mental Status: Alert, Oriented x3, Normal Mood/Affect Psychiatric: Normal Mood - Patient Data Lab Results Last 24 hrs: Laboratory Results - last 24 hr 09/21/20 09/21/20 09/21/20 Range/Units 16:10 16:15 16:15 WBC 7.75 (4.23-9.07) K/mm3 RBC 3.32 L (4.63-6.08) M/mm3 Hgb 9.8 L D (13.7-17.5) gm/dl Hct 31.7 L (40.1-51.0) % MCV 95.5 H (79.0-92.2) fl MCH 29.5 (25.7-32.2) pg MCHC 30.9 L (32.2-35.5) g/dl RDW Std Deviation 46.3 H (35.1-43.9) fL Plt Count 243 D (163-337) K/mm3 MPV 9.0 L (9.4-12.3) fl Neut % (Auto) (34.0-67.9) % Lymph % (Auto) (21.8-53.1) % [place] % (Auto) (5.3-12.2) % Eos % (Auto) (0.8-7.0) Baso % (Auto) (0.1-1.2) % Neut # (Auto) (1.78-5.38) K/mm3 Lymph # (Auto) (1.32-3.57) K/mm3 [place] # (Auto) (0.30-0.82) K/mm3 Eos # (Auto) (0.04-0.54) K/mm3 Baso # (Auto) (0.01-0.08) K/mm3 Neutrophils % (Manual) 64 H (40-60) % Band Neutrophils % 0 (0-10) % Lymphocytes % (Manual) 24 (20-40) % Atypical Lymphs % 2 % Monocytes % (Manual) 9 (2-10) % Eosinophils % (Manual) 1 (0.8-7.0) % Basophils % (Manual) 0 L (0.2-1.2) Platelet Estimate Adequate Hypochromasia 1+ slight Anisocytosis 1+ slight Macrocytosis 1+ slight Ovalocytes 1+ slight RBC Morph Comment Not Reportable PT (9.7-12.0) SECONDS INR APTT (21.7-31.4) SECONDS D-Dimer, Quantitative (0.19-0.50) mg/L Puncture Site ABG pH (7.35-7.45) ABG pCO2 (35.0-45.0) mmHg ABG pO2 (80.0-100.0) mmHg ABG HCO3 (22.0-26.0) meq/L ABG O2 Saturation (96.0-97.0) % ABG Base Excess (-2-2.0) Anibal Test A-a Gradient mmHg O2 Delivery Device Oxygen Flow Rate FiO2 (21.00-100.00) % Sodium 138 (136-145) mEq/L Potassium 4.4 (3.5-5.1) mEq/L Chloride 103 (98-107) mEq/L Carbon Dioxide 28 (21-32) mEq/L Anion Gap 11.4 (5-15) BUN 11 (7-18) mg/dL Creatinine 1.1 (0.7-1.3) mg/dL Est Cr Clr Drug Dosing 45.53 mL/min Estimated GFR (MDRD) > 60 (>60) mL/min BUN/Creatinine Ratio 10.0 L (14-18) Glucose 105 (83-115) mg/dL POC Glucose (70-99) mg/dL Lactic Acid (0.4-2.0) mmol/L Calcium 8.7 (8.5-10.1) mg/dL Phosphorus (2.6-4.7) mg/dL Magnesium (1.8-2.4) mg/dl Total Bilirubin 0.3 (0.2-1.0) mg/dL AST 23 (15-37) U/L ALT 29 (16-63) U/L Alkaline Phosphatase 61 (46-116) U/L Troponin I (0.00-0.056) ng/mL C-Reactive Protein 4.8 H* (<1.0) mg/dL NT-Pro-B Natriuret Pep (0-450) pg/mL Total Protein 7.2 (6.4-8.2) g/dl Albumin 2.4 L (3.4-5.0) g/dl Globulin 4.8 gm/dL Albumin/Globulin Ratio 0.5 L (1-2) Urine Color (Yellow) Urine Appearance (Clear) Urine pH (5.0-8.0) Ur Specific [place] (1.005-1.030) Urine Protein (Negative) Urine Glucose (UA) (Negative) Urine Ketones (Negative) Urine Occult Blood (Negative) Urine Nitrite (Negative) Urine Bilirubin (Negative) Urine Urobilinogen (0.2-1.0) Ur Leukocyte Esterase (Negative) Influenza Type A RNA Negative (NEGATIVE) Influenza Type B RNA Negative (NEGATIVE) SARS-CoV-2 RNA (REINA) Negative (NEGATIVE) MRSA (PCR) 09/21/20 09/21/20 09/21/20 Range/Units 16:15 16:15 16:15 WBC (4.23-9.07) K/mm3 RBC (4.63-6.08) M/mm3 Hgb (13.7-17.5) gm/dl Hct (40.1-51.0) % MCV (79.0-92.2) fl MCH (25.7-32.2) pg MCHC (32.2-35.5) g/dl RDW Std Deviation (35.1-43.9) fL Plt Count (163-337) K/mm3 MPV (9.4-12.3) fl Neut % (Auto) (34.0-67.9) % Lymph % (Auto) (21.8-53.1) % [place] % (Auto) (5.3-12.2) % Eos % (Auto) (0.8-7.0) Baso % (Auto) (0.1-1.2) % Neut # (Auto) (1.78-5.38) K/mm3 Lymph # (Auto) (1.32-3.57) K/mm3 [place] # (Auto) (0.30-0.82) K/mm3 Eos # (Auto) (0.04-0.54) K/mm3 Baso # (Auto) (0.01-0.08) K/mm3 Neutrophils % (Manual) (40-60) % Band Neutrophils % (0-10) % Lymphocytes % (Manual) (20-40) % Atypical Lymphs % % Monocytes % (Manual) (2-10) % Eosinophils % (Manual) (0.8-7.0) % Basophils % (Manual) (0.2-1.2) Platelet Estimate Hypochromasia Anisocytosis Macrocytosis Ovalocytes RBC Morph Comment PT 11.2 (9.7-12.0) SECONDS INR 1.05 APTT (21.7-31.4) SECONDS D-Dimer, Quantitative 0.96 H (0.19-0.50) mg/L Puncture Site ABG pH (7.35-7.45) ABG pCO2 (35.0-45.0) mmHg ABG pO2 (80.0-100.0) mmHg ABG HCO3 (22.0-26.0) meq/L ABG O2 Saturation (96.0-97.0) % ABG Base Excess (-2-2.0) Anibal Test A-a Gradient mmHg O2 Delivery Device Oxygen Flow Rate FiO2 (21.00-100.00) % Sodium (136-145) mEq/L Potassium (3.5-5.1) mEq/L Chloride (98-107) mEq/L Carbon Dioxide (21-32) mEq/L Anion Gap (5-15) BUN (7-18) mg/dL Creatinine (0.7-1.3) mg/dL Est Cr Clr Drug Dosing mL/min Estimated GFR (MDRD) (>60) mL/min BUN/Creatinine Ratio (14-18) Glucose (83-115) mg/dL POC Glucose (70-99) mg/dL Lactic Acid 1.1 (0.4-2.0) mmol/L Calcium (8.5-10.1) mg/dL Phosphorus (2.6-4.7) mg/dL Magnesium (1.8-2.4) mg/dl Total Bilirubin (0.2-1.0) mg/dL AST (15-37) U/L ALT (16-63) U/L Alkaline Phosphatase (46-116) U/L Troponin I (0.00-0.056) ng/mL C-Reactive Protein (<1.0) mg/dL NT-Pro-B Natriuret Pep 1376 H (0-450) pg/mL Total Protein (6.4-8.2) g/dl Albumin (3.4-5.0) g/dl Globulin gm/dL Albumin/Globulin Ratio (1-2) Urine Color (Yellow) Urine Appearance (Clear) Urine pH (5.0-8.0) Ur Specific [place] (1.005-1.030) Urine Protein (Negative) Urine Glucose (UA) (Negative) Urine Ketones (Negative) Urine Occult Blood (Negative) Urine Nitrite (Negative) Urine Bilirubin (Negative) Urine Urobilinogen (0.2-1.0) Ur Leukocyte Esterase (Negative) Influenza Type A RNA (NEGATIVE) Influenza Type B RNA (NEGATIVE) SARS-CoV-2 RNA (REINA) (NEGATIVE) MRSA (PCR) 09/21/20 09/21/20 09/21/20 Range/Units 16:15 18:06 21:01 WBC (4.23-9.07) K/mm3 RBC (4.63-6.08) M/mm3 Hgb (13.7-17.5) gm/dl Hct (40.1-51.0) % MCV (79.0-92.2) fl MCH (25.7-32.2) pg MCHC (32.2-35.5) g/dl RDW Std Deviation (35.1-43.9) fL Plt Count (163-337) K/mm3 MPV (9.4-12.3) fl Neut % (Auto) (34.0-67.9) % Lymph % (Auto) (21.8-53.1) % [place] % (Auto) (5.3-12.2) % Eos % (Auto) (0.8-7.0) Baso % (Auto) (0.1-1.2) % Neut # (Auto) (1.78-5.38) K/mm3 Lymph # (Auto) (1.32-3.57) K/mm3 [place] # (Auto) (0.30-0.82) K/mm3 Eos # (Auto) (0.04-0.54) K/mm3 Baso # (Auto) (0.01-0.08) K/mm3 Neutrophils % (Manual) (40-60) % Band Neutrophils % (0-10) % Lymphocytes % (Manual) (20-40) % Atypical Lymphs % % Monocytes % (Manual) (2-10) % Eosinophils % (Manual) (0.8-7.0) % Basophils % (Manual) (0.2-1.2) Platelet Estimate Hypochromasia Anisocytosis Macrocytosis Ovalocytes RBC Morph Comment PT 11.3 (9.7-12.0) SECONDS INR 1.06 APTT 26.2 (21.7-31.4) SECONDS D-Dimer, Quantitative (0.19-0.50) mg/L Puncture Site ABG pH (7.35-7.45) ABG pCO2 (35.0-45.0) mmHg ABG pO2 (80.0-100.0) mmHg ABG HCO3 (22.0-26.0) meq/L ABG O2 Saturation (96.0-97.0) % ABG Base Excess (-2-2.0) Anibal Test A-a Gradient mmHg O2 Delivery Device Oxygen Flow Rate FiO2 (21.00-100.00) % Sodium (136-145) mEq/L Potassium (3.5-5.1) mEq/L Chloride (98-107) mEq/L Carbon Dioxide (21-32) mEq/L Anion Gap (5-15) BUN (7-18) mg/dL Creatinine (0.7-1.3) mg/dL Est Cr Clr Drug Dosing mL/min Estimated GFR (MDRD) (>60) mL/min BUN/Creatinine Ratio (14-18) Glucose (83-115) mg/dL POC Glucose (70-99) mg/dL Lactic Acid (0.4-2.0) mmol/L Calcium (8.5-10.1) mg/dL Phosphorus (2.6-4.7) mg/dL Magnesium (1.8-2.4) mg/dl Total Bilirubin (0.2-1.0) mg/dL AST (15-37) U/L ALT (16-63) U/L Alkaline Phosphatase (46-116) U/L Troponin I < 0.017 (0.00-0.056) ng/mL C-Reactive Protein (<1.0) mg/dL NT-Pro-B Natriuret Pep (0-450) pg/mL Total Protein (6.4-8.2) g/dl Albumin (3.4-5.0) g/dl Globulin gm/dL Albumin/Globulin Ratio (1-2) Urine Color Yellow (Yellow) Urine Appearance Clear (Clear) Urine pH 7.0 (5.0-8.0) Ur Specific [place] 1.020 (1.005-1.030) Urine Protein Negative (Negative) Urine Glucose (UA) Negative (Negative) Urine Ketones Negative (Negative) Urine Occult Blood Negative (Negative) Urine Nitrite Negative (Negative) Urine Bilirubin Negative (Negative) Urine Urobilinogen 1.0 (0.2-1.0) Ur Leukocyte Esterase Negative (Negative) Influenza Type A RNA (NEGATIVE) Influenza Type B RNA (NEGATIVE) SARS-CoV-2 RNA (REINA) (NEGATIVE) MRSA (PCR) 09/21/20 09/21/20 09/22/20 Range/Units 21:01 23:50 04:41 WBC 8.36 (4.23-9.07) K/mm3 RBC 3.17 L (4.63-6.08) M/mm3 Hgb 9.5 L (13.7-17.5) gm/dl Hct 30.2 L (40.1-51.0) % MCV 95.3 H (79.0-92.2) fl MCH 30.0 (25.7-32.2) pg MCHC 31.5 L (32.2-35.5) g/dl RDW Std Deviation 46.6 H (35.1-43.9) fL Plt Count 241 (163-337) K/mm3 MPV 9.3 L (9.4-12.3) fl Neut % (Auto) 66.2 (34.0-67.9) % Lymph % (Auto) 21.1 L (21.8-53.1) % [place] % (Auto) 8.5 (5.3-12.2) % Eos % (Auto) 3.9 (0.8-7.0) Baso % (Auto) 0.2 (0.1-1.2) % Neut # (Auto) 5.53 H (1.78-5.38) K/mm3 Lymph # (Auto) 1.76 (1.32-3.57) K/mm3 [place] # (Auto) 0.71 (0.30-0.82) K/mm3 Eos # (Auto) 0.33 (0.04-0.54) K/mm3 Baso # (Auto) 0.02 (0.01-0.08) K/mm3 Neutrophils % (Manual) (40-60) % Band Neutrophils % (0-10) % Lymphocytes % (Manual) (20-40) % Atypical Lymphs % % Monocytes % (Manual) (2-10) % Eosinophils % (Manual) (0.8-7.0) % Basophils % (Manual) (0.2-1.2) Platelet Estimate Hypochromasia Anisocytosis Macrocytosis Ovalocytes RBC Morph Comment PT (9.7-12.0) SECONDS INR APTT (21.7-31.4) SECONDS D-Dimer, Quantitative (0.19-0.50) mg/L Puncture Site ABG pH (7.35-7.45) ABG pCO2 (35.0-45.0) mmHg ABG pO2 (80.0-100.0) mmHg ABG HCO3 (22.0-26.0) meq/L ABG O2 Saturation (96.0-97.0) % ABG Base Excess (-2-2.0) Anibal Test A-a Gradient mmHg O2 Delivery Device Oxygen Flow Rate FiO2 (21.00-100.00) % Sodium (136-145) mEq/L Potassium (3.5-5.1) mEq/L Chloride (98-107) mEq/L Carbon Dioxide (21-32) mEq/L Anion Gap (5-15) BUN (7-18) mg/dL Creatinine (0.7-1.3) mg/dL Est Cr Clr Drug Dosing mL/min Estimated GFR (MDRD) (>60) mL/min BUN/Creatinine Ratio (14-18) Glucose (83-115) mg/dL POC Glucose (70-99) mg/dL Lactic Acid (0.4-2.0) mmol/L Calcium (8.5-10.1) mg/dL Phosphorus 3.0 (2.6-4.7) mg/dL Magnesium 2.1 (1.8-2.4) mg/dl Total Bilirubin (0.2-1.0) mg/dL AST (15-37) U/L ALT (16-63) U/L Alkaline Phosphatase (46-116) U/L Troponin I < 0.017 (0.00-0.056) ng/mL C-Reactive Protein (<1.0) mg/dL NT-Pro-B Natriuret Pep (0-450) pg/mL Total Protein (6.4-8.2) g/dl Albumin (3.4-5.0) g/dl Globulin gm/dL Albumin/Globulin Ratio (1-2) Urine Color (Yellow) Urine Appearance (Clear) Urine pH (5.0-8.0) Ur Specific [place] (1.005-1.030) Urine Protein (Negative) Urine Glucose (UA) (Negative) Urine Ketones (Negative) Urine Occult Blood (Negative) Urine Nitrite (Negative) Urine Bilirubin (Negative) Urine Urobilinogen (0.2-1.0) Ur Leukocyte Esterase (Negative) Influenza Type A RNA (NEGATIVE) Influenza Type B RNA (NEGATIVE) SARS-CoV-2 RNA (REINA) (NEGATIVE) MRSA (PCR) Negative 09/22/20 09/22/20 09/22/20 Range/Units 04:41 07:26 09:44 WBC (4.23-9.07) K/mm3 RBC (4.63-6.08) M/mm3 Hgb (13.7-17.5) gm/dl Hct (40.1-51.0) % MCV (79.0-92.2) fl MCH (25.7-32.2) pg MCHC (32.2-35.5) g/dl RDW Std Deviation (35.1-43.9) fL Plt Count (163-337) K/mm3 MPV (9.4-12.3) fl Neut % (Auto) (34.0-67.9) % Lymph % (Auto) (21.8-53.1) % [place] % (Auto) (5.3-12.2) % Eos % (Auto) (0.8-7.0) Baso % (Auto) (0.1-1.2) % Neut # (Auto) (1.78-5.38) K/mm3 Lymph # (Auto) (1.32-3.57) K/mm3 [place] # (Auto) (0.30-0.82) K/mm3 Eos # (Auto) (0.04-0.54) K/mm3 Baso # (Auto) (0.01-0.08) K/mm3 Neutrophils % (Manual) (40-60) % Band Neutrophils % (0-10) % Lymphocytes % (Manual) (20-40) % Atypical Lymphs % % Monocytes % (Manual) (2-10) % Eosinophils % (Manual) (0.8-7.0) % Basophils % (Manual) (0.2-1.2) Platelet Estimate Hypochromasia Anisocytosis Macrocytosis Ovalocytes RBC Morph Comment PT (9.7-12.0) SECONDS INR APTT (21.7-31.4) SECONDS D-Dimer, Quantitative (0.19-0.50) mg/L Puncture Site ABG pH (7.35-7.45) ABG pCO2 (35.0-45.0) mmHg ABG pO2 (80.0-100.0) mmHg ABG HCO3 (22.0-26.0) meq/L ABG O2 Saturation (96.0-97.0) % ABG Base Excess (-2-2.0) Anibal Test A-a Gradient mmHg O2 Delivery Device Oxygen Flow Rate FiO2 (21.00-100.00) % Sodium 137 (136-145) mEq/L Potassium 3.9 (3.5-5.1) mEq/L Chloride 103 (98-107) mEq/L Carbon Dioxide 27 (21-32) mEq/L Anion Gap 10.9 (5-15) BUN 8 (7-18) mg/dL Creatinine 0.9 (0.7-1.3) mg/dL Est Cr Clr Drug Dosing 55.13 mL/min Estimated GFR (MDRD) > 60 (>60) mL/min BUN/Creatinine Ratio 8.9 L (14-18) Glucose 84 (83-115) mg/dL POC Glucose 74 144 H (70-99) mg/dL Lactic Acid (0.4-2.0) mmol/L Calcium 8.2 L (8.5-10.1) mg/dL Phosphorus (2.6-4.7) mg/dL Magnesium (1.8-2.4) mg/dl Total Bilirubin 0.4 (0.2-1.0) mg/dL AST 22 (15-37) U/L ALT 27 (16-63) U/L Alkaline Phosphatase 59 (46-116) U/L Troponin I (0.00-0.056) ng/mL C-Reactive Protein (<1.0) mg/dL NT-Pro-B Natriuret Pep (0-450) pg/mL Total Protein 6.8 (6.4-8.2) g/dl Albumin 2.2 L (3.4-5.0) g/dl Globulin 4.6 gm/dL Albumin/Globulin Ratio 0.5 L (1-2) Urine Color (Yellow) Urine Appearance (Clear) Urine pH (5.0-8.0) Ur Specific [place] (1.005-1.030) Urine Protein (Negative) Urine Glucose (UA) (Negative) Urine Ketones (Negative) Urine Occult Blood (Negative) Urine Nitrite (Negative) Urine Bilirubin (Negative) Urine Urobilinogen (0.2-1.0) Ur Leukocyte Esterase (Negative) Influenza Type A RNA (NEGATIVE) Influenza Type B RNA (NEGATIVE) SARS-CoV-2 RNA (REINA) (NEGATIVE) MRSA (PCR) 09/22/20 09/22/20 Range/Units 09:54 11:28 WBC (4.23-9.07) K/mm3 RBC (4.63-6.08) M/mm3 Hgb (13.7-17.5) gm/dl Hct (40.1-51.0) % MCV (79.0-92.2) fl MCH (25.7-32.2) pg MCHC (32.2-35.5) g/dl RDW Std Deviation (35.1-43.9) fL Plt Count (163-337) K/mm3 MPV (9.4-12.3) fl Neut % (Auto) (34.0-67.9) % Lymph % (Auto) (21.8-53.1) % [place] % (Auto) (5.3-12.2) % Eos % (Auto) (0.8-7.0) Baso % (Auto) (0.1-1.2) % Neut # (Auto) (1.78-5.38) K/mm3 Lymph # (Auto) (1.32-3.57) K/mm3 [place] # (Auto) (0.30-0.82) K/mm3 Eos # (Auto) (0.04-0.54) K/mm3 Baso # (Auto) (0.01-0.08) K/mm3 Neutrophils % (Manual) (40-60) % Band Neutrophils % (0-10) % Lymphocytes % (Manual) (20-40) % Atypical Lymphs % % Monocytes % (Manual) (2-10) % Eosinophils % (Manual) (0.8-7.0) % Basophils % (Manual) (0.2-1.2) Platelet Estimate Hypochromasia Anisocytosis Macrocytosis Ovalocytes RBC Morph Comment PT (9.7-12.0) SECONDS INR APTT (21.7-31.4) SECONDS D-Dimer, Quantitative (0.19-0.50) mg/L Puncture Site Rt radial ABG pH 7.46 H (7.35-7.45) ABG pCO2 36.2 (35.0-45.0) mmHg ABG pO2 64.0 L (80.0-100.0) mmHg ABG HCO3 25.1 (22.0-26.0) meq/L ABG O2 Saturation 93.7 L (96.0-97.0) % ABG Base Excess 1.8 (-2-2.0) Anibal Test Positive A-a Gradient 176 mmHg O2 Delivery Device Nasal cannula Oxygen Flow Rate 5.0 FiO2 40.00 (21.00-100.00) % Sodium (136-145) mEq/L Potassium (3.5-5.1) mEq/L Chloride (98-107) mEq/L Carbon Dioxide (21-32) mEq/L Anion Gap (5-15) BUN (7-18) mg/dL Creatinine (0.7-1.3) mg/dL Est Cr Clr Drug Dosing mL/min Estimated GFR (MDRD) (>60) mL/min BUN/Creatinine Ratio (14-18) Glucose (83-115) mg/dL POC Glucose 131 H (70-99) mg/dL Lactic Acid (0.4-2.0) mmol/L Calcium (8.5-10.1) mg/dL Phosphorus (2.6-4.7) mg/dL Magnesium (1.8-2.4) mg/dl Total Bilirubin (0.2-1.0) mg/dL AST (15-37) U/L ALT (16-63) U/L Alkaline Phosphatase (46-116) U/L Troponin I (0.00-0.056) ng/mL C-Reactive Protein (<1.0) mg/dL NT-Pro-B Natriuret Pep (0-450) pg/mL Total Protein (6.4-8.2) g/dl Albumin (3.4-5.0) g/dl Globulin gm/dL Albumin/Globulin Ratio (1-2) Urine Color (Yellow) Urine Appearance (Clear) Urine pH (5.0-8.0) Ur Specific [place] (1.005-1.030) Urine Protein (Negative) Urine Glucose (UA) (Negative) Urine Ketones (Negative) Urine Occult Blood (Negative) Urine Nitrite (Negative) Urine Bilirubin (Negative) Urine Urobilinogen (0.2-1.0) Ur Leukocyte Esterase (Negative) Influenza Type A RNA (NEGATIVE) Influenza Type B RNA (NEGATIVE) SARS-CoV-2 RNA (REINA) (NEGATIVE) MRSA (PCR) Result Diagrams: 09/22/20 04:41 09/22/20 04:41 Sepsis Event Note - Evaluation Sepsis Screening Result: No Definite Risk - Focused Exam Vital Signs: Vital Signs Temp Pulse Resp BP Pulse Ox Pulse Ox 09/22/20 11:26 36.5 C 95 21 H 114/70 93 L 09/22/20 09:48 98 104/52 L 95 09/22/20 09:46 99 104/52 L 09/22/20 08:31 94 L 09/22/20 07:17 36.6 C 86 18 110/56 L 94 L 09/22/20 06:15 97 09/22/20 04:28 36.4 C 83 24 H 136/73 98 09/22/20 01:44 36.4 C 83 20 103/89 97 - Problem List Review Problem List Initiated/Reviewed/Updated: Yes - My Orders Last 24 Hours: My Active Orders 09/21/20 20:25 Cardiac Monitoring [RC] CONTINUOUS Oxygen Therapy [RC] PRN Pulse Oximetry [RC] CONTINUOUS Up to Chair [RC] ASDIRECTED VTE/DVT Education [RC] PER UNIT ROUTINE Vital Signs [RC] Q4H OT Evaluation and Treatment [CONS] Routine PT Evaluation and Treatment [CONS] Routine Acetaminophen [TylenoL] 650 mg PO Q6H PRN Albuterol/Ipratropium [DuoNeb 3.0-0.5 MG/3 ML] 3 ml NEB Q4H PRN Morphine 2 mg IVPUSH Q4H PRN Promethazine [Phenergan] 12.5 mg Sodium Chloride 0.9% [Normal Saline] 50 ml IV Q6H 09/21/20 20:27 RT Aerosol Therapy [RC] ASDIRECTED 09/21/20 20:34 hydrALAZINE [Apresoline] 10 mg IVPUSH Q4H PRN 09/21/20 20:35 LORazepam [Ativan] 0.5 mg PO Q6H PRN Temazepam [Restoril] 15 mg PO BEDTIME PRN 09/21/20 20:40 RT Post Treatment Assessment [RC] Click to Edit RT Pre-Treatment Assessment [RC] Click to Edit 09/21/20 21:00 Albuterol [Proventil HFA] 0 gm INH Q6H Azithromycin [Zithromax] 500 mg Sodium Chloride 0.9% [Normal Saline (AdvBag)] 250 ml IV Q24H Ezetimibe [Zetia] 10 mg PO BEDTIME Sertraline [Zoloft] 25 mg PO BEDTIME Trospium [Sanctura] 20 mg PO BIDAC guaiFENesin [Mucinex] 1,200 mg PO BID 09/21/20 22:00 Cefepime [Maxipime in D5W 1 GM/50 ML] 1 gm Premix Bag 1 bag IV Q24H Insulin Lispro [HumaLOG] See Protocol SUBCUT QIDACANDBED 09/22/20 06:00 Levothyroxine [Synthroid] 50 mcg PO ACBREAKFAST 09/22/20 09:00 Cholecalciferol (Vitamin D3) [Vitamin D3] 50 mcg PO DAILY Fesoterodine Fumarate [Toviaz] 8 mg PO DAILY Insulin Glarg,Human.Rec.Analog [LantUS] 30 unit SUBCUT DAILY Metoprolol Succinate [Toprol XL] 25 mg PO DAILY Rivaroxaban [Xarelto] 15 mg PO BID Triamcinolone Acetonide [Triamcinolone Acetonide 0.1% Crm] 0 gm TOP TID PRN 09/22/20 10:00 CULTURE SPUTUM + SMEAR [RM] Stat 09/22/20 10:57 Pharmacy to Dose - Vancomycin 1 dose .XX DAILY PRN 09/22/20 12:14 Code Status [Resuscitation Status] Routine 09/22/20 12:35 Venous Doppler Lwr Ext Bi [US] Routine 09/22/20 14:00 Vancomycin 1 gm Vancomycin 250 mg Sodium Chloride 0.9% [Normal Saline] 250 ml IV Q18H 09/22/20 Dinner Consistent Carbohydrate Diet [DIET] 09/22/20 19:00 Rosuvastatin [Crestor] 10 mg PO PCDINNER 09/23/20 05:00 CBC WITH AUTO DIFF [HEME] DAILY COMPREHENSIVE METABOLIC PN,CMP [CHEM] DAILY 09/24/20 05:00 CBC WITH AUTO DIFF [HEME] DAILY COMPREHENSIVE METABOLIC PN,CMP [CHEM] DAILY 09/25/20 05:00 CBC WITH AUTO DIFF [HEME] DAILY COMPREHENSIVE METABOLIC PN,CMP [CHEM] DAILY 09/26/20 05:00 CBC WITH AUTO DIFF [HEME] DAILY COMPREHENSIVE METABOLIC PN,CMP [CHEM] DAILY 09/27/20 05:00 CBC WITH AUTO DIFF [HEME] DAILY COMPREHENSIVE METABOLIC PN,CMP [CHEM] DAILY - Plan Plan:: Patient is an 85-year-old male with a history of pulmonary fibrosis and diabetes who was brought to the ER due to worsening shortness of breath and generalized weakness x 1 day. Assessment: Acute on chronic hypoxic respiratory failure Pulmonary embolism Pneumonia, HCA or CAP chronic pulmonary fibrosis CAD, hx of PA HTN Hx of GI bleeding DM type 2 Hypothyroidism Chronic anemia Elevation of BNP, 1376 Plan: 1. The patient will be admitted to the hospital as an inpatient. He will be monitored on the telemetry. 2. Etiologies for hypoxa include pulmonary fibrosis, pneumonia. Continue pulse ox. Oxygen therapy. High flow or BiPAP as needed to keep oxygen saturation greater than 92% Inhalers 3. Initially I was reported last night that the patient has PE. But not final CT angio chest report -no PE. Discussed with the radiologist Dr. Castillo who felt no PE and suggested to do doppler to r/o DVT of legs Continue Xarelto until he is approved no DVT by Doppler. Aspirin is on hold 4. Continue vancomycin, cefepime and azithromycin for his pneumonia Blood culture Sputum culture MRSA screen -negative 5. Diabetic diet. Continue home Lantus 30 units daily. Insulin sliding scales. Adjust insulin based on sugar levels 6. No history of CHF. BNP 1376. Echocardiogram 7. Continue metoprolol succinate 25 mg daily and hydralazine as needed for high blood pressure 8. Continue statin for CAD. But aspirin is on hold 9. Continue other home medications for his other chronic problems 10. DVT prophylaxis: Xarelto 11. CODE STATUS: DNR/DNI
--- NOTE | 2020-09-22 13:00 | PCM.SN.2 ---
- Free Text/Narrative Note: Advanced care plan Met the patient and his son in his room. I explained the CPR and intubation at length to patient and his son who refused both CPR and intubation. All questions were answered.
[2020-09-22] MEDS: Vancomycin 1 GM, Vancomycin 250 MG in Sodium Chloride 0.9% 250 ML IV SCH (14:45)
--- NOTE | 2020-09-22 15:12 | US ---
Bilateral lower extremity deep venous ultrasound: Duplex and color Doppler evaluation was obtained of the right and left common femoral, proximal greater saphenous, superficial femoral, popliteal, posterior tibial and peroneal veins. Comparison: No prior venous imaging is available. Findings: Normal phasic flow, augmentation and compression is seen. Impression: 1. No findings of deep venous thrombosis is seen within either lower extremity. Diagnostic code #1
--- NOTE | 2020-09-22 17:59 | PCM.SN.2 ---
- Free Text/Narrative Note: I was reported that pt has oxygen desaturation. His SpO2 88% on high flow 50L with FiO2 50. SpO2 increased to 91% with 50L FIO2 60. Pt is DNR/DNI. I would like to start him on BIPAP but he refused BIPAP. Duoneb treatment. If duoneb does not work, I will repeat ABG. I may increased FIO2 based on ABG results.
[2020-09-22] MEDS: Albuterol/Ipratropium 3.0-0.5 MG/3 ML Neb Soln NEB PRN (18:14)
[2020-09-22] MEDS: Cefepime 1 GM in Premix Bag 1 BAG IV SCH (21:20)
[2020-09-22] MEDS: Sertraline 25 MG Tab PO SCH (21:21)
[2020-09-22] MEDS: Rosuvastatin 10 MG Tab PO SCH (21:22)
[2020-09-22] MEDS: Ezetimibe 10 MG Tab PO SCH (21:22)
[2020-09-22] MEDS: Azithromycin 500 MG in Sodium Chloride 0.9% 250 ML IV SCH (21:25)
[2020-09-22] MEDS: Temazepam 15 MG Cap PO PRN (21:42)
[2020-09-23] MEDS: Albuterol 6.7 GM Inhaler INH SCH ×4 (02:18→20:28)
[2020-09-23] MEDS: Trospium 20 MG Tab PO SCH ×2 (06:53→18:04)
[2020-09-23] MEDS: Insulin Lispro 100 UNIT/ML 10 ML Vial SUBCUT SCH ×4 (06:53→22:42)
[2020-09-23] MEDS: Levothyroxine 50 MCG Tab PO SCH (06:53)
[2020-09-23] MEDS: Insulin Glarg,Human.Rec.Analog 100 Unit/ML SUBCUT SCH ×2 (08:13→08:25)
[2020-09-23] MEDS: Metoprolol Succinate 25 MG Tab.ER PO SCH (08:15)
[2020-09-23] MEDS: guaiFENesin 600 MG Tab.ER PO SCH ×2 (08:16→20:29)
[2020-09-23] MEDS: Rivaroxaban 15 MG Tab PO SCH (08:16)
[2020-09-23] MEDS: Cholecalciferol (Vitamin D3) 25 MCG Tab PO SCH (08:17)
[2020-09-23] MEDS: FESOTERODINE FUMARATE 8 MG PO SCH ×2 (08:18→10:58)
[2020-09-23] MEDS: Vancomycin 1 GM, Vancomycin 250 MG in Sodium Chloride 0.9% 250 ML IV SCH (08:21)
[2020-09-23] MEDS ORDERED: Lactulose Soln 10 GM/15 ML 30 ML UD Cup PO PRN (08:32)
[2020-09-23] MEDS ORDERED: Insulin Glarg,Human.Rec.Analog 100 Unit/ML SUBCUT ONE (09:00)
--- NOTE | 2020-09-23 09:49 | CR ---
Chest: Portable view of the chest was obtained. Comparison: Prior chest CT study of 09/21/20 and chest x-ray 09/21/20. Heart size and mediastinum are within normal limits. Diffuse increased interstitial change is noted within both lungs which appears to be stable. No acute osseous abnormality is appreciated. Surgical material is noted within the left upper abdomen. Impression: 1. Stable chest x-ray from recent exam. 2. Nothing acute is otherwise seen. Diagnostic code #2
[2020-09-23] MEDS: Docusate Sodium 100 MG Cap PO PRN ×2 (09:56→20:28)
--- NOTE | 2020-09-23 10:01 | PCM.PN ---
- General Info Date of Service: 09/23/20 Admission Dx/Problem (Free Text): Admission Diagnosis/Problem Admission Diagnosis/Problem Pulmonary embolism Subjective Update: Patient is an 85-year-old male with a history of pulmonary fibrosis and diabetes who was brought to the ER due to worsening shortness of breath and generalized weakness x 1 day. Patient said he has shortness of breath. Yesterday afternoon he was on 60 L with FiO2 to 60. today he is on 45 L. He is DNR/DNI and he refused BiPAP. He complains of right knee pain today. He did not have any knee pain yesterday. He has tachycardia and tachypnea at times. WBC 9.0 48 Hemoglobin 9.3 which was a 9.5 yesterday and 9.8 2 days ago Blood glucose 94 this morning - Review of Systems General: Reports: No Symptoms HEENT: Reports: No Symptoms Pulmonary: Reports: Shortness of Breath Cardiovascular: Reports: No Symptoms Gastrointestinal: Reports: No Symptoms Genitourinary: Reports: No Symptoms Musculoskeletal: Reports: Joint Pain (Right knee) Skin: Reports: No Symptoms Neurological: Reports: No Symptoms Psychiatric: Reports: No Symptoms - Patient Data Vitals - Most Recent: Last Vital Signs Temp 36.6 C 09/23/20 07:56 Pulse 101 H 09/23/20 08:15 Resp 18 09/23/20 07:56 BP 102/48 L 09/23/20 08:15 Pulse Ox 97 09/23/20 08:04 Weight - Most Recent: 67.177 kg I&O - Last 24 Hours: Intake & Output 09/22/20 09/23/20 09/23/20 22:59 06:59 14:59 Intake Total 1148 900 Output Total 725 1475 Balance 423 -575 Lab Results Last 24 Hours: Laboratory Results - last 24 hr 09/22/20 09/22/20 09/22/20 Range/Units 11:28 16:06 21:14 WBC (4.23-9.07) K/mm3 RBC (4.63-6.08) M/mm3 Hgb (13.7-17.5) gm/dl Hct (40.1-51.0) % MCV (79.0-92.2) fl MCH (25.7-32.2) pg MCHC (32.2-35.5) g/dl RDW Std Deviation (35.1-43.9) fL Plt Count (163-337) K/mm3 MPV (9.4-12.3) fl Neut % (Auto) (34.0-67.9) % Lymph % (Auto) (21.8-53.1) % Coke % (Auto) (5.3-12.2) % Eos % (Auto) (0.8-7.0) Baso % (Auto) (0.1-1.2) % Neut # (Auto) (1.78-5.38) K/mm3 Lymph # (Auto) (1.32-3.57) K/mm3 Coke # (Auto) (0.30-0.82) K/mm3 Eos # (Auto) (0.04-0.54) K/mm3 Baso # (Auto) (0.01-0.08) K/mm3 Sodium (136-145) mEq/L Potassium (3.5-5.1) mEq/L Chloride (98-107) mEq/L Carbon Dioxide (21-32) mEq/L Anion Gap (5-15) BUN (7-18) mg/dL Creatinine (0.7-1.3) mg/dL Est Cr Clr Drug Dosing mL/min Estimated GFR (MDRD) (>60) mL/min BUN/Creatinine Ratio (14-18) Glucose (83-115) mg/dL POC Glucose 131 H 167 H 111 H (70-99) mg/dL Calcium (8.5-10.1) mg/dL Total Bilirubin (0.2-1.0) mg/dL AST (15-37) U/L ALT (16-63) U/L Alkaline Phosphatase (46-116) U/L Total Protein (6.4-8.2) g/dl Albumin (3.4-5.0) g/dl Globulin gm/dL Albumin/Globulin Ratio (1-2) 09/23/20 09/23/20 09/23/20 Range/Units 05:50 05:50 06:52 WBC 9.48 H (4.23-9.07) K/mm3 RBC 3.11 L (4.63-6.08) M/mm3 Hgb 9.3 L (13.7-17.5) gm/dl Hct 29.3 L (40.1-51.0) % MCV 94.2 H (79.0-92.2) fl MCH 29.9 (25.7-32.2) pg MCHC 31.7 L (32.2-35.5) g/dl RDW Std Deviation 46.3 H (35.1-43.9) fL Plt Count 263 (163-337) K/mm3 MPV 8.6 L (9.4-12.3) fl Neut % (Auto) 72.8 H (34.0-67.9) % Lymph % (Auto) 15.2 L (21.8-53.1) % Coke % (Auto) 9.9 (5.3-12.2) % Eos % (Auto) 1.7 (0.8-7.0) Baso % (Auto) 0.2 (0.1-1.2) % Neut # (Auto) 6.90 H (1.78-5.38) K/mm3 Lymph # (Auto) 1.44 (1.32-3.57) K/mm3 Coke # (Auto) 0.94 H (0.30-0.82) K/mm3 Eos # (Auto) 0.16 (0.04-0.54) K/mm3 Baso # (Auto) 0.02 (0.01-0.08) K/mm3 Sodium 136 (136-145) mEq/L Potassium 3.8 (3.5-5.1) mEq/L Chloride 101 (98-107) mEq/L Carbon Dioxide 27 (21-32) mEq/L Anion Gap 11.8 (5-15) BUN 12 (7-18) mg/dL Creatinine 1.0 (0.7-1.3) mg/dL Est Cr Clr Drug Dosing 49.45 mL/min Estimated GFR (MDRD) > 60 (>60) mL/min BUN/Creatinine Ratio 12.0 L (14-18) Glucose 99 (83-115) mg/dL POC Glucose 94 (70-99) mg/dL Calcium 8.3 L (8.5-10.1) mg/dL Total Bilirubin 0.5 (0.2-1.0) mg/dL AST 18 (15-37) U/L ALT 21 (16-63) U/L Alkaline Phosphatase 59 (46-116) U/L Total Protein 6.7 (6.4-8.2) g/dl Albumin 2.2 L (3.4-5.0) g/dl Globulin 4.5 gm/dL Albumin/Globulin Ratio 0.5 L (1-2) Jaison Results Last 24 Hours: Microbiology 09/22/20 10:00 Gram Stain - Final Sputum - Expectorated Sputum Culture - Preliminary 09/21/20 16:25 Aerobic Blood Culture - Preliminary Blood - Venous - Lab Draw NO GROWTH AFTER 1 DAY Anaerobic Blood Culture - Preliminary NO GROWTH AFTER 1 DAY 09/21/20 16:15 Aerobic Blood Culture - Preliminary Blood - Venous NO GROWTH AFTER 1 DAY Anaerobic Blood Culture - Preliminary NO GROWTH AFTER 1 DAY Med Orders - Current: Current Medications Acetaminophen (Acetaminophen 325 Mg Tab) 650 mg PO Q6H PRN PRN Reason: Pain (Mild 1-3)/fever Last Admin: 09/23/20 08:14 Dose: 650 mg Documented by: Albuterol (Albuterol 6.7 Gm Inhaler) 0 gm INH Q6H [facility] Last Admin: 09/23/20 08:04 Dose: 2 puff Documented by: Albuterol/Ipratropium (Albuterol/Ipratropium 3.0-0.5 Mg/3 Ml Neb Soln) 3 ml NEB Q4H PRN PRN Reason: Shortness Of Breath/wheezing Last Admin: 09/22/20 18:14 Dose: 3 ml Documented by: Cholecalciferol (Cholecalciferol (Vitamin D3) 25 Mcg Tab) 50 mcg PO DAILY [facility] Last Admin: 09/23/20 08:17 Dose: 50 mcg Documented by: Docusate Sodium (Docusate Sodium 100 Mg Cap) 100 mg PO BID PRN PRN Reason: Constipation Last Admin: 09/23/20 09:56 Dose: 100 mg Documented by: Ezetimibe (Ezetimibe 10 Mg Tab) 10 mg PO BEDTIME [facility] Last Admin: 09/22/20 21:22 Dose: 10 mg Documented by: Guaifenesin (Guaifenesin 600 Mg Tab.Er) 1,200 mg PO BID [facility] Last Admin: 09/23/20 08:16 Dose: 1,200 mg Documented by: Hydralazine HCl (Hydralazine 20 Mg/Ml Sdv) 10 mg IVPUSH Q4H PRN PRN Reason: Hypertension Promethazine HCl 12.5 mg/ (Sodium Chloride) 50.5 mls @ 100 mls/hr IV Q6H PRN PRN Reason: Nausea/Vomiting Cefepime HCl 1 gm/ Premix 50 mls @ 100 mls/hr IV Q24H [facility] Last Admin: 09/22/20 21:20 Dose: 100 mls/hr Documented by: Vancomycin HCl 1 gm/Vancomycin HCl 250 mg/ Sodium Chloride 250 mls @ 166.667 mls/hr IV Q18H [facility] Last Admin: 09/23/20 08:21 Dose: 166.667 mls/hr Documented by: Azithromycin 500 mg/ Sodium (Chloride) 250 mls @ 250 mls/hr IV Q24H [facility] Last Admin: 09/22/20 21:25 Dose: 250 mls/hr Documented by: Insulin Glargine (Insulin Glarg,Human.Rec.Analog 100 Unit/Ml) 27 unit SUBCUT DAILY [facility] Last Admin: 09/23/20 08:25 Dose: Not Given Documented by: Insulin Human Lispro (Insulin Lispro 100 Unit/Ml) 0 unit SUBCUT QIDACANDBED [facility]; Protocol Last Admin: 09/23/20 06:53 Dose: Not Given Documented by: Lactulose (Lactulose Soln 10 Gm/15 Ml 30 Ml Ud Cup) 20 gm PO DAILY PRN PRN Reason: Constipation Levothyroxine Sodium (Levothyroxine 50 Mcg Tab) 50 mcg PO ACBREAKFAST [facility] Last Admin: 09/23/20 06:53 Dose: 50 mcg Documented by: Lorazepam (Lorazepam 0.5 Mg Tab) 0.5 mg PO Q6H PRN PRN Reason: Anxiety Metoprolol Succinate (Metoprolol Succinate 25 Mg Tab.Er) 25 mg PO DAILY [facility] Last Admin: 09/23/20 08:15 Dose: 25 mg Documented by: Fesoterodine Fumarate [Toviaz] 8 Mg Tab.Sr.24h Ptom 8 mg PO DAILY [facility] Last Admin: 09/23/20 08:18 Dose: Not Given Documented by: Rivaroxaban (Rivaroxaban 15 Mg Tab) 15 mg PO BID [facility] Last Admin: 09/23/20 08:16 Dose: 15 mg Documented by: Rosuvastatin Calcium (Rosuvastatin 10 Mg Tab) 10 mg PO PCDINNER [facility] Last Admin: 09/22/20 21:22 Dose: 10 mg Documented by: Sertraline HCl (Sertraline 25 Mg Tab) 25 mg PO BEDTIME [facility] Last Admin: 09/22/20 21:21 Dose: 25 mg Documented by: Sodium Chloride (Sodium Chloride 0.9% 10 Ml Syringe) 10 ml FLUSH ASDIRECTED PRN PRN Reason: Keep Vein Open Last Admin: 09/21/20 15:53 Dose: 10 ml Documented by: Temazepam (Temazepam 15 Mg Cap) 15 mg PO BEDTIME PRN PRN Reason: oth Last Admin: 09/22/20 21:42 Dose: 15 mg Documented by: Triamcinolone Acetonide (Triamcinolone Acetonide 0.1% Crm 15 Gm Tube) 0 gm TOP TID PRN PRN Reason: skin complications Trospium (Trospium 20 Mg Tab) 20 mg PO BIDAC [facility] Last Admin: 09/23/20 06:53 Dose: 20 mg Documented by: Vancomycin HCl (Pharmacy To Dose - Vancomycin) 1 dose .XX DAILY PRN PRN Reason: RX TO DOSE VANCO Discontinued Medications Sodium Chloride (Normal Saline) 100 mls @ 60 mls/hr IV ASDIRECTED [facility] Last Admin: 09/21/20 18:48 Dose: 60 mls/hr Documented by: Vancomycin HCl 1 gm/ Sodium (Chloride) 250 mls @ 250 mls/hr IV ONETIME ONE Stop: 09/22/20 00:44 Last Admin: 09/22/20 01:45 Dose: Not Given Documented by: Vancomycin HCl 1 gm/ Sodium (Chloride) 250 mls @ 250 mls/hr IV ONETIME ONE Stop: 09/22/20 02:14 Last Admin: 09/22/20 01:44 Dose: 250 mls/hr Documented by: Insulin Glargine (Insulin Glarg,Human.Rec.Analog 100 Unit/Ml) 30 unit SUBCUT DAILY [facility] Last Admin: 09/23/20 08:13 Dose: 30 units Documented by: Iopamidol (Iopamidol 755 Mg/Ml 100 Ml Bottle) 100 ml IVPUSH ONETIME ONE Stop: 09/21/20 18:04 Last Admin: 09/21/20 18:48 Dose: 100 ml Documented by: Morphine Sulfate (Morphine 2 Mg/Ml Syringe) 2 mg IVPUSH Q4H PRN PRN Reason: Pain (severe 7-10) Stop: 09/22/20 20:26 Non-Formulary Medication (Methylcellulose) 479 gm PO DAILY [facility] Rivaroxaban (Rivaroxaban 15 Mg Tab) 15 mg PO ONETIME ONE Stop: 09/21/20 20:01 Last Admin: 09/21/20 22:47 Dose: 15 mg Documented by: Rivaroxaban (Rivaroxaban 15 Mg Tab) 15 mg PO BID [facility] Stop: 10/11/20 23:59 Rivaroxaban (Rivaroxaban 15 Mg Tab) 15 mg PO ONETIME ONE Stop: 09/21/20 22:31 Last Admin: 09/21/20 22:32 Dose: 15 mg Documented by: Sodium Chloride (Sodium Chloride 0.9% 10 Ml Syringe) 10 ml FLUSH ONETIME ONE Stop: 09/21/20 18:04 Last Admin: 09/21/20 18:48 Dose: 10 ml Documented by: - Exam Physical Findings Comments:: General: Alert, Oriented, Cooperative, mild acute distress due to shortness of breath HEENT: Pupils Equal, Pupils Reactive, EOMI Neck: Supple, Trachea Midline, No JVD Lungs: Bibasilar crackles, Normal Respiratory Effort Cardiovascular: Regular Rate, Regular Rhythm GI/Abdominal Exam: Normal Bowel Sounds, Soft, Non-Tender, No Organomegaly Extremities: Right knee tenderness, seems to feel fluctuated, otherwise normal Inspection, Non-Tender, no Pedal Edema Skin: Warm, Dry, Intact Neurological: Normal Speech, Normal Tone, Strength Equal Bilateral, Sensation Intact Psy/Mental Status: Alert, Normal Affect, Normal Mood - Patient Data Lab Results Last 24 hrs: Laboratory Results - last 24 hr 09/22/20 09/22/20 09/22/20 Range/Units 11:28 16:06 21:14 WBC (4.23-9.07) K/mm3 RBC (4.63-6.08) M/mm3 Hgb (13.7-17.5) gm/dl Hct (40.1-51.0) % MCV (79.0-92.2) fl MCH (25.7-32.2) pg MCHC (32.2-35.5) g/dl RDW Std Deviation (35.1-43.9) fL Plt Count (163-337) K/mm3 MPV (9.4-12.3) fl Neut % (Auto) (34.0-67.9) % Lymph % (Auto) (21.8-53.1) % Coke % (Auto) (5.3-12.2) % Eos % (Auto) (0.8-7.0) Baso % (Auto) (0.1-1.2) % Neut # (Auto) (1.78-5.38) K/mm3 Lymph # (Auto) (1.32-3.57) K/mm3 Coke # (Auto) (0.30-0.82) K/mm3 Eos # (Auto) (0.04-0.54) K/mm3 Baso # (Auto) (0.01-0.08) K/mm3 Sodium (136-145) mEq/L Potassium (3.5-5.1) mEq/L Chloride (98-107) mEq/L Carbon Dioxide (21-32) mEq/L Anion Gap (5-15) BUN (7-18) mg/dL Creatinine (0.7-1.3) mg/dL Est Cr Clr Drug Dosing mL/min Estimated GFR (MDRD) (>60) mL/min BUN/Creatinine Ratio (14-18) Glucose (83-115) mg/dL POC Glucose 131 H 167 H 111 H (70-99) mg/dL Calcium (8.5-10.1) mg/dL Total Bilirubin (0.2-1.0) mg/dL AST (15-37) U/L ALT (16-63) U/L Alkaline Phosphatase (46-116) U/L Total Protein (6.4-8.2) g/dl Albumin (3.4-5.0) g/dl Globulin gm/dL Albumin/Globulin Ratio (1-2) 09/23/20 09/23/20 09/23/20 Range/Units 05:50 05:50 06:52 WBC 9.48 H (4.23-9.07) K/mm3 RBC 3.11 L (4.63-6.08) M/mm3 Hgb 9.3 L (13.7-17.5) gm/dl Hct 29.3 L (40.1-51.0) % MCV 94.2 H (79.0-92.2) fl MCH 29.9 (25.7-32.2) pg MCHC 31.7 L (32.2-35.5) g/dl RDW Std Deviation 46.3 H (35.1-43.9) fL Plt Count 263 (163-337) K/mm3 MPV 8.6 L (9.4-12.3) fl Neut % (Auto) 72.8 H (34.0-67.9) % Lymph % (Auto) 15.2 L (21.8-53.1) % Coke % (Auto) 9.9 (5.3-12.2) % Eos % (Auto) 1.7 (0.8-7.0) Baso % (Auto) 0.2 (0.1-1.2) % Neut # (Auto) 6.90 H (1.78-5.38) K/mm3 Lymph # (Auto) 1.44 (1.32-3.57) K/mm3 Coke # (Auto) 0.94 H (0.30-0.82) K/mm3 Eos # (Auto) 0.16 (0.04-0.54) K/mm3 Baso # (Auto) 0.02 (0.01-0.08) K/mm3 Sodium 136 (136-145) mEq/L Potassium 3.8 (3.5-5.1) mEq/L Chloride 101 (98-107) mEq/L Carbon Dioxide 27 (21-32) mEq/L Anion Gap 11.8 (5-15) BUN 12 (7-18) mg/dL Creatinine 1.0 (0.7-1.3) mg/dL Est Cr Clr Drug Dosing 49.45 mL/min Estimated GFR (MDRD) > 60 (>60) mL/min BUN/Creatinine Ratio 12.0 L (14-18) Glucose 99 (83-115) mg/dL POC Glucose 94 (70-99) mg/dL Calcium 8.3 L (8.5-10.1) mg/dL Total Bilirubin 0.5 (0.2-1.0) mg/dL AST 18 (15-37) U/L ALT 21 (16-63) U/L Alkaline Phosphatase 59 (46-116) U/L Total Protein 6.7 (6.4-8.2) g/dl Albumin 2.2 L (3.4-5.0) g/dl Globulin 4.5 gm/dL Albumin/Globulin Ratio 0.5 L (1-2) Result Diagrams: 09/23/20 05:50 09/23/20 05:50 Jaison Results Last 24 hrs: Microbiology 09/22/20 10:00 Gram Stain - Final Sputum - Expectorated Sputum Culture - Preliminary 09/21/20 16:25 Aerobic Blood Culture - Preliminary Blood - Venous - Lab Draw NO GROWTH AFTER 1 DAY Anaerobic Blood Culture - Preliminary NO GROWTH AFTER 1 DAY 09/21/20 16:15 Aerobic Blood Culture - Preliminary Blood - Venous NO GROWTH AFTER 1 DAY Anaerobic Blood Culture - Preliminary NO GROWTH AFTER 1 DAY Sepsis Event Note - Evaluation Sepsis Screening Result: Sepsis Risk - Focused Exam Vital Signs: Vital Signs Temp Pulse Resp BP Pulse Ox Pulse Ox 09/23/20 08:15 101 H 102/48 L 09/23/20 08:04 97 09/23/20 07:56 36.6 C 101 H 18 102/48 L 96 09/23/20 06:20 96 09/23/20 02:19 94 L 09/23/20 02:17 36.4 C 101 H 26 H 112/66 92 L 09/23/20 01:14 94 L - Problem List Review Problem List Initiated/Reviewed/Updated: Yes - My Orders Last 24 Hours: My Active Orders 09/22/20 09:00 Cholecalciferol (Vitamin D3) [Vitamin D3] 50 mcg PO DAILY Fesoterodine Fumarate [Toviaz] 8 mg PO DAILY Metoprolol Succinate [Toprol XL] 25 mg PO DAILY Rivaroxaban [Xarelto] 15 mg PO BID Triamcinolone Acetonide [Triamcinolone Acetonide 0.1% Crm] 0 gm TOP TID PRN 09/22/20 10:00 CULTURE SPUTUM + SMEAR [RM] Stat 09/22/20 10:57 Pharmacy to Dose - Vancomycin 1 dose .XX DAILY PRN 09/22/20 12:14 Code Status [Resuscitation Status] Routine 09/22/20 14:00 Vancomycin 1 gm Vancomycin 250 mg Sodium Chloride 0.9% [Normal Saline] 250 ml IV Q18H 09/22/20 15:01 Accu Check [Blood Glucose Check, Bedside] [RC] QIDACANDBED 09/22/20 15:06 Urinary Catheter Assessment [RC] QSHIFT 09/22/20 15:15 Roblero Catheter Insertion [Insert Urinary Catheter] [OM.PC] Q24H 09/22/20 15:36 Oxygen Therapy [RC] ASDIRECTED 09/22/20 Dinner Consistent Carbohydrate Diet [DIET] 09/22/20 19:00 Rosuvastatin [Crestor] 10 mg PO PCDINNER 09/23/20 05:50 PROCALCITONIN [REF] Stat 09/23/20 08:32 Docusate Sodium [Colace] 100 mg PO BID PRN Lactulose [Cephulac] 20 gm PO DAILY PRN 09/23/20 09:00 Insulin Glarg,Human.Rec.Analog [LantUS] 27 unit SUBCUT DAILY 09/24/20 05:00 CBC WITH AUTO DIFF [HEME] DAILY COMPREHENSIVE METABOLIC PN,CMP [CHEM] DAILY 09/24/20 19:00 VANCOMYCIN TROUGH [CHEM] Timed 09/25/20 05:00 CBC WITH AUTO DIFF [HEME] DAILY COMPREHENSIVE METABOLIC PN,CMP [CHEM] DAILY 09/26/20 05:00 CBC WITH AUTO DIFF [HEME] DAILY COMPREHENSIVE METABOLIC PN,CMP [CHEM] DAILY 09/27/20 05:00 CBC WITH AUTO DIFF [HEME] DAILY COMPREHENSIVE METABOLIC PN,CMP [CHEM] DAILY - Plan Plan:: Patient is an 85-year-old male with a history of pulmonary fibrosis and diabetes who was brought to the ER due to worsening shortness of breath and generalized weakness x 1 day. Assessment: Acute on chronic hypoxic respiratory failure Pulmonary embolism Pneumonia, HCA or CAP chronic pulmonary fibrosis CAD, hx of SD HTN Hx of GI bleeding DM type 2 Hypothyroidism Chronic anemia Elevation of BNP, 1376 Right knee pain Plan: 1. Continue to monitor urine telemetry. 2. Etiologies for hypoxia include pulmonary fibrosis. CT angio showed no PE and no pneumonia. Continue pulse ox. Oxygen therapy. High flow or BiPAP as needed to keep oxygen saturation greater than 92% Inhalers 3. Initially I was reported that the patient has PE. But final CT angio chest report -no PE. Discussed with the radiologist Dr. Castillo who felt no PE and suggested to do doppler to r/o DVT of legs. Doppler showed no DVT of legs. I will discontinue Xarelto and resume aspirin 4. I will repeat chest x-ray and to do procalcitonin. Based on these result, I will decide to the if I should continue or discontinue vancomycin, cefepime and azithromycin for his pneumonia Blood culture no growth Sputum culture no growth MRSA screen -negative 5. Diabetic diet. I will decreased Lantus to 27 units daily from 30 units daily. Insulin sliding scales. Adjust insulin based on sugar levels 6. No history of CHF. BNP 1376. Echocardiogram pending 7. Continue metoprolol succinate 25 mg daily and hydralazine as needed for high blood pressure 8. Continue statin for CAD. Continue aspirin 9. Continue other home medications for his other chronic problems 10. consulted with Dr. Laws for his knee pain 11. DVT prophylaxis: 12. CODE STATUS: DNR/DNI
[2020-09-23] MEDS ORDERED: Bupivacaine 0.25% 10 ML SDV INJECT ONE (11:23)
[2020-09-23] MEDS ORDERED: Triamcinolone Acetonide 40 MG/ML 1 ML SDV INJECT ONE ×2 (11:24→11:45)
[2020-09-23] MEDS: Albuterol/Ipratropium 3.0-0.5 MG/3 ML Neb Soln NEB PRN (14:06)
[2020-09-23] MEDS: Rosuvastatin 10 MG Tab PO SCH (18:04)
[2020-09-23] MEDS: Sertraline 25 MG Tab PO SCH (20:29)
[2020-09-23] MEDS: Ezetimibe 10 MG Tab PO SCH (20:29)
[2020-09-23] MEDS: Azithromycin 500 MG in Sodium Chloride 0.9% 250 ML IV SCH (20:29)
[2020-09-23] MEDS: Temazepam 15 MG Cap PO PRN (20:29)
[2020-09-23] MEDS: Cefepime 1 GM in Premix Bag 1 BAG IV SCH (21:59)
[2020-09-23] MEDS: Lactated Ringers 1,000 ML IV SCH (22:43)
[2020-09-24] MEDS: LORazepam 0.5 MG Tab PO PRN ×2 (01:42→22:08)
[2020-09-24] MEDS: Vancomycin 1 GM, Vancomycin 250 MG in Sodium Chloride 0.9% 250 ML IV SCH (01:43)
[2020-09-24] MEDS: Albuterol 6.7 GM Inhaler INH SCH ×4 (03:33→20:05)
[2020-09-24] MEDS: Levothyroxine 50 MCG Tab PO SCH (06:21)
[2020-09-24] MEDS: Trospium 20 MG Tab PO SCH ×2 (06:21→16:25)
[2020-09-24] MEDS: Insulin Lispro 100 UNIT/ML 10 ML Vial SUBCUT SCH ×4 (09:40→22:43)
[2020-09-24] MEDS: Insulin Glarg,Human.Rec.Analog 100 Unit/ML SUBCUT SCH (09:41)
[2020-09-24] MEDS: Metoprolol Succinate 25 MG Tab.ER PO SCH (09:42)
[2020-09-24] MEDS: Cholecalciferol (Vitamin D3) 25 MCG Tab PO SCH (09:42)
[2020-09-24] MEDS: guaiFENesin 600 MG Tab.ER PO SCH ×2 (09:42→22:08)
[2020-09-24] MEDS: FESOTERODINE FUMARATE 8 MG PO SCH (09:43)
[2020-09-24] MEDS: Aspirin 81 MG Tab.EC PO SCH (09:43)
[2020-09-24] MEDS: Enoxaparin 40 MG/0.4 ML Syringe SUBCUT SCH (09:47)
--- NOTE | 2020-09-24 10:26 | PCM.PN ---
- General Info Date of Service: 09/24/20 Admission Dx/Problem (Free Text): Admission Diagnosis/Problem Admission Diagnosis/Problem Pulmonary embolism Subjective Update: Patient is an 85-year-old male with a history of pulmonary fibrosis and diabetes who was brought to the ER due to worsening shortness of breath and generalized weakness x 1 day. Patient said he has shortness of breath. Yesterday afternoon he was on 60 L with FiO2 to 60. today he is on 45 L with FIO2 45. He is DNR/DNI and he refused BiPAP. Arthrocentesis was performed by Dr. Laws yesterday. 16ml fluid was out (did not sent lab) Pt feels less pain from his right knee. Tachycardia resolved WBC 9.56 - Review of Systems Systems Review Comment:: General: Reports: No Symptoms HEENT: Reports: No Symptoms Pulmonary: Reports: Shortness of Breath Cardiovascular: Reports: No Symptoms Gastrointestinal: Reports: No Symptoms Genitourinary: Reports: No Symptoms Musculoskeletal: Reports: Joint Pain (Right knee) Skin: Reports: No Symptoms Neurological: Reports: No Symptoms Psychiatric: Reports: No Symptom - Patient Data Vitals - Most Recent: Last Vital Signs Temp 36.4 C 09/24/20 09:43 Pulse 106 H 09/24/20 09:43 Resp 24 H 09/24/20 09:43 BP 101/70 09/24/20 09:43 Pulse Ox 93 L 09/24/20 09:43 Weight - Most Recent: 144.016 kg I&O - Last 24 Hours: Intake & Output 09/23/20 09/24/20 09/24/20 22:59 06:59 14:59 Intake Total 1620 1000 Output Total 400 2000 Balance 1220 -1000 Lab Results Last 24 Hours: Laboratory Results - last 24 hr 09/23/20 09/23/20 09/23/20 Range/Units 05:50 11:15 17:48 WBC (4.23-9.07) K/mm3 RBC (4.63-6.08) M/mm3 Hgb (13.7-17.5) gm/dl Hct (40.1-51.0) % MCV (79.0-92.2) fl MCH (25.7-32.2) pg MCHC (32.2-35.5) g/dl RDW Std Deviation (35.1-43.9) fL Plt Count (163-337) K/mm3 MPV (9.4-12.3) fl Neut % (Auto) (34.0-67.9) % Lymph % (Auto) (21.8-53.1) % Webster % (Auto) (5.3-12.2) % Eos % (Auto) (0.8-7.0) Baso % (Auto) (0.1-1.2) % Neut # (Auto) (1.78-5.38) K/mm3 Lymph # (Auto) (1.32-3.57) K/mm3 Webster # (Auto) (0.30-0.82) K/mm3 Eos # (Auto) (0.04-0.54) K/mm3 Baso # (Auto) (0.01-0.08) K/mm3 Manual Slide Review Sodium (136-145) mEq/L Potassium (3.5-5.1) mEq/L Chloride (98-107) mEq/L Carbon Dioxide (21-32) mEq/L Anion Gap (5-15) BUN (7-18) mg/dL Creatinine (0.7-1.3) mg/dL Est Cr Clr Drug Dosing mL/min Estimated GFR (MDRD) (>60) mL/min BUN/Creatinine Ratio (14-18) Glucose (83-115) mg/dL POC Glucose 160 H 217 H (70-99) mg/dL Lactic Acid (0.4-2.0) mmol/L Calcium (8.5-10.1) mg/dL Total Bilirubin (0.2-1.0) mg/dL AST (15-37) U/L ALT (16-63) U/L Alkaline Phosphatase (46-116) U/L Total Protein (6.4-8.2) g/dl Albumin (3.4-5.0) g/dl Globulin gm/dL Albumin/Globulin Ratio (1-2) Procalcitonin 0.10 H ng/mL 09/23/20 09/24/20 09/24/20 Range/Units 18:37 05:12 05:12 WBC 9.56 H (4.23-9.07) K/mm3 RBC 2.95 L (4.63-6.08) M/mm3 Hgb 8.8 L (13.7-17.5) gm/dl Hct 27.6 L (40.1-51.0) % MCV 93.6 H (79.0-92.2) fl MCH 29.8 (25.7-32.2) pg MCHC 31.9 L (32.2-35.5) g/dl RDW Std Deviation 46.1 H (35.1-43.9) fL Plt Count 283 (163-337) K/mm3 MPV 8.8 L (9.4-12.3) fl Neut % (Auto) 84.7 H (34.0-67.9) % Lymph % (Auto) 9.7 L (21.8-53.1) % Webster % (Auto) 5.4 (5.3-12.2) % Eos % (Auto) 0 L (0.8-7.0) Baso % (Auto) 0.0 L (0.1-1.2) % Neut # (Auto) 8.09 H (1.78-5.38) K/mm3 Lymph # (Auto) 0.93 L (1.32-3.57) K/mm3 Webster # (Auto) 0.52 (0.30-0.82) K/mm3 Eos # (Auto) 0.00 L (0.04-0.54) K/mm3 Baso # (Auto) 0.00 L (0.01-0.08) K/mm3 Manual Slide Review Abnormal smear Sodium 137 (136-145) mEq/L Potassium 4.2 (3.5-5.1) mEq/L Chloride 103 (98-107) mEq/L Carbon Dioxide 26 (21-32) mEq/L Anion Gap 12.2 (5-15) BUN 14 (7-18) mg/dL Creatinine 0.9 (0.7-1.3) mg/dL Est Cr Clr Drug Dosing 55.94 mL/min Estimated GFR (MDRD) > 60 (>60) mL/min BUN/Creatinine Ratio 15.6 (14-18) Glucose 166 H (83-115) mg/dL POC Glucose (70-99) mg/dL Lactic Acid 2.5 H* (0.4-2.0) mmol/L Calcium 8.7 (8.5-10.1) mg/dL Total Bilirubin 0.5 (0.2-1.0) mg/dL AST 13 L (15-37) U/L ALT 20 (16-63) U/L Alkaline Phosphatase 59 (46-116) U/L Total Protein 7.0 (6.4-8.2) g/dl Albumin 2.2 L (3.4-5.0) g/dl Globulin 4.8 gm/dL Albumin/Globulin Ratio 0.5 L (1-2) Procalcitonin ng/mL 09/24/20 Range/Units 05:12 WBC (4.23-9.07) K/mm3 RBC (4.63-6.08) M/mm3 Hgb (13.7-17.5) gm/dl Hct (40.1-51.0) % MCV (79.0-92.2) fl MCH (25.7-32.2) pg MCHC (32.2-35.5) g/dl RDW Std Deviation (35.1-43.9) fL Plt Count (163-337) K/mm3 MPV (9.4-12.3) fl Neut % (Auto) (34.0-67.9) % Lymph % (Auto) (21.8-53.1) % Webster % (Auto) (5.3-12.2) % Eos % (Auto) (0.8-7.0) Baso % (Auto) (0.1-1.2) % Neut # (Auto) (1.78-5.38) K/mm3 Lymph # (Auto) (1.32-3.57) K/mm3 Webster # (Auto) (0.30-0.82) K/mm3 Eos # (Auto) (0.04-0.54) K/mm3 Baso # (Auto) (0.01-0.08) K/mm3 Manual Slide Review Sodium (136-145) mEq/L Potassium (3.5-5.1) mEq/L Chloride (98-107) mEq/L Carbon Dioxide (21-32) mEq/L Anion Gap (5-15) BUN (7-18) mg/dL Creatinine (0.7-1.3) mg/dL Est Cr Clr Drug Dosing mL/min Estimated GFR (MDRD) (>60) mL/min BUN/Creatinine Ratio (14-18) Glucose (83-115) mg/dL POC Glucose (70-99) mg/dL Lactic Acid 0.7 (0.4-2.0) mmol/L Calcium (8.5-10.1) mg/dL Total Bilirubin (0.2-1.0) mg/dL AST (15-37) U/L ALT (16-63) U/L Alkaline Phosphatase (46-116) U/L Total Protein (6.4-8.2) g/dl Albumin (3.4-5.0) g/dl Globulin gm/dL Albumin/Globulin Ratio (1-2) Procalcitonin ng/mL Jaison Results Last 24 Hours: Microbiology 09/21/20 16:25 Aerobic Blood Culture - Preliminary Blood - Venous - Lab Draw NO GROWTH AFTER 2 DAYS Anaerobic Blood Culture - Preliminary NO GROWTH AFTER 2 DAYS 09/21/20 16:15 Aerobic Blood Culture - Preliminary Blood - Venous NO GROWTH AFTER 2 DAYS Anaerobic Blood Culture - Preliminary NO GROWTH AFTER 2 DAYS 09/22/20 10:00 Gram Stain - Final Sputum - Expectorated Sputum Culture - Preliminary Med Orders - Current: Current Medications Acetaminophen (Acetaminophen 325 Mg Tab) 650 mg PO Q6H PRN PRN Reason: Pain (Mild 1-3)/fever Last Admin: 09/23/20 08:14 Dose: 650 mg Documented by: Albuterol (Albuterol 6.7 Gm Inhaler) 0 gm INH Q6H [facility] Last Admin: 09/24/20 08:10 Dose: 2 puff Documented by: Albuterol/Ipratropium (Albuterol/Ipratropium 3.0-0.5 Mg/3 Ml Neb Soln) 3 ml NEB Q4H PRN PRN Reason: Shortness Of Breath/wheezing Last Admin: 09/23/20 14:06 Dose: 3 ml Documented by: Aspirin (Aspirin 81 Mg Tab.Ec) 81 mg PO DAILY [facility] Last Admin: 09/24/20 09:43 Dose: 81 mg Documented by: Cholecalciferol (Cholecalciferol (Vitamin D3) 25 Mcg Tab) 50 mcg PO DAILY [facility] Last Admin: 09/24/20 09:42 Dose: 50 mcg Documented by: Docusate Sodium (Docusate Sodium 100 Mg Cap) 100 mg PO BID PRN PRN Reason: Constipation Last Admin: 09/23/20 20:28 Dose: 100 mg Documented by: Ezetimibe (Ezetimibe 10 Mg Tab) 10 mg PO BEDTIME [facility] Last Admin: 09/23/20 20:29 Dose: 10 mg Documented by: Enoxaparin Sodium (Enoxaparin 40 Mg/0.4 Ml Syringe) 40 mg SUBCUT DAILY [facility] Last Admin: 09/24/20 09:47 Dose: 40 mg Documented by: Guaifenesin (Guaifenesin 600 Mg Tab.Er) 1,200 mg PO BID [facility] Last Admin: 09/24/20 09:42 Dose: 1,200 mg Documented by: Hydralazine HCl (Hydralazine 20 Mg/Ml Sdv) 10 mg IVPUSH Q4H PRN PRN Reason: Hypertension Promethazine HCl 12.5 mg/ (Sodium Chloride) 50.5 mls @ 100 mls/hr IV Q6H PRN PRN Reason: Nausea/Vomiting Lactated Ringer's (Ringers, Lactated) 1,000 mls @ 50 mls/hr IV ASDIRECTED [facility] Last Admin: 09/23/20 22:43 Dose: 50 mls/hr Documented by: Insulin Glargine (Insulin Glarg,Human.Rec.Analog 100 Unit/Ml) 27 unit SUBCUT DAILY [facility] Last Admin: 09/24/20 09:41 Dose: 27 units Documented by: Insulin Human Lispro (Insulin Lispro 100 Unit/Ml) 0 unit SUBCUT QIDACANDBED [facility]; Protocol Last Admin: 09/24/20 09:40 Dose: 1 unit Documented by: Lactulose (Lactulose Soln 10 Gm/15 Ml 30 Ml Ud Cup) 20 gm PO DAILY PRN PRN Reason: Constipation Last Admin: 09/24/20 09:41 Dose: 20 gm Documented by: Levothyroxine Sodium (Levothyroxine 50 Mcg Tab) 50 mcg PO ACBREAKFAST [facility] Last Admin: 09/24/20 06:21 Dose: 50 mcg Documented by: Lorazepam (Lorazepam 0.5 Mg Tab) 0.5 mg PO Q6H PRN PRN Reason: Anxiety Last Admin: 09/24/20 01:42 Dose: 0.5 mg Documented by: Metoprolol Succinate (Metoprolol Succinate 25 Mg Tab.Er) 25 mg PO DAILY [facility] Last Admin: 09/24/20 09:42 Dose: 25 mg Documented by: Fesoterodine Fumarate [Toviaz] 8 Mg Tab.Sr.24h Ptom 0 mg PO DAILY [facility] Last Admin: 09/24/20 09:43 Dose: 8 mg Documented by: Rosuvastatin Calcium (Rosuvastatin 10 Mg Tab) 10 mg PO PCDINNER [facility] Last Admin: 09/23/20 18:04 Dose: 10 mg Documented by: Sertraline HCl (Sertraline 25 Mg Tab) 25 mg PO BEDTIME [facility] Last Admin: 09/23/20 20:29 Dose: 25 mg Documented by: Sodium Chloride (Sodium Chloride 0.9% 10 Ml Syringe) 10 ml FLUSH ASDIRECTED PRN PRN Reason: Keep Vein Open Last Admin: 09/21/20 15:53 Dose: 10 ml Documented by: Temazepam (Temazepam 15 Mg Cap) 15 mg PO BEDTIME PRN PRN Reason: oth Last Admin: 09/23/20 20:29 Dose: 15 mg Documented by: Triamcinolone Acetonide (Triamcinolone Acetonide 0.1% Crm 15 Gm Tube) 0 gm TOP TID PRN PRN Reason: skin complications Trospium (Trospium 20 Mg Tab) 20 mg PO BIDAC [facility] Last Admin: 09/24/20 06:21 Dose: 20 mg Documented by: Discontinued Medications Bupivacaine HCl (Bupivacaine 0.25% 10 Ml Sdv) 10 ml INJECT ONETIME ONE Stop: 09/23/20 11:24 Last Admin: 09/23/20 11:35 Dose: 10 ml Documented by: Sodium Chloride (Normal Saline) 100 mls @ 60 mls/hr IV ASDIRECTED [facility] Last Admin: 09/21/20 18:48 Dose: 60 mls/hr Documented by: Cefepime HCl 1 gm/ Premix 50 mls @ 100 mls/hr IV Q24H [facility] Last Admin: 09/23/20 21:59 Dose: 100 mls/hr Documented by: Vancomycin HCl 1 gm/Vancomycin HCl 250 mg/ Sodium Chloride 250 mls @ 166.667 mls/hr IV Q18H [facility] Last Admin: 09/24/20 01:43 Dose: 166.667 mls/hr Documented by: Azithromycin 500 mg/ Sodium (Chloride) 250 mls @ 250 mls/hr IV Q24H [facility] Last Admin: 09/23/20 20:29 Dose: 250 mls/hr Documented by: Vancomycin HCl 1 gm/ Sodium (Chloride) 250 mls @ 250 mls/hr IV ONETIME ONE Stop: 09/22/20 00:44 Last Admin: 09/22/20 01:45 Dose: Not Given Documented by: Vancomycin HCl 1 gm/ Sodium (Chloride) 250 mls @ 250 mls/hr IV ONETIME ONE Stop: 09/22/20 02:14 Last Admin: 09/22/20 01:44 Dose: 250 mls/hr Documented by: Insulin Glargine (Insulin Glarg,Human.Rec.Analog 100 Unit/Ml) 30 unit SUBCUT DAILY [facility] Last Admin: 09/23/20 08:13 Dose: 30 units Documented by: Insulin Glargine (Insulin Glarg,Human.Rec.Analog 100 Unit/Ml) 30 unit SUBCUT ONETIME ONE Stop: 09/22/20 09:41 Last Admin: 09/23/20 11:26 Dose: Not Given Documented by: Iopamidol (Iopamidol 755 Mg/Ml 100 Ml Bottle) 100 ml IVPUSH ONETIME ONE Stop: 09/21/20 18:04 Last Admin: 09/21/20 18:48 Dose: 100 ml Documented by: Morphine Sulfate (Morphine 2 Mg/Ml Syringe) 2 mg IVPUSH Q4H PRN PRN Reason: Pain (severe 7-10) Stop: 09/22/20 20:26 Fesoterodine Fumarate [Toviaz] 8 Mg Tab.Sr.24h Ptom 8 mg PO DAILY [facility] Last Admin: 09/23/20 08:18 Dose: Not Given Documented by: Non-Formulary Medication (Methylcellulose) 479 gm PO DAILY [facility] Rivaroxaban (Rivaroxaban 15 Mg Tab) 15 mg PO ONETIME ONE Stop: 09/21/20 20:01 Last Admin: 09/21/20 22:47 Dose: 15 mg Documented by: Rivaroxaban (Rivaroxaban 15 Mg Tab) 15 mg PO BID [facility] Stop: 10/11/20 23:59 Rivaroxaban (Rivaroxaban 15 Mg Tab) 15 mg PO BID [facility] Last Admin: 09/23/20 08:16 Dose: 15 mg Documented by: Rivaroxaban (Rivaroxaban 15 Mg Tab) 15 mg PO ONETIME ONE Stop: 09/21/20 22:31 Last Admin: 09/21/20 22:32 Dose: 15 mg Documented by: Sodium Chloride (Sodium Chloride 0.9% 10 Ml Syringe) 10 ml FLUSH ONETIME ONE Stop: 09/21/20 18:04 Last Admin: 09/21/20 18:48 Dose: 10 ml Documented by: Triamcinolone Acetonide (Triamcinolone Acetonide 40 Mg/Ml 1 Ml Sdv) 40 mg INJECT ONETIME ONE Stop: 09/23/20 11:25 Last Admin: 09/23/20 11:35 Dose: 40 mg Documented by: Vancomycin HCl (Pharmacy To Dose - Vancomycin) 1 dose .XX DAILY PRN PRN Reason: RX TO DOSE VANCO - Exam Physical Findings Comments:: General: Alert, Oriented, Cooperative, mild acute distress due to shortness of breath HEENT: Pupils Equal, Pupils Reactive, EOMI Neck: Supple, Trachea Midline, No JVD Lungs: Bibasilar crackles, Normal Respiratory Effort Cardiovascular: Regular Rate, Regular Rhythm GI/Abdominal Exam: Normal Bowel Sounds, Soft, Non-Tender, No Organomegaly Extremities: Right knee tenderness (improved), seems to feel fluctuated (improved), otherwise normal Inspection, Non-Tender, no Pedal Edema Skin: Warm, Dry, Intact Neurological: Normal Speech, Normal Tone, Strength Equal Bilateral, Sensation Intact Psy/Mental Status: Alert, Normal Affect, Normal Mood - Patient Data Lab Results Last 24 hrs: Laboratory Results - last 24 hr 09/23/20 09/23/20 09/23/20 Range/Units 05:50 11:15 17:48 WBC (4.23-9.07) K/mm3 RBC (4.63-6.08) M/mm3 Hgb (13.7-17.5) gm/dl Hct (40.1-51.0) % MCV (79.0-92.2) fl MCH (25.7-32.2) pg MCHC (32.2-35.5) g/dl RDW Std Deviation (35.1-43.9) fL Plt Count (163-337) K/mm3 MPV (9.4-12.3) fl Neut % (Auto) (34.0-67.9) % Lymph % (Auto) (21.8-53.1) % Webster % (Auto) (5.3-12.2) % Eos % (Auto) (0.8-7.0) Baso % (Auto) (0.1-1.2) % Neut # (Auto) (1.78-5.38) K/mm3 Lymph # (Auto) (1.32-3.57) K/mm3 Webster # (Auto) (0.30-0.82) K/mm3 Eos # (Auto) (0.04-0.54) K/mm3 Baso # (Auto) (0.01-0.08) K/mm3 Manual Slide Review Sodium (136-145) mEq/L Potassium (3.5-5.1) mEq/L Chloride (98-107) mEq/L Carbon Dioxide (21-32) mEq/L Anion Gap (5-15) BUN (7-18) mg/dL Creatinine (0.7-1.3) mg/dL Est Cr Clr Drug Dosing mL/min Estimated GFR (MDRD) (>60) mL/min BUN/Creatinine Ratio (14-18) Glucose (83-115) mg/dL POC Glucose 160 H 217 H (70-99) mg/dL Lactic Acid (0.4-2.0) mmol/L Calcium (8.5-10.1) mg/dL Total Bilirubin (0.2-1.0) mg/dL AST (15-37) U/L ALT (16-63) U/L Alkaline Phosphatase (46-116) U/L Total Protein (6.4-8.2) g/dl Albumin (3.4-5.0) g/dl Globulin gm/dL Albumin/Globulin Ratio (1-2) Procalcitonin 0.10 H ng/mL 09/23/20 09/24/20 09/24/20 Range/Units 18:37 05:12 05:12 WBC 9.56 H (4.23-9.07) K/mm3 RBC 2.95 L (4.63-6.08) M/mm3 Hgb 8.8 L (13.7-17.5) gm/dl Hct 27.6 L (40.1-51.0) % MCV 93.6 H (79.0-92.2) fl MCH 29.8 (25.7-32.2) pg MCHC 31.9 L (32.2-35.5) g/dl RDW Std Deviation 46.1 H (35.1-43.9) fL Plt Count 283 (163-337) K/mm3 MPV 8.8 L (9.4-12.3) fl Neut % (Auto) 84.7 H (34.0-67.9) % Lymph % (Auto) 9.7 L (21.8-53.1) % Webster % (Auto) 5.4 (5.3-12.2) % Eos % (Auto) 0 L (0.8-7.0) Baso % (Auto) 0.0 L (0.1-1.2) % Neut # (Auto) 8.09 H (1.78-5.38) K/mm3 Lymph # (Auto) 0.93 L (1.32-3.57) K/mm3 Webster # (Auto) 0.52 (0.30-0.82) K/mm3 Eos # (Auto) 0.00 L (0.04-0.54) K/mm3 Baso # (Auto) 0.00 L (0.01-0.08) K/mm3 Manual Slide Review Abnormal smear Sodium 137 (136-145) mEq/L Potassium 4.2 (3.5-5.1) mEq/L Chloride 103 (98-107) mEq/L Carbon Dioxide 26 (21-32) mEq/L Anion Gap 12.2 (5-15) BUN 14 (7-18) mg/dL Creatinine 0.9 (0.7-1.3) mg/dL Est Cr Clr Drug Dosing 55.94 mL/min Estimated GFR (MDRD) > 60 (>60) mL/min BUN/Creatinine Ratio 15.6 (14-18) Glucose 166 H (83-115) mg/dL POC Glucose (70-99) mg/dL Lactic Acid 2.5 H* (0.4-2.0) mmol/L Calcium 8.7 (8.5-10.1) mg/dL Total Bilirubin 0.5 (0.2-1.0) mg/dL AST 13 L (15-37) U/L ALT 20 (16-63) U/L Alkaline Phosphatase 59 (46-116) U/L Total Protein 7.0 (6.4-8.2) g/dl Albumin 2.2 L (3.4-5.0) g/dl Globulin 4.8 gm/dL Albumin/Globulin Ratio 0.5 L (1-2) Procalcitonin ng/mL 09/24/20 Range/Units 05:12 WBC (4.23-9.07) K/mm3 RBC (4.63-6.08) M/mm3 Hgb (13.7-17.5) gm/dl Hct (40.1-51.0) % MCV (79.0-92.2) fl MCH (25.7-32.2) pg MCHC (32.2-35.5) g/dl RDW Std Deviation (35.1-43.9) fL Plt Count (163-337) K/mm3 MPV (9.4-12.3) fl Neut % (Auto) (34.0-67.9) % Lymph % (Auto) (21.8-53.1) % Webster % (Auto) (5.3-12.2) % Eos % (Auto) (0.8-7.0) Baso % (Auto) (0.1-1.2) % Neut # (Auto) (1.78-5.38) K/mm3 Lymph # (Auto) (1.32-3.57) K/mm3 Webster # (Auto) (0.30-0.82) K/mm3 Eos # (Auto) (0.04-0.54) K/mm3 Baso # (Auto) (0.01-0.08) K/mm3 Manual Slide Review Sodium (136-145) mEq/L Potassium (3.5-5.1) mEq/L Chloride (98-107) mEq/L Carbon Dioxide (21-32) mEq/L Anion Gap (5-15) BUN (7-18) mg/dL Creatinine (0.7-1.3) mg/dL Est Cr Clr Drug Dosing mL/min Estimated GFR (MDRD) (>60) mL/min BUN/Creatinine Ratio (14-18) Glucose (83-115) mg/dL POC Glucose (70-99) mg/dL Lactic Acid 0.7 (0.4-2.0) mmol/L Calcium (8.5-10.1) mg/dL Total Bilirubin (0.2-1.0) mg/dL AST (15-37) U/L ALT (16-63) U/L Alkaline Phosphatase (46-116) U/L Total Protein (6.4-8.2) g/dl Albumin (3.4-5.0) g/dl Globulin gm/dL Albumin/Globulin Ratio (1-2) Procalcitonin ng/mL Result Diagrams: 09/24/20 05:12 09/24/20 05:12 Jaison Results Last 24 hrs: Microbiology 09/21/20 16:25 Aerobic Blood Culture - Preliminary Blood - Venous - Lab Draw NO GROWTH AFTER 2 DAYS Anaerobic Blood Culture - Preliminary NO GROWTH AFTER 2 DAYS 09/21/20 16:15 Aerobic Blood Culture - Preliminary Blood - Venous NO GROWTH AFTER 2 DAYS Anaerobic Blood Culture - Preliminary NO GROWTH AFTER 2 DAYS 09/22/20 10:00 Gram Stain - Final Sputum - Expectorated Sputum Culture - Preliminary Sepsis Event Note - Evaluation Sepsis Screening Result: No Definite Risk - Focused Exam Vital Signs: Vital Signs Temp Temp Pulse Pulse Resp BP BP 09/24/20 09:43 36.4 C 106 H 24 H 101/70 09/24/20 09:42 108 H 101/70 09/24/20 08:11 09/24/20 06:19 09/24/20 04:00 36.8 C 86 20 125/77 09/24/20 01:49 36.9 C 99 22 H 105/59 L Pulse Ox Pulse Ox 09/24/20 09:43 93 L 09/24/20 09:42 09/24/20 08:11 97 09/24/20 06:19 96 09/24/20 04:00 95 09/24/20 01:49 95 - Problem List Review Problem List Initiated/Reviewed/Updated: Yes - My Orders Last 24 Hours: My Active Orders 09/23/20 11:00 Fesoterodine Fumarate [Toviaz] 0 mg PO DAILY 09/23/20 14:05 Chest Physiotherapy [RT Chest Physiotherapy] [RC] ASDIRECTED 09/23/20 20:15 Lactated Ringers [Ringers, Lactated] 1,000 ml IV ASDIRECTED 09/24/20 09:00 Aspirin [Halfprin] 81 mg PO DAILY Enoxaparin [Lovenox] 40 mg SUBCUT DAILY 09/25/20 05:00 CBC WITH AUTO DIFF [HEME] DAILY COMPREHENSIVE METABOLIC PN,CMP [CHEM] DAILY 09/26/20 05:00 CBC WITH AUTO DIFF [HEME] DAILY COMPREHENSIVE METABOLIC PN,CMP [CHEM] DAILY 09/27/20 05:00 CBC WITH AUTO DIFF [HEME] DAILY COMPREHENSIVE METABOLIC PN,CMP [CHEM] DAILY - Plan Plan:: Patient is an 85-year-old male with a history of pulmonary fibrosis and diabetes who was brought to the ER due to worsening shortness of breath and generalized weakness x 1 day. Assessment: Acute on chronic hypoxic respiratory failure Pulmonary embolism Pneumonia, HCA or CAP chronic pulmonary fibrosis CAD, hx of MT HTN Hx of GI bleeding DM type 2 Hypothyroidism Chronic anemia Elevation of BNP, 1376 Right knee hematoma with arthritis Plan: 1. Continue to monitor urine telemetry. 2. Etiologies for hypoxia include pulmonary fibrosis. CT angio showed no PE and no pneumonia. Continue pulse ox. Oxygen therapy. High flow or BiPAP as needed to keep oxygen saturation greater than 92% Inhalers 3. Initially I was reported that the patient has PE. But final CT angio chest report -no PE. Discussed with the radiologist Dr. Castillo who felt no PE and suggested to do doppler to r/o DVT of legs. Doppler showed no DVT of legs. discontinued Xarelto and resumed aspirin 4. repeat chest x-ray -no acute change procalcitonin 0.10. Lactic acid went down to 0.7 Patient's wbc mildly elevated since yesterday which could be caused by right knee arthritis. I discontinued vancomycin, cefepime and azithromycin and closely monitor him. Blood culture no growth Sputum culture -gram-positive cocci, gram-positive coccobacillus and gram- negative rods. Sensitivity pending 5. Diabetic diet. Lantus to 27 units daily. Insulin sliding scales. Adjust insulin based on sugar levels 6. No history of CHF. BNP 1376. Echocardiogram pending 7. Continue metoprolol succinate 25 mg daily and hydralazine as needed for high blood pressure 8. Continue statin for CAD. Continue aspirin 9. Continue other home medications for his other chronic problems 10. Aspiration injection, right knee by Dr. Laws on 09/23/2020. Dr. Laws is on board. Really appreciate it. 11. DVT prophylaxis: 12. CODE STATUS: DNR/DNI Deposition: Length of stay greater than 96 hours due to slow response to treatment.
--- NOTE | 2020-09-24 11:01 | OR ---
DATE OF OPERATION: 09/23/2020 SURGEON: Davin Laws MD OPERATION PERFORMED: Aspiration injection, right knee. PREOPERATIVE DIAGNOSIS: Right knee osteoarthritis with effusion. POSTOPERATIVE DIAGNOSIS: Right knee hematoma with arthritis. CLIENT TECHNOLOGIES ANALYST: So Hernandez LPN. ESTIMATED BLOOD LOSS: Not applicable. COMPLICATIONS: None. CONDITION: Stable. DESCRIPTION OF PROCEDURE: The patient was identified in his room. Time-out was performed. Proper site was marked and identified. At this time, the right knee was sterilely prepped. An 18-gauge needle was then used for aspiration of the right knee and was able to get 20 mL of bloody hematoma type fluid and then 2 mL of 40 mg of Kenalog, 4 mL of 0.25% Marcaine were injected. The patient tolerated this well and will follow up with us in clinic in 2 to 3 weeks if he has any increased pain. ANESTHESIA: MMODAL /[id number]
--- NOTE | 2020-09-24 11:09 | CONS ---
CONSULTING PHYSICIAN: Davin Laws MD DATE OF CONSULTATION: 09/23/2020 CHIEF COMPLAINT: Right knee pain. HISTORY OF PRESENT ILLNESS: This is an 85-year-old gentleman who has been hospitalized for numerous issues including breathing issues that all of a sudden started increasing onset of right knee pain yesterday. He subsequently has noticed that putting weight or trying to bend the knee causes significant pain. He denies any previous injuries to the right knee or any injuries just recently. He has had off and on knee pain through the years, which he attributed to arthritis. He otherwise denies any constitutional symptoms about the right knee. OBJECTIVE: SKIN: Intact. MUSCULOSKELETAL: No erythema. Warmth is noted to the right knee. He does have 2+ effusions noted today's visit. He does have difficulty with bending the knee secondary to the pain. He has minimal medial and lateral joint line tenderness. Otherwise, stable to varus and valgus stresses. He has no calf tenderness and is neurovascularly intact, L2 through S1. RADIOGRAPHS: Venous Doppler study showed no signs of clot to the right lower extremity. ASSESSMENT: Right knee effusion. PLAN: The patient and I did discuss that this is either an effusion or possible hematoma secondary to him being on blood thinners. I would recommend aspiration and injection of the right knee. The patient at this time had the risks, benefits, complications, and alternatives discussed, and he is in agreement with this plan. Please see the procedure note for the actual procedure. KULWINDER /[id number]
[2020-09-24] MEDS: Rosuvastatin 10 MG Tab PO SCH (18:12)
[2020-09-24] MEDS: Lactated Ringers 1,000 ML IV SCH (18:18)
[2020-09-24] MEDS: Sertraline 25 MG Tab PO SCH (22:08)
[2020-09-24] MEDS: Ezetimibe 10 MG Tab PO SCH (22:08)
[2020-09-25] MEDS: Temazepam 15 MG Cap PO PRN (03:15)
[2020-09-25] MEDS: Albuterol 6.7 GM Inhaler INH SCH ×4 (03:46→20:21)
[2020-09-25] MEDS: Trospium 20 MG Tab PO SCH ×2 (06:24→16:09)
[2020-09-25] MEDS: Levothyroxine 50 MCG Tab PO SCH (06:24)
[2020-09-25] MEDS: Cholecalciferol (Vitamin D3) 25 MCG Tab PO SCH (09:36)
[2020-09-25] MEDS: Enoxaparin 40 MG/0.4 ML Syringe SUBCUT SCH (09:36)
[2020-09-25] MEDS: Metoprolol Succinate 25 MG Tab.ER PO SCH (09:36)
[2020-09-25] MEDS: Aspirin 81 MG Tab.EC PO SCH (09:36)
[2020-09-25] MEDS: guaiFENesin 600 MG Tab.ER PO SCH ×2 (09:36→22:02)
[2020-09-25] MEDS: Insulin Glarg,Human.Rec.Analog 100 Unit/ML SUBCUT SCH (09:37)
[2020-09-25] MEDS: Insulin Lispro 100 UNIT/ML 10 ML Vial SUBCUT SCH ×4 (09:37→22:04)
[2020-09-25] MEDS: FESOTERODINE FUMARATE 8 MG PO SCH (10:06)
--- NOTE | 2020-09-25 10:34 | CT ---
CT chest Technique: Multiple axial sections through the chest were obtained. Intravenous contrast was not utilized. Reconstructed coronal and sagittal images were obtained. Comparison: Prior CT chest of 09/21/20. Findings: Gallstones are seen within the gallbladder. Left-sided renal cyst is noted. Surgical clips are seen within the upper abdomen. Diffuse coronary artery calcification is seen. Thoracic aorta shows atherosclerotic change without aneurysm. No axillary adenopathy is appreciated. Diffuse interstitial change is seen throughout both lungs. This interstitial change now appears to be chronic and due to diffuse fibrosis. No pleural effusion is seen. Bone window settings were reviewed which show diffuse degenerative change within the spine. Old healed fracture is noted within the sternal manubrial junction. No acute osseous abnormality is appreciated. Impression: 1. Diffuse pulmonary fibrosis. 2. Other stable findings as noted above. Diagnostic code #2
[2020-09-25] MEDS ORDERED: Sodium Chloride 0.9% 1,000 ML IV SCH (14:45)
[2020-09-25] MEDS ORDERED: Sodium Chloride 0.9% 250 ML IV SCH (14:45)
--- NOTE | 2020-09-25 14:45 | PCM.PN ---
- General Info Date of Service: 09/25/20 Admission Dx/Problem (Free Text): Admission Diagnosis/Problem Admission Diagnosis/Problem Pulmonary embolism Subjective Update: Patient is an 85-year-old male with a history of pulmonary fibrosis and diabetes who was brought to the ER due to worsening shortness of breath and generalized weakness x 1 day. Patient still has shortness of breath which is improving. He is DNR/DNI and he refused BiPAP. He is on 5 to 6 L via nasal cannula. Tachycardia at times Blood pressure is soft at times WBC 12.44 which was 9.[address] chest - Diffuse pulmonary fibrosis. - Review of Systems Systems Review Comment:: General: Reports: No Symptoms HEENT: Reports: No Symptoms Pulmonary: Reports: Shortness of Breath Cardiovascular: Reports: No Symptoms Gastrointestinal: Reports: No Symptoms Genitourinary: Reports: No Symptoms Musculoskeletal: Reports: Joint Pain (Right knee) Skin: Reports: No Symptoms Neurological: Reports: No Symptoms Psychiatric: Reports: No Symptom - Patient Data Vitals - Most Recent: Last Vital Signs Temp 36.6 C 09/25/20 11:21 Pulse 107 H 09/25/20 11:21 Resp 16 09/25/20 11:21 BP 94/50 L 09/25/20 11:21 Pulse Ox 90 L 09/25/20 11:21 Weight - Most Recent: 69.536 kg I&O - Last 24 Hours: Intake & Output 09/24/20 09/25/20 09/25/20 22:59 06:59 14:59 Intake Total 2103 1000 Output Total 625 2225 Balance 1478 -1225 Lab Results Last 24 Hours: Laboratory Results - last 24 hr 09/24/20 09/24/20 09/25/20 Range/Units 16:27 22:11 05:00 WBC 12.44 H (4.23-9.07) K/mm3 RBC 3.03 L (4.63-6.08) M/mm3 Hgb 9.0 L (13.7-17.5) gm/dl Hct 28.4 L (40.1-51.0) % MCV 93.7 H (79.0-92.2) fl MCH 29.7 (25.7-32.2) pg MCHC 31.7 L (32.2-35.5) g/dl RDW Std Deviation 46.4 H (35.1-43.9) fL Plt Count 350 H (163-337) K/mm3 MPV 8.7 L (9.4-12.3) fl Neut % (Auto) 83.1 H (34.0-67.9) % Lymph % (Auto) 9.9 L (21.8-53.1) % [place] % (Auto) 6.8 (5.3-12.2) % Eos % (Auto) 0 L (0.8-7.0) Baso % (Auto) 0.0 L (0.1-1.2) % Neut # (Auto) 10.35 H (1.78-5.38) K/mm3 Lymph # (Auto) 1.23 L (1.32-3.57) K/mm3 [place] # (Auto) 0.84 H (0.30-0.82) K/mm3 Eos # (Auto) 0.00 L (0.04-0.54) K/mm3 Baso # (Auto) 0.00 L (0.01-0.08) K/mm3 Manual Slide Review Abnormal smear Sodium (136-145) mEq/L Potassium (3.5-5.1) mEq/L Chloride (98-107) mEq/L Carbon Dioxide (21-32) mEq/L Anion Gap (5-15) BUN (7-18) mg/dL Creatinine (0.7-1.3) mg/dL Est Cr Clr Drug Dosing mL/min Estimated GFR (MDRD) (>60) mL/min BUN/Creatinine Ratio (14-18) Glucose (83-115) mg/dL POC Glucose 161 H 204 H (70-99) mg/dL Calcium (8.5-10.1) mg/dL Total Bilirubin (0.2-1.0) mg/dL AST (15-37) U/L ALT (16-63) U/L Alkaline Phosphatase (46-116) U/L Total Protein (6.4-8.2) g/dl Albumin (3.4-5.0) g/dl Globulin gm/dL Albumin/Globulin Ratio (1-2) 09/25/20 09/25/20 09/25/20 Range/Units 05:00 05:00 11:33 WBC (4.23-9.07) K/mm3 RBC (4.63-6.08) M/mm3 Hgb (13.7-17.5) gm/dl Hct (40.1-51.0) % MCV (79.0-92.2) fl MCH (25.7-32.2) pg MCHC (32.2-35.5) g/dl RDW Std Deviation (35.1-43.9) fL Plt Count (163-337) K/mm3 MPV (9.4-12.3) fl Neut % (Auto) (34.0-67.9) % Lymph % (Auto) (21.8-53.1) % [place] % (Auto) (5.3-12.2) % Eos % (Auto) (0.8-7.0) Baso % (Auto) (0.1-1.2) % Neut # (Auto) (1.78-5.38) K/mm3 Lymph # (Auto) (1.32-3.57) K/mm3 [place] # (Auto) (0.30-0.82) K/mm3 Eos # (Auto) (0.04-0.54) K/mm3 Baso # (Auto) (0.01-0.08) K/mm3 Manual Slide Review Sodium 139 (136-145) mEq/L Potassium 4.3 (3.5-5.1) mEq/L Chloride 103 (98-107) mEq/L Carbon Dioxide 27 (21-32) mEq/L Anion Gap 13.3 (5-15) BUN 21 H (7-18) mg/dL Creatinine 0.9 (0.7-1.3) mg/dL Est Cr Clr Drug Dosing 55.72 mL/min Estimated GFR (MDRD) > 60 (>60) mL/min BUN/Creatinine Ratio 23.3 H (14-18) Glucose 155 H (83-115) mg/dL POC Glucose 141 H 323 H (70-99) mg/dL Calcium 8.7 (8.5-10.1) mg/dL Total Bilirubin 0.4 (0.2-1.0) mg/dL AST 27 (15-37) U/L ALT 28 (16-63) U/L Alkaline Phosphatase 62 (46-116) U/L Total Protein 7.0 (6.4-8.2) g/dl Albumin 2.3 L (3.4-5.0) g/dl Globulin 4.7 gm/dL Albumin/Globulin Ratio 0.5 L (1-2) Jaison Results Last 24 Hours: Microbiology 09/22/20 10:00 Gram Stain - Final Sputum - Expectorated Sputum Culture - Final Stenotrophomonas Maltophilia 09/21/20 16:25 Aerobic Blood Culture - Preliminary Blood - Venous - Lab Draw NO GROWTH AFTER 3 DAYS Anaerobic Blood Culture - Preliminary NO GROWTH AFTER 3 DAYS 09/21/20 16:15 Aerobic Blood Culture - Preliminary Blood - Venous NO GROWTH AFTER 3 DAYS Anaerobic Blood Culture - Preliminary NO GROWTH AFTER 3 DAYS Med Orders - Current: Current Medications Acetaminophen (Acetaminophen 325 Mg Tab) 650 mg PO Q6H PRN PRN Reason: Pain (Mild 1-3)/fever Last Admin: 09/23/20 08:14 Dose: 650 mg Documented by: Albuterol (Albuterol 6.7 Gm Inhaler) 0 gm INH Q6H [facility] Last Admin: 09/25/20 08:06 Dose: 2 puff Documented by: Albuterol/Ipratropium (Albuterol/Ipratropium 3.0-0.5 Mg/3 Ml Neb Soln) 3 ml NEB Q4H PRN PRN Reason: Shortness Of Breath/wheezing Last Admin: 09/23/20 14:06 Dose: 3 ml Documented by: Aspirin (Aspirin 81 Mg Tab.Ec) 81 mg PO DAILY [facility] Last Admin: 09/25/20 09:36 Dose: 81 mg Documented by: Cholecalciferol (Cholecalciferol (Vitamin D3) 25 Mcg Tab) 50 mcg PO DAILY [facility] Last Admin: 09/25/20 09:36 Dose: 50 mcg Documented by: Docusate Sodium (Docusate Sodium 100 Mg Cap) 100 mg PO BID PRN PRN Reason: Constipation Last Admin: 09/23/20 20:28 Dose: 100 mg Documented by: Ezetimibe (Ezetimibe 10 Mg Tab) 10 mg PO BEDTIME [facility] Last Admin: 09/24/20 22:08 Dose: 10 mg Documented by: Enoxaparin Sodium (Enoxaparin 40 Mg/0.4 Ml Syringe) 40 mg SUBCUT DAILY [facility] Last Admin: 09/25/20 09:36 Dose: 40 mg Documented by: Guaifenesin (Guaifenesin 600 Mg Tab.Er) 1,200 mg PO BID [facility] Last Admin: 09/25/20 09:36 Dose: 1,200 mg Documented by: Hydralazine HCl (Hydralazine 20 Mg/Ml Sdv) 10 mg IVPUSH Q4H PRN PRN Reason: Hypertension Promethazine HCl 12.5 mg/ (Sodium Chloride) 50.5 mls @ 100 mls/hr IV Q6H PRN PRN Reason: Nausea/Vomiting Lactated Ringer's (Ringers, Lactated) 1,000 mls @ 50 mls/hr IV ASDIRECTED [facility] Last Admin: 09/24/20 18:18 Dose: 50 mls/hr Documented by: Insulin Glargine (Insulin Glarg,Human.Rec.Analog 100 Unit/Ml) 27 unit SUBCUT DAILY [facility] Last Admin: 09/25/20 09:37 Dose: 27 units Documented by: Insulin Human Lispro (Insulin Lispro 100 Unit/Ml) 0 unit SUBCUT QIDACANDBED [facility]; Protocol Last Admin: 09/25/20 12:36 Dose: 4 unit Documented by: Lactulose (Lactulose Soln 10 Gm/15 Ml 30 Ml Ud Cup) 20 gm PO DAILY PRN PRN Reason: Constipation Last Admin: 09/24/20 09:41 Dose: 20 gm Documented by: Levothyroxine Sodium (Levothyroxine 50 Mcg Tab) 50 mcg PO ACBREAKFAST [facility] Last Admin: 09/25/20 06:24 Dose: 50 mcg Documented by: Lorazepam (Lorazepam 0.5 Mg Tab) 0.5 mg PO Q6H PRN PRN Reason: Anxiety Last Admin: 09/24/20 22:08 Dose: 0.5 mg Documented by: Metoprolol Succinate (Metoprolol Succinate 25 Mg Tab.Er) 25 mg PO DAILY [facility] Last Admin: 09/25/20 09:36 Dose: 25 mg Documented by: Fesoterodine Fumarate [Toviaz] 8 Mg Tab.Sr.24h Ptom 0 mg PO DAILY [facility] Last Admin: 09/25/20 10:06 Dose: 8 mg Documented by: Rosuvastatin Calcium (Rosuvastatin 10 Mg Tab) 10 mg PO PCDINNER [facility] Last Admin: 09/24/20 18:12 Dose: 10 mg Documented by: Sertraline HCl (Sertraline 25 Mg Tab) 25 mg PO BEDTIME [facility] Last Admin: 09/24/20 22:08 Dose: 25 mg Documented by: Sodium Chloride (Sodium Chloride 0.9% 10 Ml Syringe) 10 ml FLUSH ASDIRECTED PRN PRN Reason: Keep Vein Open Last Admin: 09/21/20 15:53 Dose: 10 ml Documented by: Temazepam (Temazepam 15 Mg Cap) 15 mg PO BEDTIME PRN PRN Reason: oth Last Admin: 09/25/20 03:15 Dose: 15 mg Documented by: Triamcinolone Acetonide (Triamcinolone Acetonide 0.1% Crm 15 Gm Tube) 0 gm TOP TID PRN PRN Reason: skin complications Trospium (Trospium 20 Mg Tab) 20 mg PO BIDAC [facility] Last Admin: 09/25/20 06:24 Dose: 20 mg Documented by: Discontinued Medications Bupivacaine HCl (Bupivacaine 0.25% 10 Ml Sdv) 10 ml INJECT ONETIME ONE Stop: 09/23/20 11:24 Last Admin: 09/23/20 11:35 Dose: 10 ml Documented by: Sodium Chloride (Normal Saline) 100 mls @ 60 mls/hr IV ASDIRECTED [facility] Last Admin: 09/21/20 18:48 Dose: 60 mls/hr Documented by: Cefepime HCl 1 gm/ Premix 50 mls @ 100 mls/hr IV Q24H [facility] Last Admin: 09/23/20 21:59 Dose: 100 mls/hr Documented by: Vancomycin HCl 1 gm/Vancomycin HCl 250 mg/ Sodium Chloride 250 mls @ 166.667 mls/hr IV Q18H [facility] Last Admin: 09/24/20 01:43 Dose: 166.667 mls/hr Documented by: Azithromycin 500 mg/ Sodium (Chloride) 250 mls @ 250 mls/hr IV Q24H [facility] Last Admin: 09/23/20 20:29 Dose: 250 mls/hr Documented by: Vancomycin HCl 1 gm/ Sodium (Chloride) 250 mls @ 250 mls/hr IV ONETIME ONE Stop: 09/22/20 00:44 Last Admin: 09/22/20 01:45 Dose: Not Given Documented by: Vancomycin HCl 1 gm/ Sodium (Chloride) 250 mls @ 250 mls/hr IV ONETIME ONE Stop: 09/22/20 02:14 Last Admin: 09/22/20 01:44 Dose: 250 mls/hr Documented by: Insulin Glargine (Insulin Glarg,Human.Rec.Analog 100 Unit/Ml) 30 unit SUBCUT DAILY [facility] Last Admin: 09/23/20 08:13 Dose: 30 units Documented by: Insulin Glargine (Insulin Glarg,Human.Rec.Analog 100 Unit/Ml) 30 unit SUBCUT ONETIME ONE Stop: 09/22/20 09:41 Last Admin: 09/23/20 11:26 Dose: Not Given Documented by: Insulin Glargine (Insulin Glarg,Human.Rec.Analog 100 Unit/Ml) 30 unit SUBCUT ONETIME ONE Stop: 09/23/20 09:01 Last Admin: 09/24/20 10:55 Dose: Not Given Documented by: Iopamidol (Iopamidol 755 Mg/Ml 100 Ml Bottle) 100 ml IVPUSH ONETIME ONE Stop: 09/21/20 18:04 Last Admin: 09/21/20 18:48 Dose: 100 ml Documented by: Morphine Sulfate (Morphine 2 Mg/Ml Syringe) 2 mg IVPUSH Q4H PRN PRN Reason: Pain (severe 7-10) Stop: 09/22/20 20:26 Fesoterodine Fumarate [Toviaz] 8 Mg Tab.Sr.24h Ptom 8 mg PO DAILY [facility] Last Admin: 09/23/20 08:18 Dose: Not Given Documented by: Non-Formulary Medication (Methylcellulose) 479 gm PO DAILY [facility] Rivaroxaban (Rivaroxaban 15 Mg Tab) 15 mg PO ONETIME ONE Stop: 09/21/20 20:01 Last Admin: 09/21/20 22:47 Dose: 15 mg Documented by: Rivaroxaban (Rivaroxaban 15 Mg Tab) 15 mg PO BID [facility] Stop: 10/11/20 23:59 Rivaroxaban (Rivaroxaban 15 Mg Tab) 15 mg PO BID [facility] Last Admin: 09/23/20 08:16 Dose: 15 mg Documented by: Rivaroxaban (Rivaroxaban 15 Mg Tab) 15 mg PO ONETIME ONE Stop: 09/21/20 22:31 Last Admin: 09/21/20 22:32 Dose: 15 mg Documented by: Sodium Chloride (Sodium Chloride 0.9% 10 Ml Syringe) 10 ml FLUSH ONETIME ONE Stop: 09/21/20 18:04 Last Admin: 09/21/20 18:48 Dose: 10 ml Documented by: Triamcinolone Acetonide (Triamcinolone Acetonide 40 Mg/Ml 1 Ml Sdv) 40 mg INJECT ONETIME ONE Stop: 09/23/20 11:25 Last Admin: 09/23/20 11:35 Dose: 40 mg Documented by: Vancomycin HCl (Pharmacy To Dose - Vancomycin) 1 dose .XX DAILY PRN PRN Reason: RX TO DOSE VANCO - Exam Physical Findings Comments:: General: Alert, Oriented, Cooperative, mild acute distress due to shortness of breath HEENT: Pupils Equal, Pupils Reactive, EOMI Neck: Supple, Trachea Midline, No JVD Lungs: Bibasilar crackles (improved), Normal Respiratory Effort Cardiovascular: Regular Rate, Regular Rhythm GI/Abdominal Exam: Normal Bowel Sounds, Soft, Non-Tender, No Organomegaly Extremities: Right knee tenderness (improved), seems to feel fluctuated (improved), otherwise normal Inspection, Non-Tender, no Pedal Edema Skin: Warm, Dry, Intact Neurological: Normal Speech, Normal Tone, Strength Equal Bilateral, Sensation Intact Psy/Mental Status: Alert, Normal Affect, Normal Mood - Patient Data Lab Results Last 24 hrs: Laboratory Results - last 24 hr 09/24/20 09/24/20 09/25/20 Range/Units 16:27 22:11 05:00 WBC 12.44 H (4.23-9.07) K/mm3 RBC 3.03 L (4.63-6.08) M/mm3 Hgb 9.0 L (13.7-17.5) gm/dl Hct 28.4 L (40.1-51.0) % MCV 93.7 H (79.0-92.2) fl MCH 29.7 (25.7-32.2) pg MCHC 31.7 L (32.2-35.5) g/dl RDW Std Deviation 46.4 H (35.1-43.9) fL Plt Count 350 H (163-337) K/mm3 MPV 8.7 L (9.4-12.3) fl Neut % (Auto) 83.1 H (34.0-67.9) % Lymph % (Auto) 9.9 L (21.8-53.1) % [place] % (Auto) 6.8 (5.3-12.2) % Eos % (Auto) 0 L (0.8-7.0) Baso % (Auto) 0.0 L (0.1-1.2) % Neut # (Auto) 10.35 H (1.78-5.38) K/mm3 Lymph # (Auto) 1.23 L (1.32-3.57) K/mm3 [place] # (Auto) 0.84 H (0.30-0.82) K/mm3 Eos # (Auto) 0.00 L (0.04-0.54) K/mm3 Baso # (Auto) 0.00 L (0.01-0.08) K/mm3 Manual Slide Review Abnormal smear Sodium (136-145) mEq/L Potassium (3.5-5.1) mEq/L Chloride (98-107) mEq/L Carbon Dioxide (21-32) mEq/L Anion Gap (5-15) BUN (7-18) mg/dL Creatinine (0.7-1.3) mg/dL Est Cr Clr Drug Dosing mL/min Estimated GFR (MDRD) (>60) mL/min BUN/Creatinine Ratio (14-18) Glucose (83-115) mg/dL POC Glucose 161 H 204 H (70-99) mg/dL Calcium (8.5-10.1) mg/dL Total Bilirubin (0.2-1.0) mg/dL AST (15-37) U/L ALT (16-63) U/L Alkaline Phosphatase (46-116) U/L Total Protein (6.4-8.2) g/dl Albumin (3.4-5.0) g/dl Globulin gm/dL Albumin/Globulin Ratio (1-2) 09/25/20 09/25/20 09/25/20 Range/Units 05:00 05:00 11:33 WBC (4.23-9.07) K/mm3 RBC (4.63-6.08) M/mm3 Hgb (13.7-17.5) gm/dl Hct (40.1-51.0) % MCV (79.0-92.2) fl MCH (25.7-32.2) pg MCHC (32.2-35.5) g/dl RDW Std Deviation (35.1-43.9) fL Plt Count (163-337) K/mm3 MPV (9.4-12.3) fl Neut % (Auto) (34.0-67.9) % Lymph % (Auto) (21.8-53.1) % [place] % (Auto) (5.3-12.2) % Eos % (Auto) (0.8-7.0) Baso % (Auto) (0.1-1.2) % Neut # (Auto) (1.78-5.38) K/mm3 Lymph # (Auto) (1.32-3.57) K/mm3 [place] # (Auto) (0.30-0.82) K/mm3 Eos # (Auto) (0.04-0.54) K/mm3 Baso # (Auto) (0.01-0.08) K/mm3 Manual Slide Review Sodium 139 (136-145) mEq/L Potassium 4.3 (3.5-5.1) mEq/L Chloride 103 (98-107) mEq/L Carbon Dioxide 27 (21-32) mEq/L Anion Gap 13.3 (5-15) BUN 21 H (7-18) mg/dL Creatinine 0.9 (0.7-1.3) mg/dL Est Cr Clr Drug Dosing 55.72 mL/min Estimated GFR (MDRD) > 60 (>60) mL/min BUN/Creatinine Ratio 23.3 H (14-18) Glucose 155 H (83-115) mg/dL POC Glucose 141 H 323 H (70-99) mg/dL Calcium 8.7 (8.5-10.1) mg/dL Total Bilirubin 0.4 (0.2-1.0) mg/dL AST 27 (15-37) U/L ALT 28 (16-63) U/L Alkaline Phosphatase 62 (46-116) U/L Total Protein 7.0 (6.4-8.2) g/dl Albumin 2.3 L (3.4-5.0) g/dl Globulin 4.7 gm/dL Albumin/Globulin Ratio 0.5 L (1-2) Result Diagrams: 09/25/20 05:00 09/25/20 05:00 Jaison Results Last 24 hrs: Microbiology 09/22/20 10:00 Gram Stain - Final Sputum - Expectorated Sputum Culture - Final Stenotrophomonas Maltophilia 09/21/20 16:25 Aerobic Blood Culture - Preliminary Blood - Venous - Lab Draw NO GROWTH AFTER 3 DAYS Anaerobic Blood Culture - Preliminary NO GROWTH AFTER 3 DAYS 09/21/20 16:15 Aerobic Blood Culture - Preliminary Blood - Venous NO GROWTH AFTER 3 DAYS Anaerobic Blood Culture - Preliminary NO GROWTH AFTER 3 DAYS Sepsis Event Note - Evaluation Sepsis Screening Result: No Definite Risk - Focused Exam Vital Signs: Vital Signs Temp Pulse Resp BP Pulse Ox Pulse Ox Pulse Ox 09/25/20 11:21 36.6 C 107 H 16 94/50 L 90 L 09/25/20 09:36 99 117/65 09/25/20 08:08 90 L 09/25/20 07:58 36.6 C 99 16 117/65 87 L 09/25/20 06:18 95 09/25/20 06:07 97 09/25/20 03:13 36.9 C 100 22 H 107/64 96 - Problem List Review Problem List Initiated/Reviewed/Updated: Yes - My Orders Last 24 Hours: My Active Orders 09/25/20 14:08 Urinary Catheter Removal [RC] PER UNIT ROUTINE 09/26/20 05:00 CBC WITH AUTO DIFF [HEME] DAILY COMPREHENSIVE METABOLIC PN,CMP [CHEM] DAILY 09/27/20 05:00 CBC WITH AUTO DIFF [HEME] DAILY COMPREHENSIVE METABOLIC PN,CMP [CHEM] DAILY - Plan Plan:: Patient is an 85-year-old male with a history of pulmonary fibrosis and diabetes who was brought to the ER due to worsening shortness of breath and generalized weakness x 1 day. Assessment: Acute on chronic hypoxic respiratory failure Pulmonary embolism -final CT angio report -no PE Pneumonia, HCA or CAP -final CT angio report -no pneumonia chronic pulmonary fibrosis CAD, hx of [place] HTN Hx of GI bleeding DM type 2 Hypothyroidism Chronic anemia Elevation of BNP, 1376 Right knee hematoma with arthritis Plan: 1. Continue to monitor urine telemetry. 2. Etiologies for hypoxia include pulmonary fibrosis. CT angio showed no PE and no pneumonia. Continue pulse ox. Oxygen therapy. High flow or BiPAP as needed to keep oxygen saturation greater than 92% Inhalers 3. I was initially reported by ER physician that the patient has PE. But final CT angio chest report came back next day -no PE. Discussed with the radiologist Dr. Castillo who felt no PE and suggested to do doppler to r/o DVT of legs. Doppler showed no DVT of legs. discontinued Xarelto and resumed aspirin 4. repeat chest x-ray on 09/23 -no acute change CT chest on 09/25 - Diffuse pulmonary fibrosis. No evidence of pneumonia procalcitonin on September 23 - 0.10. We will repeat procalcitonin Lactic acid went down to 0.7 WBC went up to 12.44 today Blood culture no growth Sputum culture -gram-positive cocci, gram-positive coccobacillus and gram- negative rods, Which can be from colonization I will give the patient oral azithromycin for 3 days. 5. Diabetic diet. Lantus to 27 units daily. Insulin sliding scales. Adjust insulin based on sugar levels 6. No history of CHF. BNP 1376. Echocardiogram pending 7. Continue metoprolol succinate 25 mg daily and hydralazine as needed for high blood pressure 8. Continue statin for CAD. Continue aspirin 9. Continue other home medications for his other chronic problems 10. Aspiration injection, right knee by Dr. Laws on 09/23/2020. Dr. Laws is on board. Really appreciate it. 11. DVT prophylaxis: 12. CODE STATUS: DNR/DNI Deposition: Length of stay greater than 96 hours due to slow response to treatment. SN[facility] PT OT
[2020-09-25] MEDS ORDERED: Azithromycin 250 MG Tab PO SCH (15:00)
[2020-09-25] MEDS ORDERED: LORazepam 0.5 MG Tab PO PRN (15:20)
[2020-09-25] MEDS: Rosuvastatin 10 MG Tab PO SCH (18:27)
[2020-09-25] MEDS ORDERED: Enoxaparin 80 MG/0.8 ML Syringe SUBCUT SCH ×2 (18:30→21:00)
--- NOTE | 2020-09-25 19:22 | PCM.DCSUM1 ---
Discharge Summary - Hospital Course Free Text/Narrative:: Patient is an 85-year-old male with a history of pulmonary fibrosis and diabetes who was brought to the ER due to worsening shortness of breath and generalized weakness x 1 day. Assessment: Elevation of troponin Acute ischemia CHF Acute on chronic hypoxic respiratory failure Pulmonary embolism -final CT angio report -no PE Pneumonia, HCA or CAP -final CT angio report -no pneumonia chronic pulmonary fibrosis CAD, hx of OR HTN Hx of GI bleeding DM type 2 Hypothyroidism Chronic anemia Right knee hematoma with arthritis Plan: 1. Continue to monitor urine telemetry. 2. Etiologies for hypoxia include pulmonary fibrosis. CT angio showed no PE and no pneumonia. Patient is usually on 4 L oxygen at home. Now patient needs more oxygen. Etiology could be due to cardiac ischemia. This afternoon he was found to have low multiple PVCs. EKG -sinus tachycardia; multiple ventricular premature complexes; no ST elevation. Troponin 0.230 which was negative x2 on admission BNP 3556 which was 1476 on admission Aspirin and Lipitor Lovenox 70 mg twice daily Continue pulse ox. Oxygen therapy. High flow or BiPAP as needed to keep oxygen saturation greater than 92% Inhalers 3. I was initially reported by ER physician that the patient has PE. But final CT angio chest report came back next day -no PE. Discussed with the radiologist Dr. Castillo who felt no PE and suggested to do doppler to r/o DVT of legs. Doppler showed no DVT of legs. discontinued Xarelto and resumed aspirin 4. repeat chest x-ray on 09/23 -no acute change CT chest on 09/25 - Diffuse pulmonary fibrosis. No evidence of pneumonia procalcitonin on September 23 - 0.10. We will repeat procalcitonin Lactic acid went down to 0.7 WBC went up to 12.44 today Blood culture no growth Sputum culture -gram-positive cocci, gram-positive coccobacillus and gram- negative rods, Which can be from colonization I will give the patient oral azithromycin for 3 days. 5. Diabetic diet. Lantus to 27 units daily. Insulin sliding scales. Adjust insulin based on sugar levels 6. No history of CHF. BNP 1376. Echocardiogram pending 7. Continue metoprolol succinate 25 mg daily and hydralazine as needed for high blood pressure 8. Continue statin for CAD. Continue aspirin and Lipitor 9. Continue other home medications for his other chronic problems 10. Aspiration injection, right knee by Dr. Laws on 09/23/2020. Dr. Laws is on board. Really appreciate it. The etiology for worsening shortness of breath and need of more oxygen unknown. This afternoon he was found to have multiple PVCs, elevated troponin and BNP. I am concerning about acute ischemic heart failure. 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 Spoke to Dr. Mauricio at the [facility] in [place] who graciously accepted this patient. As per Dr. Mauricio, therapeutic Lovenox at 70 mg twice daily was initiated. Discussed with the patient and family who agreed with the plan. Diagnosis: Stroke: No - Discharge Data Discharge Date: 09/25/20 Discharge Disposition: DC/Tfer to Acute Hospital 02 Condition: Poor - Referral to Home Health Primary Care Physician: Natasha Brooks MD - Patient Summary/Data Consults: Consultations 09/21/20 20:25 OT Evaluation and Treatment [CONS] Routine PT Evaluation and Treatment [CONS] Routine - Patient Instructions Diet: Diabetic Diet Activity: Bedrest - Discharge Plan *PRESCRIPTION DRUG MONITORING PROGRAM REVIEWED*: Not Applicable *COPY OF PRESCRIPTION DRUG MONITORING REPORT IN PATIENT JUDE: Not Applicable Home Medications: Home Meds Aspirin 81 mg PO DAILY 08/15/16 [History] Cholecalciferol (Vitamin D3) [Vitamin D3] 2,000 intnl unit PO DAILY 08/15/16 [History] Ezetimibe [Zetia] 10 mg PO BEDTIME 08/15/16 [History] Fesoterodine Fumarate [Toviaz] 8 mg PO DAILY 08/15/16 [History] Levothyroxine 50 mcg PO DAILY 08/15/16 [History] Metoprolol Succinate 25 mg PO DAILY 08/15/16 [History] Triamcinolone Acetonide [IJP: Triamcinolone Acetonide 0.1% Crm] 1 applic TOP ASDIRECTED PRN 08/15/16 [History] Albuterol Sulfate [Proair Hfa] 2 puff IH Q6H 01/28/18 [History] Methylcellulose [Citrucel SF] 479 gm PO DAILY 12/12/18 [History] guaiFENesin [Mucus Relief ER] 1,200 mg PO BID 12/12/18 [History] Chlorhexidine Gluconate [Chlorhexidine Gluconate 0.12% Rinse] 15 ml PO DAILY PRN 08/30/20 [History] Albuterol Sulfate [Proair Hfa] 2 puff IH Q6H 09/21/20 [History] Ipratropium/Albuterol Sulfate [Iprat-Albut 0.5-3(2.5) mg/3 ml] 3 ml IH Q4H PRN 09/21/20 [History] Sertraline [Zoloft] 25 mg PO BEDTIME 09/21/20 [History] Trospium [Sanctura] 20 mg PO BID 09/21/20 [History] Albuterol/Ipratropium [DuoNeb 3.0-0.5 MG/3 ML] 2.5 mg NEB Q2HR PRN 09/22/20 [History] guaiFENesin [Mucinex] 1,200 mg PO BID 09/22/20 [History] Azithromycin [Zithromax] 500 mg PO DAILY tablet 09/25/20 [Rx] Docusate Sodium [Colace] 100 mg PO BID PRN cap 09/25/20 [Rx] Enoxaparin [Lovenox] 70 mg SUBCUT Q12HR syringe 09/25/20 [Rx] Insulin Glarg,Human.Rec.Analog [Lantus] 27 unit SUBCUT DAILY ml 09/25/20 [Rx] Insulin Lispro [Humalog] 0 unit SUBCUT QIDACANDBED ml 09/25/20 [Rx] Lactulose [Cephulac] 20 gm PO DAILY PRN cup 09/25/20 [Rx] atorvaSTATin [Lipitor] 40 mg PO BEDTIME tablet 09/25/20 [Rx] hydrALAZINE [Apresoline] 10 mg IVPUSH Q4H PRN sdv 09/25/20 [Rx] Oxygen Flow Rate (L/min): 10 (can titrate up if needed) FiO2: 50 (can titrate up if needed) Maintain SpO2% greater than: 94 Patient Handouts: Sepsis, Diagnosis, Adult Forms: ED Department Discharge Referrals: Natasha Brooks MD [Primary Care Provider] - 10/02/20 9:00 am (check in at 9:00) Davin Laws MD [Physician] - 10/20/20 11:15 am (Follow up with Dr. Eusebia regarding your knee. Please arrive at 11:15 for check for your 11:30 appointment. ) - Discharge Summary/Plan Comment DC Time >30 min.: Yes - General Info Date of Service: 09/25/20 Admission Dx/Problem (Free Text: Admission Diagnosis/Problem Admission Diagnosis/Problem Pulmonary embolism Subjective Update: Patient is an 85-year-old male with a history of pulmonary fibrosis and diabetes who was brought to the ER due to worsening shortness of breath and generalized weakness x 1 day. Patient still has shortness of breath He is on 6 L via nasal cannula. Tachycardia at times Blood pressure is soft at times - Review of Systems General: Reports: Weakness, Fatigue HEENT: Reports: No Symptoms Pulmonary: Reports: Shortness of Breath Cardiovascular: Reports: No Symptoms Gastrointestinal: Reports: No Symptoms Genitourinary: Reports: No Symptoms Musculoskeletal: Reports: No Symptoms Skin: Reports: No Symptoms Neurological: Reports: No Symptoms Psychiatric: Reports: No Symptoms - Patient Data Vitals - Most Recent: Last Vital Signs Temp 36.6 C 09/25/20 16:19 Pulse 97 09/25/20 16:19 Resp 24 H 09/25/20 16:19 BP 95/51 L 09/25/20 16:19 Pulse Ox 99 09/25/20 17:00 Weight - Most Recent: 69.536 kg I&O - Last 24 hours: Intake & Output 09/25/20 09/25/20 09/25/20 06:59 14:59 22:59 Intake Total 1000 2060 Output Total 2225 1000 Balance -1225 1060 Lab Results - Last 24 hrs: Laboratory Results - last 24 hr 09/24/20 09/25/20 09/25/20 Range/Units 22:11 05:00 05:00 WBC 12.44 H (4.23-9.07) K/mm3 RBC 3.03 L (4.63-6.08) M/mm3 Hgb 9.0 L (13.7-17.5) gm/dl Hct 28.4 L (40.1-51.0) % MCV 93.7 H (79.0-92.2) fl MCH 29.7 (25.7-32.2) pg MCHC 31.7 L (32.2-35.5) g/dl RDW Std Deviation 46.4 H (35.1-43.9) fL Plt Count 350 H (163-337) K/mm3 MPV 8.7 L (9.4-12.3) fl Neut % (Auto) 83.1 H (34.0-67.9) % Lymph % (Auto) 9.9 L (21.8-53.1) % Meade % (Auto) 6.8 (5.3-12.2) % Eos % (Auto) 0 L (0.8-7.0) Baso % (Auto) 0.0 L (0.1-1.2) % Neut # (Auto) 10.35 H (1.78-5.38) K/mm3 Lymph # (Auto) 1.23 L (1.32-3.57) K/mm3 Meade # (Auto) 0.84 H (0.30-0.82) K/mm3 Eos # (Auto) 0.00 L (0.04-0.54) K/mm3 Baso # (Auto) 0.00 L (0.01-0.08) K/mm3 Manual Slide Review Abnormal smear Sodium 139 (136-145) mEq/L Potassium 4.3 (3.5-5.1) mEq/L Chloride 103 (98-107) mEq/L Carbon Dioxide 27 (21-32) mEq/L Anion Gap 13.3 (5-15) BUN 21 H (7-18) mg/dL Creatinine 0.9 (0.7-1.3) mg/dL Est Cr Clr Drug Dosing 55.72 mL/min Estimated GFR (MDRD) > 60 (>60) mL/min BUN/Creatinine Ratio 23.3 H (14-18) Glucose 155 H (83-115) mg/dL POC Glucose 204 H (70-99) mg/dL Calcium 8.7 (8.5-10.1) mg/dL Magnesium (1.8-2.4) mg/dl Total Bilirubin 0.4 (0.2-1.0) mg/dL AST 27 (15-37) U/L ALT 28 (16-63) U/L Alkaline Phosphatase 62 (46-116) U/L Troponin I (0.00-0.056) ng/mL NT-Pro-B Natriuret Pep (0-450) pg/mL Total Protein 7.0 (6.4-8.2) g/dl Albumin 2.3 L (3.4-5.0) g/dl Globulin 4.7 gm/dL Albumin/Globulin Ratio 0.5 L (1-2) 09/25/20 09/25/20 09/25/20 Range/Units 05:00 11:33 16:09 WBC (4.23-9.07) K/mm3 RBC (4.63-6.08) M/mm3 Hgb (13.7-17.5) gm/dl Hct (40.1-51.0) % MCV (79.0-92.2) fl MCH (25.7-32.2) pg MCHC (32.2-35.5) g/dl RDW Std Deviation (35.1-43.9) fL Plt Count (163-337) K/mm3 MPV (9.4-12.3) fl Neut % (Auto) (34.0-67.9) % Lymph % (Auto) (21.8-53.1) % Meade % (Auto) (5.3-12.2) % Eos % (Auto) (0.8-7.0) Baso % (Auto) (0.1-1.2) % Neut # (Auto) (1.78-5.38) K/mm3 Lymph # (Auto) (1.32-3.57) K/mm3 Meade # (Auto) (0.30-0.82) K/mm3 Eos # (Auto) (0.04-0.54) K/mm3 Baso # (Auto) (0.01-0.08) K/mm3 Manual Slide Review Sodium (136-145) mEq/L Potassium (3.5-5.1) mEq/L Chloride (98-107) mEq/L Carbon Dioxide (21-32) mEq/L Anion Gap (5-15) BUN (7-18) mg/dL Creatinine (0.7-1.3) mg/dL Est Cr Clr Drug Dosing mL/min Estimated GFR (MDRD) (>60) mL/min BUN/Creatinine Ratio (14-18) Glucose (83-115) mg/dL POC Glucose 141 H 323 H (70-99) mg/dL Calcium (8.5-10.1) mg/dL Magnesium 2.1 (1.8-2.4) mg/dl Total Bilirubin (0.2-1.0) mg/dL AST (15-37) U/L ALT (16-63) U/L Alkaline Phosphatase (46-116) U/L Troponin I 0.230 H* (0.00-0.056) ng/mL NT-Pro-B Natriuret Pep (0-450) pg/mL Total Protein (6.4-8.2) g/dl Albumin (3.4-5.0) g/dl Globulin gm/dL Albumin/Globulin Ratio (1-2) 09/25/20 09/25/20 Range/Units 16:09 17:36 WBC (4.23-9.07) K/mm3 RBC (4.63-6.08) M/mm3 Hgb (13.7-17.5) gm/dl Hct (40.1-51.0) % MCV (79.0-92.2) fl MCH (25.7-32.2) pg MCHC (32.2-35.5) g/dl RDW Std Deviation (35.1-43.9) fL Plt Count (163-337) K/mm3 MPV (9.4-12.3) fl Neut % (Auto) (34.0-67.9) % Lymph % (Auto) (21.8-53.1) % Meade % (Auto) (5.3-12.2) % Eos % (Auto) (0.8-7.0) Baso % (Auto) (0.1-1.2) % Neut # (Auto) (1.78-5.38) K/mm3 Lymph # (Auto) (1.32-3.57) K/mm3 Meade # (Auto) (0.30-0.82) K/mm3 Eos # (Auto) (0.04-0.54) K/mm3 Baso # (Auto) (0.01-0.08) K/mm3 Manual Slide Review Sodium (136-145) mEq/L Potassium (3.5-5.1) mEq/L Chloride (98-107) mEq/L Carbon Dioxide (21-32) mEq/L Anion Gap (5-15) BUN (7-18) mg/dL Creatinine (0.7-1.3) mg/dL Est Cr Clr Drug Dosing mL/min Estimated GFR (MDRD) (>60) mL/min BUN/Creatinine Ratio (14-18) Glucose (83-115) mg/dL POC Glucose 123 H (70-99) mg/dL Calcium (8.5-10.1) mg/dL Magnesium (1.8-2.4) mg/dl Total Bilirubin (0.2-1.0) mg/dL AST (15-37) U/L ALT (16-63) U/L Alkaline Phosphatase (46-116) U/L Troponin I (0.00-0.056) ng/mL NT-Pro-B Natriuret Pep 3556 H (0-450) pg/mL Total Protein (6.4-8.2) g/dl Albumin (3.4-5.0) g/dl Globulin gm/dL Albumin/Globulin Ratio (1-2) MICHAEL Results - Last 24 hrs: Microbiology 09/21/20 16:25 Aerobic Blood Culture - Preliminary Blood - Venous - Lab Draw NO GROWTH AFTER 4 DAYS Anaerobic Blood Culture - Preliminary NO GROWTH AFTER 4 DAYS 09/21/20 16:15 Aerobic Blood Culture - Preliminary Blood - Venous NO GROWTH AFTER 4 DAYS Anaerobic Blood Culture - Preliminary NO GROWTH AFTER 4 DAYS 09/22/20 10:00 Gram Stain - Final Sputum - Expectorated Sputum Culture - Final Stenotrophomonas Maltophilia Med Orders - Current: Current Medications Acetaminophen (Acetaminophen 325 Mg Tab) 650 mg PO Q6H PRN PRN Reason: Pain (Mild 1-3)/fever Last Admin: 09/23/20 08:14 Dose: 650 mg Documented by: Albuterol (Albuterol 6.7 Gm Inhaler) 0 gm INH Q6H CHITRA Last Admin: 09/25/20 15:48 Dose: 2 puff Documented by: Albuterol/Ipratropium (Albuterol/Ipratropium 3.0-0.5 Mg/3 Ml Neb Soln) 3 ml NEB Q4H PRN PRN Reason: Shortness Of Breath/wheezing Last Admin: 09/23/20 14:06 Dose: 3 ml Documented by: Aspirin (Aspirin 81 Mg Tab.Ec) 81 mg PO DAILY CHITRA Last Admin: 09/25/20 09:36 Dose: 81 mg Documented by: Atorvastatin Calcium (Atorvastatin 40 Mg Tab) 40 mg PO BEDTIME [facility] Azithromycin (Azithromycin 250 Mg Tab) 500 mg PO DAILY [facility] Stop: 09/27/20 09:01 Last Admin: 09/25/20 16:09 Dose: 500 mg Documented by: Cholecalciferol (Cholecalciferol (Vitamin D3) 25 Mcg Tab) 50 mcg PO DAILY [facility] Last Admin: 09/25/20 09:36 Dose: 50 mcg Documented by: Docusate Sodium (Docusate Sodium 100 Mg Cap) 100 mg PO BID PRN PRN Reason: Constipation Last Admin: 09/23/20 20:28 Dose: 100 mg Documented by: Ezetimibe (Ezetimibe 10 Mg Tab) 10 mg PO BEDTIME [facility] Last Admin: 09/24/20 22:08 Dose: 10 mg Documented by: Enoxaparin Sodium (Enoxaparin 80 Mg/0.8 Ml Syringe) 70 mg SUBCUT Q12HR [facility] Guaifenesin (Guaifenesin 600 Mg Tab.Er) 1,200 mg PO BID [facility] Last Admin: 09/25/20 09:36 Dose: 1,200 mg Documented by: Hydralazine HCl (Hydralazine 20 Mg/Ml Sdv) 10 mg IVPUSH Q4H PRN PRN Reason: Hypertension Promethazine HCl 12.5 mg/ (Sodium Chloride) 50.5 mls @ 100 mls/hr IV Q6H PRN PRN Reason: Nausea/Vomiting Sodium Chloride (Normal Saline) 1,000 mls @ 50 mls/hr IV ASDIRECTED [facility] Last Admin: 09/25/20 18:05 Dose: 50 mls/hr Documented by: Insulin Glargine (Insulin Glarg,Human.Rec.Analog 100 Unit/Ml) 27 unit SUBCUT DAILY [facility] Last Admin: 09/25/20 09:37 Dose: 27 units Documented by: Insulin Human Lispro (Insulin Lispro 100 Unit/Ml) 0 unit SUBCUT QIDACANDBED [facility]; Protocol Last Admin: 09/25/20 18:27 Dose: Not Given Documented by: Lactulose (Lactulose Soln 10 Gm/15 Ml 30 Ml Ud Cup) 20 gm PO DAILY PRN PRN Reason: Constipation Last Admin: 09/24/20 09:41 Dose: 20 gm Documented by: Levothyroxine Sodium (Levothyroxine 50 Mcg Tab) 50 mcg PO ACBREAKFAST [facility] Last Admin: 09/25/20 06:24 Dose: 50 mcg Documented by: Lorazepam (Lorazepam 0.5 Mg Tab) 0.5 mg PO DAILY PRN PRN Reason: Anxiety Metoprolol Succinate (Metoprolol Succinate 25 Mg Tab.Er) 25 mg PO DAILY [facility] Last Admin: 09/25/20 09:36 Dose: 25 mg Documented by: Fesoterodine Fumarate [Toviaz] 8 Mg Tab.Sr.24h Ptom 0 mg PO DAILY [facility] Last Admin: 09/25/20 10:06 Dose: 8 mg Documented by: Sertraline HCl (Sertraline 25 Mg Tab) 25 mg PO BEDTIME [facility] Last Admin: 09/24/20 22:08 Dose: 25 mg Documented by: Sodium Chloride (Sodium Chloride 0.9% 10 Ml Syringe) 10 ml FLUSH ASDIRECTED PRN PRN Reason: Keep Vein Open Last Admin: 09/21/20 15:53 Dose: 10 ml Documented by: Triamcinolone Acetonide (Triamcinolone Acetonide 0.1% Crm 15 Gm Tube) 0 gm TOP TID PRN PRN Reason: skin complications Trospium (Trospium 20 Mg Tab) 20 mg PO BIDAC [facility] Last Admin: 09/25/20 16:09 Dose: 20 mg Documented by: Zolpidem Tartrate (Zolpidem 5 Mg Tab) 5 mg PO BEDTIME PRN PRN Reason: Insomnia Discontinued Medications Bupivacaine HCl (Bupivacaine 0.25% 10 Ml Sdv) 10 ml INJECT ONETIME ONE Stop: 09/23/20 11:24 Last Admin: 09/23/20 11:35 Dose: 10 ml Documented by: Enoxaparin Sodium (Enoxaparin 40 Mg/0.4 Ml Syringe) 40 mg SUBCUT DAILY [facility] Last Admin: 09/25/20 09:36 Dose: 40 mg Documented by: Enoxaparin Sodium (Enoxaparin 80 Mg/0.8 Ml Syringe) 80 mg SUBCUT Q12H [facility] Sodium Chloride (Normal Saline) 100 mls @ 60 mls/hr IV ASDIRECTED [facility] Last Admin: 09/21/20 18:48 Dose: 60 mls/hr Documented by: Cefepime HCl 1 gm/ Premix 50 mls @ 100 mls/hr IV Q24H [facility] Last Admin: 09/23/20 21:59 Dose: 100 mls/hr Documented by: Vancomycin HCl 1 gm/Vancomycin HCl 250 mg/ Sodium Chloride 250 mls @ 166.667 mls/hr IV Q18H [facility] Last Admin: 09/24/20 01:43 Dose: 166.667 mls/hr Documented by: Azithromycin 500 mg/ Sodium (Chloride) 250 mls @ 250 mls/hr IV Q24H [facility] Last Admin: 09/23/20 20:29 Dose: 250 mls/hr Documented by: Vancomycin HCl 1 gm/ Sodium (Chloride) 250 mls @ 250 mls/hr IV ONETIME ONE Stop: 09/22/20 00:44 Last Admin: 09/22/20 01:45 Dose: Not Given Documented by: Vancomycin HCl 1 gm/ Sodium (Chloride) 250 mls @ 250 mls/hr IV ONETIME ONE Stop: 09/22/20 02:14 Last Admin: 09/22/20 01:44 Dose: 250 mls/hr Documented by: Lactated Ringer's (Ringers, Lactated) 1,000 mls @ 50 mls/hr IV ASDIRECTED [facility] Last Admin: 09/24/20 18:18 Dose: 50 mls/hr Documented by: Sodium Chloride (Normal Saline) 250 mls @ 150 mls/hr IV ASDIRECTED [facility] Stop: 09/25/20 16:24 Last Admin: 09/25/20 16:09 Dose: 150 mls/hr Documented by: Insulin Glargine (Insulin Glarg,Human.Rec.Analog 100 Unit/Ml) 30 unit SUBCUT DAILY [facility] Last Admin: 09/23/20 08:13 Dose: 30 units Documented by: Insulin Glargine (Insulin Glarg,Human.Rec.Analog 100 Unit/Ml) 30 unit SUBCUT ONETIME ONE Stop: 09/22/20 09:41 Last Admin: 09/23/20 11:26 Dose: Not Given Documented by: Insulin Glargine (Insulin Glarg,Human.Rec.Analog 100 Unit/Ml) 30 unit SUBCUT ONETIME ONE Stop: 09/23/20 09:01 Last Admin: 09/24/20 10:55 Dose: Not Given Documented by: Iopamidol (Iopamidol 755 Mg/Ml 100 Ml Bottle) 100 ml IVPUSH ONETIME ONE Stop: 09/21/20 18:04 Last Admin: 09/21/20 18:48 Dose: 100 ml Documented by: Lorazepam (Lorazepam 0.5 Mg Tab) 0.5 mg PO Q6H PRN PRN Reason: Anxiety Last Admin: 09/24/20 22:08 Dose: 0.5 mg Documented by: Morphine Sulfate (Morphine 2 Mg/Ml Syringe) 2 mg IVPUSH Q4H PRN PRN Reason: Pain (severe 7-10) Stop: 09/22/20 20:26 Fesoterodine Fumarate [Toviaz] 8 Mg Tab.Sr.24h Ptom 8 mg PO DAILY [facility] Last Admin: 09/23/20 08:18 Dose: Not Given Documented by: Non-Formulary Medication (Methylcellulose) 479 gm PO DAILY [facility] Rivaroxaban (Rivaroxaban 15 Mg Tab) 15 mg PO ONETIME ONE Stop: 09/21/20 20:01 Last Admin: 09/21/20 22:47 Dose: 15 mg Documented by: Rivaroxaban (Rivaroxaban 15 Mg Tab) 15 mg PO BID [facility] Stop: 10/11/20 23:59 Rivaroxaban (Rivaroxaban 15 Mg Tab) 15 mg PO BID [facility] Last Admin: 09/23/20 08:16 Dose: 15 mg Documented by: Rivaroxaban (Rivaroxaban 15 Mg Tab) 15 mg PO ONETIME ONE Stop: 09/21/20 22:31 Last Admin: 09/21/20 22:32 Dose: 15 mg Documented by: Rosuvastatin Calcium (Rosuvastatin 10 Mg Tab) 10 mg PO PCDINNER [facility] Last Admin: 09/25/20 18:27 Dose: 10 mg Documented by: Sodium Chloride (Sodium Chloride 0.9% 10 Ml Syringe) 10 ml FLUSH ONETIME ONE Stop: 09/21/20 18:04 Last Admin: 09/21/20 18:48 Dose: 10 ml Documented by: Temazepam (Temazepam 15 Mg Cap) 15 mg PO BEDTIME PRN PRN Reason: oth Last Admin: 09/25/20 03:15 Dose: 15 mg Documented by: Triamcinolone Acetonide (Triamcinolone Acetonide 40 Mg/Ml 1 Ml Sdv) 40 mg INJECT ONETIME ONE Stop: 09/23/20 11:25 Last Admin: 09/23/20 11:35 Dose: 40 mg Documented by: Vancomycin HCl (Pharmacy To Dose - Vancomycin) 1 dose .XX DAILY PRN PRN Reason: RX TO DOSE VANCO - Exam General: Reports: Alert, Oriented, Cooperative, Moderate Distress HEENT: Reports: Pupils Equal, Pupils Reactive, EOMI Neck: Reports: Supple, No JVD Lungs: Reports: Decreased Breath Sounds, Crackles Cardiovascular: Reports: Irregular Rhythm GI/Abdominal Exam: Normal Bowel Sounds, Soft, Non-Tender, No Organomegaly Extremities: Normal Inspection, Non-Tender, No Pedal Edema Skin: Reports: Warm, Dry, Intact Neurological: Reports: Normal Speech, Normal Tone, Strength Equal Bilateral, Reflexes Equal Bilateral, Sensation Intact Psy/Mental Status: Reports: Normal Mood
[2020-09-25] MEDS ORDERED: Zolpidem 5 MG Tab PO PRN (21:00)
[2020-09-25] MEDS ORDERED: atorvaSTATin 40 MG Tab PO SCH (21:00)
[2020-09-25] MEDS: Ezetimibe 10 MG Tab PO SCH (22:03)
[2020-09-25] MEDS: Sertraline 25 MG Tab PO SCH (22:04)
[2020-09-25 22:31] VITALS: BP 121/71; PULSE 102
== END 2020-09-25 23:09 | DRG 196 ==
LOC: JD.ED 15:24 → JD.MS 20:38
PROVIDERS: ADMIT Internal Medicine; ATTEND Internal Medicine
PROC: 5A0935A Assistance with Respiratory Ventilation, Less than 24 Consecutive Hours, High Flow/Velocity Cannula (ICD-10-PCS; 2020-09-22)
PROC: 0S9C3ZZ Drainage of Right Knee Joint, Percutaneous Approach (ICD-10-PCS; principal; 2020-09-23)
DX: I26.93 Single subsegmental thrombotic pulmonary embolism without acute cor pulmonale (principal); R09.02 Hypoxemia; R53.1 Weakness; J84.10 Pulmonary fibrosis, unspecified; J96.21 Acute and chronic respiratory failure with hypoxia; I24.9 Acute ischemic heart disease, unspecified; I25.10 Atherosclerotic heart disease of native coronary artery without angina pectoris; E11.9 Type 2 diabetes mellitus without complications; D64.9 Anemia, unspecified; Z66 Do not resuscitate; M19.90 Unspecified osteoarthritis, unspecified site; E03.9 Hypothyroidism, unspecified; M17.11 Unilateral primary osteoarthritis, right knee; Z85.820 Personal history of malignant melanoma of skin; H54.7 Unspecified visual loss; E78.00 Pure hypercholesterolemia, unspecified; K57.90 Diverticulosis of intestine, part unspecified, without perforation or abscess without bleeding; R32 Unspecified urinary incontinence; Z96.649 Presence of unspecified artificial hip joint; M25.461 Effusion, right knee; Z20.822 Contact with and (suspected) exposure to COVID-19; I50.9 Heart failure, unspecified; I11.0 Hypertensive heart disease with heart failure; M79.81 Nontraumatic hematoma of soft tissue; I25.2 Old myocardial infarction; Z88.8 Allergy status to other drugs, medicaments and biological substances; Z79.82 Long term (current) use of aspirin; Z79.890 Hormone replacement therapy; Z79.4 Long term (current) use of insulin; Z79.899 Other long term (current) drug therapy; Z98.49 Cataract extraction status, unspecified eye; Z87.891 Personal history of nicotine dependence; Z99.81 Dependence on supplemental oxygen
CPT/HCPCS: 0240U; 36415; 36600; 51701; 51702; 71045; 71046; 71250; 71275; 80053; 81003; 82803; 82947; 83605; 83735; 83880; 84100; 84145; 84484; 85007; 85025; 85027; 85379; 85610; 85730; 86140; 87040; 87070; 87077; 87186; 87205; 87641; 93005; 93306; 93970; 94640; 94667; 94668; 94761; 94762; 97110; 97162; 97166; 97530; 97535; 99285; 93010; A9270-GY; J0456; J0692; J1650; J1815-GY; J3301; J3370; J3490; J7030; J7050; J7120; J7620-GY; Q9967